=== PATIENT | female | born 1970 | race Caucasian/White ===

== ENCOUNTER → 2016-11-19 | Outpatient (CLI) | payer MEDICARE, MEDICAID ==
--- NOTE | 2016-11-19 10:50 | MM ---
Reason for exam: screening (asymptomatic). Baseline mammogram. History: Taking estrogen for 4 months beginning at age 45. Physical Findings: Nurse did not find any significant physical abnormalities on exam. MG 3D Screening Mammo W/Cad Bilateral CC and MLO view(s) were taken. The breast tissue is heterogeneously dense. This may lower the sensitivity of mammography. Finding: There are typically benign round calcifications in the right breast. There is no discrete abnormality. These results were verbally communicated with the patient and result sheet given to the patient on 11/19/16. ASSESSMENT: Benign, BI-RAD 2 RECOMMENDATION: Routine screening mammogram of both breasts in 1 year.
== END | disposition home or self-care (01) ==
LOC: RADMAMWWP 09:40
PROVIDERS: ATTEND Family Medicine
DX: Z12.31 Encounter for screening mammogram for malignant neoplasm of breast (principal)
CPT/HCPCS: 77063; G0202

== ENCOUNTER 2017-08-09 15:46 | Emergency (ER) | payer MEDICARE, OTHER ==
--- NOTE | 2017-08-09 16:22 | ED ---
General Adult HPI - General Stated complaint: Mental health Time Seen by Provider: 08/09/17 15:47 Source: patient, police, EMS, RN notes reviewed, old records reviewed Mode of arrival: ambulatory Limitations: no limitations - History of Present Illness Initial comments: Chief complaint and history of present illness a 46-year-old female brought in by state police and EMS. Patient is here for psychiatric evaluation. The patient states that several days ago she took 15 Lamictal because she is depressed. Today she called around to several hospitals try to get into the psychiatric program because of depression one of the hospital should she called was [facility] she thinks they called the police to bring her here because she said she was depressed. She told [facility] that she had taken the pills today she told me she took them several days ago. She is told them she took him today in order to get fast results. The patient's medications include Paxil, Risperdal and Lamictal. Her alcohol level today is 0.0 to - Related Data Home Medications Medication Instructions Recorded Confirmed Vitamin B Complex 1 cap PO DAILY 05/09/15 11/27/15 ALPRAZolam [Xanax] 0.25 mg PO TID PRN 06/20/15 11/27/15 HYDROcodone/APAP 10-325MG [[place] 1 tab PO Q6H PRN 10/11/15 11/27/15 10-325] busPIRone HCL 15 mg PO BID 11/27/15 11/27/15 Previous Rx's Medication Instructions Recorded Albuterol Inhaler [Ventolin Hfa 2 puff INHALATION RT-QID PRN #0 12/01/15 Inhaler] puff Cyclobenzaprine [Flexeril] 5 mg PO HS tab 12/01/15 HYDROcodone/APAP 5-325MG [[place] 1 each PO TID PRN #0 tab 12/01/15 5-325] Meloxicam [Mobic] 15 mg PO QAM PRN #0 tab 12/01/15 Nicotine 21Mg/24Hr Patch [Habitrol] 1 patch TRANSDERM DAILY #30 patch 12/01/15 buPROPion SR [Wellbutrin SR] 100 mg PO PC-BID #60 tablet.er 12/01/15 busPIRone HCl [Buspar] 15 mg PO TID #90 tab 12/01/15 fluPHENAZine [Prolixin] 5 mg PO BID #60 tab 12/01/15 lamoTRIgine [LaMICtal] 100 mg PO TID #90 tab 12/01/15 traZODone HCL [Desyrel] 150 mg PO HS #90 tab 12/01/15 Allergies Allergy/AdvReac Type Severity Reaction Status Date / Time codeine Allergy Itching Verified 08/09/17 15:57 Review of Systems ROS Statement: Those systems with pertinent positive or pertinent negative responses have been documented in the HPI. Review of systems; patient complained of being depressed and states she took 13- 15 Lamictal tablets several days ago. Vomited afterwards. She reported to another hospital that she had taken the medications because depression she tried to make them believe she had taken them recently. They apparently then called the police and EMS brought the patient here. Patient states her past history includes bipolar disorder and alcoholism. Patient denying chest pain shortness breath GI/ problems no neuro deficits. Patient reports she has bipolar disorder and she is depressed. Past medical problems bipolar disorder, surgery skin graft over 4. Family history no cancers. Patient has ALLERGIES to codeine. Patient is a smoker strongly encouraged to stop. She's not alcoholic [facility] twice and she is currently going to Alcoholics Anonymous. She did have alcohol recently her breath alcohol is 0.02. ROS Other: All systems not noted in ROS Statement are negative. Past Medical History Past Medical History: Asthma, Osteoarthritis (OA) Additional Past Medical History / Comment(s): Breast cancer History of Any Multi-Drug Resistant Organisms: MRSA Date of last positivie culture/infection: 2008 MDRO Source:: jaw, blood Past Surgical History: Tubal Ligation, Uterine Ablation Past Anesthesia/Blood Transfusion Reactions: No Reported Reaction Past Psychological History: Anxiety, Depression Smoking Status: Current every day smoker Past Alcohol Use History: None Reported Past Drug Use History: None Reported - Past Family History Mother Family Medical History: No Reported History General Exam - General Exam Comments Initial Comments: General: The patient is awake and alert, patient reports she did take 12th 15 Lamictal tablets 2 days ago and then vomited. States she was depressed enough time to do that. Denies taking Tylenol or aspirin other than for headache this morning. These will be checked for toxicity. Patient's breath alcohol is 0.02. Eye: Pupils are equal, round and reactive to light, extra-ocular movements are intact ; there is normal conjunctiva bilaterally. No signs of icterus. Ears, nose, mouth and throat: There are moist mucous membranes and no oral lesions. Neck: The neck is supple, there is no tenderness, no complaint of neck pain or cervical lymphadenopathy. Cardiovascular: There is a regular rate and rhythm. No murmur, rub or gallop is appreciated. Respiratory: Lungs are clear to auscultation, respirations are non-labored, breath sounds are equal. No wheezes, stridor, rales, or rhonchi. Gastrointestinal: No nausea no vomiting no abdominal pain. No change in appetite. No diarrhea. Back: Denies back pain. No rashes. Musculoskeletal: Normal ROM, no tenderness, There is no pedal edema. There is no calf tenderness or swelling. Sensation intact. Neurological: No neuro deficits complained of are noted. No dizziness. Skin: Denies any skin rashes and none noted. Psychiatric: Cooperative, history of bipolar disorder. The patient is tearful, unhappy to be at this hospital. Was trying to get into other psychiatric hospitals. History of bipolar disorder. Admit to taking 12:15 Lamictal tablets 2 days ago but vomiting shortly thereafter. Limitations: no limitations Course Vital Signs 08/09/17 15:48 Temperature 97.9 F Pulse Rate 79 Respiratory 18 Rate Blood Pressure 130/69 O2 Sat by Pulse 99 Oximetry Medical Decision Making - Medical Decision Making Medical decision making; patient's here for bipolar disorder, depression. Her filled out a petition because of mood swings and depression. Urine shows positive opiates, tricyclics and benzodiazepines. Aspirin level 0.7 which is well below toxic and in the therapeutic range she admits taking 4 headache and there earlier today. Negative . Patient be evaluated by psychiatric nurse. Patient was evaluated by the psychiatric nurse. She spoke with the on-call psychiatrist and the plans for the patient be admitted. The patient refuses to be admitted here. Her is filled out a petition concerning her mental illness. I have completed a certificate. Evidence of being made to find the patient a psychiatric bed in another facility. - Lab Data Result diagrams: 08/09/17 16:30 08/09/17 16:30 Lab Results 08/09/17 08/09/17 08/09/17 Range/Units 16:15 16:20 16:20 WBC (3.8-10.6) k/uL RBC (3.80-5.40) m/uL Hgb (11.4-16.0) gm/dL Hct (34.0-46.0) % MCV (80.0-100.0) fL MCH (25.0-35.0) pg MCHC (31.0-37.0) g/dL RDW (11.5-15.5) % Plt Count (150-450) k/uL Neutrophils % % Lymphocytes % % Monocytes % % Eosinophils % % Basophils % % Neutrophils # (1.3-7.7) k/uL Lymphocytes # (1.0-4.8) k/uL Monocytes # (0-1.0) k/uL Eosinophils # (0-0.7) k/uL Basophils # (0-0.2) k/uL Sodium (137-145) mmol/L Potassium (3.5-5.1) mmol/L Chloride (98-107) mmol/L Carbon Dioxide (22-30) mmol/L Anion Gap mmol/L BUN (7-17) mg/dL Creatinine (0.52-1.04) mg/dL Est GFR (CKD-EPI)AfAm (>60 ml/min/1.73 sqM) Est GFR (CKD-EPI)NonAf (>60 ml/min/1.73 sqM) Glucose (74-99) mg/dL Calcium (8.4-10.2) mg/dL Total Bilirubin (0.2-1.3) mg/dL AST (14-36) U/L ALT (9-52) U/L Alkaline Phosphatase (38-126) U/L Total Protein (6.3-8.2) g/dL Albumin (3.5-5.0) g/dL Urine HCG, Qual Not Detected (Not Detectd) Salicylates 7.4 mg/dL Urine Opiates Screen Detected H (NotDetected) Ur Oxycodone Screen Not Detected (NotDetected) Urine Methadone Screen Not Detected (NotDetected) Ur Propoxyphene Screen Not Detected (NotDetected) Acetaminophen 21.0 ug/mL Ur Barbiturates Screen Not Detected (NotDetected) U Tricyclic Antidepress Detected H (NotDetected) Ur Phencyclidine Scrn Not Detected (NotDetected) Ur Amphetamines Screen Not Detected (NotDetected) U Methamphetamines Scrn Not Detected (NotDetected) U Benzodiazepines Scrn Detected H (NotDetected) Urine Cocaine Screen Not Detected (NotDetected) U Marijuana (THC) Screen Not Detected (NotDetected) 08/09/17 08/09/17 Range/Units 16:30 16:30 WBC 10.3 (3.8-10.6) k/uL RBC 4.75 (3.80-5.40) m/uL Hgb 15.4 (11.4-16.0) gm/dL Hct 46.5 H (34.0-46.0) % MCV 97.9 (80.0-100.0) fL MCH 32.4 (25.0-35.0) pg MCHC 33.1 (31.0-37.0) g/dL RDW 15.4 (11.5-15.5) % Plt Count 332 (150-450) k/uL Neutrophils % 53 % Lymphocytes % 34 % Monocytes % 6 % Eosinophils % 4 % Basophils % 1 % Neutrophils # 5.5 (1.3-7.7) k/uL Lymphocytes # 3.5 (1.0-4.8) k/uL Monocytes # 0.6 (0-1.0) k/uL Eosinophils # 0.4 (0-0.7) k/uL Basophils # 0.1 (0-0.2) k/uL Sodium 141 (137-145) mmol/L Potassium 4.2 (3.5-5.1) mmol/L Chloride 110 H (98-107) mmol/L Carbon Dioxide 21 L (22-30) mmol/L Anion Gap 10 mmol/L BUN 9 (7-17) mg/dL Creatinine 0.60 (0.52-1.04) mg/dL Est GFR (CKD-EPI)AfAm >90 (>60 ml/min/1.73 sqM) Est GFR (CKD-EPI)NonAf >90 (>60 ml/min/1.73 sqM) Glucose 81 (74-99) mg/dL Calcium 9.3 (8.4-10.2) mg/dL Total Bilirubin 0.1 L (0.2-1.3) mg/dL AST 29 (14-36) U/L ALT 29 (9-52) U/L Alkaline Phosphatase 82 (38-126) U/L Total Protein 6.1 L (6.3-8.2) g/dL Albumin 3.7 (3.5-5.0) g/dL Urine HCG, Qual (Not Detectd) Salicylates mg/dL Urine Opiates Screen (NotDetected) Ur Oxycodone Screen (NotDetected) Urine Methadone Screen (NotDetected) Ur Propoxyphene Screen (NotDetected) Acetaminophen ug/mL Ur Barbiturates Screen (NotDetected) U Tricyclic Antidepress (NotDetected) Ur Phencyclidine Scrn (NotDetected) Ur Amphetamines Screen (NotDetected) U Methamphetamines Scrn (NotDetected) U Benzodiazepines Scrn (NotDetected) Urine Cocaine Screen (NotDetected) U Marijuana (THC) Screen (NotDetected) Disposition Clinical Impression: Depression, Attempted suicide Disposition: TRANSFER TO PSYCH HOSP/UNIT Condition: Undetermined Is patient prescribed a controlled substance at d/c from ED?: No Referrals: Ihsan Staples MD [Primary Care Provider] - 1-2 days - Out of Hospital Transfer - Req. Specs Out of Hospital Transfer - Requested Specifics: Psychiatric Non-ICU (Transfer to [facility])
[2017-08-09 16:37] LABS: Salicylate 7.4 mg/dL
[2017-08-09 16:38] LABS: Amphetamine Screen,Urine Not Detected (NotDetected); Barbiturate Screen,Urine Not Detected (NotDetected); Benzodiazepines Screen,Urine Detected (NotDetected); Cocaine Screen,Urine Not Detected (NotDetected); Methadone Screen, Urine Not Detected (NotDetected); Opiate Screen,Urine Detected (NotDetected); Oxycodone Screen, Urine Not Detected (NotDetected); Phencyclidine Screen,Urine Not Detected (NotDetected); Tricyclic Antidepressant,Urine Detected (NotDetected); Urn Cannabinoid Scrn Not Detected (NotDetected)
[2017-08-09 18:32] LABS: Basophils # (A) 0.1 k/uL (0-0.2); Basophils % (A) 1 %; Eosinophils # (A) 0.4 k/uL (0-0.7); Eosinophils % (A) 4 %; HCT 46.5 % (34.0-46.0); HGB 15.4 gm/dL (11.4-16.0); Lymphocytes # (A) 3.5 k/uL (1.0-4.8); Lymphocytes % (A) 34 %; MCH 32.4 pg (25.0-35.0); MCHC 33.1 g/dL (31.0-37.0); MCV 97.9 fL (80.0-100.0); Mean Platelet Volume 7.3; Monocytes # (A) 0.6 k/uL (0-1.0); Monocytes % (A) 6 %; Neutrophils # (A) 5.5 k/uL (1.3-7.7); Neutrophils % (A) 53 %; Platelet Count 332 k/uL (150-450); RBC 4.75 m/uL (3.80-5.40); RDW 15.4 % (11.5-15.5); WBC 10.3 k/uL (3.8-10.6)
[2017-08-09 18:37] LABS: ALT 29 U/L (9-52); AST 29 U/L (14-36); Albumin 3.7 g/dL (3.5-5.0); Alkaline Phosphatase 82 U/L (38-126); Anion Gap 10 mmol/L; Blood Urea Nitrogen 9 mg/dL (7-17); Calcium 9.3 mg/dL (8.4-10.2); Carbon Dioxide 21 mmol/L (22-30); Chloride 110 mmol/L (98-107); Glucose 81 mg/dL (74-99); Potassium 4.2 mmol/L (3.5-5.1); Sodium 141 mmol/L (137-145); Total Bilirubin 0.1 mg/dL (0.2-1.3); Total Protein 6.1 g/dL (6.3-8.2)
[2017-08-09 22:28] VITALS: BP 122/70; PULSE 96; RESP 15; TEMP 98.4
== END 2017-08-09 22:28 ==
LOC: EC 15:46
DX: F31.30 Bipolar disorder, current episode depressed, mild or moderate severity, unspecified (principal); T42.6X2A Poisoning by other antiepileptic and sedative-hypnotic drugs, intentional self-harm, initial encounter; R45.83 Excessive crying of child, adolescent or adult; F41.9 Anxiety disorder, unspecified; F17.200 Nicotine dependence, unspecified, uncomplicated; Z79.899 Other long term (current) drug therapy; Z88.5 Allergy status to narcotic agent; Z86.14 Personal history of Methicillin resistant Staphylococcus aureus infection
CPT/HCPCS: 36415; 80053; 80175; 80306; 81025; 82075; 83520; 85025; 99285

== ENCOUNTER 2018-04-01 14:00 | Emergency (ER) | payer MEDICARE ==
[2018-04-01] MEDS ORDERED: IPRATROPIUM-ALBUTEROL 3 ML NEB INHALATION STA (14:26)
[2018-04-01] MEDS ORDERED: SODIUM CHLORIDE 0.9% 1,000 ML IV STA (14:26)
--- NOTE | 2018-04-01 15:07 | ED ---
Chest Pain HPI - General Chief Complaint: Chest Pain Stated Complaint: Painful to breathe Time Seen by Provider: 04/01/18 14:08 Source: patient, RN notes reviewed, old records reviewed Mode of arrival: ambulatory Limitations: no limitations - History of Present Illness Initial Comments: Patient is a 47-year-old female process returns today for chest pain. She complains of shortness of breath with exertion and diaphoresis with exertion. She states it seems to worse with walking short distances the bathroom. She is a she's noticed the symptoms for the past 10 days. Symptoms seem to start after she was getting over the flu. Patient states that she is a smoker. She is no family history of heart disease. No previous history of heart disease. Patient states that she is not on any control. - Related Data Home Medications Medication Instructions Recorded Confirmed HYDROcodone/APAP 10-325MG [[place] 1 tab PO Q6H PRN 10/11/15 04/01/18 10-325] busPIRone HCL 15 mg PO BID 11/27/15 04/01/18 LORazepam [Ativan] 1 mg PO Q8H PRN 04/01/18 04/01/18 PARoxetine [Paxil] 20 mg PO HS 04/01/18 04/01/18 Previous Rx's Medication Instructions Recorded lamoTRIgine [LaMICtal] 100 mg PO TID #90 tab 12/01/15 traZODone HCL [Desyrel] 150 mg PO HS #90 tab 12/01/15 Albuterol Inhaler [Ventolin Hfa 1 - 2 puff INHALATION RT-Q6H PRN 04/01/18 Inhaler] #1 inhaler PARoxetine [Paxil] 20 mg PO DAILY #20 tab 04/01/18 Allergies Allergy/AdvReac Type Severity Reaction Status Date / Time codeine Allergy Itching Verified 04/01/18 14:52 Review of Systems ROS Statement: Those systems with pertinent positive or pertinent negative responses have been documented in the HPI. ROS Other: All systems not noted in ROS Statement are negative. EKG Findings - EKG Comments: EKG Findings:: EKG shows normal sinus rhythm, normal EKG. Ventricular rate of 76 bpm. Was 160 ms. QS duration 92 ms. QT QTc is 396/445 ms. Past Medical History Past Medical History: Asthma, Osteoarthritis (OA) Additional Past Medical History / Comment(s): Breast cancer History of Any Multi-Drug Resistant Organisms: MRSA Date of last positivie culture/infection: 2008 MDRO Source:: jaw, blood Past Surgical History: Tubal Ligation, Uterine Ablation Past Anesthesia/Blood Transfusion Reactions: No Reported Reaction Past Psychological History: Anxiety, Depression Smoking Status: Current every day smoker Past Alcohol Use History: None Reported Past Drug Use History: None Reported - Past Family History Mother Family Medical History: No Reported History General Exam Limitations: no limitations Course Vital Signs 04/01/18 04/01/18 04/01/18 14:02 15:00 15:05 Temperature 97.9 F Pulse Rate 101 H 74 85 Respiratory 18 18 16 Rate Blood Pressure 146/89 124/77 O2 Sat by Pulse 99 96 Oximetry 04/01/18 04/01/18 04/01/18 15:11 15:30 16:00 Temperature Pulse Rate 84 82 82 Respiratory 14 20 18 Rate Blood Pressure 113/81 129/72 O2 Sat by Pulse 98 98 Oximetry Chest Pain MDM - MDM Chest x-ray was negative. Patient is perk negative. EKG is normal. Normal troponin. She does still complain of chest pain and shortness of breath on exertion. I discussed her like to admit the Patient for repeat troponins and cardiac consult. Patient states that she will not stay states she does not have enough money to cover for the insurance. I discussed that with the Patient that I will still refill her albuterol inhaler but she was still satting of sick medical advice for discharge. Patient has been advised to have strict return parameters and all questions were answered. We'll also refill Patient Paxil that she conceded PCP. Disposition Clinical Impression: Chest pain Disposition: Left Against Medical Advice Condition: Stable Instructions (If sedation given, give patient instructions): Chest Pain (ED) Additional Instructions: Follow up with PCP, return to ED if any alarming signs or symptoms occur. Patient should have stress test and echo. Prescriptions: Albuterol Inhaler [Ventolin Hfa Inhaler] 1 - 2 puff INHALATION RT-Q6H PRN #1 inhaler PRN Reason: Shortness Of Breath PARoxetine [Paxil] 20 mg PO DAILY #20 tab Is patient prescribed a controlled substance at d/c from ED?: No Referrals: None,Stated [Primary Care Provider] - 1-2 days Nikia Soriano MD [STAFF PHYSICIAN] - 1-2 days Linh Gore MD [REFERRING] - 1-2 days Time of Disposition: 17:28
[2018-04-01 15:13] LABS: Basophils % (A) 0 %; Eosinophils # (A) 0.4 k/uL (0-0.7); Eosinophils % (A) 3 %; HCT 43.3 % (34.0-46.0); HGB 13.9 gm/dL (11.4-16.0); Lymphocytes # (A) 3.1 k/uL (1.0-4.8); Lymphocytes % (A) 22 %; MCH 30.7 pg (25.0-35.0); MCV 95.8 fL (80.0-100.0); Mean Platelet Volume 6.1; Monocytes # (A) 0.5 k/uL (0-1.0); Monocytes % (A) 4 %; Neutrophils # (A) 9.8 k/uL (1.3-7.7); Neutrophils % (A) 69 %; Platelet Count 447 k/uL (150-450); RBC 4.52 m/uL (3.80-5.40); RDW 13.6 % (11.5-15.5); WBC 14.2 k/uL (3.8-10.6)
[2018-04-01 15:15] LABS: ALT 18 U/L (9-52); AST 23 U/L (14-36); Albumin 4.1 g/dL (3.5-5.0); Alkaline Phosphatase 55 U/L (38-126); Amylase 42 U/L (30-110); Anion Gap 8 mmol/L; Blood Urea Nitrogen 9 mg/dL (7-17); Calcium 9.6 mg/dL (8.4-10.2); Carbon Dioxide 21 mmol/L (22-30); Chloride 110 mmol/L (98-107); Glucose 85 mg/dL (74-99); Lipase 51 U/L (23-300); Magnesium 1.8 mg/dL (1.6-2.3); Potassium 4.3 mmol/L (3.5-5.1); Sodium 139 mmol/L (137-145); Total Bilirubin 0.4 mg/dL (0.2-1.3); Total Protein 6.7 g/dL (6.3-8.2)
[2018-04-01 15:26] LABS: Prothrombin Time 10.4 sec (9.0-12.0)
[2018-04-01 15:29] LABS: Creatine Kinase 87 U/L (30-135)
[2018-04-01 15:38] LABS: Amorphous Sediment,Urine Rare /hpf; Appearance,Urine Cloudy (Clear); Bacteria,Urine Rare /hpf; Bilirubin,Urine Negative (Negative); Blood,Urine Small (Negative); Color,Urine Light Yellow; Glucose,Urine (UA) Negative (Negative); Ketones,Urine Negative (Negative); Leukocyte Esterase,Urine Negative (Negative); Nitrite,Urine Negative (Negative); PH, Urine 5.5 (5.0-8.0); Protein,Urine Negative (Negative); RBC,Urine 2 /hpf (0-5); Specific Gravity,Urine 1.004 (1.001-1.035); Squamous Epithelial Cell,Urine 9 /hpf (0-4); Urobilinogen,Urine <2.0 mg/dL (<2.0); WBC,Urine <1 /hpf (0-5)
[2018-04-01] MEDS ORDERED: PARoxetine 20 MG TAB PO STA (15:39)
[2018-04-01 15:42] LABS: Creatine Kinase MB 0.4 ng/mL (0.0-2.4); Troponin I <0.012 ng/mL (0.000-0.034)
--- NOTE | 2018-04-01 16:03 | XR ---
EXAMINATION TYPE: XR chest 2V DATE OF EXAM: 04/01/2018 COMPARISON: Prior chest x-ray 02/20/2015 HISTORY: Chest pain and shortness of breath TECHNIQUE: Frontal and lateral views of the chest are obtained. FINDINGS: There is no focal air space opacity, pleural effusion, or pneumothorax seen. The cardiac silhouette size is within normal limits. The osseous structures are intact. There are overlying car diac leads. IMPRESSION: No acute cardiopulmonary process.
[2018-04-01 16:12] VITALS: RESP 18
[2018-04-01 17:46] VITALS: BP 127/83; PULSE 80; TEMP 98.6
== END 2018-04-01 17:40 | disposition left against medical advice (07) ==
LOC: EC 14:00
DX: R07.9 Chest pain, unspecified (principal); R06.02 Shortness of breath; R61 Generalized hyperhidrosis; J45.909 Unspecified asthma, uncomplicated; M19.90 Unspecified osteoarthritis, unspecified site; F41.9 Anxiety disorder, unspecified; F32.9 Major depressive disorder, single episode, unspecified; F17.200 Nicotine dependence, unspecified, uncomplicated; Z85.3 Personal history of malignant neoplasm of breast; Z86.14 Personal history of Methicillin resistant Staphylococcus aureus infection; Z98.51 Tubal ligation status; Z98.890 Other specified postprocedural states; Z79.899 Other long term (current) drug therapy; Z88.5 Allergy status to narcotic agent
CPT/HCPCS: 36415; 71046; 80053; 81001; 82150; 82550; 82553; 83690; 83735; 84484; 85025; 85610; 85730; 93005; 94640; 96360; 96361; 99285

== ENCOUNTER 2018-05-15 17:47 | Inpatient (IN) | payer MEDICARE ==
--- NOTE | 2018-05-15 18:16 | ED ---
General Adult HPI - General Chief complaint: Psychiatric Symptoms Stated complaint: Mental Health Time Seen by Provider: 05/15/18 17:50 Source: patient, RN notes reviewed Mode of arrival: ambulatory Limitations: no limitations - History of Present Illness Initial comments: This a 47-year-old female presented emergency department stating she was having suicidal ideations today and took 15 Paxil. Patient states shortly thereafter she vomited all the Paxil up she believes. Patient states that occurred at about 2:00 this afternoon. Patient states over the last few days she's been extremely anxious and getting more and more anxious. Patient states this morning she decided to have a few. Because she thought that might settle her anxiety down. Patient states she drank from 8 to about 2 at which time she decided take Paxil. Patient states she only consumed 4 beers. patient has no physical complaints today. Patient denies headache patient denies any numbness weakness. Patient denies any chest pain difficulty breathing shortness of breath per patient denies any recent fever chills or cough per patient denies abdominal pain patient denies nausea vomiting or diarrhea. - Related Data Home Medications Medication Instructions Recorded Confirmed HYDROcodone/APAP 10-325MG [[place] 1 tab PO Q6H PRN 10/11/15 05/15/18 10-325] busPIRone HCL 15 mg PO BID 11/27/15 05/15/18 LORazepam [Ativan] 1 mg PO Q8H PRN 04/01/18 05/15/18 PARoxetine [Paxil] 20 mg PO HS 04/01/18 05/15/18 Biotin 5 mg PO DAILY 05/15/18 05/15/18 Multivitamins, Thera [Multivitamin 1 tab PO DAILY 05/15/18 05/15/18 (formulary)] Thiamine [Vitamin B-1] 50 mg PO DAILY 05/15/18 05/15/18 lamoTRIgine [LaMICtal] 150 mg PO BID 05/15/18 05/15/18 Previous Rx's Medication Instructions Recorded traZODone HCL [Desyrel] 150 mg PO HS #90 tab 12/01/15 Albuterol Inhaler [Ventolin Hfa 1 - 2 puff INHALATION RT-Q6H PRN 04/01/18 Inhaler] #1 inhaler Allergies Allergy/AdvReac Type Severity Reaction Status Date / Time codeine Allergy Itching Verified 05/15/18 18:32 Review of Systems ROS Statement: Those systems with pertinent positive or pertinent negative responses have been documented in the HPI. ROS Other: All systems not noted in ROS Statement are negative. Past Medical History Past Medical History: Asthma, Osteoarthritis (OA) Additional Past Medical History / Comment(s): Breast cancer History of Any Multi-Drug Resistant Organisms: MRSA Date of last positivie culture/infection: 2008 MDRO Source:: jaw, blood Past Surgical History: Tubal Ligation, Uterine Ablation Past Anesthesia/Blood Transfusion Reactions: No Reported Reaction Past Psychological History: Anxiety, Depression Smoking Status: Current every day smoker Past Alcohol Use History: Occasional Past Drug Use History: None Reported - Past Family History Mother Family Medical History: No Reported History General Exam - General Exam Comments Initial Comments: GENERAL Patient is well-developed and well-nourished. Patient is in mild distress. EYES Patient's pupils are equal and round. Extraocular motion is intact SKIN Unremarkable NEURO The patient is alert and oriented 3 PYSCH States she was having suicidal ideations all day. MUSCULOSKELETAL All 4 times and full range of motion. Limitations: no limitations Course Vital Signs 05/15/18 17:49 Temperature 97.6 F Pulse Rate 90 Respiratory 18 Rate Blood Pressure 111/62 O2 Sat by Pulse 98 Oximetry Medical Decision Making - Medical Decision Making EPS evaluated the patient and determined the patient needed to be brought into the psych department. - Lab Data Result diagrams: 05/15/18 18:35 05/15/18 18:35 Lab Results 05/15/18 05/15/18 05/15/18 Range/Units 18:35 18:35 18:35 WBC 12.9 H (3.8-10.6) k/uL RBC 4.55 (3.80-5.40) m/uL Hgb 14.7 (11.4-16.0) gm/dL Hct 44.7 (34.0-46.0) % MCV 98.1 (80.0-100.0) fL MCH 32.2 (25.0-35.0) pg MCHC 32.8 (31.0-37.0) g/dL RDW 14.2 (11.5-15.5) % Plt Count 350 (150-450) k/uL Neutrophils % 60 % Lymphocytes % 30 % Monocytes % 5 % Eosinophils % 3 % Basophils % 0 % Neutrophils # 7.7 (1.3-7.7) k/uL Lymphocytes # 3.9 (1.0-4.8) k/uL Monocytes # 0.6 (0-1.0) k/uL Eosinophils # 0.4 (0-0.7) k/uL Basophils # 0.0 (0-0.2) k/uL Sodium 136 L (137-145) mmol/L Potassium 4.5 (3.5-5.1) mmol/L Chloride 106 (98-107) mmol/L Carbon Dioxide 21 L (22-30) mmol/L Anion Gap 9 mmol/L BUN 11 (7-17) mg/dL Creatinine 0.61 (0.52-1.04) mg/dL Est GFR (CKD-EPI)AfAm >90 (>60 ml/min/1.73 sqM) Est GFR (CKD-EPI)NonAf >90 (>60 ml/min/1.73 sqM) Glucose 81 (74-99) mg/dL Calcium 9.8 (8.4-10.2) mg/dL Total Bilirubin 0.3 (0.2-1.3) mg/dL AST 21 (14-36) U/L ALT 24 (9-52) U/L Alkaline Phosphatase 65 (38-126) U/L Total Protein 6.6 (6.3-8.2) g/dL Albumin 4.0 (3.5-5.0) g/dL Salicylates 1.1 mg/dL Urine Opiates Screen Detected H (NotDetected) Ur Oxycodone Screen Not Detected (NotDetected) Urine Methadone Screen Not Detected (NotDetected) Ur Propoxyphene Screen Not Detected (NotDetected) Acetaminophen <10.0 ug/mL Ur Barbiturates Screen Not Detected (NotDetected) U Tricyclic Antidepress Detected H (NotDetected) Ur Phencyclidine Scrn Not Detected (NotDetected) Ur Amphetamines Screen Not Detected (NotDetected) U Methamphetamines Scrn Not Detected (NotDetected) U Benzodiazepines Scrn Not Detected (NotDetected) Urine Cocaine Screen Not Detected (NotDetected) U Marijuana (THC) Screen Not Detected (NotDetected) Disposition Clinical Impression: Suicidal ideation, Depression Disposition: ADMITTED IP TO THIS HOSP Referrals: Ihsan Staples MD [Primary Care Provider] - 1-2 days Time of Disposition: 19:59
[2018-05-15 18:45] LABS: Basophils % (A) 0 %; Eosinophils # (A) 0.4 k/uL (0-0.7); Eosinophils % (A) 3 %; HCT 44.7 % (34.0-46.0); HGB 14.7 gm/dL (11.4-16.0); Lymphocytes # (A) 3.9 k/uL (1.0-4.8); Lymphocytes % (A) 30 %; MCH 32.2 pg (25.0-35.0); MCHC 32.8 g/dL (31.0-37.0); MCV 98.1 fL (80.0-100.0); Mean Platelet Volume 6.5; Monocytes # (A) 0.6 k/uL (0-1.0); Monocytes % (A) 5 %; Neutrophils # (A) 7.7 k/uL (1.3-7.7); Neutrophils % (A) 60 %; Platelet Count 350 k/uL (150-450); RBC 4.55 m/uL (3.80-5.40); RDW 14.2 % (11.5-15.5); WBC 12.9 k/uL (3.8-10.6)
[2018-05-15 18:56] LABS: ALT 24 U/L (9-52); AST 21 U/L (14-36); Acetaminophen <10.0 ug/mL; Alkaline Phosphatase 65 U/L (38-126); Anion Gap 9 mmol/L; Blood Urea Nitrogen 11 mg/dL (7-17); Calcium 9.8 mg/dL (8.4-10.2); Carbon Dioxide 21 mmol/L (22-30); Chloride 106 mmol/L (98-107); Glucose 81 mg/dL (74-99); Potassium 4.5 mmol/L (3.5-5.1); Salicylate 1.1 mg/dL; Sodium 136 mmol/L (137-145); Total Bilirubin 0.3 mg/dL (0.2-1.3); Total Protein 6.6 g/dL (6.3-8.2)
[2018-05-15 19:08] LABS: Amphetamine Screen,Urine Not Detected (NotDetected); Barbiturate Screen,Urine Not Detected (NotDetected); Benzodiazepines Screen,Urine Not Detected (NotDetected); Cocaine Screen,Urine Not Detected (NotDetected); Methadone Screen, Urine Not Detected (NotDetected); Opiate Screen,Urine Detected (NotDetected); Oxycodone Screen, Urine Not Detected (NotDetected); Phencyclidine Screen,Urine Not Detected (NotDetected); Tricyclic Antidepressant,Urine Detected (NotDetected); Urn Cannabinoid Scrn Not Detected (NotDetected)
[2018-05-15] MEDS ORDERED: MAG HYDROX/AL HYDROX/SIMETH 30 ML CUP PO PRN (22:11)
[2018-05-15] MEDS ORDERED: MAGNESIUM HYDROXIDE 2,400 MG/10 ML CUP PO PRN (22:11)
[2018-05-16] MEDS ORDERED: ALBUTEROL NEBULIZED 1.25 MG/3 ML INHALATION PRN (01:03)
[2018-05-16 02:30] LABS: Cholesterol 161 mg/dL (<200); HDL Cholesterol 50 mg/dL (40-60); LDL Cholesterol,Calculated 50 mg/dL (0-99); Triglycerides 306 mg/dL (<150)
[2018-05-16] MEDS: NICOTINE 14MG/24HR PATCH TRANSDERM SCH ×2 (11:15→13:17)
[2018-05-16] MEDS: LORazepam 1 MG TAB PO PRN (13:16)
[2018-05-16 14:04] LABS: Hemoglobin A1C 5.8 % (4.0-6.0)
--- NOTE | 2018-05-16 16:39 | P.HP ---
Psychiatric H&P - . H&P Date: 05/16/18 History & Physical: Allergies Allergy/AdvReac Type Severity Reaction Status Date / Time codeine Allergy Itching Verified 05/15/18 18:32 Vital Signs Temp 97.0 F L 05/15/18 22:50 Pulse 92 05/15/18 22:50 Resp 16 05/15/18 22:50 BP 93/68 05/15/18 22:50 Pulse Ox 95 05/15/18 22:50 Intake & Output 05/15/18 05/16/18 05/16/18 18:59 06:59 18:59 Weight 58.967 kg 66 kg Laboratory Last Values WBC 12.9 k/uL (3.8-10.6) H 05/15/18 18:35 RBC 4.55 m/uL (3.80-5.40) 05/15/18 18:35 Hgb 14.7 gm/dL (11.4-16.0) 05/15/18 18:35 Hct 44.7 % (34.0-46.0) 05/15/18 18:35 MCV 98.1 fL (80.0-100.0) 05/15/18 18:35 MCH 32.2 pg (25.0-35.0) 05/15/18 18:35 MCHC 32.8 g/dL (31.0-37.0) 05/15/18 18:35 RDW 14.2 % (11.5-15.5) 05/15/18 18:35 Plt Count 350 k/uL (150-450) 05/15/18 18:35 Neutrophils % 60 % 05/15/18 18:35 Lymphocytes % 30 % 05/15/18 18:35 Monocytes % 5 % 05/15/18 18:35 Eosinophils % 3 % 05/15/18 18:35 Basophils % 0 % 05/15/18 18:35 Neutrophils # 7.7 k/uL (1.3-7.7) 05/15/18 18:35 Lymphocytes # 3.9 k/uL (1.0-4.8) 05/15/18 18:35 Monocytes # 0.6 k/uL (0-1.0) 05/15/18 18:35 Eosinophils # 0.4 k/uL (0-0.7) 05/15/18 18:35 Basophils # 0.0 k/uL (0-0.2) 05/15/18 18:35 Sodium 136 mmol/L (137-145) L 05/15/18 18:35 Potassium 4.5 mmol/L (3.5-5.1) 05/15/18 18:35 Chloride 106 mmol/L (98-107) 05/15/18 18:35 Carbon Dioxide 21 mmol/L (22-30) L 05/15/18 18:35 Anion Gap 9 mmol/L 05/15/18 18:35 BUN 11 mg/dL (7-17) 05/15/18 18:35 Creatinine 0.61 mg/dL (0.52-1.04) 05/15/18 18:35 Est GFR (CKD-EPI)AfAm >90 (>60 ml/min/1.73 sqM) 05/15/18 18:35 Est GFR (CKD-EPI)NonAf >90 (>60 ml/min/1.73 sqM) 05/15/18 18:35 Glucose 81 mg/dL (74-99) 05/15/18 18:[address] Glu mg/dL 120 05/15/18 18:35 Hemoglobin A1c 5.8 % (4.0-6.0) 05/15/18 18:35 Calcium 9.8 mg/dL (8.4-10.2) 05/15/18 18:35 Total Bilirubin 0.3 mg/dL (0.2-1.3) 05/15/18 18:35 AST 21 U/L (14-36) 05/15/18 18:35 ALT 24 U/L (9-52) 05/15/18 18:35 Alkaline Phosphatase 65 U/L (38-126) 05/15/18 18:35 Total Protein 6.6 g/dL (6.3-8.2) 05/15/18 18:35 Albumin 4.0 g/dL (3.5-5.0) 05/15/18 18:35 Triglycerides 306 mg/dL (<150) H 05/15/18 18:35 Cholesterol 161 mg/dL (<200) 05/15/18 18:35 LDL Cholesterol, Calc 50 mg/dL (0-99) 05/15/18 18:35 HDL Cholesterol 50 mg/dL (40-60) 05/15/18 18:35 Salicylates 1.1 mg/dL 05/15/18 18:35 Urine Opiates Screen Detected (NotDetected) H 05/15/18 18:35 Ur Oxycodone Screen Not Detected (NotDetected) 05/15/18 18:35 Urine Methadone Screen Not Detected (NotDetected) 05/15/18 18:35 Ur Propoxyphene Screen Not Detected (NotDetected) 05/15/18 18:35 Acetaminophen <10.0 ug/mL 05/15/18 18:35 Ur Barbiturates Screen Not Detected (NotDetected) 05/15/18 18:35 U Tricyclic Antidepress Detected (NotDetected) H 05/15/18 18:35 Ur Phencyclidine Scrn Not Detected (NotDetected) 05/15/18 18:35 Ur Amphetamines Screen Not Detected (NotDetected) 05/15/18 18:35 U Methamphetamines Scrn Not Detected (NotDetected) 05/15/18 18:35 U Benzodiazepines Scrn Not Detected (NotDetected) 05/15/18 18:35 Urine Cocaine Screen Not Detected (NotDetected) 05/15/18 18:35 U Marijuana (THC) Screen Not Detected (NotDetected) 05/15/18 18:35 05/16/18 16:25 IDENTIFYING DATA: A 47-year-old female patient HPI: Patient admitted to the inpatient psychiatric unit at [facility] on a voluntary basis. Patient states that she has had [id number] anxiety recently for a week or more and thinks that steroid started at. She states that the anxiety continued to persist and she started drinking to handle it. She then developed thoughts of suicide and she took 10-15 Paxil but states that she threw them all up. She says her brought her to the emergency room. She says she had been drinking daily for the last week. She admits to dealing with racing thoughts and sometimes she does worry a lot. PAST PSYCHIATRIC HISTORY: Patient goes to [facility] counseling. She sees a therapist Tisha and is prescribed medications by Roni. She states she was recently been on Paxil 20 more grams daily. Lamictal is a home medication 150 more grams twice a day. She's also been on BuSpar and trazodone. She feels like this medication regimen worked for a while. She has a history of bipolar 2 disorder and anxiety. She says she's been consistent with her medications over the past week. She's been on so many other medications in the past including Abilify which she did okay with but it has to be a low-dose or she develops akathisia. She is not sure if she is ever been on Cymbalta. She has had 5 psychiatric hospitalizations with suicide attempts which were overdoses. PMH: Says she takes painkillers for her jaw and a history of head injury ALLERGIES: Codeine MEDICATIONS: Tylenol when necessary, Maalox when necessary, Ventolin when necessary, Ativan when necessary, milk of magnesia when necessary, Habitrol patch. She was taking the above psychotropic medications as home medications which include Paxil, Lamictal, BuSpar and trazodone. CHEMICAL DEPENDENCY HISTORY: Patient reports having history of addiction to alcohol. She has had a longest sobriety period of 5 years up until about 3 years ago. Her relapses of difficulty been 1 week in duration. She has been to rehab twice and does not currently have a desire to do rehab again at this point in time. She does go to when she is not drinking. She denies any other drug use. FAMILY PSYCHIATRIC HISTORY: Cousin with bipolar disorder. Depression with her mom's dad and that side of the family. She says there is a lot of alcoholism. A lot of anxiety. FAMILY CHEMICAL DEPENDENCY HISTORY: She relays that there is a lot of alcoholism in the family. SOCIAL HISTORY: Per chart history she is . Per chart history she is on SSD. Per chart history some college education. Per chart history has 1 child. MENTAL STATUS EXAM: She is alert and cooperative with the interview. Her speech is fluent, not rapid or pressured. Thought processes are organized. Her mood is described as "subdued and anxious." She denies any active thoughts of suicide. She does state she feels safe here in the hospital. She denies any thoughts of harm to others. No evidence of active psychosis. Cognitively she appears very grossly intact. I do not note any significant disorientation or memory disturbance. Her insight is adequate, judgment shows evidence of recent impairment. STRENGTHS/WEAKNESSES: Strengthssome support; weaknessescoping skills, relapse alcohol use INTELLECTUAL FUNCTIONING: Average IMPRESSIONS: Bipolar disorder, depressed; unspecified anxiety disorder; alcohol use disorder PLAN: Patient will be admitted to inpatient psychiatric unit [facility]. She would placed on SP 15 minute precautions. Medical consultation will be ordered and Baseline laboratory workup will be done the patient we will look into any support systems we will maintain Lamictal for mood stabilization and initiate Cymbalta 30 mg daily for depression and anxiety. Estimated length of stay is 3-5 days prognosis is guarded.
[2018-05-16] MEDS: DULoxetine HCL 30 MG CAPSULE.DR PO SCH (17:32)
[2018-05-16] MEDS: lamoTRIgine 100 MG TAB PO SCH (20:06)
[2018-05-17] MEDS: lamoTRIgine 100 MG TAB PO SCH ×2 (08:35→20:18)
[2018-05-17] MEDS: NICOTINE 14MG/24HR PATCH TRANSDERM SCH (08:35)
[2018-05-17] MEDS: DULoxetine HCL 30 MG CAPSULE.DR PO SCH (08:36)
[2018-05-17] MEDS: ACETAMINOPHEN TAB 325 MG TAB PO PRN (08:38)
[2018-05-17] MEDS ORDERED: LORATADINE 10 MG TAB PO PRN (09:37)
--- NOTE | 2018-05-17 09:53 | P.CONS ---
History of Present Illness - Reason for Consult Consult date: 05/16/18 Medical management of asthma and osteoarthritis - Chief Complaint Suicidal ideation - History of Present Illness 47-year-old female presented emergency department stating she was having suicidal ideations today and took 15 Paxil. Patient states shortly thereafter she vomited all the Paxil up she believes. Patient states that occurred at about 2:00 this afternoon. Patient states over the last few days she's been extremely anxious and getting more and more anxious. Patient states this temin g she decided to have a few. Because she thought that might settle her anxiety down. Patient states she drank from 8 to about 2 at which time she decided take Paxil. Patient states she only consumed 4 beers. patient has no physical complaints today. Patient denies headache patient denies any numbness weakness. Patient denies any chest pain difficulty breathing shortness of breath per patient denies any recent fever chills or cough per patient denies abdominal pain patient denies nausea vomiting or diarrhea. Review of Systems Constitutional: Denies chills, Denies fever Eyes: denies blurred vision Cardiovascular: Denies chest pain, Denies palpitations, Denies shortness of breath Respiratory: Denies cough with sputum Gastrointestinal: Reports abdominal pain, Reports nausea, Reports vomiting Musculoskeletal: Denies frequent falls, Denies gait dysfunction Integumentary: Denies color changes, Denies rash Neurological: Denies ataxia, Denies change in speech, Denies confusion Psychiatric: Reports anxiety, Reports suicidal ideation Endocrine: Denies cold intolerance, Denies heat intolerance Past Medical History Past Medical History: Asthma, Osteoarthritis (OA) Additional Past Medical History / Comment(s): Breast cancer History of Any Multi-Drug Resistant Organisms: MRSA Year Discovered:: 2008 MDRO Source:: jaw, blood Past Surgical History: Tubal Ligation, Uterine Ablation Past Anesthesia/Blood Transfusion Reactions: No Reported Reaction Past Psychological History: Anxiety, Depression Smoking Status: Current every day smoker Past Alcohol Use History: Occasional Past Drug Use History: None Reported - Past Family History Mother Family Medical History: No Reported History Medications and Allergies Home Medications Medication Instructions Recorded Confirmed Type HYDROcodone/APAP 10-325MG [Northway 1 tab PO Q6H PRN 10/11/15 05/15/18 History 10-325] busPIRone HCL 15 mg PO BID 11/27/15 05/15/18 History traZODone HCL [Desyrel] 150 mg PO HS #90 tab 12/01/15 05/15/18 Rx Albuterol Inhaler [Ventolin Hfa 1 - 2 puff INHALATION RT-Q6H PRN 04/01/18 05/15/18 Rx Inhaler] #1 inhaler LORazepam [Ativan] 1 mg PO Q8H PRN 04/01/18 05/15/18 History PARoxetine [Paxil] 20 mg PO HS 04/01/18 05/15/18 History Biotin 5 mg PO DAILY 05/15/18 05/15/18 History Multivitamins, Thera [Multivitamin 1 tab PO DAILY 05/15/18 05/15/18 History (formulary)] Thiamine [Vitamin B-1] 50 mg PO DAILY 05/15/18 05/15/18 History lamoTRIgine [LaMICtal] 150 mg PO BID 05/15/18 05/15/18 History Allergies Allergy/AdvReac Type Severity Reaction Status Date / Time codeine Allergy Itching Verified 05/15/18 18:32 Physical Exam Vitals: Vital Signs Temp Pulse Pulse Resp BP BP Pulse Ox 05/15/18 22:50 97.0 F L 92 16 93/68 95 05/15/18 17:49 97.6 F 90 18 111/62 98 Intake and Output 05/15/18 05/16/18 05/16/18 22:59 06:59 14:59 Other: Weight 58.967 kg 66 kg - Constitutional General appearance: Present: average body habitus, cooperative, no acute distress - EENT Eyes: Present: anicteric sclerae, EOMI, PERRLA, normal appearance ENT: Present: hearing grossly normal, normal oropharynx Ears: bilateral: normal - Neck Neck: Present: normal ROM. Absent: lymphadenopathy, rigidity, thyromegaly Carotids: negative: bruit present Thyroid: bilateral: normal size, negative: enlarged, nodule - Respiratory Respiratory: bilateral: CTA, negative: rales, rhonchi, wheezing - Cardiovascular Rhythm: regular Heart sounds: normal: S1, S2 Abnormal Heart Sounds: Absent: systolic murmur, diastolic murmur - Gastrointestinal General gastrointestinal: Present: normal bowel sounds, soft. Absent: distended, organomegaly, tenderness - Genitourinary Genitourinary Comment(s): deferred - Integumentary Integumentary: Present: normal turgor. Absent: jaundiced, rash, ulcer - Neurologic Neurologic: Present: CNII-XII intact. Absent: focal deficits - Musculoskeletal Musculoskeletal: Present: gait normal, strength equal bilaterally - Psychiatric Psychiatric: Present: A&O x's 3, appropriate affect, intact judgment & insight Results CBC & Chem 7: 05/15/18 18:35 05/15/18 18:35 Labs: Abnormal Lab Results - Last 24 Hours (Table) 05/15/18 05/15/18 05/15/18 Range/Units 18:35 18:35 18:35 WBC 12.9 H (3.8-10.6) k/uL Sodium 136 L (137-145) mmol/L Carbon Dioxide 21 L (22-30) mmol/L Triglycerides (<150) mg/dL Urine Opiates Screen Detected H (NotDetected) U Tricyclic Antidepress Detected H (NotDetected) 05/15/18 Range/Units 18:35 WBC (3.8-10.6) k/uL Sodium (137-145) mmol/L Carbon Dioxide (22-30) mmol/L Triglycerides 306 H (<150) mg/dL Urine Opiates Screen (NotDetected) U Tricyclic Antidepress (NotDetected) Assessment and Plan Assessment: 1. Suicidal ideation; your management 2. Asthma; albuterol inhaler 2 puffs 4 times a day when necessary 3. Osteoarthritis; patient takes Northway at home; we agree with holding off on Northway and using Tylenol every 4 hours when necessary for aches and pains 4. Anxiety/ depression; started on Ativan 1 mg by mouth twice a day when necessary 5. Chronic tobacco use; nicotine patch; counseling done to quit smoking 6. DVT prophylaxis; ambulation CODE STATUS; full code
[2018-05-17 11:36] LABS: Appearance,Urine Cloudy (Clear); Bacteria,Urine Rare /hpf; Bilirubin,Urine Negative (Negative); Blood,Urine Moderate (Negative); Color,Urine Light Yellow; Glucose,Urine (UA) Negative (Negative); Ketones,Urine Trace (Negative); Leukocyte Esterase,Urine Small (Negative); Mucus,Urine Rare /hpf; Nitrite,Urine Negative (Negative); Protein,Urine Negative (Negative); RBC,Urine 3 /hpf (0-5); Specific Gravity,Urine 1.002 (1.001-1.035); Squamous Epithelial Cell,Urine 16 /hpf (0-4); Urobilinogen,Urine <2.0 mg/dL (<2.0); WBC,Urine 5 /hpf (0-5)
--- NOTE | 2018-05-17 16:02 | P.PN ---
Progress Note - Text Progress Note Date: 05/17/18 Interval history: Patient reports she slept about 4 hours last night. She would like to be back on her trazodone. She seems to be tolerating the Cymbalta find she does relate that it may be making her a little bit tired. She does describe overall mood is better today. She makes reference to her coming to visit [facility]. Mental status exam: She is alert and cooperative with the interview. Her speech is fluent, not rapid or pressured. Her mood appears improved today. She denies any thoughts of harm to self or others. No evidence of psychosis or agitation. Plan: Patient will be maintained on Cymbalta and Lamictal as current. We will re-add trazodone 50 motives at bedtime to help with insomnia. Monitor for any medication side effects monitor her ongoing response to treatment.
[2018-05-17] MEDS: traZODone HCL 50 MG TAB PO SCH (20:18)
[2018-05-17] MEDS: ARTIFICIAL TEARS-HYPROMELLOSE DROPS 15 ML BTL BOTH EYES PRN (20:20)
[2018-05-17] MEDS: LORazepam 1 MG TAB PO PRN (21:38)
[2018-05-18] MEDS: DULoxetine HCL 30 MG CAPSULE.DR PO SCH (09:38)
[2018-05-18] MEDS: NICOTINE 14MG/24HR PATCH TRANSDERM SCH (09:38)
[2018-05-18] MEDS: lamoTRIgine 100 MG TAB PO SCH ×2 (09:38→20:45)
[2018-05-18] MEDS: ACETAMINOPHEN TAB 325 MG TAB PO PRN (09:43)
--- NOTE | 2018-05-18 13:57 | P.PN ---
Subjective Progress Note Date: 05/18/18 Principal diagnosis: bipolar-acute psychosis; alcohol Chart reviewed, discussed with nursing staff, discussed in team this morning regarding prognosis and possible disposition. Interviewed the patient in the office and discuss her cycling mood turning in to the use of alcohol to control it and stopping her medications. She appears and agrees that she is anxious depressed appears hypomanic and presentation and constantly moving during the interview. She denies any suicidal ideation today. Objective - Vital Signs Vital signs: Vital Signs Temp 98.3 F 05/18/18 06:57 Pulse 85 05/18/18 06:57 Resp 14 05/18/18 06:57 BP 114/55 05/18/18 06:57 Pulse Ox 95 05/15/18 22:50 Intake & Output 05/17/18 05/18/18 05/18/18 18:59 06:59 18:59 Weight 60.9 kg - Labs CBC & Chem 7: 05/15/18 18:35 05/15/18 18:35 Assessment and Plan (1) Bipolar I disorder, single manic episode, severe, with psychosis Narrative/Plan: IDENTIFYING DATA: A 47-year-old female patient HPI: Patient admitted to the inpatient psychiatric unit at [facility] on a voluntary basis. Patient states that she has had [id number] anxiety recently for a week or more and thinks that steroid started at. She states that the anxiety continued to persist and she started drinking to handle it. She then developed thoughts of suicide and she took 10-15 Paxil but states that she threw them all up. She says her brought her to the emergency room. She says she had been drinking daily for the last week. She admits to dealing with racing thoughts and sometimes she does worry a lot. PAST PSYCHIATRIC HISTORY: Patient goes to [facility] counseling. She sees a therapist Tisha and is prescribed medications by Roni. She states she was recently been on Paxil 20 more grams daily. Lamictal is a home medication 150 more grams twice a day. She's also been on BuSpar and trazodone. She feels like this medication regimen worked for a while. She has a history of bipolar 2 disorder and anxiety. She says she's been consistent with her medications over the past week. She's been on so many other medications in the past including Abilify which she did okay with but it has to be a low-dose or she develops akathisia. She is not sure if she is ever been on Cymbalta. She has had 5 psychiatric hospitalizations with suicide attempts which were overdoses. PMH: Says she takes painkillers for her jaw and a history of head injury Current Visit: Yes Status: Acute Code(s): F30.2 - MANIC EPISODE, SEVERE WITH PSYCHOTIC SYMPTOMS SNOMED Code(s): 08751332 Plan: PLAN: Patient will be admitted to inpatient psychiatric unit [facility]. She would placed on SP 15 minute precautions. Medical consultation will be ordered and Baseline laboratory workup will be done the patient we will look into any support systems we will maintain Lamictal for mood stabilization and initiate Cymbalta 30 mg daily for depression and anxiety. We will increase her Cymbalta to 60 mg a day for depression and anxiety. We'll add Invega 3 mg by mouth daily at bedtime and increase her Lamictal for mood stabilization 200 mg twice a day, with the addition of Cogentin 1 mg twice a day. Anticipated discharge would be 05/20/2018 Time with Patient: Less than 30
[2018-05-18] MEDS: ARTIFICIAL TEARS-HYPROMELLOSE DROPS 15 ML BTL BOTH EYES PRN (17:29)
[2018-05-18] MEDS: traZODone HCL 50 MG TAB PO SCH (20:45)
[2018-05-18] MEDS: BENZTROPINE MESYLATE 1 MG TAB PO SCH (20:45)
[2018-05-18] MEDS: DULoxetine HCL 60 MG CAPSULE.DR PO SCH (20:45)
[2018-05-18] MEDS: LORazepam 1 MG TAB PO PRN (20:45)
[2018-05-18] MEDS ORDERED: PALIPERIDONE 3 MG TAB.ER.24 PO SCH (21:00)
[2018-05-19 06:50] VITALS: RESP 16
[2018-05-19] MEDS: NICOTINE 14MG/24HR PATCH TRANSDERM SCH (08:58)
[2018-05-19] MEDS: BENZTROPINE MESYLATE 1 MG TAB PO SCH ×2 (08:58→20:57)
[2018-05-19] MEDS: lamoTRIgine 100 MG TAB PO SCH ×2 (08:58→20:57)
[2018-05-19] MEDS: ACETAMINOPHEN TAB 325 MG TAB PO PRN (08:59)
--- NOTE | 2018-05-19 11:32 | P.PN ---
Subjective Progress Note Date: 05/19/18 Principal diagnosis: bipolar-acute psychosis; alcohol Chart reviewed, discussed with nursing staff, discussed in team this morning regarding prognosis and possible disposition. Interviewed the patient in the office and discuss her cycling mood turning in to the use of alcohol to control it and stopping her medications. She appears and agrees that she is anxious depressed appears hypomanic and presentation and constantly moving during the interview. She denies any suicidal ideation today. 05/19/2018: Chart reviewed, discussed with nursing staff, discussed with team today with possible discharge on 05/20/2018. She is annoyed by another patient tends to talk too much and gravitates to her because she is a woman. She is developed tolerance and understanding of the fellow patient. She does not have any suicidal or homicidal ideation today but still has some depression and racing thoughts. Objective - Vital Signs Vital signs: Vital Signs Temp 97.7 F 05/19/18 06:49 Pulse 70 05/19/18 06:49 Resp 16 05/19/18 06:49 BP 131/67 05/19/18 06:49 Pulse Ox 95 05/15/18 22:50 - Labs CBC & Chem 7: 05/15/18 18:35 05/15/18 18:35 Assessment and Plan (1) Bipolar I disorder, single manic episode, severe, with psychosis Narrative/Plan: IDENTIFYING DATA: A 47-year-old female patient HPI: Patient admitted to the inpatient psychiatric unit at [facility] on a voluntary basis. Patient states that she has had [id number] anxiety recently for a week or more and thinks that steroid started at. She states that the anxiety continued to persist and she started drinking to handle it. She then developed thoughts of suicide and she took 10-15 Paxil but states that she threw them all up. She says her brought her to the emergency room. She says she had been drinking daily for the last week. She admits to dealing with racing thoughts and sometimes she does worry a lot. PAST PSYCHIATRIC HISTORY: Patient goes to [facility] counseling. She sees a therapist Tisha and is prescribed medications by Roni. She states she was recently been on Paxil 20 more grams daily. Lamictal is a home medication 150 more grams twice a day. She's also been on BuSpar and trazodone. She feels like this medication regimen worked for a while. She has a history of bipolar 2 disorder and anxiety. She says she's been consistent with her medications over the past week. She's been on so many other medications in the past including Abilify which she did okay with but it has to be a low-dose or she develops akathisia. She is not sure if she is ever been on Cymbalta. She has had 5 psychiatric hospitalizations with suicide attempts which were overdoses. PMH: Says she takes painkillers for her jaw and a history of head injury MENTAL STATUS EXAM: She is alert and cooperative with the interview. Her speech is fluent, not rapid or pressured. Thought processes are organized. Her mood is described as "subdued and anxious." She denies any active thoughts of suicide. She does state she feels safe here in the hospital. She denies any thoughts of harm to others. No evidence of active psychosis. Cognitively she appears very grossly intact. I do not note any significant disorientation or memory disturbance. Her insight is adequate, judgment shows evidence of recent impairment. Current Visit: Yes Status: Acute Code(s): F30.2 - MANIC EPISODE, SEVERE WITH PSYCHOTIC SYMPTOMS SNOMED Code(s): 58087709 Plan: PLAN: [facility]. She would placed on SP 15 minute precautions. Medical consultation will be ordered and Baseline laboratory workup will be done the patient we will look into any support systems we will maintain Lamictal for mood stabilization and initiate Cymbalta 30 mg daily for depression and anxiety. We will increase her Cymbalta to 60 mg a day for depression and anxiety. We'll add Invega 3 mg by mouth daily at bedtime and increase her Lamictal for mood stabilization 200 mg twice a day, with the addition of Cogentin 1 mg twice a day. Anticipated discharge would be 05/20/2018 05/19/2018: Patient is discussed in detail with nursing staff, discussed in team today for prognosis and discharge. I will increase her Invega to 6 mg by mouth daily at bedtime and continue Lamictal and Cymbalta. Possible discharge date is 05/20/2018 depending on any side effects and benefits and risks ratio of medicine being in added to her. Time with Patient: Less than 30
[2018-05-19] MEDS: LORazepam 1 MG TAB PO PRN (20:57)
[2018-05-19] MEDS: DULoxetine HCL 60 MG CAPSULE.DR PO SCH (20:57)
[2018-05-19] MEDS: traZODone HCL 50 MG TAB PO SCH (20:58)
[2018-05-19] MEDS ORDERED: PALIPERIDONE 6 MG TAB.ER.24 PO SCH (21:00)
[2018-05-20 07:01] VITALS: BP 109/59; PULSE 87; TEMP 98
[2018-05-20] MEDS: lamoTRIgine 100 MG TAB PO SCH (07:51)
[2018-05-20] MEDS: BENZTROPINE MESYLATE 1 MG TAB PO SCH (07:51)
[2018-05-20] MEDS: NICOTINE 14MG/24HR PATCH TRANSDERM SCH (07:51)
--- NOTE | 2018-05-20 11:08 | P.DS ---
Providers Date of admission: 05/15/18 21:58 Expected date of discharge: 05/20/18 Attending physician: Malcolm Tobar DO Consults: 05/15/18 22:11 Consult Physician Routine Consulting Provider: Tamra Loza Consult Reason/Comments: MEDICAL MANAGEMENT Do you want consulting provider notified?: Yes, Notify in am Primary care physician: Ihsan Soliman Jhoan - Discharge Diagnosis(es) (1) Bipolar I disorder, single manic episode, severe, with psychosis IDENTIFYING DATA: A 47-year-old female patient HPI: Patient admitted to the inpatient psychiatric unit at [facility] on a voluntary basis. Patient states that she has had [id number]-[id number] anxiety recently for a week or more and thinks that steroid started at. She states that the anxiety continued to persist and she started drinking to handle it. She then developed thoughts of suicide and she took 10-15 Paxil but states that she threw them all up. She says her brought her to the emergency room. She says she had been drinking daily for the last week. She admits to dealing with racing thoughts and sometimes she does worry a lot. PAST PSYCHIATRIC HISTORY: Patient goes to [facility] counseling. She sees a therapist Tisha and is prescribed medications by Roni. She states she was recently been on Paxil 20 more grams daily. Lamictal is a home medication 150 more grams twice a day. She's also been on BuSpar and trazodone. She feels like this medication regimen worked for a while. She has a history of bipolar 2 disorder and anxiety. She says she's been consistent with her medications over the past week. She's been on so many other medications in the past including Abilify which she did okay with but it has to be a low-dose or she develops akathisia. She is not sure if she is ever been on Cymbalta. She has had 5 psychiatric hospitalizations with suicide attempts which were overdoses. PMH: Says she takes painkillers for her jaw and a history of head injury ALLERGIES: Codeine MEDICATIONS: Tylenol when necessary, Maalox when necessary, Ventolin when necessary, Ativan when necessary, milk of magnesia when necessary, Habitrol patch. She was taking the above psychotropic medications as home medications which include Paxil, Lamictal, BuSpar and trazodone. CHEMICAL DEPENDENCY HISTORY: Patient reports having history of addiction to alcohol. She has had a longest sobriety period of 5 years up until about 3 years ago. Her relapses of difficulty been 1 week in duration. She has been to rehab twice and does not currently have a desire to do rehab again at this point in time. She does go to when she is not drinking. She denies any other drug use. FAMILY PSYCHIATRIC HISTORY: Cousin with bipolar disorder. Depression with her mom's dad and that side of the family. She says there is a lot of alcoholism. A lot of anxiety. FAMILY CHEMICAL DEPENDENCY HISTORY: She relays that there is a lot of alcoholism in the family. SOCIAL HISTORY: Per chart history she is . Per chart history she is on SSD. Per chart history some college education. Per chart history has 1 child. Current Visit: Yes Status: Acute Priority: Low Hospital Course: PLAN: Patient was admitted to inpatient psychiatric unit [facility]. She was placed on SP 15 minute precautions. Medical consultation will be ordered and Baseline laboratory workup will be done the patient we will look into any support systems we will maintain Lamictal for mood stabilization and initiate Cymbalta 30 mg daily for depression and anxiety. We will increase her Cymbalta to 60 mg a day for depression and anxiety. We'll add Invega 3 mg by mouth daily at bedtime and increase her Lamictal for mood stabilization 200 mg twice a day, with the addition of Cogentin 1 mg twice a day. Anticipated discharge would be 05/20/2018 05/19/2018: Patient is discussed in detail with nursing staff, discussed in team today for prognosis and discharge. I will increase her Invega to 6 mg by mouth daily at bedtime and continue Lamictal and Cymbalta. Possible discharge date is 05/20/2018 depending on any side effects and benefits and risks ratio of medicine being in added to her. Mental status examination time of discharge: The patient presents alert, pleasant, and cooperative. There calmly seated without any agitated behavior. [She] reports that [her] mood is good. Affect is congruent and euthymic. [She] deny having any suicidal or homicidal ideation intent or plan. [She] denies any auditory or visual hallucinations. There is no evidence of any delusional thought content. [Her] thought process is linear and goal-directed. [Her] speech is fluent and nonpressured. [Her] memory and concentration is grossly intact for the purposes of this session. Discharge Medication List Biotin 5 mg PO DAILY 05/15/18 [History] Multivitamins, Thera [Multivitamin (formulary)] 1 tab PO DAILY 05/15/18 [History] Thiamine [Vitamin B-1] 50 mg PO DAILY 05/15/18 [History] Albuterol Inhaler [Ventolin Hfa Inhaler] 1 - 2 puff INHALATION RT-Q6H PRN 30 Days #1 inhaler 05/20/18 [Rx] Artificial Tears-Hypromellose [Artificial Tear Drops] 1 drops BOTH EYES TID PRN bottle 05/20/18 [Rx] Benztropine Mesylate [Cogentin] 1 mg PO BID 30 Days #60 tab 05/20/18 [Rx] DULoxetine HCL [Cymbalta] 60 mg PO 2100 30 Days #60 capsule. 05/20/18 [Rx] Loratadine [Claritin] 10 mg PO DAILY PRN tab 05/20/18 [Rx] Paliperidone [Invega] 6 mg PO 2100 30 Days #30 tab.er.24 05/20/18 [Rx] lamoTRIgine [LaMICtal] 200 mg PO BID 30 Days #120 tab 05/20/18 [Rx] traZODone HCL [Desyrel] 150 mg PO HS #90 tab 05/20/18 [Rx] Patient Condition at Discharge: Stable Plan - Discharge Summary Discharge Rx Participant: Yes New Discharge Prescriptions: New Artificial Tears-Hypromellose [Artificial Tear Drops] 1 drops BOTH EYES TID PRN bottle PRN Reason: Dry Eye(S) Loratadine [Claritin] 10 mg PO DAILY PRN tab PRN Reason: Allergy Symptoms Benztropine Mesylate [Cogentin] 1 mg PO BID 30 Days #60 tab DULoxetine HCL [Cymbalta] 60 mg PO 2100 30 Days #60 capsule. Paliperidone [Invega] 6 mg PO 2100 30 Days #30 tab.er.24 lamoTRIgine [LaMICtal] 200 mg PO BID 30 Days #120 tab Continue Thiamine [Vitamin B-1] 50 mg PO DAILY Multivitamins, Thera [Multivitamin (formulary)] 1 tab PO DAILY Biotin 5 mg PO DAILY traZODone HCL [Desyrel] 150 mg PO HS #90 tab Albuterol Inhaler [Ventolin Hfa Inhaler] 1 - 2 puff INHALATION RT-Q6H PRN 30 Days #1 inhaler PRN Reason: Shortness Of Breath Discontinued HYDROcodone/APAP 10-325MG [Electra 10-325] 1 tab PO Q6H PRN PRN Reason: Pain busPIRone HCL 15 mg PO BID PARoxetine [Paxil] 20 mg PO HS LORazepam [Ativan] 1 mg PO Q8H PRN PRN Reason: Severe Anxiety lamoTRIgine [LaMICtal] 150 mg PO BID Discharge Medication List Biotin 5 mg PO DAILY 05/15/18 [History] Multivitamins, Thera [Multivitamin (formulary)] 1 tab PO DAILY 05/15/18 [History] Thiamine [Vitamin B-1] 50 mg PO DAILY 05/15/18 [History] Albuterol Inhaler [Ventolin Hfa Inhaler] 1 - 2 puff INHALATION RT-Q6H PRN 30 Days #1 inhaler 05/20/18 [Rx] Artificial Tears-Hypromellose [Artificial Tear Drops] 1 drops BOTH EYES TID PRN bottle 05/20/18 [Rx] Benztropine Mesylate [Cogentin] 1 mg PO BID 30 Days #60 tab 05/20/18 [Rx] DULoxetine HCL [Cymbalta] 60 mg PO 2100 30 Days #60 capsule.dr 05/20/18 [Rx] Loratadine [Claritin] 10 mg PO DAILY PRN tab 05/20/18 [Rx] Paliperidone [Invega] 6 mg PO 2100 30 Days #30 tab.er.24 05/20/18 [Rx] lamoTRIgine [LaMICtal] 200 mg PO BID 30 Days #120 tab 05/20/18 [Rx] traZODone HCL [Desyrel] 150 mg PO HS #90 tab 05/20/18 [Rx] Follow up Appointment(s)/Referral(s): [facility] [Outside] - 05/21/18 9:00 am (Fernando Magallon ) Ihsan Staples MD [Primary Care Provider] - 1-2 days Patient Instructions/Handouts: Bipolar Disorder (DC), Depression (DC), Anxiety (GEN), Suicide Prevention (DC) Activity/Diet/Wound Care/Special Instructions: Activity and diet as tolerated. Avoid the use of street drugs and alcohol. Take all medications as prescribed. When you are in need of refills on your medications please contact your medical provider and/or outpatient psychiatrist to have this done. Please go to scheduled outpatient appointment for aftercare treatment. If symptoms return or become worse, call the crisis line at and/or go to the nearest emergency room for evaluation. Discharge Disposition: HOME SELF-CARE
== END 2018-05-20 12:32 | disposition home or self-care (01) | DRG 885 ==
LOC: EC 17:47 → 3MHU 21:58
PROVIDERS: ADMIT Psychiatry & Neurology Psychiatry; ATTEND Psychiatry & Neurology Psychiatry
DX: F31.2 Bipolar disorder, current episode manic severe with psychotic features (principal); R45.851 Suicidal ideations; Z72.89 Other problems related to lifestyle; F17.200 Nicotine dependence, unspecified, uncomplicated; F41.9 Anxiety disorder, unspecified; J45.909 Unspecified asthma, uncomplicated; M19.90 Unspecified osteoarthritis, unspecified site; Z87.828 Personal history of other (healed) physical injury and trauma; Z79.899 Other long term (current) drug therapy; Z85.3 Personal history of malignant neoplasm of breast; Z88.5 Allergy status to narcotic agent; Z86.14 Personal history of Methicillin resistant Staphylococcus aureus infection; Z81.8 Family history of other mental and behavioral disorders
CPT/HCPCS: 36415; 80053; 80061; 80306; 81001; 83036; 83520; 85025; 99285

== ENCOUNTER 2018-12-16 13:30 | Emergency (ER) | payer MEDICARE, OTHER ==
[2018-12-16 13:34] VITALS: RESP 16
--- NOTE | 2018-12-16 13:50 | ED ---
Chest Pain HPI - General Chief Complaint: Arrhythmia/Palpitations Stated Complaint: Palpitations Time Seen by Provider: 12/16/18 13:47 Source: patient Mode of arrival: ambulatory Limitations: no limitations - History of Present Illness Initial Comments: The patient is a 48-year-old female with past medical history of anxiety who presents emergency room with reported 2 weeks of palpitations. She states that she will have occasional episodes for she feels as if her heart was racing. She have associated diaphoresis. States that the symptoms will happen while she is rest. May be secondary to recent medication change. States that she was put on Topamax 6 weeks ago and does believe that this is the culprit. The medication was started by her primary care physician. States she is currently suspended from her psychiatrist's office she did miss an appointment. She denies any chest pain. Reports that when her heart rate goes high that her blood pressure will also go high. Denies a history of high blood pressure. Currently does not take any medications for blood pressure control. Denies any chest pain or shortness of breath. No history of DVT or PE. No ripping or tearing sensation to her back. Denies any calf pain or swelling. Admits taking her medication as directed. Denies any nausea, vomiting, abdominal pain. Denies any changes in her urination or bowel movements. No concern for . There are no other alleviating, precipitating or modifying factors - Related Data Home Medications Medication Instructions Recorded Confirmed Albuterol Inhaler [Ventolin Hfa 2 puff INHALATION RT-Q6H PRN 12/16/18 12/16/18 Inhaler] Budesonide/Formoterol Fumarate 2 puff INHALATION RT-BID 12/16/18 12/16/18 [Symbicort 160-4.5 Mcg Inhaler] Cetirizine HCl 10 mg PO DAILY 12/16/18 12/16/18 Cyclobenzaprine [Flexeril] 10 mg PO TID 12/16/18 12/16/18 Folic Acid 1 mg PO DAILY 12/16/18 12/16/18 L.acidoph,Paracasei, B.lactis 1 cap PO DAILY 12/16/18 12/16/18 [Probiotic] LORazepam [Ativan] 1 mg PO DAILY PRN 12/16/18 12/16/18 Nicotine 21Mg/24Hr Patch [Habitrol] 21 mg TOPICAL DAILY 12/16/18 12/16/18 PARoxetine [Paxil] 20 mg PO DAILY 12/16/18 12/16/18 Topiramate 50 mg PO BID 12/16/18 12/16/18 Umeclidinium Brm/Vilanterol Tr 1 puff INHALATION RT-DAILY 12/16/18 12/16/18 [Anoro Ellipta 62.5-25 Mcg INH] lamoTRIgine [LaMICtal] 150 mg PO HS 12/16/18 12/16/18 traZODone HCL 150 mg PO HS 12/16/18 12/16/18 Allergies Allergy/AdvReac Type Severity Reaction Status Date / Time codeine Allergy Itching Verified 12/16/18 14:16 Review of Systems ROS Statement: Those systems with pertinent positive or pertinent negative responses have been documented in the HPI. ROS Other: All systems not noted in ROS Statement are negative. EKG Findings - EKG Comments: EKG Findings:: EKG demonstrates a normal sinus rhythm with a ventricular rate of 80. MS interval 166. QRS 88. QTC 419. There are no acute ST segment elevations or depressions concerning for ischemic changes. No signs of Ajzax-Lfbejcuuc-Upqjn or Brugada Past Medical History Past Medical History: Asthma, Osteoarthritis (OA) Additional Past Medical History / Comment(s): Breast cancer History of Any Multi-Drug Resistant Organisms: MRSA Date of last positivie culture/infection: 2008 MDRO Source:: jaw, blood Past Surgical History: Tubal Ligation, Uterine Ablation Past Anesthesia/Blood Transfusion Reactions: No Reported Reaction Past Psychological History: Anxiety, Depression Smoking Status: Current every day smoker Past Alcohol Use History: Occasional Past Drug Use History: None Reported - Past Family History Mother Family Medical History: No Reported History General Exam Limitations: no limitations General appearance: alert, in no apparent distress, anxious Head exam: Present: atraumatic, normocephalic, normal inspection Eye exam: Present: normal appearance, PERRL, EOMI. Absent: scleral icterus, conjunctival injection, periorbital swelling ENT exam: Present: normal exam, mucous membranes moist Neck exam: Present: normal inspection. Absent: tenderness, meningismus, lymphadenopathy Respiratory exam: Present: normal lung sounds bilaterally. Absent: respiratory distress, wheezes, rales, rhonchi, stridor Cardiovascular Exam: Present: regular rate, normal rhythm, normal heart sounds. Absent: systolic murmur, diastolic murmur, rubs, gallop, clicks GI/Abdominal exam: Present: soft, normal bowel sounds. Absent: distended, tenderness, guarding, rebound, rigid Extremities exam: Present: normal inspection, full ROM, normal capillary refill. Absent: tenderness, pedal edema, joint swelling, calf tenderness Back exam: Present: normal inspection Neurological exam: Present: alert, oriented X3, CN II-XII intact Psychiatric exam: Present: normal affect, normal mood Skin exam: Present: warm, dry, intact, normal color. 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 There are history of physical exam was performed. A 12-lead EKG was performed which demonstrated normal sinus rhythm. I did recommend laboratory studies. D-dimer is 0.23. troponin is negative. BNP is 48. I did order a Lamictal level and this is pending. The patient is sent for a chest x-ray which demonstrates no acute process. The patient is kept on telemetry monitoring while within the ED. It does not demonstrate any signs of arrhythmias. At this time the patient will be discharged home and is to follow-up with her primary care physician. She requests to come off of Topamax however I state this must be done by the primary care physician and she must be tapered off. I do recommend that the patient follow[facility]up with [facility] for an echo and Holter monitoring. The patient agreed to this. If she has any new or worsening symptoms she should return to emergency room. The patient was discharged home in stable condition Disposition Clinical Impression: Palpitations Disposition: HOME SELF-CARE Condition: Stable Instructions (If sedation given, give patient instructions): Heart Palpitations (ED) Additional Instructions: Please follow-up with her primary care physician regarding her symptoms. He should see a spot facer and have Holter monitoring and echo performed. If you wish to come off of the Topamax, please consult your doctor. Return to the emergency room for any new or worsening symptoms Is patient prescribed a controlled substance at d/c from ED?: No Referrals: [facility] [Provider Group] - 1-2 days Ihsan Staples MD [Primary Care Provider] - 1-2 days Michael Valles MD [STAFF PHYSICIAN] - 1-2 days Time of Disposition: 17:25
[2018-12-16 14:32] LABS: ALT 14 U/L (9-52); AST 18 U/L (14-36); African American GFR (CKD) >90 (>60 ml/min/1.73 sqM); Alkaline Phosphatase 52 U/L (38-126); Anion Gap 7 mmol/L; Blood Urea Nitrogen 10 mg/dL (7-17); Calcium 9.8 mg/dL (8.4-10.2); Carbon Dioxide 23 mmol/L (22-30); Chloride 110 mmol/L (98-107); Glucose 90 mg/dL (74-99); Magnesium 1.7 mg/dL (1.6-2.3); Potassium 3.9 mmol/L (3.5-5.1); Sodium 140 mmol/L (137-145); Total Bilirubin 0.3 mg/dL (0.2-1.3); Total Protein 6.6 g/dL (6.3-8.2)
[2018-12-16 14:41] LABS: Basophils % (A) 0 %; D-Dimer 0.23 mg/L FEU (<0.60); Eosinophils # (A) 0.4 k/uL (0-0.7); Eosinophils % (A) 4 %; HCT 41.7 % (34.0-46.0); HGB 14.1 gm/dL (11.4-16.0); INR 0.9 (<1.2); Lymphocytes # (A) 3.6 k/uL (1.0-4.8); Lymphocytes % (A) 34 %; MCH 32.7 pg (25.0-35.0); MCHC 33.8 g/dL (31.0-37.0); MCV 96.6 fL (80.0-100.0); Mean Platelet Volume 5.5; Monocytes # (A) 0.4 k/uL (0-1.0); Monocytes % (A) 4 %; Neutrophils # (A) 5.8 k/uL (1.3-7.7); Neutrophils % (A) 55 %; Partial Thromboplastin Time 26.4 sec (22.0-30.0); Platelet Count 377 k/uL (150-450); Prothrombin Time 10.2 sec (9.0-12.0); RBC 4.32 m/uL (3.80-5.40); WBC 10.6 k/uL (3.8-10.6)
--- NOTE | 2018-12-16 14:51 | XR ---
EXAMINATION TYPE: XR chest 2V DATE OF EXAM: 12/16/2018 COMPARISON: 04/01/2018 TECHNIQUE: PA and lateral views submitted. HISTORY: Chest pain FINDINGS: The lungs are clear and there is no pneumothorax, pleural effusion, or focal pneumonia. Mild hypert rophic change of the spine. No overt failure. IMPRESSION: 1. No acute process.
[2018-12-16 18:24] VITALS: BP 108/80; PULSE 82; TEMP 98.3
== END 2018-12-16 17:45 | disposition home or self-care (01) ==
LOC: EC 13:30
DX: R00.2 Palpitations (principal); R07.9 Chest pain, unspecified; F41.9 Anxiety disorder, unspecified; F32.9 Major depressive disorder, single episode, unspecified; J45.909 Unspecified asthma, uncomplicated; M19.90 Unspecified osteoarthritis, unspecified site; F17.200 Nicotine dependence, unspecified, uncomplicated; Z79.51 Long term (current) use of inhaled steroids; Z79.899 Other long term (current) drug therapy; Z85.3 Personal history of malignant neoplasm of breast; Z88.5 Allergy status to narcotic agent
CPT/HCPCS: 36415; 71046; 80053; 80175; 83690; 83735; 83880; 84484; 85025; 85379; 85610; 85730; 93005; 99285

== ENCOUNTER 2019-04-16 10:01 | Inpatient (IN) | payer MEDICARE ==
[2019-04-16] MEDS ORDERED: MORPHINE SULFATE 4 MG/ML SYRINGE IVP STA (10:41)
--- NOTE | 2019-04-16 10:46 | ED ---
Abdominal Pain HPI - General Chief Complaint: Abdominal Pain Stated Complaint: abd pain Time Seen by Provider: 04/16/19 10:15 Source: patient Mode of arrival: ambulatory - History of Present Illness Initial Comments: 48yo presenting for abdominal pain and bloating x 3 days. Patient states she noticed bloating 3 days ago and thought she was just constipation, took a suppository and had loose stools on and off for 12 hours. Patient states that she continuous to appears and feel bloated with pain in the epigastric region of the abdomen mostly but is all over. Patient denies diarrhea aside from after the suppository. Patient denies chest pain, SOB, bloody or black tarry stools. Denies vomiting. Denies history of cirrhosis/liver disease. States she has history of alcohol abuse over 1-2 years ago denies current use. Patient denies any other complaints. Upon arrival patient appears well there is no sign - Related Data Home Medications Medication Instructions Recorded Confirmed Albuterol Inhaler [Ventolin Hfa 2 puff INHALATION RT-Q6H PRN 12/16/18 12/16/18 Inhaler] Budesonide/Formoterol Fumarate 2 puff INHALATION RT-BID 12/16/18 12/16/18 [Symbicort 160-4.5 Mcg Inhaler] Cetirizine HCl 10 mg PO DAILY 12/16/18 12/16/18 Cyclobenzaprine [Flexeril] 10 mg PO TID 12/16/18 12/16/18 Folic Acid 1 mg PO DAILY 12/16/18 12/16/18 L.acidoph,Paracasei, B.lactis 1 cap PO DAILY 12/16/18 12/16/18 [Probiotic] LORazepam [Ativan] 1 mg PO DAILY PRN 12/16/18 12/16/18 Nicotine 21Mg/24Hr Patch [Habitrol] 21 mg TOPICAL DAILY 12/16/18 12/16/18 PARoxetine [Paxil] 20 mg PO DAILY 12/16/18 12/16/18 Topiramate 50 mg PO BID 12/16/18 12/16/18 Umeclidinium Brm/Vilanterol Tr 1 puff INHALATION RT-DAILY 12/16/18 12/16/18 [Anoro Ellipta 62.5-25 Mcg INH] lamoTRIgine [LaMICtal] 150 mg PO HS 12/16/18 12/16/18 traZODone HCL 150 mg PO HS 12/16/18 12/16/18 Allergies Allergy/AdvReac Type Severity Reaction Status Date / Time codeine Allergy Itching Verified 04/16/19 10:10 Review of Systems ROS Statement: Those systems with pertinent positive or pertinent negative responses have been documented in the HPI. ROS Other: All systems not noted in ROS Statement are negative. Past Medical History Past Medical History: Asthma Additional Past Medical History / Comment(s): Breast cancer History of Any Multi-Drug Resistant Organisms: MRSA Date of last positivie culture/infection: 2008 MDRO Source:: jaw, blood Past Surgical History: Tubal Ligation, Uterine Ablation Past Anesthesia/Blood Transfusion Reactions: No Reported Reaction Past Psychological History: Anxiety, Bipolar, Depression Smoking Status: Current every day smoker Past Alcohol Use History: Occasional Past Drug Use History: None Reported - Past Family History Mother Family Medical History: No Reported History General Exam - General Exam Comments Initial Comments: General: The patient is awake and alert, in no distress Eye: +3 mm pupils are equal, round and reactive to light, extra-ocular movements are intact. No nystagmus. There is normal conjunctiva bilaterally. No signs of icterus. Ears, nose, mouth and throat: There are moist mucous membranes and no oral lesions. Neck: The neck is supple, there is no tenderness or JVD. Cardiovascular: There is a regular rate and rhythm. No murmur, rub or gallop is appreciated. Respiratory: Lungs are clear to auscultation, respirations are non-labored, breath sounds are equal. No wheezes, stridor, rales, or rhonchi. Gastrointestinal: Distended, diffusely tender abdomen with focus in the upper abdomen/epigastric region, remaining abdomen without masses or organomegaly noted. There is no rebound or guarding present. Bowel sounds are unremarkable. Musculoskeletal: Normal ROM, no tenderness. Strength 5/5. Sensation intact. Radial pulses equal bilaterally 2+. Neurological: A&O x 3. CN II-XII intact grossly, There are no obvious motor or sensory deficits. Coordination appears grossly intact. Speech is normal. Skin: Skin is warm and dry and no rashes or lesions are noted. Psychiatric: Cooperative, appropriate mood & affect, normal judgment. Course Vital Signs 04/16/19 04/16/19 04/16/19 10:06 11:10 12:35 Temperature 98.0 F Pulse Rate 93 89 89 Respiratory 20 20 18 Rate Blood Pressure 119/75 109/64 99/79 O2 Sat by Pulse 98 95 95 Oximetry Medical Decision Making - Medical Decision Making 48-year-old female presenting today for chief complaint of upper abdominal pain, abdominal distention. Few days ago patient had constipation. U suppository had diarrhea. Only small bowel movement since P patient's admits to nausea. No vomiting. CT concerning for high-grade small bowel obstruction NG tube initiated patient given pain medications and IV fluids. Patient will be initiated on zosyn with surgical consultation. Discussed case with Dr. Charles who is agreeable to admission as well as care plan--he spoke with accepting admitting provider Dr. Shrestha who is add any further consultations and provider further management of patient. - Lab Data Result diagrams: 04/16/19 11:00 04/16/19 11:00 Lab Results 04/16/19 04/16/19 04/16/19 Range/Units 11:00 11:00 11:00 WBC 11.0 H (3.8-10.6) k/uL RBC 4.17 (3.80-5.40) m/uL Hgb 13.6 (11.4-16.0) gm/dL Hct 41.2 (34.0-46.0) % MCV 98.9 (80.0-100.0) fL MCH 32.6 (25.0-35.0) pg MCHC 32.9 (31.0-37.0) g/dL RDW 13.1 (11.5-15.5) % Plt Count 241 (150-450) k/uL Neutrophils % 78 % Lymphocytes % 14 % Monocytes % 4 % Eosinophils % 1 % Basophils % 0 % Neutrophils # 8.6 H (1.3-7.7) k/uL Lymphocytes # 1.6 (1.0-4.8) k/uL Monocytes # 0.5 (0-1.0) k/uL Eosinophils # 0.1 (0-0.7) k/uL Basophils # 0.0 (0-0.2) k/uL Sodium 135 L (137-145) mmol/L Potassium 3.7 (3.5-5.1) mmol/L Chloride 102 (98-107) mmol/L Carbon Dioxide 27 (22-30) mmol/L Anion Gap 6 mmol/L BUN 14 (7-17) mg/dL Creatinine 0.62 (0.52-1.04) mg/dL Est GFR (CKD-EPI)AfAm >90 (>60 ml/min/1.73 sqM) Est GFR (CKD-EPI)NonAf >90 (>60 ml/min/1.73 sqM) Glucose 120 H (74-99) mg/dL Calcium 9.3 (8.4-10.2) mg/dL Total Bilirubin 0.4 (0.2-1.3) mg/dL AST 23 (14-36) U/L ALT 13 (4-34) U/L Alkaline Phosphatase 65 (38-126) U/L Total Protein 6.4 (6.3-8.2) g/dL Albumin 3.9 (3.5-5.0) g/dL Amylase 38 (30-110) U/L Lipase 39 (23-300) U/L Urine Color Urine Appearance (Clear) Urine pH (5.0-8.0) Ur Specific [place] (1.001-1.035) Urine Protein (Negative) Urine Glucose (UA) (Negative) Urine Ketones (Negative) Urine Blood (Negative) Urine Nitrite (Negative) Urine Bilirubin (Negative) Urine Urobilinogen (<2.0) mg/dL Ur Leukocyte Esterase (Negative) Urine RBC (0-5) /hpf Urine WBC (0-5) /hpf Ur Squamous Epith Cells (0-4) /hpf Amorphous Sediment (None) /hpf Urine Bacteria (None) /hpf Hyaline Casts (0-2) /lpf Urine Mucus (None) /hpf Urine HCG, Qual Not Detected (Not Detectd) 04/16/19 Range/Units 11:00 WBC (3.8-10.6) k/uL RBC (3.80-5.40) m/uL Hgb (11.4-16.0) gm/dL Hct (34.0-46.0) % MCV (80.0-100.0) fL MCH (25.0-35.0) pg MCHC (31.0-37.0) g/dL RDW (11.5-15.5) % Plt Count (150-450) k/uL Neutrophils % % Lymphocytes % % Monocytes % % Eosinophils % % Basophils % % Neutrophils # (1.3-7.7) k/uL Lymphocytes # (1.0-4.8) k/uL Monocytes # (0-1.0) k/uL Eosinophils # (0-0.7) k/uL Basophils # (0-0.2) k/uL Sodium (137-145) mmol/L Potassium (3.5-5.1) mmol/L Chloride (98-107) mmol/L Carbon Dioxide (22-30) mmol/L Anion Gap mmol/L BUN (7-17) mg/dL Creatinine (0.52-1.04) mg/dL Est GFR (CKD-EPI)AfAm (>60 ml/min/1.73 sqM) Est GFR (CKD-EPI)NonAf (>60 ml/min/1.73 sqM) Glucose (74-99) mg/dL Calcium (8.4-10.2) mg/dL Total Bilirubin (0.2-1.3) mg/dL AST (14-36) U/L ALT (4-34) U/L Alkaline Phosphatase (38-126) U/L Total Protein (6.3-8.2) g/dL Albumin (3.5-5.0) g/dL Amylase (30-110) U/L Lipase (23-300) U/L Urine Color Yellow Urine Appearance Clear (Clear) Urine pH 5.5 (5.0-8.0) Ur Specific [place] 1.015 (1.001-1.035) Urine Protein Negative (Negative) Urine Glucose (UA) Negative (Negative) Urine Ketones Negative (Negative) Urine Blood Small H (Negative) Urine Nitrite Negative (Negative) Urine Bilirubin Negative (Negative) Urine Urobilinogen <2.0 (<2.0) mg/dL Ur Leukocyte Esterase Trace H (Negative) Urine RBC 18 H (0-5) /hpf Urine WBC 1 (0-5) /hpf Ur Squamous Epith Cells <1 (0-4) /hpf Amorphous Sediment Rare H (None) /hpf Urine Bacteria Rare H (None) /hpf Hyaline Casts 7 H (0-2) /lpf Urine Mucus Rare H (None) /hpf Urine HCG, Qual (Not Detectd) Disposition Clinical Impression: Small bowel obstruction, Abdominal pain, Abdominal distention Disposition: ADMITTED IP TO THIS HOSP Condition: Stable Is patient prescribed a controlled substance at d/c from ED?: No Referrals: Ihsan Staples MD [Primary Care Provider] - 1-2 days Time of Disposition: 12:46 Decision to Admit Reason: Admit from EC Decision Date: 04/16/19 Decision Time: 12:46
[2019-04-16 11:15] LABS: Basophils % (A) 0 %; Eosinophils # (A) 0.1 k/uL (0-0.7); Eosinophils % (A) 1 %; HCT 41.2 % (34.0-46.0); HGB 13.6 gm/dL (11.4-16.0); Lymphocytes # (A) 1.6 k/uL (1.0-4.8); Lymphocytes % (A) 14 %; MCH 32.6 pg (25.0-35.0); MCHC 32.9 g/dL (31.0-37.0); MCV 98.9 fL (80.0-100.0); Mean Platelet Volume 7.5; Monocytes # (A) 0.5 k/uL (0-1.0); Monocytes % (A) 4 %; Neutrophils # (A) 8.6 k/uL (1.3-7.7); Neutrophils % (A) 78 %; Platelet Count 241 k/uL (150-450); RBC 4.17 m/uL (3.80-5.40); RDW 13.1 % (11.5-15.5)
[2019-04-16 11:25] LABS: Amorphous Sediment,Urine Rare /hpf; Appearance,Urine Clear (Clear); Bacteria,Urine Rare /hpf; Bilirubin,Urine Negative (Negative); Blood,Urine Small (Negative); Color,Urine Yellow; Glucose,Urine (UA) Negative (Negative); Hyaline Casts,Urine 7 /lpf (0-2); Ketones,Urine Negative (Negative); Leukocyte Esterase,Urine Trace (Negative); Mucus,Urine Rare /hpf; Nitrite,Urine Negative (Negative); PH, Urine 5.5 (5.0-8.0); Protein,Urine Negative (Negative); RBC,Urine 18 /hpf (0-5); Specific Gravity,Urine 1.015 (1.001-1.035); Squamous Epithelial Cell,Urine <1 /hpf (0-4); Urobilinogen,Urine <2.0 mg/dL (<2.0); WBC,Urine 1 /hpf (0-5)
[2019-04-16 11:26] LABS: ALT 13 U/L (4-34); AST 23 U/L (14-36); African American GFR (CKD) >90 (>60 ml/min/1.73 sqM); Albumin 3.9 g/dL (3.5-5.0); Alkaline Phosphatase 65 U/L (38-126); Amylase 38 U/L (30-110); Anion Gap 6 mmol/L; Blood Urea Nitrogen 14 mg/dL (7-17); Calcium 9.3 mg/dL (8.4-10.2); Carbon Dioxide 27 mmol/L (22-30); Chloride 102 mmol/L (98-107); Glucose 120 mg/dL (74-99); Non-African American GFR(CKD) >90 (>60 ml/min/1.73 sqM); Potassium 3.7 mmol/L (3.5-5.1); Sodium 135 mmol/L (137-145); Total Bilirubin 0.4 mg/dL (0.2-1.3); Total Protein 6.4 g/dL (6.3-8.2)
--- NOTE | 2019-04-16 11:59 | CT ---
EXAMINATION TYPE: CT abdomen pelvis w con DATE OF EXAM: 04/16/2019 COMPARISON: 09/27/2015 HISTORY: Pain CT DLP: 706.6 mGycm Automated exposure control for dose reduction was used. CONTRAST: CT scan of the abdomen pelvis is performed , patient injected with 100 mL of Isovue 300. FINDINGS- LUNG BASES-subsegmental basilar changes most likely related to atelectasis.. LIVER/GB-gallbladder is distended correlate for gallbladder hydrops. No definite gallstones.. PANCREAS- No gross abnormality is seen. SPLEEN- No gross abnormality is seen. ADRENALS- No gross abnormality is seen. KIDNEYS/BLADDER- no hydronephrosis nephrolithiasis or renal mass. BOWEL-there are numerous dilated small bowel loops. Free fluid in the pelvis is noted. Diverticulosis of the colon. Appears to be a caliber change of the small bowel the region of the jejunum. Bowel wal l thickening of the small bowel also seen in the upper pelvis centrally extending to the left of midl ine. Within the left upper quadrant along the lateral margin near the splenic flexure or proximal carlo cending: There is mild induration of fat best noted on axial image 26 and coronal image 50 and 51. Mi ld inflammatory process of the large bowel Not excluded. LYMPH NODES- No greater than 1cm abdominal or pelvic lymph nodes areappreciated. OSSEOUS STRUCTURES- No significant abnormality is seen. OTHER- small amount of free fluid. Aorta of normal caliber. Atherosclerotic changes noted. Surgical clips in the pelvis noted. IMPRESSION- 1. Dilated small bowel with suspicion of a transition segment at the level of the distal jejunum or p roximal ileum correlate for small bowel high-grade obstruction. Small amount of free fluid in the pel vis also noted. 2. Gallbladder hydrops 3. There also is a mild induration of the pericolonic fat near the splenic flexure which is nonspecif ic. There is similarly caliber change of the bowel at this level which may be related to incomplete d istention. Mild inflammatory process of the colon not excluded.
[2019-04-16] MEDS ORDERED: PIPERACILLIN-TAZOBACTAM 3.375 GM in SODIUM CHLORIDE 0.9% 100 ML IVPB STA (12:44)
[2019-04-16] MEDS ORDERED: SODIUM CHLORIDE 0.9% 1,000 ML IV ONE (12:45)
[2019-04-16] MEDS: SODIUM CHLORIDE 0.9% 1,000 ML IV SCH (13:18)
[2019-04-16] MEDS ORDERED: LORazepam 2 MG/ML INJ IV STA (13:45)
[2019-04-16] MEDS ORDERED: PREGABALIN 75 MG CAP PO PRN (15:44)
[2019-04-16] MEDS ORDERED: LORazepam 1 MG TAB PO PRN (15:44)
[2019-04-16] MEDS ORDERED: ALBUTEROL NEBULIZED 2.5 MG/3 ML INHALATION PRN (15:46)
[2019-04-16] MEDS: HEPARIN SODIUM,PORCINE 5,000 UNIT/ML 1 ML VIAL SQ SCH (18:08)
[2019-04-16] MEDS ORDERED: lamoTRIgine 25 MG TAB PO SCH (21:00)
[2019-04-16] MEDS ORDERED: traZODone HCL 50 MG TAB PO SCH (21:00)
[2019-04-16] MEDS ORDERED: lamoTRIgine 100 MG TAB PO SCH (21:00)
[2019-04-16] MEDS: NICOTINE 21MG/24HR PATCH TRANSDERM SCH (21:32)
--- NOTE | 2019-04-16 23:23 | P.HPIM ---
History of Present Illness H&P Date: 04/16/19 Chief Complaint: Abdominal pain Patient is a 48-year-old female with a known history of anxiety/bipolar/depression, ongoing nicotine addiction, history of breast cancer came to ER with the complaints of abdominal pain and bloating, distention for the past 3 days. Patient does have history of chronic constipation. Patient took suppository yesterday and since then she has been having loose stools. Denied any nausea or vomiting. Denied any recent antibiotic use. No complaints of chest pain or shortness of breath. No hematemesis or melena. Patient does have a history of alcohol abuse but currently sober for the past 1- 2 years. Patient presented to ER due to abdominal pain and distention. Denied any prior abdominal surgeries except tubal ligation. No history of bowel obstruction in the past. WBC 11.0 CT of the abdomen pelvis showed dilated small bowel suspicious of transitional segment at the level of left distal jejunum or proximal ileum, correlate for sma ll bowel high-grade obstruction. Gallbladder hydrops. Possible inflammatory process in the colon cannot be excluded. Review of Systems Constitutional: Patient denies any fever or chills . No generalized weakness or weight loss. Abdomen: Patient denied nausea vomiting . patient does have abdominal pain, distention and diarrhea. Cardiovascular: Patient denies any chest pain or short of breath no palpitations. Respiratory: patient denied any cough is from production. No shortness of breath Neurologic: Patient denied any numbness or tingling headache. Musculoskeletal: Patient denies any complaints of joint swelling or deformity. Skin: Negative Psychiatric: Negative Endocrine: No heat or cold intolerance. No recent weight gain. Genitourinary: No dysuria or hematuria. All other 14 point ROS negative except the above Past Medical History Past Medical History: Asthma, Cancer Additional Past Medical History / Comment(s): Breast cancer History of Any Multi-Drug Resistant Organisms: MRSA Date of last positivie culture/infection: 2008 MDRO Source:: jaw, blood Past Surgical History: Tubal Ligation, Uterine Ablation Past Anesthesia/Blood Transfusion Reactions: No Reported Reaction Past Psychological History: Anxiety, Bipolar, Depression Smoking Status: Current every day smoker Past Alcohol Use History: Occasional Additional Past Alcohol Use History / Comment(s): SMOKES 1PPD FOR PAST 25 YRS Past Drug Use History: None Reported - Past Family History Mother Family Medical History: No Reported History Medications and Allergies Home Medications Medication Instructions Recorded Confirmed Type Albuterol Inhaler [Ventolin Hfa 2 puff INHALATION RT-Q6H PRN 12/16/18 04/16/19 History Inhaler] Cetirizine HCl 10 mg PO DAILY PRN 12/16/18 04/16/19 History Folic Acid 1 mg PO DAILY 12/16/18 04/16/19 History L.acidoph,Paracasei, B.lactis 1 cap PO DAILY 12/16/18 04/16/19 History [Probiotic] LORazepam [Ativan] 1 mg PO DAILY PRN 12/16/18 04/16/19 History PARoxetine [Paxil] 20 mg PO DAILY 12/16/18 04/16/19 History Umeclidinium Brm/Vilanterol Tr 1 puff INHALATION RT-DAILY 12/16/18 04/16/19 History [Anoro Ellipta 62.5-25 Mcg INH] lamoTRIgine [LaMICtal] 150 mg PO HS 12/16/18 04/16/19 History traZODone HCL 150 mg PO HS 12/16/18 04/16/19 History Hydrocodone/Acetaminophen [[place] 1 tab PO Q4H PRN 04/16/19 04/16/19 History 10-325] Pregabalin [Lyrica] 150 mg PO TID PRN 04/16/19 04/16/19 History Allergies Allergy/AdvReac Type Severity Reaction Status Date / Time codeine Allergy Itching Verified 04/16/19 10:10 Physical Exam Vitals: Vital Signs Temp Pulse Pulse Resp BP BP Pulse Ox 04/16/19 15:23 98.4 F 74 19 119/80 96 04/16/19 13:22 98.2 F 83 18 111/68 96 04/16/19 12:35 89 18 99/79 95 04/16/19 11:10 89 20 109/64 95 04/16/19 10:06 98.0 F 93 20 119/75 98 Intake and Output 04/16/19 04/16/19 04/16/19 06:59 14:59 22:59 Intake Total 100 Balance 100 Intake: Intake, IV Titration 100 Amount Sodium Chloride 0.9% 1, 100 000 ml @ 100 mls/hr IV . Q10H [facility] Rx#:[id number] Other: Voiding Method Toilet Weight 64.319 kg 64.319 kg PHYSICAL EXAMINATION: Patient is lying in the bed comfortably, no acute distress, awake alert and oriented.. HEENT: Normocephalic. Neck is supple. Pupils reactive. Nostrils clear. Oral cavity is moist. Ears reveal no drainage. Neck reveals no JVD, carotid bruits, or thyromegaly. CHEST EXAMINATION: Trachea is central. Symmetrical expansion. Lung echols clear to auscultation and percussion. CARDIAC: Normal S1, S2 with no gallops. No murmurs ABDOMEN: Soft. Mild distention. Bowel sounds sluggish. No organomegaly. No abdominal bruits. Extremities: reveal no edema. No clubbing or cyanosis Neurologically awake, alert, oriented x3 with well-coordinated movements. No focal deficits noted Skin: No rash or skin lesions. Psychiatric: Coperative. Nonsuicidal, anxious. Musculoskeletal: No joint swelling or deformity. Normal range of motion. Results CBC & Chem 7: 04/16/19 11:00 04/16/19 11:00 Labs: Abnormal Lab Results - Last 24 Hours (Table) 04/16/19 04/16/19 04/16/19 Range/Units 11:00 11:00 11:00 WBC 11.0 H (3.8-10.6) k/uL Neutrophils # 8.6 H (1.3-7.7) k/uL Sodium 135 L (137-145) mmol/L Glucose 120 H (74-99) mg/dL Urine Blood Small H (Negative) Ur Leukocyte Esterase Trace H (Negative) Urine RBC 18 H (0-5) /hpf Amorphous Sediment Rare H (None) /hpf Urine Bacteria Rare H (None) /hpf Hyaline Casts 7 H (0-2) /lpf Urine Mucus Rare H (None) /hpf Thrombosis Risk Factor Assmnt - DVT/VTE Prophylaxis DVT/VTE Prophylaxis: Pharmacologic Prophylaxis ordered - Choose All That Apply Any of the Below Risk Factors Present?: Yes Each Factor Represents 1 point: Age 41-60 years Other Risk Factors: No Other congenital or acquired thrombophilia - If yes, enter type in comment: No Thrombosis Risk Factor Assessment Total Risk Factor Score: 1 Thrombosis Risk Factor Assessment Level: Low Risk Assessment and Plan Assessment: Acute High-grade small bowel obstruction History of breast cancer Ongoing nicotine addiction History of asthma stable now History of tubal ligation and uterine ablation Anxiety/depression/bipolar disorder DVT prophylaxis with heparin subcu Plan: Patient will be continued on IV hydration and nothing by mouth. Patient refused to get NG tube. Continue with pain management. Continue with home psychiatric medications and anxiolytics. Gen. surgery was consulted. Further recommendations based on the clinical course. Smoking cessation has been counseled extensively. Time with Patient: Greater than 30
[2019-04-17] MEDS: SODIUM CHLORIDE 0.9% 1,000 ML IV SCH ×2 (00:31→08:04)
[2019-04-17] MEDS: HEPARIN SODIUM,PORCINE 5,000 UNIT/ML 1 ML VIAL SQ SCH ×2 (00:32→08:03)
[2019-04-17 02:46] VITALS: RESP 12
[2019-04-17 07:59] VITALS: BP 127/74; PULSE 90; TEMP 98.1
[2019-04-17] MEDS: NICOTINE 21MG/24HR PATCH TRANSDERM SCH (08:04)
[2019-04-17 08:16] LABS: African American GFR (CKD) >90 (>60 ml/min/1.73 sqM); Anion Gap 5 mmol/L; Blood Urea Nitrogen 9 mg/dL (7-17); Calcium 8.6 mg/dL (8.4-10.2); Carbon Dioxide 22 mmol/L (22-30); Chloride 112 mmol/L (98-107); Glucose 94 mg/dL (74-99); Non-African American GFR(CKD) >90 (>60 ml/min/1.73 sqM); Sodium 139 mmol/L (137-145)
[2019-04-17 08:56] LABS: Basophils % (A) 0 %; Eosinophils # (A) 0.3 k/uL (0-0.7); Eosinophils % (A) 5 %; HCT 38.4 % (34.0-46.0); HGB 12.5 gm/dL (11.4-16.0); Lymphocytes # (A) 1.6 k/uL (1.0-4.8); Lymphocytes % (A) 28 %; MCH 32.3 pg (25.0-35.0); MCHC 32.5 g/dL (31.0-37.0); MCV 99.5 fL (80.0-100.0); Mean Platelet Volume 8.1; Monocytes # (A) 0.3 k/uL (0-1.0); Monocytes % (A) 5 %; Neutrophils # (A) 3.2 k/uL (1.3-7.7); Neutrophils % (A) 58 %; Platelet Count 233 k/uL (150-450); RBC 3.86 m/uL (3.80-5.40); RDW 13.1 % (11.5-15.5); WBC 5.6 k/uL (3.8-10.6)
[2019-04-17] MEDS ORDERED: PARoxetine 20 MG TAB PO SCH (09:00)
[2019-04-17] MEDS ORDERED: FOLIC ACID 1 MG TAB PO SCH (09:00)
[2019-04-17] MEDS ORDERED: NICOTINE 21MG/24HR PATCH TRANSDERM SCH (09:00)
--- NOTE | 2019-04-17 11:28 | P.PN ---
Progress Note - Text Progress Note Date: 04/17/19 The patient discharge her self prior to me seeing her.
== END 2019-04-17 10:20 | disposition left against medical advice (07) | DRG 389 ==
LOC: EC 10:01 → 4SSUR 12:31
PROVIDERS: ADMIT Internal Medicine; ATTEND Internal Medicine
DX: K56.609 Unspecified intestinal obstruction, unspecified as to partial versus complete obstruction (principal); K82.1 Hydrops of gallbladder; Z71.6 Tobacco abuse counseling; F17.210 Nicotine dependence, cigarettes, uncomplicated; F31.9 Bipolar disorder, unspecified; F41.9 Anxiety disorder, unspecified; J45.909 Unspecified asthma, uncomplicated; Z79.51 Long term (current) use of inhaled steroids; Z79.899 Other long term (current) drug therapy; Z85.3 Personal history of malignant neoplasm of breast; Z98.51 Tubal ligation status; F10.11 Alcohol abuse, in remission; Z86.14 Personal history of Methicillin resistant Staphylococcus aureus infection; Z88.5 Allergy status to narcotic agent; K59.09 Other constipation
CPT/HCPCS: 36415; 74177; 80048; 80053; 81001; 81025; 82150; 83605; 83690; 85025; 87040

== ENCOUNTER → 2019-05-05 | Outpatient (CLI) | payer MEDICARE ==
--- NOTE | 2019-05-05 07:32 | US ---
EXAMINATION TYPE: US abdomen complete DATE OF EXAM: 05/05/2019 COMPARISON: CT CLINICAL HISTORY: R10.9 abdominal pain. Pt states generalized ABD pain, abnormal gallbladder on CT EXAM MEASUREMENTS: Liver Length: 14.9 cm Gallbladder Wall: 0.4 cm CBD: 0.4 cm Spleen: 7.8 cm Right Kidney: 9.5 x 4.1 x 4.8 cm Left Kidney: 10.9 x 4.9 x 4.2 cm Pancreas: wnl Liver: wnl Gallbladder: Thickened GB wall Evidence for sonographic Malik's sign: No CBD: wnl Spleen: wnl Right Kidney: wnl Left Kidney: wnl Upper IVC: wnl Abd Aorta: wnl The liver is homogenous. The intrahepatic portion of the IVC and proximal abdominal aorta are within normal limits. There is no evidence of cholelithiasis. Common bile duct is unremarkable. The visu alized portions of the pancreas are homogenous. The spleen is unremarkable. Kidneys are symmetric a nd free of hydronephrosis. No renal lesions are seen. IMPRESSION: Nonspecific gallbladder wall thickening.
== END | disposition home or self-care (01) ==
LOC: RADUSWWP 07:09
PROVIDERS: ATTEND Family Medicine
DX: K82.8 Other specified diseases of gallbladder (principal)
CPT/HCPCS: 76700

== ENCOUNTER 2019-09-18 13:42 | Emergency (ER) | payer MEDICARE, OTHER ==
[2019-09-18 13:49] VITALS: BP 123/79; PULSE 140; RESP 18; TEMP 98.4
--- NOTE | 2019-09-18 14:06 | ED ---
General Adult HPI - General Chief complaint: Psychiatric Symptoms Stated complaint: Mental Health Time Seen by Provider: 09/18/19 13:45 Source: patient, RN notes reviewed, old records reviewed Mode of arrival: ambulatory Limitations: no limitations - History of Present Illness Initial comments: Is a 49-year-old female presents emergency department stating she has a history of bipolar. Patient states she's been very manic lately. Patient states she's also drinking quite a bit of alcohol. Patient states she drinks alcohol is morning as well. Patient states she's also been very suicidal and she has not attempted anything but she is afraid she is going to. Patient denies any physical complaints today. Patient denies headache patient denies numbness weakness. Patient denies chest pain difficult breathing or palpitations. Patient denies abdominal pain. Patient has nausea vomiting diarrhea. - Related Data Home Medications Medication Instructions Recorded Confirmed Albuterol Inhaler (Mhu) [Ventolin 2 puff INHALATION RT-Q6H PRN 12/16/18 04/16/19 Hfa Inhaler (Mhu)] Cetirizine HCl 10 mg PO DAILY PRN 12/16/18 04/16/19 Folic Acid 1 mg PO DAILY 12/16/18 04/16/19 L.acidoph,Paracasei, B.lactis 1 cap PO DAILY 12/16/18 04/16/19 [Probiotic] LORazepam [Ativan] 1 mg PO DAILY PRN 12/16/18 04/16/19 PARoxetine [Paxil] 20 mg PO DAILY 12/16/18 04/16/19 Umeclidinium Brm/Vilanterol Tr 1 puff INHALATION RT-DAILY 12/16/18 04/16/19 [Anoro Ellipta 62.5-25 Mcg INH] lamoTRIgine [LaMICtal] 150 mg PO HS 12/16/18 04/16/19 traZODone HCL 150 mg PO HS 12/16/18 04/16/19 Hydrocodone/Acetaminophen [[place] 1 tab PO Q4H PRN 04/16/19 04/16/19 10-325] Pregabalin [Lyrica] 150 mg PO TID PRN 04/16/19 04/16/19 Allergies Allergy/AdvReac Type Severity Reaction Status Date / Time codeine Allergy Itching Verified 09/18/19 13:49 Review of Systems ROS Statement: Those systems with pertinent positive or pertinent negative responses have been documented in the HPI. ROS Other: All systems not noted in ROS Statement are negative. Past Medical History Past Medical History: Asthma, Cancer Additional Past Medical History / Comment(s): Breast cancer History of Any Multi-Drug Resistant Organisms: MRSA Date of last positivie culture/infection: 2008 MDRO Source:: jaw, blood Past Surgical History: Tubal Ligation, Uterine Ablation Past Anesthesia/Blood Transfusion Reactions: No Reported Reaction Past Psychological History: Anxiety, Bipolar, Depression Smoking Status: Current every day smoker Past Alcohol Use History: Occasional Past Drug Use History: None Reported - Past Family History Mother Family Medical History: No Reported History General Exam - General Exam Comments Initial Comments: GENERAL: Patient is well-developed and well-nourished. Patient is nontoxic and well-hy drated and is in no acute distress. ENT: Neck is soft and supple. No significant lymphadenopathy is noted. Oropharynx is clear. Moist mucous membranes. Neck has full range of motion without elici ting any pain. EYES: The sclera were anicteric and conjunctiva were pink and moist. Extraocular movements were intact and pupils were equal round and reactive to light. Eyelids were unremarkable. PULMONARY: Unlabored respirations. Good breath sounds bilaterally. No audible rales rhonchi or wheezing was noted. CARDIOVASCULAR: There is a regular rate and rhythm without any murmurs gallops or rubs. ABDOMEN: Soft and nontender with normal bowel sounds. SKIN: Skin is clear with no lesions or rashes and otherwise unremarkable. NEUROLOGIC: Patient is alert and oriented x3. Cranial nerves II through XII are grossly intact. Motor and sensory are also intact. Normal speech, volume and content. Symmetrical smile. MUSCULOSKELETAL: Normal extremities with adequate strength and full range of motion. No lower extremity swelling or edema. No calf tenderness. LYMPHATICS: No significant lymphadenopathy is noted PSYCHIATRIC: Patient states she was suicidal. Patient states she feels as though she is in a manic phase currently. Limitations: no limitations Course Vital Signs 09/18/19 13:43 Temperature 98.4 F Pulse Rate 140 H Respiratory 18 Rate Blood Pressure 123/79 O2 Sat by Pulse 96 Oximetry Medical Decision Making - Medical Decision Making Patient sobered up and stated that this time she was not suicidal and that she just wanted some help with her alcoholism. She was given at [employer] and she was given a safety plan - Lab Data Lab Results 09/18/19 Range/Units 14:08 Urine Opiates Screen Detected H (NotDetected) Ur Oxycodone Screen Not Detected (NotDetected) Urine Methadone Screen Not Detected (NotDetected) Ur Propoxyphene Screen Not Detected (NotDetected) Ur Barbiturates Screen Not Detected (NotDetected) U Tricyclic Antidepress Not Detected (NotDetected) Ur Phencyclidine Scrn Not Detected (NotDetected) Ur Amphetamines Screen Not Detected (NotDetected) U Methamphetamines Scrn Not Detected (NotDetected) U Benzodiazepines Scrn Detected H (NotDetected) Urine Cocaine Screen Not Detected (NotDetected) U Marijuana (THC) Screen Not Detected (NotDetected) Disposition Clinical Impression: Alcohol abuse, Situational depression Disposition: HOME SELF-CARE Condition: Good Is patient prescribed a controlled substance at d/c from ED?: No Referrals: Ihsan Staples MD [Primary Care Provider] - 1-2 days Time of Disposition: 16:15
[2019-09-18 14:40] LABS: Amphetamine Screen,Urine Not Detected (NotDetected); Barbiturate Screen,Urine Not Detected (NotDetected); Benzodiazepines Screen,Urine Detected (NotDetected); Cocaine Screen,Urine Not Detected (NotDetected); Methadone Screen, Urine Not Detected (NotDetected); Opiate Screen,Urine Detected (NotDetected); Oxycodone Screen, Urine Not Detected (NotDetected); Phencyclidine Screen,Urine Not Detected (NotDetected); Tricyclic Antidepressant,Urine Not Detected (NotDetected); Urn Cannabinoid Scrn Not Detected (NotDetected)
== END 2019-09-18 16:21 | disposition home or self-care (01) ==
LOC: EC 13:42
DX: F43.21 Adjustment disorder with depressed mood (principal); F10.10 Alcohol abuse, uncomplicated; J45.909 Unspecified asthma, uncomplicated; F41.9 Anxiety disorder, unspecified; Z79.51 Long term (current) use of inhaled steroids; Z79.899 Other long term (current) drug therapy; F17.200 Nicotine dependence, unspecified, uncomplicated; Z88.5 Allergy status to narcotic agent; Z85.3 Personal history of malignant neoplasm of breast; Z86.14 Personal history of Methicillin resistant Staphylococcus aureus infection
CPT/HCPCS: 80306; 82075; 99285

== ENCOUNTER 2020-03-22 16:49 | Emergency (ER) | payer MEDICARE, OTHER ==
[2020-03-22 17:02] VITALS: BP 103/59; PULSE 110; RESP 17; TEMP 98.7
--- NOTE | 2020-03-22 17:26 | ED ---
General Adult HPI - General Source: patient Mode of arrival: ambulatory Limitations: no limitations <Dayton Garibay Zoe - Last Filed: 03/22/20 22:29> <Chano Hurley - Last Filed: 03/23/20 01:14> - General Chief complaint: Psychiatric Symptoms Stated complaint: Shaking/not sleeping/heart racing/manic epi Time Seen by Provider: 03/22/20 17:04 - History of Present Illness Initial comments: Dictation was produced using [employer] dictation software. please excuse any grammatical, word or spelling errors. This patient was cared for during a federal and state declared state of emergency secondary to Covid 19 Chief Complaint: 49 yo F with past medical history of bipolar disease presents with alisha History of Present Illness: Patient is a 49-year-old female she has past medical history of bipolar disease. Patient states she's been manic for several days now. Patient states that when she gets like this she tries to drink to alleviate her symptoms. Patient denies drinking alcohol regularly. Patient states she's been trying wasn't having difficulty staying still. She has not seen a psychiatrist due to the state regulated lockdown's. She feels depressed and does feel suicidal however does not have a specific plan. No homicidal ideation. Denies any visual or auditory hallucinations. The ROS documented in this emergency department record has been reviewed and confirmed by me. Those systems with pertinent positive or negative responses have been documented in the HPI. All other systems are other negative and/or noncontributory. PHYSICAL EXAM: General Impression: Alert and oriented x3, not in acute distress HEENT: Normocephalic atraumatic, extra-ocular movements intact, pupils equal and reactive to light bilaterally, mucous membranes moist. Cardiovascular: Heart regular rate and rhythm Chest: Able to complete full sentences, no retractions, no tachypnea Abdomen: abdomen soft, non-tender, non-distended, no organomegaly Musculoskeletal: Pulses present and equal in all extremities, no peripheral edema Motor: no focal deficits noted Neurological: CN II-XII grossly intact, no focal motor or sensory deficits noted Skin: Intact with no visualized rashes Psych: Tearful ED course: 49-year-old female presents emergency department for chief complaint of alisha. Signs upon arrival shows heart rate of 110, rest of vital signs within acceptable limits. Patient is tearful at bedside. She does not appear acutely psychotic. Breath alcohol test is 140. Patient is pending clinical sobriety for EPS evaluation. Patient care is signed out to oncoming physician at 10:29 PM. (Dayton Garibay) - Related Data Home Medications Medication Instructions Recorded Confirmed LORazepam [Ativan] 1 mg PO DAILY PRN 12/16/18 03/22/20 Umeclidinium Brm/Vilanterol Tr 1 puff INHALATION RT-DAILY 12/16/18 03/22/20 [Anoro Ellipta 62.5-25 Mcg INH] lamoTRIgine [LaMICtal] 150 mg PO HS 12/16/18 03/22/20 traZODone HCL 150 mg PO HS 12/16/18 03/22/20 Hydrocodone/Acetaminophen [[place] 1 tab PO Q4H PRN 04/16/19 03/22/20 10-325] Pregabalin [Lyrica] 150 mg PO Q6H 04/16/19 03/22/20 Albuterol Inhaler [Ventolin Hfa 2 puff INHALATION RT-QID PRN 03/22/20 03/22/20 Inhaler] Cyclobenzaprine [Flexeril] 10 mg PO Q8H PRN 03/22/20 03/22/20 Loratadine 10 mg PO DAILY 03/22/20 03/22/20 PARoxetine HCL [Paxil] 30 mg PO DAILY 03/22/20 03/22/20 risperiDONE 0.5 mg PO DAILY 03/22/20 03/22/20 Allergies Allergy/AdvReac Type Severity Reaction Status Date / Time codeine Allergy Itching Verified 03/22/20 18:08 Review of Systems ROS Other: All systems not noted in ROS Statement are negative. <Dayton Garibay - Last Filed: 03/22/20 22:29> ROS Other: All systems not noted in ROS Statement are negative. <Chano Hurley - Last Filed: 03/23/20 01:14> ROS Statement: Those systems with pertinent positive or pertinent negative responses have been documented in the HPI. Past Medical History Past Medical History: Asthma, Cancer Additional Past Medical History / Comment(s): Breast cancer History of Any Multi-Drug Resistant Organisms: MRSA Date of last positivie culture/infection: 2009 MDRO Source:: jaw, blood Past Surgical History: Tubal Ligation, Uterine Ablation Past Anesthesia/Blood Transfusion Reactions: No Reported Reaction Past Psychological History: Anxiety, Bipolar, Depression Smoking Status: Current every day smoker Past Alcohol Use History: Occasional Past Drug Use History: None Reported - Past Family History Mother Family Medical History: No Reported History <Dayton Garibay - Last Filed: 03/22/20 22:29> General Exam Limitations: no limitations <Dayton Garibay - Last Filed: 03/22/20 22:29> Course Vital Signs 03/22/20 16:56 Temperature 98.7 F Pulse Rate 110 H Respiratory 17 Rate Blood Pressure 103/59 O2 Sat by Pulse 96 Oximetry Disposition <Dayton Garibay - Last Filed: 03/22/20 22:29> Is patient prescribed a controlled substance at d/c from ED?: No <Chano Hurley - Last Filed: 03/23/20 01:14> Clinical Impression: Mood disorder Disposition: HOME SELF-CARE Condition: Good Instructions (If sedation given, give patient instructions): Mood Disorders (ED) Referrals: Ihsan Staples MD [Primary Care Provider] - 1-2 days
== END 2020-03-23 01:35 | disposition home or self-care (01) ==
LOC: EC 16:49
DX: F30.9 Manic episode, unspecified (principal); R00.0 Tachycardia, unspecified; F41.9 Anxiety disorder, unspecified; J45.909 Unspecified asthma, uncomplicated; Z79.51 Long term (current) use of inhaled steroids; Z79.899 Other long term (current) drug therapy; F17.200 Nicotine dependence, unspecified, uncomplicated; Z88.5 Allergy status to narcotic agent; Z85.3 Personal history of malignant neoplasm of breast
CPT/HCPCS: 82075; 99285

== ENCOUNTER 2020-03-24 13:27 | Inpatient (IN) | payer MEDICARE, MEDICAID ==
[2020-03-24] MEDS ORDERED: LORazepam 2 MG/ML INJ IM STA (14:33)
--- NOTE | 2020-03-24 14:33 | ED ---
Psych HPI - General Chief Complaint: Psychiatric Symptoms Stated Complaint: Mental Health Time Seen by Provider: 03/24/20 14:10 Source: patient Mode of arrival: wheelchair - History of Present Illness Initial Comments: Patient is a 49-year-old female with history of bipolar, presenting to the emergency department via EMS with complaints of increased anxiety, racing thoughts. Patient verbalized to EMS that she does have plans of suicide by overdose. Patient denies any homicidal thoughts. She denies any pain today, no chest pain, no shortness of breath or fever or chills. She did take an Ativan at approximate 4 AM this morning which did not help with her symptoms. Patient denies any other drug use, she states she has not drank alcohol in 2 days. She has no further complaints at this time. Upon arrival to the ER, her vital signs are stable. - Related Data Home Medications Medication Instructions Recorded Confirmed LORazepam [Ativan] 1 mg PO DAILY PRN 12/16/18 03/24/20 Umeclidinium Brm/Vilanterol Tr 1 puff INHALATION RT-DAILY 12/16/18 03/24/20 [Anoro Ellipta 62.5-25 Mcg INH] lamoTRIgine [LaMICtal] 150 mg PO HS 12/16/18 03/24/20 traZODone HCL 150 mg PO HS 12/16/18 03/24/20 Hydrocodone/Acetaminophen [[place] 1 tab PO Q4H PRN 04/16/19 03/24/20 10-325] Pregabalin [Lyrica] 150 mg PO Q6H 04/16/19 03/24/20 Albuterol Inhaler [Ventolin Hfa 2 puff INHALATION RT-QID PRN 03/22/20 03/24/20 Inhaler] Cyclobenzaprine [Flexeril] 10 mg PO Q8H PRN 03/22/20 03/24/20 Loratadine 10 mg PO DAILY 03/22/20 03/24/20 PARoxetine HCL [Paxil] 30 mg PO DAILY 03/22/20 03/24/20 risperiDONE 0.5 mg PO DAILY 03/22/20 03/24/20 Biotin 5,000 mcg PO DAILY 03/24/20 03/24/20 Ibuprofen [Motrin Ib] 800 mg PO Q8H PRN 03/24/20 03/24/20 Allergies Allergy/AdvReac Type Severity Reaction Status Date / Time codeine Allergy Itching Verified 03/24/20 14:57 Review of Systems ROS Statement: Those systems with pertinent positive or pertinent negative responses have been documented in the HPI. ROS Other: All systems not noted in ROS Statement are negative. Past Medical History Past Medical History: Asthma, Cancer Additional Past Medical History / Comment(s): Breast cancer History of Any Multi-Drug Resistant Organisms: MRSA Date of last positivie culture/infection: 2008 MDRO Source:: jaw, blood Past Surgical History: Tubal Ligation, Uterine Ablation Past Anesthesia/Blood Transfusion Reactions: No Reported Reaction Past Psychological History: Anxiety, Bipolar, Depression Smoking Status: Current every day smoker Past Alcohol Use History: Occasional Past Drug Use History: None Reported - Past Family History Mother Family Medical History: No Reported History General Exam - General Exam Comments Initial Comments: GENERAL: Patient is well-developed and well-nourished. Patient is nontoxic and in no acute distress, does appear anxious. HEAD: Atraumatic, normocephalic. EYES: Pupils equal round and reactive to light, extraocular movements intact, sclera anicteric, conjunctiva are normal. Eyelids were unremarkable. ENT: TMs normal, nares patent, oropharynx clear without exudates. Moist mucous membranes. NECK: Normal range of motion, supple without lymphadenopathy or JVD. LUNGS: Unlabored respirations. Breath sounds clear to auscultation bilaterally and equal. No wheezes rales or rhonchi. HEART: Regular rate and rhythm without murmurs, rubs or gallops. ABDOMEN: Soft, nontender, normoactive bowel sounds. No guarding, no rebound. No masses appreciated. : Deferred MUSCULOSKELETAL: Normal extremities with adequate strength and normal range of motion, no pitting or edema. No clubbing or cyanosis. NEUROLOGICAL: Patient is alert and oriented x 3. Motor and sensory are also intact. Cranial nerves II through XII grossly intact. Symmetrical smile. Normal speech, normal gait. PSYCH: Patient appears anxious, racing thoughts. SKIN: Warm, Dry, normal turgor, no rashes or lesions noted. Limitations: no limitations Course Vital Signs 03/24/20 13:31 Temperature 98.2 F Pulse Rate 92 Respiratory 20 Rate Blood Pressure 113/62 O2 Sat by Pulse 96 Oximetry Medical Decision Making - Medical Decision Making Patient is a 49-year-old female with history bipolar presenting via EMS with complaints of increasing anxiety and racing thoughts. She did verbalize a plan of suicide by overdose. No homicidal thoughts. Her vital signs are stable. BAT was negative. Patient was evaluated by EPS and will be admitted to the psych unit. - Lab Data Lab Results 03/24/20 03/24/20 Range/Units 14:46 14:46 Urine Opiates Screen Detected H (NotDetected) Ur Oxycodone Screen Not Detected (NotDetected) Urine Methadone Screen Not Detected (NotDetected) Ur Propoxyphene Screen Not Detected (NotDetected) Ur Barbiturates Screen Not Detected (NotDetected) U Tricyclic Antidepress Not Detected (NotDetected) Ur Phencyclidine Scrn Not Detected (NotDetected) Ur Amphetamines Screen Not Detected (NotDetected) U Methamphetamines Scrn Not Detected (NotDetected) U Benzodiazepines Scrn Detected H (NotDetected) Urine Cocaine Screen Not Detected (NotDetected) U Marijuana (THC) Screen Not Detected (NotDetected) Coronavirus (PCR) Not Detected (Not Detectd) Disposition Clinical Impression: Suicidal ideation, Depression Disposition: TRANSFER TO PSYCH HOSP/UNIT Condition: Stable Decision Date: 03/24/20 Decision Time: 16:28
[2020-03-24 15:07] LABS: Amphetamine Screen,Urine Not Detected (NotDetected); Barbiturate Screen,Urine Not Detected (NotDetected); Benzodiazepines Screen,Urine Detected (NotDetected); Cocaine Screen,Urine Not Detected (NotDetected); Methadone Screen, Urine Not Detected (NotDetected); Opiate Screen,Urine Detected (NotDetected); Oxycodone Screen, Urine Not Detected (NotDetected); Phencyclidine Screen,Urine Not Detected (NotDetected); Tricyclic Antidepressant,Urine Not Detected (NotDetected); Urn Cannabinoid Scrn Not Detected (NotDetected)
[2020-03-24] MEDS ORDERED: ACETAMINOPHEN TAB 325 MG TAB PO PRN (16:18)
[2020-03-24] MEDS ORDERED: MAG HYDROX/AL HYDROX/SIMETH 30 ML CUP PO PRN (16:18)
[2020-03-24] MEDS ORDERED: MAGNESIUM HYDROXIDE 2,400 MG/10 ML CUP PO PRN (16:18)
[2020-03-24] MEDS ORDERED: LORazepam 1 MG TAB PO PRN ×2 (16:18→16:23)
[2020-03-24] MEDS ORDERED: ALBUTEROL INHALER 60 PUFF/8 GM INHALER (MHU) INHALATION PRN (16:23)
[2020-03-24] MEDS ORDERED: CYCLOBENZAPRINE 10 MG TAB PO PRN (16:23)
[2020-03-24] MEDS ORDERED: haloperidoL 5 MG TAB PO PRN (16:26)
[2020-03-24] MEDS: PREGABALIN 75 MG CAP PO SCH (19:29)
[2020-03-24] MEDS: traZODone HCL 100 MG TAB PO SCH (20:51)
[2020-03-24] MEDS ORDERED: lamoTRIgine 100 MG TAB PO SCH (21:00)
[2020-03-25] MEDS: PREGABALIN 75 MG CAP PO SCH ×7 (00:46→23:52)
[2020-03-25] MEDS: PARoxetine 10 MG TAB PO SCH (08:03)
[2020-03-25] MEDS: risperiDONE 0.5 MG TAB PO SCH (08:04)
[2020-03-25] MEDS: LORATADINE 10 MG TAB PO SCH (08:04)
[2020-03-25 08:28] LABS: Basophils # (A) 0.1 k/uL (0-0.2); Basophils % (A) 1 %; Eosinophils # (A) 0.8 k/uL (0-0.7); Eosinophils % (A) 6 %; HCT 46.4 % (34.0-46.0); HGB 16.3 gm/dL (11.4-16.0); Lymphocytes # (A) 2.1 k/uL (1.0-4.8); Lymphocytes % (A) 15 %; MCV 94.4 fL (80.0-100.0); Mean Platelet Volume 7.6; Monocytes # (A) 0.4 k/uL (0-1.0); Monocytes % (A) 3 %; Neutrophils # (A) 10.7 k/uL (1.3-7.7); Neutrophils % (A) 75 %; Platelet Count 256 k/uL (150-450); RBC 4.92 m/uL (3.80-5.40); RDW 13.4 % (11.5-15.5); WBC 14.4 k/uL (3.8-10.6)
[2020-03-25 08:32] VITALS: RESP 16
[2020-03-25] MEDS: NICOTINE 21MG/24HR PATCH TRANSDERM SCH (08:49)
[2020-03-25 08:55] LABS: ALT 39 U/L (4-34); AST 59 U/L (14-36); African American GFR (CKD) >90 (>60 ml/min/1.73 sqM); Albumin 3.7 g/dL (3.5-5.0); Alkaline Phosphatase 99 U/L (38-126); Anion Gap 5 mmol/L; Blood Urea Nitrogen 12 mg/dL (7-17); Calcium 9.3 mg/dL (8.4-10.2); Carbon Dioxide 24 mmol/L (22-30); Chloride 111 mmol/L (98-107); Cholesterol 149 mg/dL (<200); Glucose 113 mg/dL (74-99); HDL Cholesterol 46 mg/dL (40-60); LDL Cholesterol,Calculated 56 mg/dL (0-99); Non-African American GFR(CKD) >90 (>60 ml/min/1.73 sqM); Sodium 140 mmol/L (137-145); Total Bilirubin 0.7 mg/dL (0.2-1.3); Total Protein 6.3 g/dL (6.3-8.2); Triglycerides 235 mg/dL (<150)
[2020-03-25] MEDS ORDERED: NICOTINE 14MG/24HR PATCH TRANSDERM SCH (09:00)
[2020-03-25] MEDS ORDERED: NON FORMULARY DRUG (Biotin [Biotin] 5,000 MCG Tab.Rapdis) PO SCH (09:00)
[2020-03-25] MEDS: IPRATROPIUM 0.5 MG/2.5 ML NEBU INHALATION SCH ×4 (09:08→19:07)
[2020-03-25] MEDS: FORMOTEROL FUMARATE 20 MCG/2 ML NEBU INHALATION SCH ×2 (09:08→19:07)
--- NOTE | 2020-03-25 12:22 | P.HP ---
Psychiatric H&P - . H&P Date: 03/25/20 History & Physical: IDENTIFYING DATA: She is a 49-year-old female admitted to the psychiatric unit voluntarily with complaints of restlessness, anxiety and increasing depression. HISTORY OF PRESENT ILLNESS: I reviewed the medical record and interviewed the patient. The information obtained from the patient is only fairly reliable because she was anxious, distressed and had difficulty presenting coherent and detailed history. She complained that over the last "week or so" she is becoming increasingly distressed to the point that her insisted that she go to the hospital. She told the EPS nurse that she is been having "severe panic attacks", ""cannot take it anymore" and that her allegedly told her that she needs to "do something about it before they both kill themselves." She was unable to identify a trigger stress that led to the change in her mental status. She talked about becoming increasingly restless since her girlfriend returned to [place] at the beginning of this month. She had "episodes like t his" when her girlfriend was visiting but her girlfriend was able to "talk me down." At home she was rocking back and forth and shaking because she was so "anxious and distressed." She described difficulty falling asleep. She talked about not wanting to leave the house and feeling increasingly anxious when she leaves the house. She denies that she has ability to enjoy herself. His difficulty concentrating and attending and described recurrent persistent obsessive thoughts. She denied having thoughts of or suicide but talked about fears that if her situation persisted that she could "overdose again". She denied experiencing psychotic symptoms such as hallucinations, confusion or paranoia. She was evasive about her alcohol use. She admitted to a history of alcohol use and alcohol use problems and appears to been struggling with her desire to drink. She denied use of drugs to get high, help her sleep or change her mood. PAST PSYCHIATRIC HISTORY: This is her sixth psychiatric hospitalization at [facility]. Her psychiatric diagnoses include bipolar 2 disorder, obsessive-compulsive disorder, panic disorder and generalized anxiety disorder. Her last admission to this unit was in May 2018 when she presented with complaints of uncontrolled anxiety. She was engaged in mental health services through [facility] counseling until March 2018. She talked about having been discharged from the program for missing appointments. Her primary care provider has been prescribing her psychotropic medications-Paxil 30 mg daily, Risperdal 0.5 mg daily, trazodone 150 mg at bedtime and Lamictal 150 mg at bedtime. PAST MEDICAL HISTORY: According to record, she has history of asthma and osteoarthritis. Past diagnosis of breast cancer, tubal ligation and uterine ablation ALLERGIES: Codeine SUBSTANCE USE HISTORY: She has a history of an alcohol use disorder and alleged she has been abstinent for the last 4 years. She began drinking when she was 14 or 15-year-old years old. She had 2 admissions to [place] [id number] and a long-term residential program in [place]. FAMILY PSYCHIATRIC/SUBSTANCE USE HISTORY: She described family history of mood disorder and substance use problems. LEGAL HISTORY: She denied history of legal problems. SOCIAL HISTORY: She was raised in an intact family. She graduated from high school and obtained an associates degree. She was twice. She has 1 child from her first marriage with whom she has an estranged relationship. She works intermittently for [employer]. She is currently unemployed and receives Social Security disability. She lives with her second . They've been for 20 years. MENTAL STATUS EXAM: She presented as a disheveled-appearing 49-year-old female who is wearing a hospital gown. She has restless and frequently shifted in his seat. She made eye contact and appeared to attend to interview. She had a distressed facial expression. She was alert and oriented to person, place and time. Her speech was spontaneous, soft and difficult to understand. Her affect was dysphoric and unreactive. She expressed feelings of hopelessness and helplessness but denied feeling worthless. She expressed his wishes but denied suicidal ideation. She ruminated about the circumstances that led to this hospitalization. She did not express ideas reference, paranoid ideation or delusions. Thinking was concrete and her associations were disjointed but logical. She denied hallucinations did not appear to be responding to internal stimuli. Global impression of intellect is average. She is aware of her illness and need for treatment. STRENGTHS: Stable housing, stable income, treatment seeking WEAKNESSES: Loss of outpatient mental services IMPRESSION: Is a 49-year-old female presented to the psychiatric unit with complaints of increasing anxiety and depression that is interfering with her relationship with her . She has a history of prior psychiatric hospitalization and a purported diagnoses were bipolar illness. Her primary complaints relate increasing anxiety, restlessness and depression. She is struggling maintaining her abstinence from alcohol. She appreciated an inpatient basis with combination of psychopharmacology and multimodal therapy. PRINCIPLE DIAGNOSIS: Major depressive disorder with anxious distressed, rule out bipolar illness depressed with anxious distress, alcohol use disorder in sustained remission, rule out personality disorder RECOMMENDATION: Admitted to psychiatric unit. Safety precautions. Consult medicine for initial physical exam and medical history. reinforcing iron worker helper completed initial psychosocial assessment coordinate discharge and aftercare. Continue Paxil 30 mg daily, risperidone 5 mg daily and trazodone 150 mg at bedtime. Increase Lamictal to 100 mg twice a day. Continue outpatient medications including Ventolin inhaler, Flexeril, formoterol, Motrin, Claritin, and Lyrica (50 mg by mouth every 6 hours). Habitrol for smoking cessation. Evaluate clinical status response to treatment daily basis. Encourage participation in therapeutic groups and activities. Allergies Allergy/AdvReac Type Severity Reaction Status Date / Time codeine Allergy Itching Verified 03/24/20 14:57 Vital Signs Temp 97.8 F 03/25/20 06:02 Pulse 140 H 03/25/20 08:31 Resp 16 03/25/20 08:31 BP 103/69 03/25/20 08:31 Pulse Ox 96 03/24/20 16:30 Intake & Output 03/24/20 03/25/20 03/25/20 18:59 06:59 18:59 Weight 62.142 kg Laboratory Last Values WBC 14.4 k/uL (3.8-10.6) H 03/25/20 07:53 RBC 4.92 m/uL (3.80-5.40) 03/25/20 07:53 Hgb 16.3 gm/dL (11.4-16.0) H 03/25/20 07:53 Hct 46.4 % (34.0-46.0) H 03/25/20 07:53 MCV 94.4 fL (80.0-100.0) 03/25/20 07:53 MCH 33.0 pg (25.0-35.0) 03/25/20 07:53 MCHC 35.0 g/dL (31.0-37.0) 03/25/20 07:53 RDW 13.4 % (11.5-15.5) 03/25/20 07:53 Plt Count 256 k/uL (150-450) 03/25/20 07:53 MPV 7.6 03/25/20 07:53 Neutrophils % 75 % 03/25/20 07:53 Lymphocytes % 15 % 03/25/20 07:53 Monocytes % 3 % 03/25/20 07:53 Eosinophils % 6 % 03/25/20 07:53 Basophils % 1 % 03/25/20 07:53 Neutrophils # 10.7 k/uL (1.3-7.7) H 03/25/20 07:53 Lymphocytes # 2.1 k/uL (1.0-4.8) 03/25/20 07:53 Monocytes # 0.4 k/uL (0-1.0) 03/25/20 07:53 Eosinophils # 0.8 k/uL (0-0.7) H 03/25/20 07:53 Basophils # 0.1 k/uL (0-0.2) 03/25/20 07:53 Sodium 140 mmol/L (137-145) 03/25/20 07:53 Potassium 4.0 mmol/L (3.5-5.1) 03/25/20 07:53 Chloride 111 mmol/L (98-107) H 03/25/20 07:53 Carbon Dioxide 24 mmol/L (22-30) 03/25/20 07:53 Anion Gap 5 mmol/L 03/25/20 07:53 BUN 12 mg/dL (7-17) 03/25/20 07:53 Creatinine 0.62 mg/dL (0.52-1.04) 03/25/20 07:53 Est GFR (CKD-EPI)AfAm >90 (>60 ml/min/1.73 sqM) 03/25/20 07:53 Est GFR (CKD-EPI)NonAf >90 (>60 ml/min/1.73 sqM) 03/25/20 07:53 Glucose 113 mg/dL (74-99) H 03/25/20 07:53 Calcium 9.3 mg/dL (8.4-10.2) 03/25/20 07:53 Total Bilirubin 0.7 mg/dL (0.2-1.3) 03/25/20 07:53 AST 59 U/L (14-36) H 03/25/20 07:53 ALT 39 U/L (4-34) H 03/25/20 07:53 Alkaline Phosphatase 99 U/L (38-126) 03/25/20 07:53 Total Protein 6.3 g/dL (6.3-8.2) 03/25/20 07:53 Albumin 3.7 g/dL (3.5-5.0) 03/25/20 07:53 Triglycerides 235 mg/dL (<150) H 03/25/20 07:53 Cholesterol 149 mg/dL (<200) 03/25/20 07:53 LDL Cholesterol, Calc 56 mg/dL (0-99) 03/25/20 07:53 HDL Cholesterol 46 mg/dL (40-60) 03/25/20 07:53 TSH 0.538 mIU/L (0.465-4.680) 03/25/20 07:53 Urine Opiates Screen Detected (NotDetected) H 03/24/20 14:46 Ur Oxycodone Screen Not Detected (NotDetected) 03/24/20 14:46 Urine Methadone Screen Not Detected (NotDetected) 03/24/20 14:46 Ur Propoxyphene Screen Not Detected (NotDetected) 03/24/20 14:46 Ur Barbiturates Screen Not Detected (NotDetected) 03/24/20 14:46 U Tricyclic Antidepress Not Detected (NotDetected) 03/24/20 14:46 Ur Phencyclidine Scrn Not Detected (NotDetected) 03/24/20 14:46 Ur Amphetamines Screen Not Detected (NotDetected) 03/24/20 14:46 U Methamphetamines Scrn Not Detected (NotDetected) 03/24/20 14:46 U Benzodiazepines Scrn Detected (NotDetected) H 03/24/20 14:46 Urine Cocaine Screen Not Detected (NotDetected) 03/24/20 14:46 U Marijuana (THC) Screen Not Detected (NotDetected) 03/24/20 14:46 Coronavirus (PCR) Not Detected (Not Detectd) 03/24/20 14:46 03/25/20 11:56
--- NOTE | 2020-03-25 14:16 | P.CONS ---
History of Present Illness - Reason for Consult Leukocytosis - History of Present Illness 49-year-old female came in for anxiety and depression. Patient is required testing [place] and she believes she is going to withdrawals. Patient was complaining and the patient pain in the right jaw area. Patient denied any fever chills patient denied any cough or dysuria no evidence of infection at this time when questioned patient complained she was having diarrhea although her diarrhea was not noted by any of the nursing staff. I requested the patient to collect the stool so that we can get C. diff and also quantify the amount of stool. Patient is anxious but doesn't have any other symptoms of opiate wit hdrawal as she doesn't take note: Regular basis at home. Diarrhea can be a symptom that there is no objective evidence of diarrhea at this time. Patient does have leukocytosis. Review of Systems REVIEW OF SYSTEMS: CONSTITUTIONAL: As mentioned in HPI HEENT: No recent visual problems or hearing problems. Denied any sore throat. CARDIOVASCULAR: No chest pain, orthopnea, PND, no palpitations, no syncope. PULMONARY: No shortness of breath, no cough, no hemoptysis. GASTROINTESTINAL: No diarrhea, no nausea, no vomiting, no abdominal pain. NEUROLOGICAL: No headaches, no weakness, no numbness. HEMATOLOGICAL: Denies any bleeding or petechiae. GENITOURINARY: Denies any burning micturition, frequency, or urgency. MUSCULOSKELETAL/RHEUMATOLOGICAL: Denies any joint pain, swelling, or any muscle pain. ENDOCRINE: Denies any polyuria or polydipsia. The rest of the 14-point review of systems is negative. Past Medical History Past Medical History: Asthma, Cancer Additional Past Medical History / Comment(s): Breast cancer History of Any Multi-Drug Resistant Organisms: MRSA Year Discovered:: 2008 MDRO Source:: jaw, blood Past Surgical History: Tubal Ligation, Uterine Ablation Past Anesthesia/Blood Transfusion Reactions: No Reported Reaction Past Psychological History: Anxiety, Bipolar, Depression Smoking Status: Current every day smoker Past Alcohol Use History: Occasional Past Drug Use History: None Reported - Past Family History Mother Family Medical History: No Reported History Medications and Allergies Home Medications Medication Instructions Recorded Confirmed Type LORazepam [Ativan] 1 mg PO DAILY PRN 12/16/18 03/24/20 History Umeclidinium Brm/Vilanterol Tr 1 puff INHALATION RT-DAILY 12/16/18 03/24/20 History [Anoro Ellipta 62.5-25 Mcg INH] lamoTRIgine [LaMICtal] 150 mg PO HS 12/16/18 03/24/20 History traZODone HCL 150 mg PO HS 12/16/18 03/24/20 History Hydrocodone/Acetaminophen [[place] 1 tab PO Q4H PRN 04/16/19 03/24/20 History 10-325] Pregabalin [Lyrica] 150 mg PO Q6H 04/16/19 03/24/20 History Albuterol Inhaler [Ventolin Hfa 2 puff INHALATION RT-QID PRN 03/22/20 03/24/20 History Inhaler] Cyclobenzaprine [Flexeril] 10 mg PO Q8H PRN 03/22/20 03/24/20 History Loratadine 10 mg PO DAILY 03/22/20 03/24/20 History PARoxetine HCL [Paxil] 30 mg PO DAILY 03/22/20 03/24/20 History risperiDONE 0.5 mg PO DAILY 03/22/20 03/24/20 History Biotin 5,000 mcg PO DAILY 03/24/20 03/24/20 History Ibuprofen [Motrin Ib] 800 mg PO Q8H PRN 03/24/20 03/24/20 History Allergies Allergy/AdvReac Type Severity Reaction Status Date / Time codeine Allergy Itching Verified 03/24/20 14:57 Physical Exam Vitals: Vital Signs Temp Pulse Resp BP Pulse Ox 03/25/20 08:31 140 H 16 103/69 03/25/20 06:02 97.8 F 94 76/45 03/24/20 16:30 98.8 F 88 18 120/77 96 Intake and Output 03/24/20 03/25/20 03/25/20 22:59 06:59 14:59 Other: Weight 62.142 kg PHYSICAL EXAMINATION: GENERAL: The patient is alert and oriented x3, not in any acute distress. Well developed, well nourished. HEENT: Pupils are round and equally reacting to light. EOMI. No scleral icterus. No conjunctival pallor. Normocephalic, atraumatic. No pharyngeal erythema. No thyromegaly. CARDIOVASCULAR: S1 and S2 present. No murmurs, rubs, or gallops. PULMONARY: Chest is clear to auscultation, no wheezing or crackles. ABDOMEN: Soft, nontender, nondistended, normoactive bowel sounds. No palpable organomegaly. MUSCULOSKELETAL: No joint swelling or deformity. EXTREMITIES: No cyanosis, clubbing, or pedal edema. NEUROLOGICAL: Gross neurological examination did not reveal any focal deficits. SKIN: No rashes. Results CBC & Chem 7: 03/25/20 07:53 03/25/20 07:53 Labs: Abnormal Lab Results - Last 24 Hours (Table) 03/24/20 03/25/20 03/25/20 Range/Units 14:46 07:53 07:53 WBC 14.4 H (3.8-10.6) k/uL Hgb 16.3 H (11.4-16.0) gm/dL Hct 46.4 H (34.0-46.0) % Neutrophils # 10.7 H (1.3-7.7) k/uL Eosinophils # 0.8 H (0-0.7) k/uL Chloride 111 H (98-107) mmol/L Glucose 113 H (74-99) mg/dL AST 59 H (14-36) U/L ALT 39 H (4-34) U/L Triglycerides 235 H (<150) mg/dL Urine Opiates Screen Detected H (NotDetected) U Benzodiazepines Scrn Detected H (NotDetected) Assessment and Plan Plan: Leukocytosis: No evidence of infection patient will not require any antibiotics or further testing at this time patient doesn't have any fever - chronic pain and jaw Pain: We will use nonsteroidal anti-inflammatory medic ations patient will be monitored for any opiate withdrawals. We'll monitor for any diarrhea -Chronic back pain with neuropathy for which patient is on lyrica, and Flexeril which can be continued -Nicotine use: Counseling was provided -Depression and anxiety: Management as per primary service patient is on Lamictal for bipolar disorder
[2020-03-25 14:27] LABS: Hemoglobin A1C 5.5 % (4.0-6.0)
[2020-03-25] MEDS: IBUPROFEN 800 MG TAB PO PRN (16:00)
[2020-03-25] MEDS: HYDROcodone/APAP 5-325MG 1 EACH TAB PO PRN (18:08)
[2020-03-25] MEDS: traZODone HCL 100 MG TAB PO SCH (20:31)
[2020-03-25] MEDS: lamoTRIgine 100 MG TAB PO SCH (20:31)
[2020-03-25] MEDS: FAMOTIDINE 20 MG TAB PO SCH (20:31)
[2020-03-26] MEDS: PREGABALIN 75 MG CAP PO SCH ×4 (06:50→23:22)
[2020-03-26] MEDS: NICOTINE 21MG/24HR PATCH TRANSDERM SCH (08:19)
[2020-03-26] MEDS: lamoTRIgine 100 MG TAB PO SCH ×2 (08:20→21:06)
[2020-03-26] MEDS: FAMOTIDINE 20 MG TAB PO SCH ×2 (08:20→21:06)
[2020-03-26] MEDS: LORATADINE 10 MG TAB PO SCH (08:20)
[2020-03-26] MEDS: risperiDONE 0.5 MG TAB PO SCH (08:21)
[2020-03-26] MEDS: PARoxetine 10 MG TAB PO SCH (08:21)
[2020-03-26] MEDS: FORMOTEROL FUMARATE 20 MCG/2 ML NEBU INHALATION SCH ×2 (08:50→19:22)
[2020-03-26] MEDS: IPRATROPIUM 0.5 MG/2.5 ML NEBU INHALATION SCH ×4 (08:51→19:22)
[2020-03-26] MEDS: IBUPROFEN 800 MG TAB PO PRN (11:58)
--- NOTE | 2020-03-26 14:31 | P.PN ---
Progress Note - Text Progress Note Date: 03/26/20 Clinical Problems: Major depressive disorder with anxious distressed, rule out bipolar illness depressed with anxious distress, alcohol use disorder in sustained remission, rule out personality disorder Interim history: I reviewed the medical record and interviewed the patient. She complains of continued feelings of depression and anxiety but overall feels less distressed since admission. She is able to focus and attend to the interview more today than when she first arrived in the interview. She talked about feeling overwhelmed and unsupported by her . Apparently a major trigger to her presenting hospital was her have make critical comments towards her. This is out of character as she usually feels that he has been supportive. We discussed treatment options and she agreed to a trial of Strattera in place of risperidone. We also talked about changing antidepressants since been taking Paxil for "many years". I cautioned on the proper spacing medications due to the risk of withdrawal from Paxil. Medical consult appreciated. 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 Mental status exam: She presented as a carefully groomed 49-year-old female who was pleasant on approach. She was neatly groomed and dressed. She m dequan eye contact and attended to the interview. She had a distressed facial expression. She was not restless or agitated. She gesticulated as she spoke. Her speech was spontaneous with normal rate and rhythm. Her affect was dysphoric but appropriate. She denied current suicidal ideation or wishes. She feels more hopeful than on admission but denied feeling worthless. She is not express ideas reference paranoid ideation or delusional thoughts. Her thinking was abstract and associations were coherent, logical and goal directed. She denies hallucinations did not appear to be responding to internal stimuli. Assessment: She is moderately mentally ill and mentally improve from admission. Plan: Continue inpatient treatment. Safety precautions. Continue Paxil 30 mg daily, trazodone 150 mg at bedtime and Lamictal 100 mg twice a day. Discontinue risperidone and begin to do 20 mg daily and titrated clinical response and tolerance. Social work to assist with referral for outpatient mental health clinic for both individual therapy and psychiatric management. Encourage participation in therapeutic groups and activities. Evaluate clinical status and response to treatment daily basis.
[2020-03-26] MEDS: HYDROcodone/APAP 5-325MG 1 EACH TAB PO PRN (17:05)
[2020-03-26] MEDS: traZODone HCL 100 MG TAB PO SCH (21:06)
[2020-03-27] MEDS: IBUPROFEN 800 MG TAB PO PRN ×2 (01:57→14:59)
[2020-03-27] MEDS: NICOTINE 21MG/24HR PATCH TRANSDERM SCH (04:19)
[2020-03-27 07:01] VITALS: BP 142/75; PULSE 95
[2020-03-27] MEDS: PREGABALIN 75 MG CAP PO SCH ×4 (07:18→23:09)
[2020-03-27] MEDS: FORMOTEROL FUMARATE 20 MCG/2 ML NEBU INHALATION SCH ×2 (09:02→22:10)
[2020-03-27] MEDS: IPRATROPIUM 0.5 MG/2.5 ML NEBU INHALATION SCH ×4 (09:02→22:10)
[2020-03-27] MEDS: PARoxetine 10 MG TAB PO SCH (09:03)
[2020-03-27] MEDS: LURASIDONE 20 MG TAB PO SCH (09:03)
[2020-03-27] MEDS: lamoTRIgine 100 MG TAB PO SCH ×2 (09:03→22:11)
[2020-03-27] MEDS: LORATADINE 10 MG TAB PO SCH (09:03)
[2020-03-27] MEDS: HYDROcodone/APAP 5-325MG 1 EACH TAB PO PRN ×2 (09:04→17:13)
[2020-03-27] MEDS: FAMOTIDINE 20 MG TAB PO SCH ×2 (09:04→22:11)
--- NOTE | 2020-03-27 11:41 | P.PN ---
Progress Note - Text Progress Note Date: 03/27/20 Interval History: Patient was seen lying in her bed this morning and was directable and agreeable to speak with instructional writer in the office. Patient appeared to be fairly cooperative the instructional writer during the conversation. She spoke about feeling overwhelmed and stressed at home and claims that she was "losing control". She states that her were fighting for "over a week" and states that she needed to come to the hospital. She states that she has not been following up with her outpatient psychiatrist at [facility] since the beginning of the pandemic and states that she will not be allowed back there for follow-up. She states that her mood has been gradually improving since being on the unit and taking the medications. She claims that she is agreeable to take the Paxil at nighttime to help her more with sleep and also denied any side effects from the other medications. She claims that she has been going to some groups however states that last night she was only able to sleep approximately "15 minutes" and states that she is pacing the hallways. At this time patient denies any suicidal or homical ideations, intent or plan. Patient denies any auditory, visual hallucinations and denies any paranoia or delusions. Mental Status Exam: General Appearance: [Patient appears to be stated age is alert, directable, and attempts to be cooperative.] Improving hygiene and grooming Behavior: [Patient is calmly seated without any agitated behavior.] Speech: Patient's speech is fluent and nonpressured. Mood/Affect: Mood is improving mildly, affect is congruent and constricted. Suicidality/Homicidality: Patient denies having any suicidal or homicidal ideation intent or plan. Perceptions: Patient denies any visual hallucinations [and denies any auditory hallucinations] Though content/process: [There is no evidence of any delusional thought content and thought process goal-directed.] Focused on her stressors and medications. Memory and concentration: AOX3, grossly intact for the purposes of this session Judgment and insight: Improving mildly Assessment Major depressive disorder with anxious distressed, rule out bipolar disorder, depressed, alcohol use disorder in sustained remission, personality disorder NOS Plan: -Patient continues to meet criteria for inpatient psychiatric admission for symptom stabilization and safety. Patient has signed [adult voluntary form and] medication consent and was placed in patient's chart. -Medications: Changed Paxil to 30 mg daily at bedtime for mood/anxiety/sleep. Continue with Latuda 20mg daily for mood stabiliaztion. Increased Trazodone to 200mg qhs for insomnia/mood. Continue with Lamictal 100mg bid for mood stabilization/depression. -When necessary Ativan and Haldol for agitation/aggression. -NRT - nicotine patch -SW on board for discharge planning. Encouraged the patient to participate in milieu. likely discharge back home in 1-2 days.
[2020-03-27 13:20] VITALS: TEMP 97.7
[2020-03-27 18:21] LABS: Amorphous Sediment,Urine Rare /hpf; Appearance,Urine Clear (Clear); Bacteria,Urine Few /hpf; Bilirubin,Urine Negative (Negative); Blood,Urine Moderate (Negative); Color,Urine Colorless; Glucose,Urine (UA) Negative (Negative); Ketones,Urine 1+ (Negative); Leukocyte Esterase,Urine Moderate (Negative); Nitrite,Urine Negative (Negative); PH, Urine 5.5 (5.0-8.0); Protein,Urine Negative (Negative); RBC,Urine 4 /hpf (0-5); Specific Gravity,Urine 1.003 (1.001-1.035); Squamous Epithelial Cell,Urine 3 /hpf (0-4); Urobilinogen,Urine <2.0 mg/dL (<2.0); WBC,Urine 15 /hpf (0-5)
[2020-03-27] MEDS ORDERED: traZODone HCL 100 MG TAB PO SCH (21:00)
[2020-03-27] MEDS ORDERED: PARoxetine 10 MG TAB PO SCH (21:00)
[2020-03-27 23:20] LABS: Urine Alcohol Negative (Negative); Urine Barbiturate Negative (Negative); Urine Cocaine Negative (Negative); Urine Methadone Negative (Negative); Urine Opiates Negative (Negative); Urine Phencyclidine Negative (Negative)
[2020-03-28] MEDS: NICOTINE 21MG/24HR PATCH TRANSDERM SCH (07:53)
[2020-03-28] MEDS: LORATADINE 10 MG TAB PO SCH (07:54)
[2020-03-28] MEDS: LURASIDONE 20 MG TAB PO SCH (07:54)
[2020-03-28] MEDS: IBUPROFEN 800 MG TAB PO PRN (07:56)
[2020-03-28] MEDS: HYDROcodone/APAP 5-325MG 1 EACH TAB PO PRN (07:56)
[2020-03-28] MEDS: lamoTRIgine 100 MG TAB PO SCH (07:57)
[2020-03-28] MEDS: PREGABALIN 75 MG CAP PO SCH ×2 (07:58→11:22)
--- NOTE | 2020-03-28 09:14 | P.DS ---
Providers Date of admission: 03/24/20 16:12 Expected date of discharge: 03/28/20 Attending physician: Lenard Moya MD Consults: 03/24/20 16:18 Consult Physician Routine Consulting Provider: Tamra Loza Consult Reason/Comments: medical management Do you want consulting provider notified?: Yes Primary care physician: Ihsan Soliman Jhoan - Discharge Diagnosis(es) (1) Bipolar disorder current episode depressed Current Visit: Yes Status: Acute Priority: High (2) Alcohol use disorder, mild, in sustained remission Current Visit: Yes Status: Acute Priority: Medium (3) Personality disorder Current Visit: Yes Status: Acute Priority: Medium (4) Nicotine dependence Current Visit: Yes Status: Acute Priority: Low Hospital Course: Admission HPI: Admission note was completed by Dr. Naranjo "She is a 49-year-old female admitted to the psychiatric unit voluntarily with complaints of restlessness, anxiety and increasing depression. I reviewed the medical record and interviewed the patient. The information obtained from the patient is only fairly reliable because she was anxious, distressed and had difficulty presenting coherent and detailed history. She complained that over the last "week or so" she is becoming increasingly distressed to the point that her insisted that she go to the hospital. She told the EPS nurse that she is been having "severe panic attacks", ""cannot take it anymore" and that her allegedly told her that she needs to "do something about it before they both kill themselves." She was unable to identify a trigger stress that led to the change in her mental status. She talked about becoming increasingly restless since her girlfriend returned to [place] at the beginning of this month. She had "episodes like this" when her girlfriend was visiting but her girlfriend was able to "talk me down." At home she was rocking back and forth and shaking because she was so "anxious and distressed." She described difficulty falling asleep. She talked about not wanting to leave the house and feeling increasingly anxious when she leaves the house. She denies that she has ability to enjoy herself. His difficulty concentrating and attending and described recurrent persistent obsessive thoughts. She denied having thoughts of or suicide but talked about fears that if her situation persisted that she could "overdose again". She denied experiencing psychotic symptoms such as hallucinations, confusion or paranoia. She was evasive about her alcohol use. She admitted to a history of alcohol use and alcohol use problems and appears to been struggling with her desire to drink. She denied use of drugs to get high, help her sleep or change her mood." Hospital course: Upon admission to the unit patient was initially depressed and anxious. Patient was however directable and agreeable to commence treatment and signed adult voluntary form. Patient got along well with other patients on the unit and followed unit protocol. Patient was compliant with the medications and denied any side effects throughout hospital course. Patient was started on her home dose of Paxil however was changed to 30 mg daily at bedtime for mood/anxiety/sleep, Risperdal was discontinued and replaced with Latuda 20 mg daily for mood stabilization/depression and trazodone was increased to 200 mg daily at bedtime for insomnia/mood. Patient was restarted on Lamictal and increase the dose to 100 mg twice a day for mood stabilization/depression. Patient spoke of her stressors and engaged in therapy both group and individual. Patient was also seen by medical team for history and physical exam. Throughout the course of the hospitalization patient gradually improved with regards to mood, anxiety, sleep and became more future oriented with improved insight and judgment. On the day of discharge patient denied any suicidal or homicidal ideations intent or plan denied any auditory or visual hallucinations. Patient endorsed wanting to live for her future and her family. The patient denied any access to guns or weapons. Patient denied any paranoia and did not endorse any delusions. Patient does have a significant history of substance abuse and was counseled on abstaining from all substances including alcohol and marijuana. Patient elected to do outpatient substance use treatment program through outpatient. Patient was also counseled on the medications and need for regular compliance and was encouraged to follow-up with their outpatient appointment for mental health and also for primary care. Prior to discharge a f amily meeting will be arranged by social media strategist to answer any questions and ensure safety upon discharge. Mental status exam: General Appearance: Patient appears to be stated age is alert, directable, and cooperative. Patient is in no acute distress and has improved hygiene and grooming Behavior: Patient is calmly seated without any agitated behavior. Speech: Patient's speech is fluent and nonpressured. Mood/Affect: Patient reports their mood is "good", affect is congruent and euthymic. Suicidality/Homicidality: Patient denies having any suicidal or homicidal ideation intent or plan. Perceptions: Patient denies any auditory or visual hallucinations. Though content/process: There is no evidence of any delusional thought content and thought process is linear and goal-directed. more future oriented Memory and concentration: AOX3, grossly intact for the purposes of this session. Can spell "WORLD" backwards correctly. Judgment and insight: improved with guarded prognosis Impression: Bipolar disorder, currently depressed Alcohol use disorder in sustained remission Personality disorder unspecified Nicotine dependence Plan: -Continue with discharge today as patient has improved and stabilized psychiatrically and is not currently an imminent threat to herself and/or others. -Continue medications: Continue with Paxil 30 mg daily at bedtime for mood/anxiety/sleep, latuda 20 mg daily for mood stabilization, trazodone 200 mg daily at bedtime for insomnia/mood, Lamictal 100 mg twice a day for mood stabilization/depression. Gas Well Pumper spoke with patient about the possibility of a potential rash from the Lamictal and to monitor her skin and seek urgent medical attention if this does occur. -Patient was counseled on the need for medication compliance and appropriate follow-up at mental health and also primary care for medical issues. Patient verbalized understanding and agreed. -Social work to arrange for and conduct family meeting to ensure safety upon discharge and answer any questions/concerns. Social work also to arrange for patients follow up appointments for psychiatric care along with follow up with primary care provider. -Patient counseled on abstaining from recreational drugs and marijuana and alcohol. Was informed/educated on the adverse effects on their physical and mental health. Patient verbally agreed and understood. -Patient was instructed to return to the hospital or seek immediate medical care if their psychiatric or medical symptoms do worsen or reoccur. Allergies Allergy/AdvReac Type Severity Reaction Status Date / Time codeine Allergy Itching Verified 03/24/20 14:57 Laboratory Results WBC 14.4 k/uL (3.8-10.6) H 03/25/20 07:53 RBC 4.92 m/uL (3.80-5.40) 03/25/20 07:53 Hgb 16.3 gm/dL (11.4-16.0) H 03/25/20 07:53 Hct 46.4 % (34.0-46.0) H 03/25/20 07:53 MCV 94.4 fL (80.0-100.0) 03/25/20 07:53 MCH 33.0 pg (25.0-35.0) 03/25/20 07:53 MCHC 35.0 g/dL (31.0-37.0) 03/25/20 07:53 RDW 13.4 % (11.5-15.5) 03/25/20 07:53 Plt Count 256 k/uL (150-450) 03/25/20 07:53 MPV 7.6 03/25/20 07:53 Neutrophils % 75 % 03/25/20 07:53 Lymphocytes % 15 % 03/25/20 07:53 Monocytes % 3 % 03/25/20 07:53 Eosinophils % 6 % 03/25/20 07:53 Basophils % 1 % 03/25/20 07:53 Neutrophils # 10.7 k/uL (1.3-7.7) H 03/25/20 07:53 Lymphocytes # 2.1 k/uL (1.0-4.8) 03/25/20 07:53 Monocytes # 0.4 k/uL (0-1.0) 03/25/20 07:53 Eosinophils # 0.8 k/uL (0-0.7) H 03/25/20 07:53 Basophils # 0.1 k/uL (0-0.2) 03/25/20 07:53 Sodium 140 mmol/L (137-145) 03/25/20 07:53 Potassium 4.0 mmol/L (3.5-5.1) 03/25/20 07:53 Chloride 111 mmol/L (98-107) H 03/25/20 07:53 Carbon Dioxide 24 mmol/L (22-30) 03/25/20 07:53 Anion Gap 5 mmol/L 03/25/20 07:53 BUN 12 mg/dL (7-17) 03/25/20 07:53 Creatinine 0.62 mg/dL (0.52-1.04) 03/25/20 07:53 Est GFR (CKD-EPI)AfAm >90 (>60 ml/min/1.73 sqM) 03/25/20 07:53 Est GFR (CKD-EPI)NonAf >90 (>60 ml/min/1.73 sqM) 03/25/20 07:53 Glucose 113 mg/dL (74-99) H 03/25/20 07:[address] Glu mg/dL 111 03/25/20 07:53 Hemoglobin A1c 5.5 % (4.0-6.0) 03/25/20 07:53 Calcium 9.3 mg/dL (8.4-10.2) 03/25/20 07:53 Total Bilirubin 0.7 mg/dL (0.2-1.3) 03/25/20 07:53 AST 59 U/L (14-36) H 03/25/20 07:53 ALT 39 U/L (4-34) H 03/25/20 07:53 Alkaline Phosphatase 99 U/L (38-126) 03/25/20 07:53 Total Protein 6.3 g/dL (6.3-8.2) 03/25/20 07:53 Albumin 3.7 g/dL (3.5-5.0) 03/25/20 07:53 Triglycerides 235 mg/dL (<150) H 03/25/20 07:53 Cholesterol 149 mg/dL (<200) 03/25/20 07:53 LDL Cholesterol, Calc 56 mg/dL (0-99) 03/25/20 07:53 HDL Cholesterol 46 mg/dL (40-60) 03/25/20 07:53 TSH 0.538 mIU/L (0.465-4.680) 03/25/20 07:53 Urine Color Colorless 03/27/20 18:11 Urine Appearance Clear (Clear) 03/27/20 18:11 Urine pH 5.5 (5.0-8.0) 03/27/20 18:11 Ur Specific [place] 1.003 (1.001-1.035) 03/27/20 18:11 Urine Protein Negative (Negative) 03/27/20 18:11 Urine Glucose (UA) Negative (Negative) 03/27/20 18:11 Urine Ketones 1+ (Negative) H 03/27/20 18:11 Urine Blood Moderate (Negative) H 03/27/20 18:11 Urine Nitrite Negative (Negative) 03/27/20 18:11 Urine Bilirubin Negative (Negative) 03/27/20 18:11 Urine Urobilinogen <2.0 mg/dL (<2.0) 03/27/20 18:11 Ur Leukocyte Esterase Moderate (Negative) H 03/27/20 18:11 Urine RBC 4 /hpf (0-5) 03/27/20 18:11 Urine WBC 15 /hpf (0-5) H 03/27/20 18:11 Ur Squamous Epith Cells 3 /hpf (0-4) 03/27/20 18:11 Amorphous Sediment Rare /hpf (None) H 03/27/20 18:11 Urine Bacteria Few /hpf (None) H 03/27/20 18:11 Urine HCG, Qual Not Detected (Not Detectd) 03/27/20 18:11 Urine Opiates Screen Negative ng/mL (Negative) 03/27/20 18:11 Ur Oxycodone Screen Not Detected (NotDetected) 03/24/20 14:46 Urine Methadone Screen Negative ng/mL (Negative) 03/27/20 18:11 Ur Propoxyphene Screen Negative ng/mL (Negative) 03/27/20 18:11 Ur Barbiturates Screen Not Detected (NotDetected) 03/24/20 14:46 Urine Barbiturates Negative ng/mL (Negative) 03/27/20 18:11 U Tricyclic Antidepress Not Detected (NotDetected) 03/24/20 14:46 Ur Phencyclidine Scrn Negative ng/mL (Negative) 03/27/20 18:11 Ur Amphetamine Screen Negative ng/mL (Negative) 03/27/20 18:11 Ur Amphetamines Screen Not Detected (NotDetected) 03/24/20 14:46 U Methamphetamines Scrn Not Detected (NotDetected) 03/24/20 14:46 U Benzodiazepines Scrn Positive ng/mL (Negative) A 03/27/20 18:11 Urine Cocaine Screen Negative ng/mL (Negative) 03/27/20 18:11 U Cannabinoids Screen Negative ng/mL (Negative) 03/27/20 18:11 U Marijuana (THC) Screen Not Detected (NotDetected) 03/24/20 14:46 Urine Alcohol Negative mg/dL (Negative) 03/27/20 18:11 Coronavirus (PCR) Not Detected (Not Detectd) 03/24/20 14:46 Vital Signs Temp 97.7 F 03/27/20 17:50 Pulse 95 03/27/20 04:18 Resp 16 03/27/20 04:18 BP 142/75 03/27/20 04:18 Pulse Ox 96 03/24/20 16:30 Patient Condition at Discharge: Stable Plan - Discharge Summary New Discharge Prescriptions: New traZODone HCL [Desyrel] 200 mg PO HS 30 Days tab Nicotine 21Mg/24Hr Patch [Habitrol] 1 patch TRANSDERM DAILY 14 Days patch lamoTRIgine [LaMICtal] 100 mg PO BID 30 Days tab Lurasidone [Latuda] 20 mg PO DAILY 30 Days tab PARoxetine [Paxil] 30 mg PO HS 30 Days tab Continue Umeclidinium Brm/Vilanterol Tr [Anoro Ellipta 62.5-25 Mcg INH] 1 puff INHALATION RT-DAILY Hydrocodone/Acetaminophen [[place] 10-325] 1 tab PO Q4H PRN PRN Reason: Pain Pregabalin [Lyrica] 150 mg PO Q6H Loratadine 10 mg PO DAILY Cyclobenzaprine [Flexeril] 10 mg PO Q8H PRN PRN Reason: Muscle Pain Albuterol Inhaler [Ventolin Hfa Inhaler] 2 puff INHALATION RT-QID PRN PRN Reason: Shortness Of Breath Ibuprofen [Motrin Ib] 800 mg PO Q8H PRN PRN Reason: Pain Discontinued lamoTRIgine [LaMICtal] 150 mg PO HS traZODone HCL 150 mg PO HS LORazepam [Ativan] 1 mg PO DAILY PRN PRN Reason: Anxiety PARoxetine HCL [Paxil] 30 mg PO DAILY risperiDONE 0.5 mg PO DAILY Biotin 5,000 mcg PO DAILY Discharge Medication List Umeclidinium Brm/Vilanterol Tr [Anoro Ellipta 62.5-25 Mcg INH] 1 puff INHALATION RT-DAILY 12/16/18 [History] Hydrocodone/Acetaminophen [[place] 10-325] 1 tab PO Q4H PRN 04/16/19 [History] Pregabalin [Lyrica] 150 mg PO Q6H 04/16/19 [History] Albuterol Inhaler [Ventolin Hfa Inhaler] 2 puff INHALATION RT-QID PRN 03/22/20 [History] Cyclobenzaprine [Flexeril] 10 mg PO Q8H PRN 03/22/20 [History] Loratadine 10 mg PO DAILY 03/22/20 [History] Ibuprofen [Motrin Ib] 800 mg PO Q8H PRN 03/24/20 [History] Lurasidone [Latuda] 20 mg PO DAILY 30 Days tab 03/28/20 [Rx] Nicotine 21Mg/24Hr Patch [Habitrol] 1 patch TRANSDERM DAILY 14 Days patch 03/28/20 [Rx] PARoxetine [Paxil] 30 mg PO HS 30 Days tab 03/28/20 [Rx] lamoTRIgine [LaMICtal] 100 mg PO BID 30 Days tab 03/28/20 [Rx] traZODone HCL [Desyrel] 200 mg PO HS 30 Days tab 03/28/20 [Rx] Follow up Appointment(s)/Referral(s): Ihsan Staples MD [Primary Care Provider] - 1-2 days Activity/Diet/Wound Care/Special Instructions: Activity and diet as tolerated. Avoid the use of street drugs and alcohol. Take all medications as prescribed. When you are in need of refills on your medications please contact your medical provider and/or outpatient psychiatrist to have this done. Please go to scheduled outpatient appointment for aftercare treatment. If symptoms return or become worse, call the crisis line at and/or go to the nearest emergency room for evaluation. Discharge Disposition: HOME SELF-CARE
[2020-03-28] MEDS: FAMOTIDINE 20 MG TAB PO SCH (09:22)
[2020-03-28] MEDS: FORMOTEROL FUMARATE 20 MCG/2 ML NEBU INHALATION SCH (09:44)
[2020-03-28] MEDS: IPRATROPIUM 0.5 MG/2.5 ML NEBU INHALATION SCH ×2 (09:45→12:22)
--- NOTE | 2020-03-28 12:28 | P.CON ---
Consult Note - . Consult date: 03/28/20 Assessment/Plan:: 41-year-old female, evaluate this a.m. for medical consult. Patient denies any medical complaints at this time. Review of systems negative. Patient medically stable. Continue psychiatric treatment plan. Bipolar acute on chronic jaw pain Follow-up in office in one to two days after discharge.
== END 2020-03-28 13:55 | disposition home or self-care (01) | DRG 885 ==
LOC: EC 13:27 → 3MHU 16:12
PROVIDERS: ADMIT Psychiatry & Neurology Psychiatry; ATTEND Psychiatry & Neurology Psychiatry
DX: F31.30 Bipolar disorder, current episode depressed, mild or moderate severity, unspecified (principal); F31.81 Bipolar II disorder; D72.829 Elevated white blood cell count, unspecified; F10.11 Alcohol abuse, in remission; F17.200 Nicotine dependence, unspecified, uncomplicated; F41.0 Panic disorder [episodic paroxysmal anxiety]; F41.1 Generalized anxiety disorder; F42.9 Obsessive-compulsive disorder, unspecified; F60.9 Personality disorder, unspecified; G47.00 Insomnia, unspecified; G89.29 Other chronic pain; J45.909 Unspecified asthma, uncomplicated; Z79.899 Other long term (current) drug therapy; Z85.3 Personal history of malignant neoplasm of breast; Z20.822 Contact with and (suspected) exposure to COVID-19
CPT/HCPCS: 80053; 80061; 80306; 81001; 81025; 82075; 83036; 84443; 85025; 87635; 96372; 99285

== ENCOUNTER 2020-10-27 15:17 | Inpatient (IN) | payer MEDICARE, MEDICAID ==
[2020-10-27] MEDS ORDERED: LORazepam 2 MG/ML INJ IV PRN ×3 (15:58)
[2020-10-27] MEDS ORDERED: THIAMINE 100 MG/ML 2 ML VIAL IM STA (15:58)
[2020-10-27] MEDS ORDERED: LORazepam 1 MG TAB PO STA (16:40)
--- NOTE | 2020-10-27 17:21 | ED ---
General Adult HPI - General Chief complaint: Psychiatric Symptoms Stated complaint: Suicidal Time Seen by Provider: 10/27/20 15:33 Source: patient, RN notes reviewed, old records reviewed Mode of arrival: ambulatory Limitations: no limitations - History of Present Illness Initial comments: Patient is a 50-year-old female with past medical history remarkable for prior alcohol use, anxiety, asthma was on Ativan at home presents emergency Department complaining of suicidal ideations. She states she said been having increased anxiety for last 3-4 days with suicidal thoughts and a plan to walk into traffic in front of her house. She states she has been attempting take Ativan for, but has not seen much improvement. She denies any suicidal attempts. Denies any homicidal ideations, Tums complaints. Denies any hallucinations, visual or auditory. Denies any chest pain, shortness of breath, abdominal pain, nausea, vomiting. Denies using any drugs including marijuana, cocaine, tobacco. States she did drink alcohol daily times this week but denies any excessive use. States she cannot recall call the day. She states she feels "jittery" as well as anxious and depressed. She is primary concerned regarding her suicidal ideations. - Related Data Home Medications Medication Instructions Recorded Confirmed Umeclidinium Brm/Vilanterol Tr 1 puff INHALATION RT-DAILY 12/16/18 10/27/20 [Anoro Ellipta 62.5-25 Mcg INH] Hydrocodone/Acetaminophen [[place] 1 tab PO Q4-6H PRN 04/16/19 10/27/20 10-325] Pregabalin [Lyrica] 150 mg PO Q12HR 04/16/19 10/27/20 Loratadine 10 mg PO DAILY PRN 03/22/20 10/27/20 Ibuprofen [Motrin Ib] 600 mg PO Q8H PRN 03/24/20 10/27/20 Gabapentin 600 mg PO Q6H PRN 10/27/20 10/27/20 LORazepam [Ativan] 1 mg PO BID PRN 10/27/20 10/27/20 PARoxetine HCL [Paxil] 30 mg PO DAILY 10/27/20 10/27/20 Valium (Unknown Strength) 1 tab PO ONCE PRN 10/27/20 10/27/20 lamoTRIgine [LaMICtal] 150 mg PO DAILY 10/27/20 10/27/20 rOPINIRole HCL [Requip] 0.5 mg PO HS 10/27/20 10/27/20 traZODone HCL 150 mg PO HS 10/27/20 10/27/20 Allergies Allergy/AdvReac Type Severity Reaction Status Date / Time codeine Allergy Itching Verified 10/27/20 18:49 Review of Systems ROS Statement: Those systems with pertinent positive or pertinent negative responses have been documented in the HPI. Review of Systems: CONST: Denies fever EYES: Denies blurry vision ENT: Denies nasal congestion C/V: Denies Chest pain RESP: Denies shortness of breath GI: Denies abdominal pain : Denies dysuria SKIN: Denies rash. MSK: Denies joint pain. NEURO: Denies headache PSYCH: Denies homicidal ideations/plans/attempts. Denies visual or auditory hallucinations. He endorses suicidal ideations, plans but denies attempts. ROS Other: All systems not noted in ROS Statement are negative. Past Medical History Past Medical History: Asthma, Cancer Additional Past Medical History / Comment(s): Breast cancer History of Any Multi-Drug Resistant Organisms: MRSA Date of last positivie culture/infection: 2008 MDRO Source:: jaw, blood Past Surgical History: Tubal Ligation, Uterine Ablation Past Anesthesia/Blood Transfusion Reactions: No Reported Reaction Past Psychological History: Anxiety, Bipolar, Depression Smoking Status: Current every day smoker Past Alcohol Use History: Occasional Past Drug Use History: None Reported - Past Family History Mother Family Medical History: No Reported History General Exam - General Exam Comments Initial Comments: General: Appears in no acute distress. HEAD: Normal with no signs of head trauma. EYES: PERRLA, EOMI, conjunctiva normal, no discharge. Pupils are 3 mm and equal bilaterally. ENT: Hearing grossly intact, normal oropharynx. RESPIRATORY: Clear breath sounds bilaterally. No wheezes, rales, or rhonchi. C/V: Currently Regular rate and rhythm. There is tachycardic in triage. S1 and S2 auscultated, no edema, peripheral pulses 2+ and intact throughout ABD: Abd is soft, nontender, nondistended EXT: Normal range of motion, no obvious deformity SKIN: No rashes or lesions observed on exposed skin. NEURO: Alert and oriented x 4. Cranial nerves II-XII intact. No focal sensory or strength deficits. Limitations: no limitations Course Vital Signs 10/27/20 15:26 Temperature 98.3 F Pulse Rate 113 H Respiratory 22 Rate Blood Pressure 140/58 O2 Sat by Pulse 96 Oximetry Medical Decision Making - Medical Decision Making Based on the patient's presentation and physical exam, I do believe she requires psychiatric evaluation at this time. She is having active suicidal ideations. EPS will be consult. We will obtain a breathalyzer alcohol level as well as a urine drug screen. Patient will be given 1 mg of by mouth Ativan. EKG will be obtained due to the tachycardia in triage. Sitter will be ordered. Patient was in agreement this plan. Patient's EKG shows normal sinus rhythm with no signs of acute ischemia. Breathalyzer alcohol test is 0. UDS is still pending at this time. Patient is medically cleared for evaluation by EPS. Disposition is pending EPS evaluation. EPS evaluated the patient and determined that she needed psychiatric admission criteria. Patient will be admitted to psychiatry and stable condition. While the patient remained in the emergency department, she was itching her eye and pulled out her contact. She is complaining of severe pain over her left eye. I provided tetracaine drops for analgesia and therefore sustained her left eye. It does appear that she has a corneal abrasion. Her vision is still intact with analgesia. She'll be started on levofloxacin eyedrops for her corneal abrasions, she does have a history of contact lens use. She still stable for admission to the patient psychiatry. Patient was therefore admitted in stable condition. - Lab Data Lab Results 10/27/20 Range/Units 17:42 Urine Opiates Screen Detected H (NotDetected) Ur Oxycodone Screen Not Detected (NotDetected) Urine Methadone Screen Not Detected (NotDetected) Ur Propoxyphene Screen Not Detected (NotDetected) Ur Barbiturates Screen Not Detected (NotDetected) U Tricyclic Antidepress Not Detected (NotDetected) Ur Phencyclidine Scrn Not Detected (NotDetected) Ur Amphetamines Screen Not Detected (NotDetected) U Methamphetamines Scrn Not Detected (NotDetected) U Benzodiazepines Scrn Detected H (NotDetected) Urine Cocaine Screen Not Detected (NotDetected) U Marijuana (THC) Screen Not Detected (NotDetected) - EKG Data -: EKG Interpreted by Me EKG Comments: 12-lead Electrocardiogram Interpretation Note EKG was reviewed and interpreted by myself. 12-lead ECG performed at 1623 is interpreted by me as revealing normal sinus rhythm at a rate of 87 beats per minute. [place] is normal. NV intervals 160 ms, QRS duration is 80 ms, QTc is 445 ms.. There were no ST or T wave abnormalities to suggest myocardial ischemia or injury. R wave progression across the precordium was satisfactory. By my interpretation this EKG is non-diagnostic for acute ischemia. Disposition Clinical Impression: Suicidal ideation, Corneal abrasion, left Narrative: admitted to inpatient psychiatry Disposition: ADMITTED IP TO THIS HOSP Condition: Stable
[2020-10-27] MEDS: THIAMINE 100 MG TAB PO SCH (17:45)
[2020-10-27 18:03] LABS: Cocaine Screen,Urine Not Detected (NotDetected); Phencyclidine Screen,Urine Not Detected (NotDetected); Urn Cannabinoid Scrn Not Detected (NotDetected)
[2020-10-27 18:04] LABS: Amphetamine Screen,Urine Not Detected (NotDetected); Barbiturate Screen,Urine Not Detected (NotDetected); Benzodiazepines Screen,Urine Detected (NotDetected); Methadone Screen, Urine Not Detected (NotDetected); Opiate Screen,Urine Detected (NotDetected); Oxycodone Screen, Urine Not Detected (NotDetected); Tricyclic Antidepressant,Urine Not Detected (NotDetected)
[2020-10-27] MEDS ORDERED: FLUORESCEIN STRIPS 1 MG STRIP BOTH EYES ONE (18:12)
[2020-10-27] MEDS ORDERED: MAGNESIUM HYDROXIDE 2,400 MG/10 ML CUP PO PRN (18:13)
[2020-10-27] MEDS ORDERED: MAG HYDROX/AL HYDROX/SIMETH 30 ML CUP PO PRN (18:13)
[2020-10-27] MEDS ORDERED: ACETAMINOPHEN TAB 325 MG TAB PO PRN (18:13)
[2020-10-27] MEDS ORDERED: PROPARACAINE 0.5% OPHTH DROPS 15 ML BTL ONE (18:16)
[2020-10-27] MEDS ORDERED: LORazepam 2 MG/ML INJ IM PRN (18:17)
[2020-10-27] MEDS ORDERED: CYCLOBENZAPRINE 10 MG TAB PO PRN (18:17)
[2020-10-27] MEDS ORDERED: ALBUTEROL INHALER 60 PUFF/8 GM INHALER (MHU) INHALATION PRN (18:17)
[2020-10-27] MEDS ORDERED: TETRACAINE 0.5% OPHTH (PF) DROPS 4 ML BTL BOTH EYES STA (18:19)
[2020-10-27] MEDS: LEVOFLOXACIN 0.5% OPHTH DROPS 5 ML BTL LEFT EYE SCH ×2 (20:39→22:13)
[2020-10-27] MEDS: PARoxetine 10 MG TAB PO SCH (20:41)
[2020-10-27] MEDS: traZODone HCL 100 MG TAB PO SCH (20:41)
[2020-10-27] MEDS: PREGABALIN 75 MG CAP PO SCH (20:44)
[2020-10-27] MEDS ORDERED: lamoTRIgine 100 MG TAB PO SCH (21:00)
[2020-10-27] MEDS ORDERED: traZODone HCL 100 MG TAB PO SCH (21:00)
[2020-10-28] MEDS: LEVOFLOXACIN 0.5% OPHTH DROPS 5 ML BTL LEFT EYE SCH ×12 (01:20→23:16)
[2020-10-28] MEDS: lamoTRIgine 100 MG TAB PO SCH (08:37)
[2020-10-28] MEDS: PREGABALIN 75 MG CAP PO SCH ×2 (08:38→20:45)
[2020-10-28] MEDS: LORATADINE 10 MG TAB PO SCH (08:38)
[2020-10-28] MEDS: THIAMINE 100 MG TAB PO SCH ×2 (08:38→17:47)
[2020-10-28] MEDS: ANORO ELLIPTA INHALATION SCH (08:39)
[2020-10-28] MEDS: NICOTINE 14MG/24HR PATCH TRANSDERM SCH (08:48)
--- NOTE | 2020-10-28 09:07 | P.HP ---
Psychiatric H&P - . H&P Date: 10/28/20 History & Physical: I reviewed the medical record and attempted to interview the patient. She would not get out of bed for the interview. She complained about her eyes and being "too much pain." According to nursing staff she did not get out of bed for breakfast and refused to get out of bed or her morning medications. She refused to have her blood drawn for laboratory studies. I will try to interview her again later today. Allergies Allergy/AdvReac Type Severity Reaction Status Date / Time codeine Allergy Itching Verified 10/27/20 21:04 Vital Signs Temp 98.4 F 10/28/20 08:36 Pulse 111 H 10/28/20 08:36 Resp 16 10/28/20 08:36 BP 135/87 10/28/20 08:36 Pulse Ox 96 10/27/20 21:01 Intake & Output 10/27/20 10/28/20 10/28/20 18:59 06:59 18:59 Weight 63.503 kg Laboratory Last Values Urine HCG, Qual Not Detected (Not Detectd) 10/27/20 17:42 Urine Opiates Screen Detected (NotDetected) H 10/27/20 17:42 Ur Oxycodone Screen Not Detected (NotDetected) 10/27/20 17:42 Urine Methadone Screen Not Detected (NotDetected) 10/27/20 17:42 Ur Propoxyphene Screen Not Detected (NotDetected) 10/27/20 17:42 Ur Barbiturates Screen Not Detected (NotDetected) 10/27/20 17:42 U Tricyclic Antidepress Not Detected (NotDetected) 10/27/20 17:42 Ur Phencyclidine Scrn Not Detected (NotDetected) 10/27/20 17:42 Ur Amphetamines Screen Not Detected (NotDetected) 10/27/20 17:42 U Methamphetamines Scrn Not Detected (NotDetected) 10/27/20 17:42 U Benzodiazepines Scrn Detected (NotDetected) H 10/27/20 17:42 Urine Cocaine Screen Not Detected (NotDetected) 10/27/20 17:42 U Marijuana (THC) Screen Not Detected (NotDetected) 10/27/20 17:42 10/28/20 09:04
[2020-10-28] MEDS: traZODone HCL 100 MG TAB PO SCH (20:46)
[2020-10-28] MEDS: PARoxetine 10 MG TAB PO SCH (20:46)
[2020-10-28] MEDS: LORazepam 1 MG TAB PO PRN (20:47)
[2020-10-29] MEDS: LEVOFLOXACIN 0.5% OPHTH DROPS 5 ML BTL LEFT EYE SCH ×6 (00:46→10:56)
[2020-10-29] MEDS: NICOTINE 14MG/24HR PATCH TRANSDERM SCH (09:08)
[2020-10-29] MEDS: THIAMINE 100 MG TAB PO SCH ×2 (09:09→18:29)
[2020-10-29] MEDS: lamoTRIgine 100 MG TAB PO SCH (09:09)
[2020-10-29] MEDS: LORATADINE 10 MG TAB PO SCH (09:09)
[2020-10-29] MEDS: ANORO ELLIPTA INHALATION SCH (09:10)
[2020-10-29] MEDS: PREGABALIN 75 MG CAP PO SCH ×2 (09:10→20:08)
--- NOTE | 2020-10-29 10:04 | P.HP ---
Psychiatric H&P - . H&P Date: 10/29/20 History & Physical: IDENTIFYING DATA: She is a 50-year-old female admitted voluntarily to the psychiatric unit with complaints of increasing depression, restlessness and anxiety. HISTORY OF PRESENT ILLNESS: The medical record and interviewed the patient. He refused to get out of bed for much of the day yesterday. However, this morning she was up and dressed. She was pleasant and cooperative and provided a reliable and coherent history. Similar to prior admission in March she complained that over the last will "week or so" prior to admission she has been experiencing increasing anxiety, restlessness and depression. She talked about having become so disabled by the anxiety that she was unable to leave the house and isolates herself from her friends and family. Similar to the prior admission she presented at the behest of her . She did not follow through with the referral to [facility] mental health as recommended when she was last discharged from the unit in March 2020. She did not continue the psychotropic medications as recommended. Specifically she stopped taking the to the because the medication was not covered by her insurance. She was erratic in the dose of Paxil talked about some "sometimes" taking 10 mg at the times may be taking more." She was similarly erratic and compliance with Lamictal or trazodone. She obtained a prescription for risperidone from her nurse practitioner and attributed worsening anxiety to the risperidone. She continued to use alcohol less than a daily basis. On the average she would drink 2-3 days per week. During the drinking daily she would drink beer throughout the day. She denied the use of other alcohol containing beverages including liquors. She had one week in August where she drank daily. This was wearing a friend from [id number] was visiting. During our interview she was clinically preoccupied. She had abraded her eye in the emergency room. She claims she was crying too much that she scratched cornea when she was rubbing her eyes. She also complains of back pain and jaw pain and was seeking to continue high-dose of hydrocodone. She described intermittent thoughts of suicide when she was at home and severely distressed. However during interview she denied thoughts of or suicide. She complains of continued feelings depression and uncontrollable anxiety that were disproportionate to her presentation. She denied experiencing psychotic symptoms such as hallucinations, paranoia or confusion. She denied use of other drugs to get high, help her sleep or change her mood. Her UDS was positive for opiates and benzodiazepines. PAST PSYCHIATRIC HISTORY: This is her fourth admission to our psychiatric unit. She has also had admissions to several other psychiatric facilities in [place] including [facility] and [facility]. She was last discharged in March 2020 with a diagnosis of bipolar disorder depressed, alcohol use disorder, personality disorder and tobacco use. Her discharge medications included trazodone 200 mg at bedtime, Lamictal 100 mg twice a day, but to 20 mg daily and Paxil 30 mg daily. PAST MEDICAL HISTORY: According to record she has history of asthma, breast cancer and is status post uterine ablation. She complains of chronic and face pain for which is prescribed hydrocodone, gabapentin and Lyrica. ALLERGIES: Lodine SUBSTANCE USE HISTORY: She has a history of an alcohol use disorder. She began drinking when she was 14 or 15-year-old years old. She had 2 admissions to [facility] and 1 and a long-term residential program in [place]. FAMILY PSYCHIATRIC/SUBSTANCE USE HISTORY: She is family history of mood disorder and substance use problems LEGAL HISTORY: Denied SOCIAL HISTORY: She was raised in an intact family. She graduated from high school and obtained an associates degree. She was twice. She has 1 child from her first marriage with whom she has an estranged relationship. 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 She is currently unemployed and receives Social Security disability. She lives with her second . They've been for 20 years. MENTAL STATUS EXAM: . She presented as a casually groomed and neatly dressed 50-year-old female who was sitting comfortably in the chair throughout the interview. She was occasionally restless and fidgety. She made eye contact and attended the interview. She had a anxious facial expression. She was alert and oriented to person, place and time. Her speech was spontaneous with normal rate, rhythm and volume. Affect was anxious. She isn't did not express feelings of hopelessness, helplessness or worthlessness. She denied suicidal ideation, intent or plan. She ruminated about her anxiety and pain. She did not express ideas reference, paranoid ideation or delusions. Her thinking was abstract but her associations were coherent, logical and goal directed. She denies hallucinations did not appear to responding to internal stimuli. Global impression of intellect is average. She has limited awareness of her stay illness but is accepting of treatment. STRENGTHS: Stable housing, stable income, treatment seeking WEAKNESSES: Chronic alcohol use, poor compliance with psychotropic medications, poor follow-through with mental health services IMPRESSION: She is a period 50-year-old female in the psychiatric unit voluntarily with complaints of increasing anxiety and depression is causing marked personal distress and social withdrawal. She has a history of multiple psychiatric hospitalizations and a purported diagnosis of bipolar illness. She has long history of alcohol use and alcohol use problems. She is somatically focused on pain and anxiety. She is inpatient basis with, psychopharmacology and multimodal therapy. PRINCIPLE DIAGNOSIS: Unspecified depressive disorder, rule out major depressive disorder with anxious distress, rule out bipolar disorder depressed with anxious distress, unspecified anxiety disorder, rule out generalized anxiety disorder, rule out substance abuse anxiety disorder, alcohol use disorder moderate, rule out alcohol withdrawal, tobacco use RECOMMENDATION: Admitted to the psychiatric unit voluntarily. Sick precautions. Consult medicine for initial physical exam and medical history and opinion about continuing chronic treatment of pain with opiates. transmission worker to complete initial psychosocial history and coordinate discharge and aftercare services. CIWA with Ativan for alcohol withdrawal. Continue Lamictal 150 mg daily and titrated according to clinical response and tolerance. Restart Paxil 20 mg daily, and trazodone 150 mg at bedtime. Continue levofloxacin eye drops to the left eye every 12 hours, Lyrica 100 mg every 12 hours and Claritin 10 mg daily. Habitrol for smoking cessation. Obtain clinical information from family. Encourage participation in therapeutic groups and activities. Evaluate clinical status response to treatment daily basis. 10/29/20 09:43
[2020-10-29] MEDS ORDERED: ARTIFICIAL TEARS-HYPROMELLOSE DROPS 15 ML BTL LEFT EYE PRN (10:15)
--- NOTE | 2020-10-29 12:47 | CONS ---
CONSULTATION DATE OF SERVICE: 10/29/2020. REASON FOR CONSULTATION: Left eye abrasion and pain in the right temporal mandibular joint, requested by psychiatry. HISTORY: In this 50-year-old woman with a past medical history of multiple medical problems including history of asthma, history of breast cancer, history of MRSA, history of jaw pain, being followed by Dr. Ihsan Staples in the outpatient setting, was admitted for psychiatric evaluation. The patient apparently was crying in the ER and was grabbing the ice according to her. The patient apparently injured the left eye with complaints of photophobia, pain, some watering of the eyes. The patient was started on Levaquin and admitted for further evaluation. There is no history of fevers or rigors, no headache, loss of consciousness or seizures. PAST MEDICAL HISTORY: History of asthma, MRSA, right jaw pain. MEDICATIONS: Home medications are trazodone, Lamictal, Valium, Ellipta, Lyrica, Paxil, loratadine, Ativan, Motrin, [place], gabapentin. Doses reviewed. ALLERGIES: CODEINE. FAMILY HISTORY: No history of heart disease or strokes in family. SOCIAL HISTORY: History of smoking. Occasional alcohol. REVIEW OF SYSTEMS: ENT as mentioned earlier. Cardiovascular no angina. Respiratory no cough. GI no nausea. no dysuria. Nervous system no numbness or weakness. Allergy as mentioned earlier. Hematology oncology as mentioned. Endocrine no history of diabetes or hypothyroid. Constitutional as mentioned earlier. Dermatology negative. Musculoskeletal as mentioned earlier. Psychiatry as mentioned. PHYSICAL EXAMINATION: Alert oriented x3. Pulse 82, blood pressure 130/80, respirations 16, temperature 97.2, pulse ox 98 percent on room air. Conjunctiva significant erythema circum corneal on the left eye. Some watering of eyes also present. Eye muscles noted, no nystagmus. Pupils are small. Cardiovascular system as noted. No rhonchi no crackles. Abdomen soft. Nervous system no focal deficits. Jaw movements slightly painful on the right side. LABS: Drug screen is opiates and benzodiazepines positive. ASSESSMENT: 1. Left corneal abrasion, possibly. 2. Depression. 3. Right temporomandibular joint pain, chronic. 4. History of asthma. 5. History of breast cancer. 6. History of MRSA history of tubal ligation. 7. History of anxiety, bipolar depression history of nicotine dependence. 8. FULL CODE. RECOMMENDATIONS AND DISCUSSION: In this 50-year-old woman who presented with multiple complex medical issues, we will monitor the patient closely, continue the current management and treatment. Otherwise resume the [place] which is the patient is taking at home. I would also recommend ophthalmology evaluation for the concerns of symptoms of the left eye. Further recommendations to follow. Otherwise, patient may be asked to follow up with Dr. Ihsan Staples, who is the primary physician. I will be happy to review any abnormal labs. Thank you for letting us participate in the care of this patient. MMODL / IJN: [id number] /
[2020-10-29] MEDS: TOBRAMYCIN 0.3% OPHTH OINT 3.5 GM TUBE LEFT EYE SCH ×2 (17:00→20:07)
[2020-10-29] MEDS ORDERED: HYDROcodone/APAP 10-325MG 1 EACH TAB PO PRN (17:12)
[2020-10-29] MEDS: traZODone HCL 100 MG TAB PO SCH (20:09)
[2020-10-29] MEDS: PARoxetine 10 MG TAB PO SCH (20:09)
[2020-10-29] MEDS: LORazepam 1 MG TAB PO PRN (21:03)
[2020-10-30 06:48] VITALS: RESP 18; TEMP 98
[2020-10-30] MEDS: PREGABALIN 75 MG CAP PO SCH ×2 (07:55→20:59)
[2020-10-30] MEDS: NICOTINE 14MG/24HR PATCH TRANSDERM SCH (07:55)
[2020-10-30] MEDS: THIAMINE 100 MG TAB PO SCH ×2 (07:56→16:41)
[2020-10-30] MEDS: LORATADINE 10 MG TAB PO SCH (07:56)
[2020-10-30] MEDS: lamoTRIgine 100 MG TAB PO SCH (07:56)
[2020-10-30] MEDS: TOBRAMYCIN 0.3% OPHTH OINT 3.5 GM TUBE LEFT EYE SCH ×3 (07:57→21:00)
[2020-10-30] MEDS: ANORO ELLIPTA INHALATION SCH (08:01)
--- NOTE | 2020-10-30 11:59 | P.PN ---
Progress Note - Text Progress Note Date: 10/30/20 Interval History: Patient was seen attending group and was directable and agreeable to speak with script writer in the office. The patient reports that she is feeling slightly better since her admission to this unit. Patient was admitted for depression and suicidal ideation the context of increasing substance use. The patient expresses that isolation due to Covid was causing her anxiety to worsen and that she feels much more comfortable being around other people while on the psychiatric unit. She does express that she continues to experience racing thoughts and elevated anxiety that make it difficult for her to function at home or attending to her ADLs. Despite this, the patient does report that her suicidal ideation is currently not present. She isn't also not reporting any homicidal ideation, intention, and/or plan at this time. She does express that she has "OCD symptoms" in the form of excessive cleanliness and color coordination of her clothes. She denies any intrusive gruesome thoughts and does not endorse any particular ritual or compulsion. She appears to be tolerating her medications well is not endorsing any significant side effects at this time. The patient reports that at home, she is prescribed Latuda to help stabilize her mood labilty. She reports that the medication was too expensive so she stopped taking it. She reports that she was on risperdal in the past and it provided some benefit. Mental Status Exam: General Appearance: Patient appears to be stated age is alert, directable, and cooperative. Fair hygiene and grooming. Behavior: Patient is calmly seated without any agitated behavior. Psychomotor activity slightly elevated. Eye contact is appropriate. Speech: Patient's speech is fluent and nonpressured. Spontaneous, normal rate, tone, and volume. Mood/Affect: Mood is improving mildly, affect is congruent and constricted. Suicidality/Homicidality: Patient denies having any suicidal or homicidal ideation intent or plan. Perceptions: Patient denies any visual hallucinations and denies any auditory hallucinations Though content/process: There is no evidence of any delusional thought content and thought process is linear and goal-directed. Memory and concentration: AOX3, grossly intact for the purposes of this session Judgment and insight: Improving mildly Vital Signs Temp 98.0 F 10/30/20 06:30 Pulse 100 10/30/20 06:30 Resp 18 10/30/20 06:30 BP 104/73 10/30/20 06:30 Pulse Ox 96 10/29/20 06:20 Intake & Output 10/29/20 10/30/20 10/30/20 18:59 06:59 18:59 Weight 63 kg Assessment Bipolar disorder, type II, current episode depressed Anxiety disorder, unspecified Alcohol use disorder Nicotine dependence Plan: -Patient continues to meet criteria for inpatient psychiatric admission for symptom stabilization and safety. Patient has signed adult voluntary form and medication consent and was placed in patient's chart. -Medications: We will increase Paxil to 40 mg by mouth at bedtime for depression/anxiety Continue trazodone 150 mg by mouth at bedtime for insomnia Start Invega 3 mg by mouth at bedtime for mood stabilization Continue Lamictal 150 mg by mouth daily for mood stabilization -When necessary Ativan and Haldol for agitation/aggression. -NRT - nicotine patch -SW on board for discharge planning. Encouraged the patient to participate in milieu.
[2020-10-30] MEDS: traZODone HCL 100 MG TAB PO SCH (20:59)
[2020-10-30] MEDS ORDERED: PARoxetine 20 MG TAB PO SCH (21:00)
[2020-10-30] MEDS ORDERED: PALIPERIDONE 3 MG TAB.ER.24 PO SCH (21:00)
[2020-10-30] MEDS: LORazepam 1 MG TAB PO PRN (21:02)
[2020-10-31 06:33] VITALS: BP 126/72; PULSE 92
[2020-10-31] MEDS: NICOTINE 14MG/24HR PATCH TRANSDERM SCH (07:46)
[2020-10-31] MEDS: lamoTRIgine 100 MG TAB PO SCH (07:46)
[2020-10-31] MEDS: LORATADINE 10 MG TAB PO SCH (07:47)
[2020-10-31] MEDS: THIAMINE 100 MG TAB PO SCH (07:47)
[2020-10-31] MEDS: PREGABALIN 75 MG CAP PO SCH (07:47)
[2020-10-31] MEDS: ANORO ELLIPTA INHALATION SCH (07:47)
[2020-10-31] MEDS: TOBRAMYCIN 0.3% OPHTH OINT 3.5 GM TUBE LEFT EYE SCH (07:48)
--- NOTE | 2020-10-31 13:30 | P.DS ---
Providers Date of admission: 10/27/20 18:11 Expected date of discharge: 10/31/20 Attending physician: Navin Cates MD Consults: 10/27/20 18:13 Consult Physician Routine Consulting Provider: Tamra Loza Consult Reason/Comments: medical management Do you want consulting provider notified?: Yes 10/29/20 11:36 Consult Physician Routine Consulting Provider: Sofya Espinal Consult Reason/Comments: eye injury Do you want consulting provider notified?: Yes Primary care physician: Ihsan Staples - Discharge Diagnosis(es) (1) Bipolar 2 disorder, major depressive episode Current Visit: Yes Status: Acute Priority: High (2) Anxiety disorder, unspecified Current Visit: Yes Status: Chronic Priority: Medium (3) Alcohol use disorder Current Visit: Yes Status: Chronic Priority: Medium (4) Nicotine dependence Current Visit: Yes Status: Chronic Priority: Medium Patient Condition at Discharge: Stable Plan - Discharge Summary Discharge Rx Participant: No New Discharge Prescriptions: New traZODone HCL [Desyrel] 150 mg PO HS 30 Days tab Nicotine 14Mg/24Hr Patch [Habitrol] 1 patch TRANSDERM DAILY 30 Days patch Paliperidone [Invega] 3 mg PO HS 30 Days tablet lamoTRIgine [LaMICtal] 150 mg PO DAILY 30 Days tab Tobramycin 0.3% Ophth Oint [Tobrex 0.3% Ophth Oint] 1 applic LEFT EYE TID 14 Days gm PARoxetine [Paxil] 40 mg PO HS 30 Days tab Thiamine [Vitamin B-1] 100 mg PO BID-W/MEALS 30 Days tab Continue Umeclidinium Brm/Vilanterol Tr [Anoro Ellipta 62.5-25 Mcg INH] 1 puff INHALATION RT-DAILY Hydrocodone/Acetaminophen [[place] 10-325] 1 tab PO Q4-6H PRN PRN Reason: Pain Pregabalin [Lyrica] 150 mg PO Q12HR Loratadine 10 mg PO DAILY PRN PRN Reason: Allergy Symptoms Ibuprofen [Motrin Ib] 600 mg PO Q8H PRN PRN Reason: Pain Discontinued traZODone HCL 150 mg PO HS lamoTRIgine [LaMICtal] 150 mg PO DAILY PARoxetine HCL [Paxil] 30 mg PO DAILY Valium (Unknown Strength) 1 tab PO ONCE PRN PRN Reason: Anxiety rOPINIRole HCL [Requip] 0.5 mg PO HS LORazepam [Ativan] 1 mg PO BID PRN PRN Reason: Anxiety Gabapentin 600 mg PO Q6H PRN PRN Reason: Pain Discharge Medication List Umeclidinium Brm/Vilanterol Tr [Anoro Ellipta 62.5-25 Mcg INH] 1 puff INHALATION RT-DAILY 12/16/18 [History] Hydrocodone/Acetaminophen [[place] 10-325] 1 tab PO Q4-6H PRN 04/16/19 [History] Pregabalin [Lyrica] 150 mg PO Q12HR 04/16/19 [History] Loratadine 10 mg PO DAILY PRN 03/22/20 [History] Ibuprofen [Motrin Ib] 600 mg PO Q8H PRN 03/24/20 [History] Nicotine 14Mg/24Hr Patch [Habitrol] 1 patch TRANSDERM DAILY 30 Days patch 10/31/20 [Rx] PARoxetine [Paxil] 40 mg PO HS 30 Days tab 10/31/20 [Rx] Paliperidone [Invega] 3 mg PO HS 30 Days tablet 10/31/20 [Rx] Thiamine [Vitamin B-1] 100 mg PO BID-W/MEALS 30 Days tab 10/31/20 [Rx] Tobramycin 0.3% Ophth Oint [Tobrex 0.3% Ophth Oint] 1 applic LEFT EYE TID 14 Days gm 10/31/20 [Rx] lamoTRIgine [LaMICtal] 150 mg PO DAILY 30 Days tab 10/31/20 [Rx] traZODone HCL [Desyrel] 150 mg PO HS 30 Days tab 10/31/20 [Rx] Follow up Appointment(s)/Referral(s): [facility] [Outside] - 11/03/20 (11/03/20 at [address] [place]) Ihsan Staples MD [Primary Care Provider] - 1-2 days Patient Instructions/Handouts: How to Stop Smoking (DC), Bipolar Disorder (DC), Depression (DC), Help Prevent Suicide (DC) Activity/Diet/Wound Care/Special Instructions: Activity and diet as tolerated. Avoid the use of street drugs and alcohol. Take all medications as prescribed. When you are in need of refills on your medications please contact your medical provider and/or outpatient psychiatrist to have this done. Please go to scheduled outpatient appointment for aftercare treatment. If symptoms return or become worse, call the crisis line at and/or go to the nearest emergency room for evaluation. Discharge Disposition: HOME SELF-CARE
--- NOTE | 2020-10-31 18:03 | P.CON ---
Consult Note - . Consult date: 10/31/20 Assessment/Plan:: Reason for consultation Left eye abrasion and pain and right temporal mandibular joint requested by psychiatry History 50-year-old female with past medical history of multiple medical problems including history of asthma, history of breast cancer, history of MRSA, history of TMJ. Patient was evaluated by emergency room physician and psychiatry for an acute episode of bipolar. Left eye corneal abrasion is healed no episodes of pain or blurred vision noted. Patient denies fever or chills, shortness of breath, chest pain, palpitations, abdominal pain, nausea, vomiting, or diarrhea at this time. Past medical history History of asthma History of MRSA History of TMJ Bipolar Home medications and ALLERGIES reviewed Physical exam Alert and oriented 3 vital signs stable HEENT: Within normal limits Pulmonary/cardiac: Lung sounds clear anterior and posterior, S1 and S2 without murmurs rubs or clicks or gallops Abdomen: Soft nontender bowel sounds active in all 4 quadrants Psychiatric: Patient denies suicidal or homicidal ideation at this time Recommendations Continue home medications, follow-up ophthalmology outpatient for follow-up of corneal abrasion. From a medical standpoint patient able to be discharged with psychiatry has treatment plan and discharge planning in process. From a medical standpoint signing off at this time.
== END 2020-10-31 14:49 | disposition home or self-care (01) | DRG 885 ==
LOC: EC 15:17 → 3MHU 18:11
PROVIDERS: ADMIT Psychiatry & Neurology Psychiatry; ATTEND Psychiatry & Neurology Psychiatry
PROC: HZ2ZZZZ Detoxification Services for Substance Abuse Treatment (ICD-10-PCS; principal; 2020-10-27)
DX: F31.30 Bipolar disorder, current episode depressed, mild or moderate severity, unspecified (principal); R45.851 Suicidal ideations; F10.10 Alcohol abuse, uncomplicated; F17.210 Nicotine dependence, cigarettes, uncomplicated; F41.9 Anxiety disorder, unspecified; S05.02XA Injury of conjunctiva and corneal abrasion without foreign body, left eye, initial encounter; F42.9 Obsessive-compulsive disorder, unspecified; F60.9 Personality disorder, unspecified; G47.00 Insomnia, unspecified; Z86.14 Personal history of Methicillin resistant Staphylococcus aureus infection; M26.621 Arthralgia of right temporomandibular joint; J45.909 Unspecified asthma, uncomplicated; Z56.0 Unemployment, unspecified; Z79.899 Other long term (current) drug therapy; Z85.3 Personal history of malignant neoplasm of breast; Z98.51 Tubal ligation status; Z88.5 Allergy status to narcotic agent
CPT/HCPCS: 80306; 81025; 82075; 93005; 99285

== ENCOUNTER 2020-11-16 22:02 | Emergency (ER) | payer MEDICARE, OTHER ==
[2020-11-16 22:24] VITALS: BP 97/68; PULSE 88; RESP 16; TEMP 98
[2020-11-17] MEDS ORDERED: PROPARACAINE 0.5% OPHTH DROPS 15 ML BTL RIGHT EYE STA (00:28)
[2020-11-17] MEDS ORDERED: FLUORESCEIN STRIPS 1 MG STRIP RIGHT EYE ONE (00:28)
[2020-11-17] MEDS ORDERED: TOBRAMYCIN 0.3% OPHTH DROPS 5 ML BTL LEFT EYE STA (00:48)
--- NOTE | 2020-11-17 00:51 | ED ---
Eye Problem HPI - General Chief complaint: Eye Problems Stated complaint: l eye pain Time Seen by Provider: 11/17/20 00:28 Source: patient, family, RN notes reviewed Mode of arrival: ambulatory Limitations: no limitations - History of Present Illness Initial comments: This is a 50-year-old female presents emergency Department chief complaint left eye irritation. Patient states she started him discomfort after she took her contact out. She believes she scratched her left eye. No visual disturbance she states it just feels like the foreign body states she had an injury like this a few weeks ago that healed up. Patient or followed up as directed. - Related Data Home Medications Medication Instructions Recorded Confirmed Umeclidinium Brm/Vilanterol Tr 1 puff INHALATION RT-DAILY 12/16/18 10/27/20 [Anoro Ellipta 62.5-25 Mcg INH] Hydrocodone/Acetaminophen [[place] 1 tab PO Q4-6H PRN 04/16/19 10/27/20 10-325] Pregabalin [Lyrica] 150 mg PO Q12HR 04/16/19 10/27/20 Loratadine 10 mg PO DAILY PRN 03/22/20 10/27/20 Ibuprofen [Motrin Ib] 600 mg PO Q8H PRN 03/24/20 10/27/20 Previous Rx's Medication Instructions Recorded Nicotine 14Mg/24Hr Patch [Habitrol] 1 patch TRANSDERM DAILY 30 Days 10/31/20 patch PARoxetine [Paxil] 40 mg PO HS 30 Days tab 10/31/20 Paliperidone [Invega] 3 mg PO HS 30 Days tablet 10/31/20 Thiamine [Vitamin B-1] 100 mg PO BID-W/MEALS 30 Days tab 10/31/20 Tobramycin 0.3% Ophth Oint [Tobrex 1 applic LEFT EYE TID 14 Days gm 10/31/20 0.3% Ophth Oint] lamoTRIgine [LaMICtal] 150 mg PO DAILY 30 Days tab 10/31/20 traZODone HCL [Desyrel] 150 mg PO HS 30 Days tab 10/31/20 Allergies Allergy/AdvReac Type Severity Reaction Status Date / Time codeine Allergy Itching Verified 11/16/20 22:19 Review of Systems ROS Statement: Those systems with pertinent positive or pertinent negative responses have been documented in the HPI. ROS Other: All systems not noted in ROS Statement are negative. Past Medical History Past Medical History: Asthma, Cancer Additional Past Medical History / Comment(s): Breast cancer History of Any Multi-Drug Resistant Organisms: MRSA Date of last positivie culture/infection: 2008 MDRO Source:: jaw, blood Past Surgical History: Tubal Ligation, Uterine Ablation Past Anesthesia/Blood Transfusion Reactions: No Reported Reaction Past Psychological History: Anxiety, Bipolar, Depression Smoking Status: Current every day smoker Past Alcohol Use History: Occasional Past Drug Use History: None Reported - Past Family History Mother Family Medical History: No Reported History General Exam Limitations: no limitations General appearance: alert, in no apparent distress Head exam: Present: atraumatic, normocephalic, normal inspection Eye exam: Present: PERRL, EOMI, conjunctival injection (Left), other (Patient had full relief of symptoms after proparacaine eyedrops the left eye, there is some forcing uptake in the sclera no corneal abrasion noted). Absent: normal appearance, scleral icterus, periorbital swelling ENT exam: Present: normal exam, normal oropharynx, mucous membranes moist Neck exam: Present: normal inspection, full ROM. Absent: tenderness, meningismus, lymphadenopathy Respiratory exam: Present: normal lung sounds bilaterally. Absent: respiratory distress, wheezes, rales, rhonchi, stridor Cardiovascular Exam: Present: regular rate, normal rhythm, normal heart sounds. Absent: systolic murmur, diastolic murmur, rubs, gallop, clicks Course Vital Signs 11/16/20 22:20 Temperature 98.0 F Pulse Rate 88 Respiratory 16 Rate Blood Pressure 97/68 O2 Sat by Pulse 94 L Oximetry Medical Decision Making - Medical Decision Making Patient will provide on-call laser set up operator, patient has a scleral abrasion will be discharged stable condition no visual disturbances. Disposition Clinical Impression: Abrasion of sclera of left eye Disposition: HOME SELF-CARE Condition: Stable Instructions (If sedation given, give patient instructions): Corneal Abrasion (ED) Additional Instructions: Please return to the Emergency Department if symptoms worsen or any other concerns. Is patient prescribed a controlled substance at d/c from ED?: No Referrals: Ihsan Staples MD [Primary Care Provider] - 1-2 days Sofya Espinal MD [STAFF PHYSICIAN] - 1-2 days Time of Disposition: 00:51
== END 2020-11-17 01:08 | disposition home or self-care (01) ==
LOC: EC 22:02
DX: S00.212A Abrasion of left eyelid and periocular area, initial encounter (principal); J45.909 Unspecified asthma, uncomplicated; F31.9 Bipolar disorder, unspecified; F41.9 Anxiety disorder, unspecified; F17.200 Nicotine dependence, unspecified, uncomplicated; Z79.1 Long term (current) use of non-steroidal anti-inflammatories (NSAID); Z79.899 Other long term (current) drug therapy; Z88.5 Allergy status to narcotic agent; X58.XXXA Exposure to other specified factors, initial encounter
CPT/HCPCS: 99283

== ENCOUNTER 2021-04-21 10:28 | Emergency (ER) | payer MEDICARE, OTHER ==
[2021-04-21 10:33] VITALS: RESP 18; TEMP 98
--- NOTE | 2021-04-21 11:13 | ED ---
Psych HPI - General Chief Complaint: Psychiatric Symptoms Stated Complaint: Suicidal Time Seen by Provider: 04/21/21 10:33 Source: patient Mode of arrival: ambulatory - History of Present Illness Initial Comments: This is a 50-year-old female who presents to the emergency department for psychiatric concerns. States that for the last month, she has been increasingly depressed and feels overall useless to her family. She spends most of her time sleeping. She is also struggling to control her anxiety and constantly struggles with racing thoughts. She does not currently express suicidal ideations, but states that earlier today she did have plans to overdose on pills. Her and friend encouraged her to come in for treatment. She recently started Latuda, but states that she has not been able to get it for the last two weeks, and is unsure why. She is also not sure how well it is working since she just started the medication. She does follow with [facility]. Believes that she was hospitalized for depression in this hospital in December. She is very tearful on evaluation and states that she just wants to feel better. She does admit to alcohol use before coming to the emergency department. MD Complaint: suicidal ideation, feels depressed Onset/Timin -: month(s) Associated Psychiatric Symptoms: racing thoughts History of same: Yes Quality: constant Improves With: none Context: recent alcohol abuse Associated Symptoms: denies other symptoms Treatments Prior to Arrival: none If Self Harm: admits thoughts of self harm, has plan - Related Data Home Medications Medication Instructions Recorded Confirmed Hydrocodone/Acetaminophen [[place] 1 tab PO Q4H PRN 04/16/19 04/21/21 10-325] Cyclobenzaprine [Flexeril] 10 mg PO Q8H PRN 04/21/21 04/21/21 Gabapentin 600 mg PO Q6H PRN 04/21/21 04/21/21 LORazepam [Ativan] 1 mg PO BID PRN 04/21/21 04/21/21 PARoxetine HCL [Paxil] 40 mg PO DAILY 04/21/21 04/21/21 Paliperidone [Invega] 6 mg PO DAILY 04/21/21 04/21/21 lamoTRIgine [LaMICtal] 100 mg PO BID 04/21/21 04/21/21 Previous Rx's Medication Instructions Recorded traZODone HCL [Desyrel] 150 mg PO HS 30 Days tab 10/31/20 Allergies Allergy/AdvReac Type Severity Reaction Status Date / Time codeine Allergy Itching Verified 04/21/21 11:57 Review of Systems ROS Statement: Those systems with pertinent positive or pertinent negative responses have been documented in the HPI. ROS Other: All systems not noted in ROS Statement are negative. Past Medical History Past Medical History: Asthma, Cancer Additional Past Medical History / Comment(s): Breast cancer History of Any Multi-Drug Resistant Organisms: MRSA Date of last positivie culture/infection: 2008 MDRO Source:: jaw, blood Past Surgical History: Tubal Ligation, Uterine Ablation Past Anesthesia/Blood Transfusion Reactions: No Reported Reaction Past Psychological History: Anxiety, Bipolar, Depression Smoking Status: Current every day smoker Past Alcohol Use History: Occasional Past Drug Use History: None Reported - Past Family History Mother Family Medical History: No Reported History General Exam Limitations: no limitations General appearance: alert, in distress Head exam: Present: atraumatic, normocephalic, normal inspection Respiratory exam: Present: normal lung sounds bilaterally. Absent: respiratory distress, wheezes, rales, rhonchi, stridor Cardiovascular Exam: Present: regular rate, normal rhythm, normal heart sounds. Absent: systolic murmur, diastolic murmur, rubs, gallop, clicks Neurological exam: Present: alert, oriented X3, CN II-XII intact Psychiatric exam: Present: depressed (tearful during evaluation) Skin exam: Present: warm, dry, intact, normal color. Absent: rash Course Vital Signs 04/21/21 10:28 Temperature 98.0 F Pulse Rate 124 H Respiratory 18 Rate Blood Pressure 128/69 O2 Sat by Pulse 96 Oximetry Medical Decision Making - Medical Decision Making Patient presents to the emergency department with suicidal ideations that she had earlier in the day, with a plan to overdose on medication. EPS evaluated the patient and believes that she is safe to go home. This is also a patient that is well known to the psychiatry department. After evaluating the patient, she has not been found to be immediately suicidal. They believe that she wanted a prescription for medication she is not currently prescribed. She has an appointment with [facility] on Friday next week set up, and they are aware of the current situation. EPS and psychiatry have given permission to discharge the patient, and I agree with this assessment. Patient has a safety plan in place. Disposition Clinical Impression: Bipolar 2 disorder, major depressive episode Disposition: HOME SELF-CARE Condition: Stable Instructions (If sedation given, give patient instructions): Depression (ED) Additional Instructions: Return to the emergency department if experiencing any suicidal or homicidal ideations. Follow up with [facility] on 04/25/2021 as scheduled. Is patient prescribed a controlled substance at d/c from ED?: No Referrals: None,Stated [Primary Care Provider] - 1-2 days
[2021-04-21 14:16] VITALS: BP 124/74; PULSE 92
== END 2021-04-21 14:21 | disposition home or self-care (01) ==
LOC: EC 10:28
DX: F31.81 Bipolar II disorder (principal); J45.909 Unspecified asthma, uncomplicated; F41.9 Anxiety disorder, unspecified; F17.200 Nicotine dependence, unspecified, uncomplicated; Z79.899 Other long term (current) drug therapy
CPT/HCPCS: 82075; 99284

== ENCOUNTER 2021-10-18 10:32 | Inpatient (IN) | payer MEDICARE ==
--- NOTE | 2021-10-18 12:05 | ED ---
General Adult HPI - General Chief complaint: Recheck/Abnormal Lab/Rx Stated complaint: Left hip pain,lesions on kidney,liver,spine per CT Time Seen by Provider: 10/18/21 11:40 Source: patient, family, RN/, RN notes reviewed Mode of arrival: ambulatory Limitations: no limitations - History of Present Illness Initial comments: Patient is a pleasant 51-year-old female presenting to the emergency department with left hip pain. Symptoms have been present for the past one month. No significant increased pain with ambulation. Patient does have pain mostly with certain positions including sitting and lying down at times. Discomfort is becoming somewhat severe. Patient did go to [facility] yesterday and did have computed tomography scan done. Computed tomography scan is concerned with left renal lesion as well as lytic lesion L1 and presumed metastasis to liver and right lower lobe. L1 lesion is left pedicle and transverse process measuring up to 3.9 x 2.3 cm. There appears to be epidural component with impending cord compression difficult to exclude. No history of previous oncological problem. No new incontinence or retention of bowel or bladder. Patient does have some chronic urinary incontinence which is unchanged. No leg weakness or loss of sensation. - Related Data Home Medications Medication Instructions Recorded Confirmed Hydrocodone/Acetaminophen [[place] 1 tab PO Q4H PRN 04/16/19 04/21/21 10-325] Cyclobenzaprine [Flexeril] 10 mg PO Q8H PRN 04/21/21 04/21/21 Gabapentin 600 mg PO Q6H PRN 04/21/21 04/21/21 LORazepam [Ativan] 1 mg PO BID PRN 04/21/21 04/21/21 PARoxetine HCL [Paxil] 40 mg PO DAILY 04/21/21 04/21/21 Paliperidone [Invega] 6 mg PO DAILY 04/21/21 04/21/21 lamoTRIgine [LaMICtal] 100 mg PO BID 04/21/21 04/21/21 Previous Rx's Medication Instructions Recorded traZODone HCL [Desyrel] 150 mg PO HS 30 Days tab 10/31/20 Allergies Allergy/AdvReac Type Severity Reaction Status Date / Time codeine Allergy Itching Verified 10/18/21 10:44 Review of Systems ROS Statement: Those systems with pertinent positive or pertinent negative responses have been documented in the HPI. ROS Other: All systems not noted in ROS Statement are negative. Constitutional: Denies: fever Eyes: Denies: eye pain ENT: Denies: ear pain Respiratory: Denies: cough, dyspnea Cardiovascular: Denies: chest pain Endocrine: Denies: fatigue Gastrointestinal: Denies: abdominal pain Genitourinary: Denies: dysuria Musculoskeletal: Reports: as per HPI Skin: Denies: rash Neurological: Denies: weakness Past Medical History Past Medical History: Asthma, Cancer Additional Past Medical History / Comment(s): Breast cancer History of Any Multi-Drug Resistant Organisms: MRSA Date of last positivie culture/infection: 2008 MDRO Source:: jaw, blood Past Surgical History: Tubal Ligation, Uterine Ablation Past Anesthesia/Blood Transfusion Reactions: No Reported Reaction Past Psychological History: Anxiety, Bipolar, Depression Smoking Status: Current every day smoker Past Alcohol Use History: Occasional Past Drug Use History: None Reported - Past Family History Mother Family Medical History: No Reported History General Exam Limitations: no limitations General appearance: alert, in no apparent distress Head exam: Present: atraumatic, normocephalic Eye exam: Present: normal appearance ENT exam: Present: normal oropharynx Neck exam: Present: normal inspection Respiratory exam: Present: normal lung sounds bilaterally Cardiovascular Exam: Present: regular rate, normal rhythm Expanded Peripheral pulses: 2+: Dorsalis Pedis (L) GI/Abdominal exam: Present: soft. Absent: distended, tenderness Extremities exam: Present: tenderness (Mild tenderness left lateral hip and iliac crest. Distally the extremity is neurovascular intact.) Back exam: Present: normal inspection. Absent: tenderness, CVA tenderness (L), vertebral tenderness Neurological exam: Present: alert. Absent: motor sensory deficit Expanded Neurological exam: Present: protecting the airway Sensory exam: Lower Extremity Light Touch: Normal Motor strength exam: RUE: 5, LUE: 5, RLE: 5, LLE: 5 Psychiatric exam: Present: normal affect, normal mood Skin exam: Present: normal color Course Vital Signs 10/18/21 10:41 Temperature 97.9 F Pulse Rate 104 H Respiratory 22 Rate Blood Pressure 121/75 O2 Sat by Pulse 98 Oximetry Medical Decision Making - Medical Decision Making Case was discussed with Dr. Tang, who will admit for hospital call. Patient and family are made aware of plan. Disposition Clinical Impression: Hip pain, Renal lesion, Lesion of lumbar spine Disposition: ADMITTED IP TO THIS HOSP Condition: Serious Is patient prescribed a controlled substance at d/c from ED?: No Referrals: None,Stated [Primary Care Provider] - 1-2 days Time of Disposition: 12:24
[2021-10-18] MEDS ORDERED: NALOXONE 0.4 MG/ML 1 ML VIAL IV PRN (12:25)
[2021-10-18] MEDS ORDERED: HYDROmorphone 0.5 MG/0.5 ML SYRINGE IVP PRN (12:25)
[2021-10-18] MEDS ORDERED: ACETAMINOPHEN TAB 325 MG TAB PO PRN (12:25)
[2021-10-18] MEDS: HYDROmorphone 1 MG/ML 1 ML SYRINGE IVP PRN ×2 (14:33→18:03)
[2021-10-18 14:51] LABS: Basophils % (A) 0 %; Eosinophils # (A) 0.7 k/uL (0-0.7); Eosinophils % (A) 8 %; HCT 38.7 % (34.0-46.0); HGB 12.4 gm/dL (11.4-16.0); Lymphocytes # (A) 1.9 k/uL (1.0-4.8); Lymphocytes % (A) 22 %; MCHC 32.2 g/dL (31.0-37.0); MCV 96.4 fL (80.0-100.0); Mean Platelet Volume 6.8; Monocytes # (A) 0.5 k/uL (0-1.0); Monocytes % (A) 6 %; Neutrophils # (A) 5.4 k/uL (1.3-7.7); Neutrophils % (A) 61 %; Platelet Count 382 k/uL (150-450); RBC 4.01 m/uL (3.80-5.40); WBC 8.9 k/uL (3.8-10.6)
--- NOTE | 2021-10-18 15:01 | MR ---
EXAMINATION TYPE: MR lumbar spine wo/w con DATE OF EXAM: 10/18/2021 COMPARISON: CT outside 10/17/2021, CT 09/27/2015 09/09/2019 HISTORY: L1 lesion seen on CT abdomen. TECHNIQUE: Multiplanar, multisequence images of the lumbar spine were acquired without and with 6 mL intravenous Gadavist gadolinium contrast. L1-L2: Anterior soft tissue extends through the left neural foramen with moderate to severe neural fo raminal stenosis on the mass described below. L2-L3: Normal disc appearance without desiccation. No herniation, protrusion or disc bulging. No ca nal stenosis is present. Foramina are patent bilaterally. L3-L4: Normal disc appearance without desiccation. No herniation, protrusion or disc bulging. No ca nal stenosis is present. Foramina are patent bilaterally. L4-L5: Normal disc appearance without desiccation. No herniation, protrusion or disc bulging. No ca nal stenosis is present. Foramina are patent bilaterally. L5-S1: Normal disc appearance without desiccation. No herniation, protrusion or disc bulging. No ca nal stenosis is present. Foramina are patent bilaterally. There is a prominently low T1/intermediate T2 signal lesion within the L1 vertebrae which extends fro m the vertebral body into the left pedicle and posterior elements including the left transverse proce ss and left lamina. Soft tissue fills the left neural foramen at this level with destructive changes to the cortex. There is destruction of the vertebrae cortex. There is postcontrast enhancement of thi s lesion which is slightly heterogenous. The remainder of the spine does not demonstrate significant degeneration changes. Known left renal mass is less conspicuous on this exam. Additionally a periaortic lymph node near the level of the left renal sinus is not well visualized due to motion and technique. IMPRESSION: L1 vertebral body enhancing mass with destruction of the vertebrae cortex. Soft tissue fills the left L1-L2 neural foramen with moderate to severe left neural foraminal canal stenosis. This is new from 04/16/2019. Given findings on CT from outside institution 10/17/2021 this is consistent with metastatic disease.
[2021-10-18 15:06] LABS: ALT 8 U/L (4-34); AST 17 U/L (14-36); African American GFR (CKD) >90 (>60 ml/min/1.73 sqM); Albumin 3.6 g/dL (3.5-5.0); Alkaline Phosphatase 78 U/L (38-126); Anion Gap 9 mmol/L; Blood Urea Nitrogen 8 mg/dL (7-17); Calcium 9.7 mg/dL (8.4-10.2); Carbon Dioxide 24 mmol/L (22-30); Chloride 107 mmol/L (98-107); Glucose 86 mg/dL (74-99); Magnesium 1.5 mg/dL (1.6-2.3); Non-African American GFR(CKD) >90 (>60 ml/min/1.73 sqM); Phosphorus 3.6 mg/dL (2.5-4.5); Potassium 4.2 mmol/L (3.5-5.1); Sodium 140 mmol/L (137-145); Total Bilirubin 0.3 mg/dL (0.2-1.3)
[2021-10-18] MEDS ORDERED: LORazepam 1 MG TAB PO PRN (15:09)
[2021-10-18] MEDS ORDERED: ALBUTEROL NEBULIZED 2.5 MG/3 ML INHALATION PRN (15:09)
--- NOTE | 2021-10-18 15:15 | P.HPIM ---
History of Present Illness H&P Date: 10/18/21 Chief Complaint: Left hip pain Patient is a 51-year-old female with a past medical history of anxiety, depression, bipolar who initially presented to [facility] yesterday with left-sided hip pain that has been ongoing for the past month. Patient had a computed tomography scan done at [facility] that showed Left renal lesion as well as lytic lesion L1 and presumed metastasis to liver and right lower lobe. L1 lesion is left pedicle and transverse process measuring up to 3.9 x 2.3 cm. There appears to be epidural component with impending cord compression difficult to exclude. Patient was told to go to [facility]. Patient went to the ER [facility] and was told that there is a 5 hour wait for a bed. So patient then came to our hospital. Patient had an MRI done of her lumbar spine that shows L1 vertebral body enhancing mass. Orthopedic surgery and oncology have been consulted. Patient states that she has chronic urinary incontinence with cough and has not noticed any recent changes. She denies any bowel incontinence. Patient also denies any lower extremity numbness tingling or weakness. Review of Systems 10 ROS reviewed and are negative except as noted in HPI Past Medical History Past Medical History: Asthma, Cancer Additional Past Medical History / Comment(s): Breast cancer History of Any Multi-Drug Resistant Organisms: MRSA Date of last positivie culture/infection: 2008 MDRO Source:: jaw, blood Past Surgical History: Tubal Ligation, Uterine Ablation Past Anesthesia/Blood Transfusion Reactions: No Reported Reaction Past Psychological History: Anxiety, Bipolar, Depression Smoking Status: Current every day smoker Past Alcohol Use History: Occasional Past Drug Use History: None Reported - Past Family History Mother Family Medical History: No Reported History Medications and Allergies Home Medications Medication Instructions Recorded Confirmed Type traZODone HCL [Desyrel] 150 mg PO HS 30 Days tab 10/31/20 10/18/21 Rx Gabapentin 600 mg PO Q6H PRN 04/21/21 10/18/21 History LORazepam [Ativan] 1 mg PO BID PRN 04/21/21 10/18/21 History PARoxetine HCL [Paxil] 60 mg PO DAILY 04/21/21 10/18/21 History Paliperidone [Invega] 6 mg PO DAILY 04/21/21 10/18/21 History lamoTRIgine [LaMICtal] 100 mg PO BID 04/21/21 10/18/21 History Albuterol Nebulized [Ventolin 2.5 mg INHALATION RT-QID PRN 10/18/21 10/18/21 History Nebulized] Albuterol Sulfate [Ventolin HFA] 2 puff INHALATION RT-QID PRN 10/18/21 10/18/21 History Cider Vinegar [Apple Cider Vinegar] 300 mg PO DAILY 10/18/21 10/18/21 History L.acidoph,Paracasei, B.lactis 1 cap PO DAILY 10/18/21 10/18/21 History [Probiotic] Magnesium Oxide [Mag-Ox] 250 mg PO DAILY 10/18/21 10/18/21 History Multivitamins, Thera [Multivitamin 1 tab PO DAILY 10/18/21 10/18/21 History (formulary)] Allergies Allergy/AdvReac Type Severity Reaction Status Date / Time codeine Allergy Itching Verified 10/18/21 13:03 Physical Exam Osteopathic Statement: *. No significant issues noted on an osteopathic structural exam other than those noted in the History and Physical/Consult. Vitals: Vital Signs Temp Pulse Pulse Resp BP BP Pulse Ox 10/18/21 14:37 97.9 F 99 18 114/78 91 L 10/18/21 10:41 97.9 F 104 H 22 121/75 98 Intake and Output 10/18/21 10/18/21 10/18/21 06:59 14:59 22:59 Other: Weight 61.235 kg General: [Alert and oriented, well nourished, no acute distress]. Eye: [PERRL, EOMI, normal conjunctiva]. HENT: [Normocephalic, clear tympanic membranes, normal hearing, moist oral mucosa, no scleral icterus, no sinus tenderness]. Neck: [Supple, non-tender, no carotid bruits, no JVD, no lymphadenopathy]. Lungs: [Clear to auscultation and percussion, non-labored respiration]. Heart: [Normal rate, regular rhythm, no murmur, gallop or edema]. Abdomen: [Soft, non-tender, non-distended, normal bowel sounds, no masses]. Musculoskeletal: [Normal range of motion and strength, no tenderness or swelling]. Skin: [Skin is warm, dry and pink, no rashes or lesions]. Neurologic: [Awake, alert, and oriented X3, CN II-XII intact]. Psychiatric: [Cooperative, appropriate mood and affect, anxious]. Results CBC & Chem 7: 10/18/21 14:41 10/18/21 14:41 Labs: Abnormal Lab Results - Last 24 Hours (Table) 10/18/21 Range/Units 14:41 Magnesium 1.5 L (1.6-2.3) mg/dL Total Protein 6.0 L (6.3-8.2) g/dL Assessment and Plan Assessment: Lumbar spine mass Left renal lesion liver lesion and right lower lobe lesion Concerning for metastatic disease -Oncology and orthopedic surgery consult -IV Dilaudid when necessary for pain Depression/anxiety/bipolar -Resume psych meds CODE STATUS:full code DPOA: DVT prophylaxis: mechanical Discussed with: Patient, ER, rn Anticipated length of stay > than [address]: home A total of 50 minutes was spent on the care of this complex patient more than 50% of the time was spent in counseling and care coordination.
[2021-10-18] MEDS: MAGNESIUM SULFATE-D5W PMX 1 GM in DEXTROSE/WATER 1 100ML.BAG IVPB SCH ×2 (15:38→16:58)
[2021-10-18] MEDS: NICOTINE 21MG/24HR PATCH TRANSDERM SCH (20:20)
[2021-10-18] MEDS: lamoTRIgine 100 MG TAB PO SCH (20:20)
[2021-10-18] MEDS ORDERED: traZODone HCL 100 MG TAB PO SCH (21:00)
[2021-10-19] MEDS: HYDROmorphone 1 MG/ML 1 ML SYRINGE IVP PRN ×4 (02:49→13:03)
--- NOTE | 2021-10-19 08:06 | P.PN ---
Progress Note - Text Progress Note Date: 10/19/21 Images reviewed, Full consult pending. MRI of L spine w//wo shows large lesion in L1 Vb and Left L1 pedicle extending to the TVP on the left and superiorly to the rib head at T12. This includes about 1/4 of the vertebral body. This is expansile and is causing some stenosis at this level on the left hand side at L1. No fracture noted. CT images from [facility] not available, read has been stated to say there is a renal mass/lesions, and so new CTs ordered. pt needs full work up for unknown disease with CT CAP, MRI of the remaining C and T spine at this time and likely brain at some point. She will need a biopsy at least to determine primary vs metestatic disease. If she is having neurological sx and deteriorates we can discuss further surgical intervention, which she is likely to need at some point.
[2021-10-19] MEDS ORDERED: MAGNESIUM OXIDE 400 MG TAB PO SCH (09:00)
[2021-10-19] MEDS ORDERED: PALIPERIDONE 6 MG TAB.ER.24 PO SCH (09:00)
[2021-10-19] MEDS ORDERED: PARoxetine 20 MG TAB PO SCH (09:00)
[2021-10-19] MEDS ORDERED: LACTOBACILLUS ACIDOPH & BULGAR 1 EACH PACKET PO SCH (09:00)
[2021-10-19] MEDS ORDERED: MULTIVITAMINS, THERA 1 EACH TAB PO SCH (09:00)
[2021-10-19] MEDS: NICOTINE 21MG/24HR PATCH TRANSDERM SCH (09:11)
[2021-10-19] MEDS: lamoTRIgine 100 MG TAB PO SCH (09:11)
--- NOTE | 2021-10-19 10:42 | P.CNOR ---
History of Present Illness - [facility] Consult date: 10/19/21 Consult reason: low back pain History of present illness: 51 yo female presented with back pain and left hip pain for about a week now. She went to the chiropractor and this did not help her and so she went to [facility] ED which was too long of a wait so she represented here. She had a CT done at [facility] that showed a mass on her Left kidney and also concern for lytic lesion of L1. She states pain in her back that does not radiate. she c/o pain in her left hip and about her left flank. She denies pain when she ambulates on the hip. She states no bowel or bladder issues. She denies any numbness/tingling in LE or perineal region. She states no weakness at this time. Denies any f/c/sob/cp. Hx of BCA on mothers side only. No other miguel. Review of Systems 14 points review of systems completed and as stated in HPI, all other systems reviewed are negative. Constitutional: Reports as per HPI Past Medical History Past Medical History: Asthma, Cancer Additional Past Medical History / Comment(s): Breast cancer History of Any Multi-Drug Resistant Organisms: MRSA Year Discovered:: 2008 MDRO Source:: jaw, blood Past Surgical History: Tubal Ligation, Uterine Ablation Additional Past Surgical History / Comment(s): Bone marrow aspiration, skin graft at age 17 yrs to forehead Past Anesthesia/Blood Transfusion Reactions: No Reported Reaction Past Psychological History: Anxiety, Bipolar, Depression Smoking Status: Current every day smoker Past Alcohol Use History: Occasional Past Drug Use History: None Reported - Past Family History Mother Family Medical History: No Reported History Father Family Medical History: No Reported History Medications and Allergies Home Medications Medication Instructions Recorded Confirmed Type traZODone HCL [Desyrel] 150 mg PO HS 30 Days tab 10/31/20 10/18/21 Rx Gabapentin 600 mg PO Q6H PRN 04/21/21 10/18/21 History LORazepam [Ativan] 1 mg PO BID PRN 04/21/21 10/18/21 History PARoxetine HCL [Paxil] 60 mg PO DAILY 04/21/21 10/18/21 History Paliperidone [Invega] 6 mg PO DAILY 04/21/21 10/18/21 History lamoTRIgine [LaMICtal] 100 mg PO BID 04/21/21 10/18/21 History Albuterol Nebulized [Ventolin 2.5 mg INHALATION RT-QID PRN 10/18/21 10/18/21 History Nebulized] Albuterol Sulfate [Ventolin HFA] 2 puff INHALATION RT-QID PRN 10/18/21 10/18/21 History Cider Vinegar [Apple Cider Vinegar] 300 mg PO DAILY 10/18/21 10/18/21 History L.acidoph,Paracasei, B.lactis 1 cap PO DAILY 10/18/21 10/18/21 History [Probiotic] Magnesium Oxide [Mag-Ox] 250 mg PO DAILY 10/18/21 10/18/21 History Multivitamins, Thera [Multivitamin 1 tab PO DAILY 10/18/21 10/18/21 History (formulary)] Acetaminophen Tab [Tylenol] 650 mg PO Q6HR PRN tab 10/19/21 Rx HYDROcodone/APAP 5-325MG [[place] 1 tab PO Q4HR PRN 3 Days #18 tab 10/19/21 Rx 5-325] Allergies Allergy/AdvReac Type Severity Reaction Status Date / Time codeine Allergy Itching Verified 10/18/21 13:03 Physical Examination Osteopathic Statement: *. No significant issues noted on an osteopathic structural exam other than those noted in the History and Physical/Consult. PHYSICAL EXAMINATION: Vitals: Stable General: Awake, alert, appropriate for age, in no acute distress. HEENT: No unusual neck masses around region of lateral neck triangle, thyroid, supraclavicular groove. Extremities: Skin warm and dry without no acute lesions, coloration, temperature, skin intact, no tenderness or erythema. Integument: Hairy patches: Absent Dorsal skin dimples: Absent Cafe au lait spots: Absent Surgical incisions: Palpation: Please see Pain drawing on Intake sheet for further detail. (Tenderness = T, Nontender = NT, Swelling = S, Ecchymosis = E) Findings on Midline and paraspinal palpation and percussion: Cervical: NT Thoracic: NT Lumbar: Mild TTP LHS Sacral: NT Special findings: POSTURAL and MUSCULO-SKELETAL EVALUATION: Neck ROM: Unrestricted in six directions Lumbar ROM: Unrestricted in six directions Shoulder ROM: Symmetric in abduction, ER/IR Hip ROM: Symmetric in abduction, adduction, ER/IR Knee ROM: Symmetric and intact in Flexion / extension Hands: Normal appearing structure L and R Feet: Normal appearing structure L and R VASCULAR STATUS : Wrist Pulses: 2/4 bilateral radial and ulnar Pedal Pulses: 2/4 bilateral DP and PT Color: Normal Edema: None NEUROLOGIC EXAMINATION: Mental Status: Awake and alert, fully oriented, with normal attention, concentration and memory, and fluent, appropriate speech. Cranial Nerves: I: Olfactory not tested. II: Visual acuity normal, no visual field deficit noted with confrontation. III,IV: Normal pupillary reflexes & intact extraocular movements without nystagmus. V,: Intact symmetrical facial sensation. VII: Intact symmetrical facial motor movement VIII: Hearing intact. IX,X: Intact gag, swallow, & normal voice. XI: Sternocleidomastoid, trapezius function intact. XII: Tongue midline with normal movements. Special Tests: L'hermitte's Sign: Absent Spurling'Sign: Absent Bilateral Cubital percussion test: Absent Bilateral Citlaly-Tinel sign - Carpal region: Absent Bilateral Straight Leg Raising: Absent Bilateral Motor Exam (0-5/5, N/T) STRENGTH UPPER EXTREMITY Shoulder Abd (Not part of SREE Motor score): RIGHT 5 LEFT 5 Elbow Flexors: RIGHT 5 LEFT 5 Elbow Extensor: RIGHT 5 LEFT 5 Wrrist Dorsiflexors: RIGHT 5 LEFT 5 Finger Abductor: RIGHT 5 LEFT 5 Student Affairs Vice President: RIGHT 5 LEFT 5 LOWER EXTREMITY Hip Flexor (Not part of SREE Motor Score): RIGHT 5 LEFT 5 Knee Flexor: RIGHT 5 LEFT 5 Knee Extensor: RIGHT 5 LEFT 5 Ankle Dorsiflexion: RIGHT 5 LEFT 5 Ankle Plantarflexion: RIGHT 5 LEFT 5 EHL: RIGHT 5 LEFT 5 FHL: RIGHT 5 LEFT 5 SREE Motor Score: RIGHT 50/50 LEFT 50/50 REFLEXES Biecp: RIGHT 2 LEFT 2 Tricep: RIGHT 2 LEFT 2 Brachioradialis: RIGHT 2 LEFT 2 Patellar: RIGHT 2 LEFT 2 Achilles: RIGHT 2 LEFT 2 Pathological Reflexes Zamora's: RIGHT Absent LEFT Absent Babinski: RIGHT Absent LEFT Absent Clonus: RIGHT None LEFT None SENSORY Joint Position: Intact bilaterally Vibration Intact bilaterally Pain and LT sense Intact C5-T1 and L2-S1 Dermatomal deficit None Gait and Functional Evaluation: Ambulatory aids: Independent Romberg's test: Intact bilaterally. Toe walk/ heel walk / heel-toe walk intact while maintaining satisfactory balance. Squatting and straightening out without assistance to a minimum of 60 degrees knee flexion Single leg stance: intact/ Trendelenburg sign negative bilaterally Hand and finger dexterity intact bilaterally. Disdiadochokinesis examination negative bilaterally. Results MRI of L spine shows mass in L1 that is on the left 1/4 of the VB that extends into the left pedicle and cranially to the left rib head and TVP of L1. There is mild stenosis due to the expansile nature of this mass in this area which causes moderate central and foraminal stenosis. No fracture noted. No other le sions noted. Remainder of the L spine is normal VB heights and disc height with only minor spondylotic changes. The mass minimally enhances. It is extradural in nature and mostly encompassed in bone. Radiology report from [facility] shows mass on L kidney CT pending MRI CT spine pending - Labs Labs: Abnormal Lab Results - Last 24 Hours (Table) 10/18/21 Range/Units 14:41 Magnesium 1.5 L (1.6-2.3) mg/dL Total Protein 6.0 L (6.3-8.2) g/dL H & H 10/18/21 Range/Units 14:41 Hgb 12.4 (11.4-16.0) gm/dL Hct 38.7 (34.0-46.0) % Result Diagrams: 10/18/21 14:41 10/18/21 14:41 Assessment and Plan Assessment: 51 yo female with left renal mass, L1 expansile lesion, low back pain and left hip pain. New dx, unknown primary. Possible metestatic renal cell CA Neurologically intact Plan: -Discussed options with pt. She does not want to stay in hospital. Encouraged her to get imaging and work up for this as she needs a CT of her CAP for diagnosis purposes as well as a CT guided BX to establish diagnosis. She understands and her is in the room with her and also understands (he is a pt of mine). She still would like to leave and process this as it is very overwhelming. Since she is neurologically intact and has not had any emergent neurological sx. She is safe to proceed with out pt work up, although not idea. She understands this. She will need MRI w/wo of her Brain, C and T spine as well as CT of her CAP and an IR guided Bx of her kidney lesion to estabilish di loisosis. She understands and is comfortable with this decision and plan.
[2021-10-19 11:39] VITALS: BP 128/84; PULSE 100; RESP 16; TEMP 98.5
--- NOTE | 2021-10-19 12:44 | P.CONS ---
History of Present Illness - Reason for Consult Consult date: 10/19/21 Oncologic Care - Chief Complaint Hip pain - History of Present Illness Patient was last seen by Dr. Ellis back in 2016 when he performed Bone marrow biopsy for persistent cytopenias. She presented initially to [facility] for hip pain, imaginf revealed left renal lesion and a L1 lytic lesion with abnormalities suspicious for metastatic disease to liver and right lower lobe lung. L1 lesion is left pedicle and transverse process measuring up to 3.9 x 2.3 cm, there is concern of impending cord compression. that showed Left renal lesion as well as lytic lesion L1 and presumed metastasis to liver and right lower lobe. . There appears to be epidural component with impending cord compression difficult to exclude. Patient was told to go to [facility]. Patient went to the ER [facility] and was told that there is a 5 hour wait for a bed. So patient then came to our hospital. Patient had an MRI done of her lumbar spine that shows L1 vertebral body enhancing mass. Orthopedic surgery and oncology have been consulted. Patient states that she has chronic urinary incontinence with cough and has not noticed any recent changes. She denies any bowel incontinence. Patient also denies any lower extremity numbness tingling or weakness. Visit Notes: Marlen is refered by Dr Lana Staples for evaluation of Leukocytosis and anemia. The patient stated having anemia intermitently over last few years, but more recently in past 3-4 months. She admitted having severe menorrhagia with prolonged but regular menses. Denied other signs of blood loss. She admitted being placed on oral iron supplement in past with extreme constipation and poor tolerance. Was noted to have progressive Leukocytosis with Ganulocytosis in past 2-3 months. No known family history of Hemic disorders. 02/16/15 : Feels better, tolerated iron infusion well, still having severe menorrhagia. 05/26/15: Feels Ok, was seen by Dr Jaramillo > Endometrial ablation soon. C/O chronic sinus irritation, wants referal to ENT. 07/21/15: Feels Ok, had Endometrial ablation done. Still C/O fatigue. 09/29/15: Not feeling well, C/O fatigue and diffuse body aches. CT Scan of CAP ne gative. 11/09/15: Feels Ok, C/O sore throat. Tolerated Bone marrow well. Review of Systems All systems: negative Constitutional: Reports as per HPI Past Medical History Past Medical History: Asthma, Cancer Additional Past Medical History / Comment(s): Breast cancer History of Any Multi-Drug Resistant Organisms: MRSA Year Discovered:: 2008 MDRO Source:: jaw, blood Past Surgical History: Tubal Ligation, Uterine Ablation Additional Past Surgical History / Comment(s): Bone marrow aspiration, skin graft at age 17 yrs to forehead Past Anesthesia/Blood Transfusion Reactions: No Reported Reaction Past Psychological History: Anxiety, Bipolar, Depression Smoking Status: Current every day smoker Past Alcohol Use History: Occasional Past Drug Use History: None Reported - Past Family History Mother Family Medical History: No Reported History Father Family Medical History: No Reported History Medications and Allergies Home Medications Medication Instructions Recorded Confirmed Type traZODone HCL [Desyrel] 150 mg PO HS 30 Days tab 10/31/20 10/18/21 Rx Gabapentin 600 mg PO Q6H PRN 04/21/21 10/18/21 History LORazepam [Ativan] 1 mg PO BID PRN 04/21/21 10/18/21 History PARoxetine HCL [Paxil] 60 mg PO DAILY 04/21/21 10/18/21 History Paliperidone [Invega] 6 mg PO DAILY 04/21/21 10/18/21 History lamoTRIgine [LaMICtal] 100 mg PO BID 04/21/21 10/18/21 History Albuterol Nebulized [Ventolin 2.5 mg INHALATION RT-QID PRN 10/18/21 10/18/21 History Nebulized] Albuterol Sulfate [Ventolin HFA] 2 puff INHALATION RT-QID PRN 10/18/21 10/18/21 History Cider Vinegar [Apple Cider Vinegar] 300 mg PO DAILY 10/18/21 10/18/21 History L.acidoph,Paracasei, B.lactis 1 cap PO DAILY 10/18/21 10/18/21 History [Probiotic] Magnesium Oxide [Mag-Ox] 250 mg PO DAILY 10/18/21 10/18/21 History Multivitamins, Thera [Multivitamin 1 tab PO DAILY 10/18/21 10/18/21 History (formulary)] Acetaminophen Tab [Tylenol] 650 mg PO Q6HR PRN tab 10/19/21 Rx HYDROcodone/APAP 5-325MG [[place] 1 tab PO Q4HR PRN 3 Days #18 tab 10/19/21 Rx 5-325] Allergies Allergy/AdvReac Type Severity Reaction Status Date / Time codeine Allergy Itching Verified 10/18/21 13:03 Physical Exam Vitals: Vital Signs Temp Pulse Resp BP Pulse Ox 10/19/21 11:38 98.5 F 100 16 128/84 93 L 10/19/21 04:10 98.1 F 95 13 119/73 92 L 10/18/21 20:48 99 19 10/18/21 17:57 98.0 F 99 19 121/75 92 L 10/18/21 14:37 97.9 F 99 18 114/78 91 L Intake and Output 10/18/21 10/19/21 10/19/21 22:59 06:59 14:59 Intake Total 540 Balance 540 Intake: Oral 540 Other: Voiding Method Toilet # Voids 1 Weight 61.235 kg - Respiratory Respiratory: bilateral: diminished Results CBC & Chem 7: 10/18/21 14:41 10/18/21 14:41 Labs: Abnormal Lab Results - Last 24 Hours (Table) 10/18/21 Range/Units 14:41 Magnesium 1.5 L (1.6-2.3) mg/dL Total Protein 6.0 L (6.3-8.2) g/dL Assessment and Plan (1) Hip pain Status: Acute Code(s): M25.559 - PAIN IN UNSPECIFIED HIP SNOMED Code(s): 84341186 (2) Lesion of lumbar spine Status: Acute Code(s): M89.9 - DISORDER OF BONE, UNSPECIFIED SNOMED Code(s): 760053714 (3) Renal lesion Narrative/Plan: - Concerning picture for metastatic Renal Cell Cancer - COncern of impending cord compression - Await MRIS - Need Tissue biopsy, preferably from metastatic site - Dex/PPI - Ortho and radiaiton oncology Status: Acute Code(s): N28.9 - DISORDER OF KIDNEY AND URETER, UNSPECIFIED SNOMED Code(s): 56001675019266 (4) Acute anxiety Status: Acute Code(s): F41.9 - ANXIETY DISORDER, UNSPECIFIED SNOMED Code(s): 49165234 (5) Alcohol use disorder, mild, in sustained remission Status: Acute Priority: Medium Code(s): F10.11 - ALCOHOL ABUSE, IN REMISSION SNOMED Code(s): 89644749 (6) Bipolar 2 disorder, major depressive episode Status: Acute Priority: High Code(s): F31.81 - BIPOLAR II DISORDER SNOMED Code(s): 08769487 Plan: Dr. Gabriel: I have completed the full history and physical and developed the above impression and plan, agree with dictation, dictated as a ascribe.
[2021-10-19] MEDS: DEXAMETHASONE SOD PHOSPHATE 4 MG/ML 1 ML VIAL IVP SCH ×2 (13:02→17:27)
--- NOTE | 2021-10-19 16:26 | CT ---
EXAMINATION TYPE: CT ChestAbdPelvis wo con DATE OF EXAM: 10/19/2021 INDICATION: renal and lumbar metastatic lesions COMPARISON: 04/16/2019 CT DLP: 1389.5 mGycm CONTRAST: Performed without Oral Contrast . No intravenous contrast TECHNIQUE: Axial images at 5 mm thick sections. Reconstructed images in the coronal plane. Delayed images through the kidneys. FINDINGS: CT CHEST: Portion of the thyroid visualized is normal. There is a 0.8 cm nodule along the medial right mid lung. Series 3 image 31. There is a 2.8 x 4.2 cm posterior lateral right mid lung mass adjacent to the pleural margin. Series 3 image 36. There may be some fullness along the posterior right hilar region. Lack of intravenous contrast limit s evaluation for underlying adenopathy or soft tissue. No enlarged mediastinal or hilar adenopathy is evident. There is a 0.9 cm pretracheal lymph node pres ent. The ascending aorta diameter at the level of the main pulmonary artery is 3.2 cm. The main pulmonary artery diameter at the bifurcation is 2.[address] ABDOMEN: Liver: Normal Spleen: Normal Pancreas: Normal Adrenal glands: The adrenal glands are normal. Gallbladder: Normal Kidneys: No masses are evident. No hydronephrosis is present. No cysts are present. No renal stone s are evident. Reported renal metastasis not identified on this exam Aorta: Vascular calcification is within the aorta. Inferior vena cava: Normal. CT PELVIS: Loops of bowel within the abdomen and pelvis are normal. This study is bilateral contrast limitin g bowel evaluation. Appendix: Normal as visualized. No suspicious dilated tubular structure or inflammatory changes are evident. Urinary bladder: Decompressed cannot be well evaluated Genitourinary structures: Uterus and adnexa appear normal. Osseous structures: There is a left pedicle lytic lesion of L1 with destruction of the posterior vert ebral body extension into the left lamina. IMPRESSIONS: 1. Posterior medial right lung nodule with small adjacent daughter nodule. 2. Lytic lesion left L1 pedicle
--- NOTE | 2021-10-19 16:29 | CT ---
EXAMINATION TYPE: CT thor lumbar spine wo con DATE OF EXAM: 10/19/2021 COMPARISON: None HISTORY: renal and lumbar metastatic lesions CT DLP: 1389.5 mGycm Automated exposure control for dose reduction was used. Contrast: None Technique: Axial images 3 mm thick sections. Reconstructed images in the coronal and sagittal plane. FINDINGS: Thoracic spine appears normal. No suspicious lytic or sclerotic lesions. No significant disc herniati on is evident. Note is made of the right posterior medial lung mass with adjacent small nodule. Lumbar spine: There is a large lytic area centered at the left L1 pedicle with destruction of the ped icle. This has extension and destruction of the posterior lateral left L1 vertebral body and the left L1 lamina. IMPRESSION: 1. LEFT L1 PEDICLE LYTIC LESION WITH DESTRUCTION EXTENDING INTO THE POSTERIOR LATERAL LEFT L1 VERTEBR AL BODY AND LEFT LAMINA AT L1.
--- NOTE | 2021-10-19 16:31 | P.CONS ---
History of Present Illness - Reason for Consult Consult date: 10/19/21 left hip pain Requesting physician: Isabella Liu - Chief Complaint severe left hip pain - History of Present Illness The patient is a 51-year-old female with a 35 pack year smoking history. She presents secondary to new onset left hip pain, with recent imaging showing an abnormal destructive lesion involving L1. The patient reports that over the past month she has had progressively worsening pain in the left hip. She states she initially was evaluated by a chiropractor, but this only made her pain worse. She was evaluated 2 days ago at [facility], and was told that CT imaging revealed the abnormal L1 lesion, and that she should seek urgent care for this. She was admitted to the emergency room on October 18 at [facility]. MRI of the lumbar spine performed the same day did reveal an abnormal L1 lesion involving the left pedicle and transverse process with destruction of the L1 to 2 neural foramen. The patient has been evaluated by Dr. Hercules. We are awaiting further imaging including a CT scan of the chest, abdomen and pelvis as well as an MRI of the thoracic spine. At this time, the patient reports that she has continued left-sided hip pain. The pain can be up to 8 out of 10, but does improve with [place]. She denies di fficulty with weakness or numbness/tingling of the lower extremities. She has no changes in her urinary or bowel function (has some chronic urinary incontinence and constipation). She states she is able to ambulate without significant difficulty except for the pain. Review of Systems Constitutional: Denies chills, Denies fever Eyes: denies decreased vision Ears, nose, mouth and throat: Denies headache Cardiovascular: Denies chest pain Respiratory: Denies cough Gastrointestinal: Reports constipation, Denies abdominal pain Genitourinary: Denies dysuria, Denies hematuria Musculoskeletal: Reports as per HPI Integumentary: Denies rash Neurological: Denies aphasia, Denies ataxia, Denies confusion Past Medical History Past Medical History: Asthma, Cancer Additional Past Medical History / Comment(s): Breast cancer History of Any Multi-Drug Resistant Organisms: MRSA Year Discovered:: 2008 MDRO Source:: jaw, blood Past Surgical History: Tubal Ligation, Uterine Ablation Additional Past Surgical History / Comment(s): Bone marrow aspiration, skin graft at age 17 yrs to forehead Past Anesthesia/Blood Transfusion Reactions: No Reported Reaction Past Psychological History: Anxiety, Bipolar, Depression Smoking Status: Current every day smoker Past Alcohol Use History: Occasional Past Drug Use History: None Reported - Past Family History Mother Family Medical History: No Reported History Father Family Medical History: No Reported History Medications and Allergies Home Medications Medication Instructions Recorded Confirmed Type traZODone HCL [Desyrel] 150 mg PO HS 30 Days tab 10/31/20 10/18/21 Rx Gabapentin 600 mg PO Q6H PRN 04/21/21 10/18/21 History LORazepam [Ativan] 1 mg PO BID PRN 04/21/21 10/18/21 History PARoxetine HCL [Paxil] 60 mg PO DAILY 04/21/21 10/18/21 History Paliperidone [Invega] 6 mg PO DAILY 04/21/21 10/18/21 History lamoTRIgine [LaMICtal] 100 mg PO BID 04/21/21 10/18/21 History Albuterol Nebulized [Ventolin 2.5 mg INHALATION RT-QID PRN 10/18/21 10/18/21 History Nebulized] Albuterol Sulfate [Ventolin HFA] 2 puff INHALATION RT-QID PRN 10/18/21 10/18/21 History Cider Vinegar [Apple Cider Vinegar] 300 mg PO DAILY 10/18/21 10/18/21 History L.acidoph,Paracasei, B.lactis 1 cap PO DAILY 10/18/21 10/18/21 History [Probiotic] Magnesium Oxide [Mag-Ox] 250 mg PO DAILY 10/18/21 10/18/21 History Multivitamins, Thera [Multivitamin 1 tab PO DAILY 10/18/21 10/18/21 History (formulary)] Acetaminophen Tab [Tylenol] 650 mg PO Q6HR PRN tab 10/19/21 Rx HYDROcodone/APAP 5-325MG [[place] 1 tab PO Q4HR PRN 3 Days #18 tab 10/19/21 Rx 5-325] Allergies Allergy/AdvReac Type Severity Reaction Status Date / Time codeine Allergy Itching Verified 10/18/21 13:03 Physical Exam Vitals: Vital Signs Temp Pulse Resp BP Pulse Ox 10/19/21 11:38 98.5 F 100 16 128/84 93 L 10/19/21 04:10 98.1 F 95 13 119/73 92 L 10/18/21 20:48 99 19 10/18/21 17:57 98.0 F 99 19 121/75 92 L Intake and Output 10/19/21 10/19/21 10/19/21 06:59 14:59 22:59 Intake Total 540 Balance 540 Intake: Oral 540 - Constitutional General appearance: no acute distress - EENT Eyes: EOMI, PERRLA ENT: hearing grossly normal - Neck Neck: no lymphadenopathy - Respiratory Respiratory: bilateral: CTA - Cardiovascular Rhythm: regular - Gastrointestinal General gastrointestinal: no distended, no tenderness - Integumentary Integumentary: calor, no pale, no rash - Neurologic Neurologic: CNII-XII intact - Musculoskeletal Musculoskeletal: strength equal bilaterally - Psychiatric Psychiatric: A&O x's 3, appropriate affect, intact judgment & insight Results CBC & Chem 7: 10/18/21 14:41 10/18/21 14:41 CT scan - abdomen: image reviewed CT scan - chest: image reviewed CT scan - pelvis: image reviewed Assessment and Plan Assessment: The patient is a 51-year-old female with a 35 pack year smoking history. She presents secondary to new onset left hip pain, with recent imaging showing an abnormal destructive lesion involving L1. Plan: 1. Left hip pain: There is reasonable likelihood this represents referred pain from the patient's destructive lesion involving the L1 vertebral body and L1 to 2 neural foramen. This does appear consistent on imaging with a metastatic deposit, although the patient has no biopsy proven cancer at this time. Medical oncology has started the patient on Decadron, and I discussed with the patient that she would likely be a candidate for palliative radiotherapy to this site. Based on my imaging review, there is no spinal cord compression at this level. 2. Metastatic cancer of unknown primary: Although we are awaiting the final report, I was able to review the patient's CT scan of the chest, abdomen and pelvis. She has a 3 x 4 cm right lower lung lesion along the posterior pleura with ipsilateral hilar adenopathy. Considering her smoking history, she likely has underlying lung cancer primary. This should be amenable to CT-guided biop sy. The patient understands she needs a biopsy, but has requested outpatient workup. 3. Anxiety (bipolar disorder): The patient is highly anxious to be discharged home today. She states that she is less anxious when she is able to stay at home. Although keeping the patient in house would likely speed up the workup for her cancer, it is not unreasonable to have her scheduled for an outpatient biopsy this coming week. I will plan to see the patient this coming week; we will consider palliative radiation to the lumbar spine. Time with Patient: Greater than 30
[2021-10-19] MEDS ORDERED: PANTOPRAZOLE 40 MG TABLET PO SCH (17:30)
--- NOTE | 2021-10-19 22:01 | MR ---
EXAMINATION TYPE: MR cspine/tspine wo/w con DATE OF EXAM: 10/19/2021 COMPARISON: CT chest abdomen pelvis 10/19/2021. HISTORY: Metastatic Lesion TECHNIQUE: Multiplanar, multisequence images of the cervical and thoracic spine is performed without and with IV contrast, utilizing 6ml intravenous Gadavist FINDINGS: Sagittal images of the lumbar spine show vertebral body heights and alignment to appear sat isfactory. The intervertebral discs demonstrate normal heights and hydration. The conus medullaris i s normal in position and signal. The bone marrow signal intensity is within normal limits. FINDINGS: Alignment: The cervical vertebral bodies have preserved heights. Alignment is within normal limits gi elly patient positioning. Lately straightened morphology to the spine. Bones: Bone signal is within normal limits. Multilevel degenerative disc disease is noted and most p ronounced at the C5-C6 vertebral levels. No definitive enhancing masses seen in the cervical spine. Cord: The spinal cord is unremarkable with regards to their signal intensity and morphology. No abnor mal postcontrast enhancement. Discs: Intervertebral disc signal is maintained. C2-C3: No significant disc pathology. The spinal canal is patent. No neural foraminal stenosis. C3-C4: No significant disc pathology. The spinal canal is patent. No neural foraminal stenosis. C4-C5: A disc osteophyte complex is present which minimally narrows the ventral subarachnoid space. No neural foraminal stenosis. C5-C6: A disc osteophyte complex is present with mild spinal canal stenosis. No neural foraminal tiffani nosis. C6-C7: No significant disc pathology. The spinal canal is patent. No neural foraminal stenosis. C7-T1: No significant disc pathology. The spinal canal is patent. No neural foraminal stenosis. The thoracic spine has normal alignment without evidence of significant loss of disc space. There is normal alignment of the thoracic spine.. The T5 vertebrae demonstrates a high T1/high T2 signal nonen hancing probable vertebral body hemangioma. No suspicious postcontrast enhancement identified within the thoracic vertebrae or spinal cord. IMPRESSION: 1. No evidence of metastatic disease within the cervical or thoracic spine. 2. No evidence of significant spinal canal neural foraminal stenosis.
--- NOTE | 2021-10-22 17:11 | P.DS ---
Providers Date of admission: 10/18/21 12:25 Expected date of discharge: 10/19/21 Attending physician: Lissette Akers MD Consults: 10/18/21 12:25 Consult Physician Routine Consulting Provider: Иван Hercules Consult Reason/Comments: Lumbar lesion Do you want consulting provider notified?: Yes Consult Physician Urgent Consulting Provider: Gilberto Coleman Consult Reason/Comments: Oncological evaluation and care Do you want consulting provider notified?: Yes 10/19/21 12:41 Consult Physician Urgent Consulting Provider: Harrison Mary Consult Reason/Comments: impending cord Do you want consulting provider notified?: Yes Primary care physician: Stated None Hospital Course: Lumbar spine mass Left renal lesion liver lesion and right lower lobe lesion Depression/anxiety/bipolar Patient is a 51-year-old female with a past medical history of anxiety, depression, bipolar who initially presented to [facility] yesterday with left-sided hip pain that has been ongoing for the past month. Patient had a computed tomography scan done at [facility] that showed Left renal lesion as well as lytic lesion L1 and presumed metastasis to liver and right lower lobe. L1 lesion is left pedicle and transverse process measuring up to 3.9 x 2.3 cm. There appears to be epidural component with impending cord compression difficult to exclude. Patient was told to go to [facility]. Patient went to the ER [facility] and was told that there is a 5 hour wait for a bed. So patient then came to our hospital. Patient had an MRI done of her lumbar spine that shows L1 vertebral body enhancing mass. Orthopedic surgery and oncology have been consulted. Patient states that she has chronic urinary incontinence with cough and has not noticed any recent changes. She denies any bowel incontinence. Patient also denies any lower extremity numbness tingling or weakness. Upon reevaluation, patient says that her only complaints are hip pain without any concerning symptoms of urinary retention or incontinence, bowel incontinence, saddle anesthesia. She expresses her wish to have the remainder of her workup done on an outpatient basis. Orthopedic surgery, oncology, radiation oncology were consulted for this patient. Their recommendations were appreciated. Patient was counseled that it would be raphael to continue her workup inpatient prior to receiving treatment as an outpatient, however, she declined to do this at this time. Gen: awake, alert HEENT: normocephalic, atraumatic, good hearing acuity, moist mucous membranes Resp: good air exchange, breathing comfortably with no accessory muscle use CVS: good distal perfusion x 4, GI: soft, NTTP, ND : no SPT, no CVAT, de los santos catheter not present MSK: no pitting edema, no clubbing Neuro: non-focal, moving all extremities Psych: cooperative, euthymic mood . Patient Condition at Discharge: Good Plan - Discharge Summary Discharge Rx Participant: No New Discharge Prescriptions: New HYDROcodone/APAP 5-325MG [[place] 5-325] 1 tab PO Q4HR PRN 3 Days #18 tab PRN Reason: Pain Acetaminophen Tab [Tylenol] 650 mg PO Q6HR PRN tab PRN Reason: Mild Pain Or Fever > 100.5 Continue traZODone HCL [Desyrel] 150 mg PO HS 30 Days tab Gabapentin 600 mg PO Q6H PRN PRN Reason: Pain Magnesium Oxide [Mag-Ox] 250 mg PO DAILY Cider Vinegar [Apple Cider Vinegar] 300 mg PO DAILY Albuterol Sulfate [Ventolin HFA] 2 puff INHALATION RT-QID PRN PRN Reason: Shortness Of Breath Albuterol Nebulized [Ventolin Nebulized] 2.5 mg INHALATION RT-QID PRN PRN Reason: Shortness Of Breath lamoTRIgine [LaMICtal] 100 mg PO BID LORazepam [Ativan] 1 mg PO BID PRN PRN Reason: Anxiety Paliperidone [Invega] 6 mg PO DAILY PARoxetine HCL [Paxil] 60 mg PO DAILY Multivitamins, Thera [Multivitamin (formulary)] 1 tab PO DAILY L.acidoph,Paracasei, B.lactis [Probiotic] 1 cap PO DAILY Discharge Medication List traZODone HCL [Desyrel] 150 mg PO HS 30 Days tab 10/31/20 [Rx] Gabapentin 600 mg PO Q6H PRN 04/21/21 [History] LORazepam [Ativan] 1 mg PO BID PRN 04/21/21 [History] PARoxetine HCL [Paxil] 60 mg PO DAILY 04/21/21 [History] Paliperidone [Invega] 6 mg PO DAILY 04/21/21 [History] lamoTRIgine [LaMICtal] 100 mg PO BID 04/21/21 [History] Albuterol Nebulized [Ventolin Nebulized] 2.5 mg INHALATION RT-QID PRN 10/18/21 [History] Albuterol Sulfate [Ventolin HFA] 2 puff INHALATION RT-QID PRN 10/18/21 [History] Cider Vinegar [Apple Cider Vinegar] 300 mg PO DAILY 10/18/21 [History] L.acidoph,Paracasei, B.lactis [Probiotic] 1 cap PO DAILY 10/18/21 [History] Magnesium Oxide [Mag-Ox] 250 mg PO DAILY 10/18/21 [History] Multivitamins, Thera [Multivitamin (formulary)] 1 tab PO DAILY 10/18/21 [History] Acetaminophen Tab [Tylenol] 650 mg PO Q6HR PRN tab 10/19/21 [Rx] HYDROcodone/APAP 5-325MG [[place] 5-325] 1 tab PO Q4HR PRN 3 Days #18 tab 10/19/21 [Rx] Follow up Appointment(s)/Referral(s): Sharad Morales MD [STAFF PHYSICIAN] - 1 Week (office will call and set up appointment and get medical records ) Harrsion Mary MD [STAFF PHYSICIAN] - 10/25/21 12:00 pm (Appt at [facility] 1st Floor Radiation Oncology ) Иван Hercules DO [Doctor of Osteopathic Medicine] - 10/31/21 11:20 am (patient please come at 11:00 am day of appointment to fill out paper work.patient will see jelani mcclelland) Patient Instructions/Handouts: Hydrocodone/Acetaminophen (By mouth) Discharge Disposition: HOME SELF-CARE
== END 2021-10-19 17:35 | disposition home or self-care (01) | DRG 543 ==
LOC: EC 10:32 → 5NMEDONC 12:25
PROVIDERS: ADMIT Family Medicine; ATTEND Family Medicine
DX: C79.51 Secondary malignant neoplasm of bone (principal); C78.01 Secondary malignant neoplasm of right lung; C79.02 Secondary malignant neoplasm of left kidney and renal pelvis; C78.7 Secondary malignant neoplasm of liver and intrahepatic bile duct; F31.81 Bipolar II disorder; C80.1 Malignant (primary) neoplasm, unspecified; D64.9 Anemia, unspecified; F10.11 Alcohol abuse, in remission; G89.3 Neoplasm related pain (acute) (chronic); M48.061 Spinal stenosis, lumbar region without neurogenic claudication; F41.9 Anxiety disorder, unspecified; J45.909 Unspecified asthma, uncomplicated; R32 Unspecified urinary incontinence; K59.00 Constipation, unspecified; N92.0 Excessive and frequent menstruation with regular cycle; F17.200 Nicotine dependence, unspecified, uncomplicated; Z71.6 Tobacco abuse counseling; Z79.899 Other long term (current) drug therapy; Z85.3 Personal history of malignant neoplasm of breast; Z86.14 Personal history of Methicillin resistant Staphylococcus aureus infection; Z88.5 Allergy status to narcotic agent
CPT/HCPCS: 71250; 72128; 72131; 72156; 72157; 72158; 74176; 80053; 83735; 84100; 85025; 99284

== ENCOUNTER 2021-11-26 10:24 | Observation (INO) | payer MEDICARE ==
[2021-11-26] MEDS ORDERED: SODIUM CHLORIDE 0.9% 500 ML 500 ML IV ONE (10:56)
[2021-11-26] MEDS ORDERED: HYDROmorphone 1 MG/ML 1 ML SYRINGE IVP STA ×2 (11:19→13:51)
[2021-11-26 11:39] LABS: Appearance,Urine Clear (Clear); Bacteria,Urine Occasional /hpf; Bilirubin,Urine Negative (Negative); Blood,Urine Moderate (Negative); Color,Urine Yellow; Glucose,Urine (UA) Negative (Negative); Hyaline Casts,Urine 1 /lpf (0-2); Ketones,Urine Negative (Negative); Leukocyte Esterase,Urine Negative (Negative); Mucus,Urine Rare /hpf; Nitrite,Urine Negative (Negative); Protein,Urine Negative (Negative); RBC,Urine 26 /hpf (0-5); Specific Gravity,Urine 1.014 (1.001-1.035); Squamous Epithelial Cell,Urine 3 /hpf (0-4); Urobilinogen,Urine <2.0 mg/dL (<2.0); WBC,Urine 2 /hpf (0-5)
[2021-11-26 11:40] LABS: Basophils % (A) 0 %; Eosinophils # (A) 0.2 k/uL (0-0.7); Eosinophils % (A) 1 %; HCT 41.4 % (34.0-46.0); HGB 13.4 gm/dL (11.4-16.0); Lymphocytes # (A) 0.3 k/uL (1.0-4.8); Lymphocytes % (A) 2 %; MCH 32.1 pg (25.0-35.0); MCHC 32.4 g/dL (31.0-37.0); MCV 98.8 fL (80.0-100.0); Macrocytosis Slight; Mean Platelet Volume 7.4; Monocytes # (A) 0.6 k/uL (0-1.0); Monocytes % (A) 4 %; Neutrophils # (A) 13.7 k/uL (1.3-7.7); Neutrophils % (A) 93 %; Platelet Count 354 k/uL (150-450); RBC 4.19 m/uL (3.80-5.40); RDW 14.9 % (11.5-15.5); WBC 14.8 k/uL (3.8-10.6)
[2021-11-26 11:49] LABS: Amphetamine Screen,Urine Not Detected (NotDetected); Barbiturate Screen,Urine Not Detected (NotDetected); Benzodiazepines Screen,Urine Detected (NotDetected); Cocaine Screen,Urine Not Detected (NotDetected); Methadone Screen, Urine Not Detected (NotDetected); Opiate Screen,Urine Detected (NotDetected); Phencyclidine Screen,Urine Not Detected (NotDetected); Tricyclic Antidepressant,Urine Not Detected (NotDetected); Urn Cannabinoid Scrn Detected (NotDetected)
[2021-11-26 11:50] LABS: Oxycodone Screen, Urine Not Detected (NotDetected)
[2021-11-26 11:55] LABS: Partial Thromboplastin Time 21.5 sec (22.0-30.0); Prothrombin Time 10.5 sec (9.0-12.0)
[2021-11-26 11:58] LABS: ALT 12 U/L (4-34); AST 19 U/L (14-36); Acetaminophen <10.0 ug/mL; African American GFR (CKD) >90 (>60 ml/min/1.73 sqM); Albumin 3.4 g/dL (3.5-5.0); Alcohol <10 mg/dL; Alkaline Phosphatase 95 U/L (38-126); Anion Gap 8 mmol/L; Bilirubin, Delta 0.4 mg/dL (0.0-0.2); Bilirubin,Unconjugated 0.3 mg/dL (0.0-1.1); Blood Urea Nitrogen 15 mg/dL (7-17); Calcium 9.5 mg/dL (8.4-10.2); Carbon Dioxide 27 mmol/L (22-30); Chloride 98 mmol/L (98-107); Glucose 110 mg/dL (74-99); Non-African American GFR(CKD) >90 (>60 ml/min/1.73 sqM); Potassium 3.8 mmol/L (3.5-5.1); Salicylate <1.0 mg/dL; Sodium 133 mmol/L (137-145); Total Bilirubin 0.7 mg/dL (0.2-1.3); Total Protein 5.6 g/dL (6.3-8.2)
--- NOTE | 2021-11-26 12:11 | CT ---
EXAMINATION TYPE: CT brain wo con DATE OF EXAM: 11/26/2021 COMPARISON: 03/19/2013 INDICATION: Altered mental status DLP: 1039.4 mGycm, Automated exposure control for dose reduction was used. CONTRAST: None CT of the brain is performed utilizing 3 mm thick sections through the posterior fossa and 3 mm thick sections through the remaining calvarium. Study is performed within 24 hours of arrival to the hosp [facility]. No abnormal hyperdensity is present to suggest an acute intracranial hemorrhage. No mass lesion is evident. No acute infarcts are evident. Ventricles and sulci are appropriate for the patient age. Paranasal sinuses and mastoid air cells within the [id number] are clear. IMPRESSIONS: 1. No acute intracranial process. Follow-up MRI can be performed as clinically indicated.
--- NOTE | 2021-11-26 12:42 | XR ---
EXAMINATION TYPE: XR chest 2V DATE OF EXAM: 11/26/2021 COMPARISON: Chest x-ray 12/16/2018 HISTORY: Altered mental status TECHNIQUE: Frontal and lateral views of the chest are obtained. FINDINGS: There is no focal air space opacity, pleural effusion, or pneumothorax seen. The cardiac silhouette size is within normal limits. There are overlying leads, artifacts. The osseous structure s are intact. Prominence of the right hilum may be technical. IMPRESSION: Prominence of the hilum may be technical. Consider follow-up to assess for persistent de nsity.
--- NOTE | 2021-11-26 12:50 | XR ---
Lumbar spine HISTORY: Low back pain 3 views of lumbar spine correlated to CT scan dated 10/19/2021 Destructive lesion at L1 is present in the left of midline, the pedicle and transverse process show l ytic appearance. There is a slight spinal curvature. There is underlying degenerative disc change. At herosclerotic calcifications are present in the aortoiliac distribution. IMPRESSION: Metastatic lesion to L1 is not as well seen as on CT
[2021-11-26] MEDS ORDERED: cefTRIAXone IN SWFI 1,000 MG/10 ML SYRINGE IVP STA (13:03)
[2021-11-26] MEDS ORDERED: LORazepam 2 MG/ML INJ IV STA (13:51)
--- NOTE | 2021-11-26 14:02 | ED ---
Altered Mental Status HPI - General Chief Complaint: Altered Mental Status Stated Complaint: Weakness Source: patient Mode of arrival: EMS Limitations: altered mental status - History of Present Illness Initial Comments: 51-year-old female with past medical history of lung cancer with liver, kidney and bone metastases who presents the emergency room with uncontrolled pain. Alesha gordon has an L1 metastatic lesion which has caused her significant pain. She was recently diagnosed with adenocarcinoma after the lesion was biopsied. reports that she was post to have an MRI last Friday however they never received the paperwork and therefore did not know that the patient had the study planned. She does know that she goes for her PET scan tomorrow. She has had morphine at home from Dr. Ellis however states that she has finished the medication. She is supposed to be entering into a pain contract however has had to turn in the paperwork. She did have 10 radiation treatments for which she states significantly helped her pain. states that she has not been eating or drinking. She has had uncontrolled pain that is causing her to have lack of sleep. She denies any chest pain or shortness of breath. No new injuries. No other alleviating, precipitating modifying factors - Related Data Home Medications Medication Instructions Recorded Confirmed LORazepam [Ativan] 1 mg PO BID PRN 04/21/21 11/26/21 PARoxetine HCL [Paxil] 60 mg PO DAILY 04/21/21 11/26/21 Paliperidone [Invega] 6 mg PO DAILY 04/21/21 11/26/21 lamoTRIgine [LaMICtal] 100 mg PO BID 04/21/21 11/26/21 Albuterol Nebulized [Ventolin 2.5 mg INHALATION RT-QID PRN 10/18/21 11/26/21 Nebulized] Albuterol Sulfate [Ventolin HFA] 2 puff INHALATION RT-QID PRN 10/18/21 11/26/21 Cider Vinegar [Apple Cider Vinegar] 300 mg PO DAILY 10/18/21 11/26/21 L.acidoph,Paracasei, B.lactis 1 cap PO DAILY 10/18/21 11/26/21 [Probiotic] Magnesium Oxide [Mag-Ox] 250 mg PO DAILY 10/18/21 11/26/21 Multivitamins, Thera [Multivitamin 1 tab PO DAILY 10/18/21 11/26/21 (formulary)] Acetaminophen Tab [Tylenol] 650 mg PO Q6H PRN 10/22/21 11/26/21 Cyclobenzaprine [Flexeril] 10 mg PO TID PRN 11/26/21 11/26/21 HYDROcodone/APAP 10-325MG [[place] 1 tab PO Q6HR PRN 11/26/21 11/26/21 10-325] Morphine Sulfate [Morphine Sulfate 30 mg PO BID 11/26/21 11/26/21 ER] Varenicline Tartrate 1 mg PO BID 11/26/21 11/26/21 Previous Rx's Medication Instructions Recorded traZODone HCL [Desyrel] 150 mg PO HS 30 Days tab 10/31/20 Allergies Allergy/AdvReac Type Severity Reaction Status Date / Time codeine Allergy Itching Verified 11/26/21 12:55 Review of Systems ROS Statement: Those systems with pertinent positive or pertinent negative responses have been documented in the HPI. ROS Other: All systems not noted in ROS Statement are negative. Past Medical History Past Medical History: Asthma, Cancer Additional Past Medical History / Comment(s): Breast cancer History of Any Multi-Drug Resistant Organisms: MRSA Date of last positivie culture/infection: 2008 MDRO Source:: jaw, blood Past Surgical History: Tubal Ligation, Uterine Ablation Additional Past Surgical History / Comment(s): Bone marrow aspiration, skin gra ft at age 17 yrs to forehead Past Anesthesia/Blood Transfusion Reactions: No Reported Reaction Past Psychological History: Anxiety, Bipolar, Depression Smoking Status: Current every day smoker Past Alcohol Use History: Occasional Past Drug Use History: None Reported - Past Family History Mother Family Medical History: No Reported History Father Family Medical History: No Reported History General Exam Limitations: altered mental status Course Vital Signs 11/26/21 11/26/21 11/26/21 10:32 10:42 13:40 Temperature 98.4 F Pulse Rate 92 92 97 Respiratory 16 16 18 Rate Blood Pressure 127/76 120/70 101/59 O2 Sat by Pulse 97 96 95 Oximetry Medical Decision Making - Medical Decision Making Upon arrival patient was placed in room 11. Thorough history and physical exam is performed. IV access established. Patient was given Dilaudid for pain control. Laboratories is conducted which demonstrates a sodium of 133. White blood cell count of 14.8. CT of the brain is performed as has been is reporting to confusion which demonstrates no acute intracranial process. Chest x-ray demonstrates prominence of the hilum. Spinal x-rays performed which demonstrates metastatic lesion to L1. Patient is reevaluated and continues to have pain. Second dose of pain medications as ordered as well as Ativan for agitation. IV fluids are ordered at 150 mL per hour. Did recommend admission with consultation for heme and radiation oncology. Patient was agreeable to this. Pending a bed on the floor in stable condition - Lab Data Result diagrams: 11/26/21 11:04 11/26/21 11:04 Lab Results 11/26/21 11/26/21 11/26/21 Range/Units 11:04 11:04 11:04 WBC 14.8 H (3.8-10.6) k/uL RBC 4.19 (3.80-5.40) m/uL Hgb 13.4 (11.4-16.0) gm/dL Hct 41.4 (34.0-46.0) % MCV 98.8 (80.0-100.0) fL MCH 32.1 (25.0-35.0) pg MCHC 32.4 (31.0-37.0) g/dL RDW 14.9 (11.5-15.5) % Plt Count 354 (150-450) k/uL MPV 7.4 Neutrophils % 93 % Lymphocytes % 2 % Monocytes % 4 % Eosinophils % 1 % Basophils % 0 % Neutrophils # 13.7 H (1.3-7.7) k/uL Lymphocytes # 0.3 L (1.0-4.8) k/uL Monocytes # 0.6 (0-1.0) k/uL Eosinophils # 0.2 (0-0.7) k/uL Basophils # 0.0 (0-0.2) k/uL Macrocytosis Slight PT 10.5 (9.0-12.0) sec INR 1.0 (<1.2) APTT 21.5 L (22.0-30.0) sec Sodium (137-145) mmol/L Potassium (3.5-5.1) mmol/L Chloride (98-107) mmol/L Carbon Dioxide (22-30) mmol/L Anion Gap mmol/L BUN (7-17) mg/dL Creatinine (0.52-1.04) mg/dL Est GFR (CKD-EPI)AfAm (>60 ml/min/1.73 sqM) Est GFR (CKD-EPI)NonAf (>60 ml/min/1.73 sqM) Glucose (74-99) mg/dL Calcium (8.4-10.2) mg/dL Total Bilirubin (0.2-1.3) mg/dL Conjugated Bilirubin (0.0-0.3) mg/dL Unconjugated Bilirubin (0.0-1.1) mg/dL Delta Bilirubin (0.0-0.2) mg/dL AST (14-36) U/L ALT (4-34) U/L Alkaline Phosphatase (38-126) U/L Ammonia (<30) umol/L Troponin I (0.000-0.034) ng/mL Total Protein (6.3-8.2) g/dL Albumin (3.5-5.0) g/dL Urine Color Urine Appearance (Clear) Urine pH (5.0-8.0) Ur Specific [place] (1.001-1.035) Urine Protein (Negative) Urine Glucose (UA) (Negative) Urine Ketones (Negative) Urine Blood (Negative) Urine Nitrite (Negative) Urine Bilirubin (Negative) Urine Urobilinogen (<2.0) mg/dL Ur Leukocyte Esterase (Negative) Urine RBC (0-5) /hpf Urine WBC (0-5) /hpf Ur Squamous Epith Cells (0-4) /hpf Urine Bacteria (None) /hpf Hyaline Casts (0-2) /lpf Urine Mucus (None) /hpf Salicylates mg/dL Urine Opiates Screen Detected H (NotDetected) Ur Oxycodone Screen Not Detected (NotDetected) Urine Methadone Screen Not Detected (NotDetected) Ur Propoxyphene Screen Not Detected (NotDetected) Acetaminophen ug/mL Ur Barbiturates Screen Not Detected (NotDetected) U Tricyclic Antidepress Not Detected (NotDetected) Ur Phencyclidine Scrn Not Detected (NotDetected) Ur Amphetamines Screen Not Detected (NotDetected) U Methamphetamines Scrn Not Detected (NotDetected) U Benzodiazepines Scrn Detected H (NotDetected) Urine Cocaine Screen Not Detected (NotDetected) U Marijuana (THC) Screen Detected H (NotDetected) Serum Alcohol mg/dL 11/26/21 11/26/21 11/26/21 Range/Units 11:04 11:04 11:04 WBC (3.8-10.6) k/uL RBC (3.80-5.40) m/uL Hgb (11.4-16.0) gm/dL Hct (34.0-46.0) % MCV (80.0-100.0) fL MCH (25.0-35.0) pg MCHC (31.0-37.0) g/dL RDW (11.5-15.5) % Plt Count (150-450) k/uL MPV Neutrophils % % Lymphocytes % % Monocytes % % Eosinophils % % Basophils % % Neutrophils # (1.3-7.7) k/uL Lymphocytes # (1.0-4.8) k/uL Monocytes # (0-1.0) k/uL Eosinophils # (0-0.7) k/uL Basophils # (0-0.2) k/uL Macrocytosis PT (9.0-12.0) sec INR (<1.2) APTT (22.0-30.0) sec Sodium 133 L (137-145) mmol/L Potassium 3.8 (3.5-5.1) mmol/L Chloride 98 (98-107) mmol/L Carbon Dioxide 27 (22-30) mmol/L Anion Gap 8 mmol/L BUN 15 (7-17) mg/dL Creatinine 0.49 L (0.52-1.04) mg/dL Est GFR (CKD-EPI)AfAm >90 (>60 ml/min/1.73 sqM) Est GFR (CKD-EPI)NonAf >90 (>60 ml/min/1.73 sqM) Glucose 110 H (74-99) mg/dL Calcium 9.5 (8.4-10.2) mg/dL Total Bilirubin 0.7 (0.2-1.3) mg/dL Conjugated Bilirubin 0.0 (0.0-0.3) mg/dL Unconjugated Bilirubin 0.3 (0.0-1.1) mg/dL Delta Bilirubin 0.4 H (0.0-0.2) mg/dL AST 19 (14-36) U/L ALT 12 (4-34) U/L Alkaline Phosphatase 95 (38-126) U/L Ammonia (<30) umol/L Troponin I <0.012 (0.000-0.034) ng/mL Total Protein 5.6 L (6.3-8.2) g/dL Albumin 3.4 L (3.5-5.0) g/dL Urine Color Yellow Urine Appearance Clear (Clear) Urine pH 6.0 (5.0-8.0) Ur Specific [place] 1.014 (1.001-1.035) Urine Protein Negative (Negative) Urine Glucose (UA) Negative (Negative) Urine Ketones Negative (Negative) Urine Blood Moderate H (Negative) Urine Nitrite Negative (Negative) Urine Bilirubin Negative (Negative) Urine Urobilinogen <2.0 (<2.0) mg/dL Ur Leukocyte Esterase Negative (Negative) Urine RBC 26 H (0-5) /hpf Urine WBC 2 (0-5) /hpf Ur Squamous Epith Cells 3 (0-4) /hpf Urine Bacteria Occasional H (None) /hpf Hyaline Casts 1 (0-2) /lpf Urine Mucus Rare H (None) /hpf Salicylates <1.0 mg/dL Urine Opiates Screen (NotDetected) Ur Oxycodone Screen (NotDetected) Urine Methadone Screen (NotDetected) Ur Propoxyphene Screen (NotDetected) Acetaminophen <10.0 ug/mL Ur Barbiturates Screen (NotDetected) U Tricyclic Antidepress (NotDetected) Ur Phencyclidine Scrn (NotDetected) Ur Amphetamines Screen (NotDetected) U Methamphetamines Scrn (NotDetected) U Benzodiazepines Scrn (NotDetected) Urine Cocaine Screen (NotDetected) U Marijuana (THC) Screen (NotDetected) Serum Alcohol <10 mg/dL 11/26/21 Range/Units 11:04 WBC (3.8-10.6) k/uL RBC (3.80-5.40) m/uL Hgb (11.4-16.0) gm/dL Hct (34.0-46.0) % MCV (80.0-100.0) fL MCH (25.0-35.0) pg MCHC (31.0-37.0) g/dL RDW (11.5-15.5) % Plt Count (150-450) k/uL MPV Neutrophils % % Lymphocytes % % Monocytes % % Eosinophils % % Basophils % % Neutrophils # (1.3-7.7) k/uL Lymphocytes # (1.0-4.8) k/uL Monocytes # (0-1.0) k/uL Eosinophils # (0-0.7) k/uL Basophils # (0-0.2) k/uL Macrocytosis PT (9.0-12.0) sec INR (<1.2) APTT (22.0-30.0) sec Sodium (137-145) mmol/L Potassium (3.5-5.1) mmol/L Chloride (98-107) mmol/L Carbon Dioxide (22-30) mmol/L Anion Gap mmol/L BUN (7-17) mg/dL Creatinine (0.52-1.04) mg/dL Est GFR (CKD-EPI)AfAm (>60 ml/min/1.73 sqM) Est GFR (CKD-EPI)NonAf (>60 ml/min/1.73 sqM) Glucose (74-99) mg/dL Calcium (8.4-10.2) mg/dL Total Bilirubin (0.2-1.3) mg/dL Conjugated Bilirubin (0.0-0.3) mg/dL Unconjugated Bilirubin (0.0-1.1) mg/dL Delta Bilirubin (0.0-0.2) mg/dL AST (14-36) U/L ALT (4-34) U/L Alkaline Phosphatase (38-126) U/L Ammonia 12 (<30) umol/L Troponin I (0.000-0.034) ng/mL Total Protein (6.3-8.2) g/dL Albumin (3.5-5.0) g/dL Urine Color Urine Appearance (Clear) Urine pH (5.0-8.0) Ur Specific [place] (1.001-1.035) Urine Protein (Negative) Urine Glucose (UA) (Negative) Urine Ketones (Negative) Urine Blood (Negative) Urine Nitrite (Negative) Urine Bilirubin (Negative) Urine Urobilinogen (<2.0) mg/dL Ur Leukocyte Esterase (Negative) Urine RBC (0-5) /hpf Urine WBC (0-5) /hpf Ur Squamous Epith Cells (0-4) /hpf Urine Bacteria (None) /hpf Hyaline Casts (0-2) /lpf Urine Mucus (None) /hpf Salicylates mg/dL Urine Opiates Screen (NotDetected) Ur Oxycodone Screen (NotDetected) Urine Methadone Screen (NotDetected) Ur Propoxyphene Screen (NotDetected) Acetaminophen ug/mL Ur Barbiturates Screen (NotDetected) U Tricyclic Antidepress (NotDetected) Ur Phencyclidine Scrn (NotDetected) Ur Amphetamines Screen (NotDetected) U Methamphetamines Scrn (NotDetected) U Benzodiazepines Scrn (NotDetected) Urine Cocaine Screen (NotDetected) U Marijuana (THC) Screen (NotDetected) Serum Alcohol mg/dL - EKG Data EKG Comments: pattern drafter sinus rhythm with a rate of 72. KS interval 153. QRS 89. QTC of 371. No acute ST segment elevations or depressions Disposition Clinical Impression: Intractable pain, Lesion of lumbar spine, Hip pain, Lung cancer metastatic to bone, Acute encephalopathy, Dehydration Disposition: ADMITTED IP TO THIS [facility] Condition: Stable Is patient prescribed a controlled substance at d/c from ED?: No Time of Disposition: 14:06 Decision to Admit Reason: Admit from EC Decision Date: 11/26/21 Decision Time: 14:06
[2021-11-26] MEDS ORDERED: NALOXONE 0.4 MG/ML 1 ML VIAL IV PRN (14:09)
[2021-11-26] MEDS: SODIUM CHLORIDE 0.9% 1,000 ML IV SCH ×2 (14:32→22:00)
[2021-11-26] MEDS ORDERED: ALBUTEROL NEBULIZED 2.5 MG/3 ML INHALATION PRN (16:46)
--- NOTE | 2021-11-26 18:24 | P.HPIM ---
History of Present Illness This is a pleasant 51 years old female was recently discharged from the hospital for lung mass with metastatic lesion to the lumbar spine and kidney biopsy, she was recently diagnosed with metastatic adenocarcinoma of the left lung based on Fine-needle aspirate and biopsy from the lumbar spine [10/24] showing metastatic pulmonary adenocarcinoma, and other test. She was supposed to follow-up with Dr. Ellis tomorrow before management and initiation of therapy. Patient is awake and alert but go back to sleep easily. She can't tell me she is in the hospital at medical facility but she is confused regarding the date and person, she couldn't recognize her at bedside who provided information for history, patient Edith was complaining of from worsening low back pain which became more severe as of yesterday, it goes to both hip and right groin area and sometimes she was down the right leg. Patient does not seem to be complaining of from weakness in her legs. As per patient was progressively getting more confused since last weekend about 7-8 days ago. Today she is more sleepy. She has conference sometimes makes phlegm but no chest pain. She's been complaining of from constipation she had good appetite until yesterday. Denies dysuria or any other complaints for urinary tract. She is heavy smoker she is used to smoke about 2 packs per day and now cutting down to 1 pack per day No alcohol or illicit drugs but sometimes uses brownies to help her with pain. She's also has history of bipolar disorder but she denies any current signs symptoms of depression or suicidal ideation. No hallucination. Vitals are stable and patient is afebrile. Also she has evidence of leukocytosis 14.8 K, rest of the CBC, INR and BMP is unremarkable. Creatinine 0.4. Glucose 110. Liver enzymes not elevated. Urinalysis showing 26 RBCs. No evidence of infection. Urine drug screen is positive for opiates, benzodiazepines and marijuana. CT of the brain: No acute intracranial process. Follow-up MRI can be performed Chest x-ray showed prominence of the right halium Lumbar x-ray showing metastatic lesion to L1, is not as well seen on was on CTA. Review of Systems Review of systems -CONSTITUTIONAL: No fever, , rest as above HEENT: No recent visual problems or hearing problems. Denied any sore throat. CARDIOVASCULAR: No orthopnea, PND, no palpitations, no syncope. PULMONARY: No shortness of breath, no hemoptysis. GASTROINTESTINAL: No diarrhea, no nausea, no vomiting, no abdominal pain. Normoactive bowel sounds. NEUROLOGICAL: No headaches, no weakness, no numbness. HEMATOLOGICAL: Denies any bleeding or petechiae. GENITOURINARY: Denies any burning micturition, frequency, or urgency. -MUSCULOSKELETAL/RHEUMATOLOGICAL: Denies any joint pain, swelling, or any muscle pain. Except for back pain as above radiating ENDOCRINE: Denies any polyuria or polydipsia. Past Medical History Past Medical History: Asthma, Cancer Additional Past Medical History / Comment(s): Breast cancer History of Any Multi-Drug Resistant Organisms: MRSA Date of last positivie culture/infection: 2008 MDRO Source:: jaw, blood Past Surgical History: Tubal Ligation, Uterine Ablation Additional Past Surgical History / Comment(s): Bone marrow aspiration, skin graft at age 17 yrs to forehead Past Anesthesia/Blood Transfusion Reactions: No Reported Reaction Past Psychological History: Anxiety, Bipolar, Depression Smoking Status: Current every day smoker Past Alcohol Use History: Occasional Past Drug Use History: None Reported - Past Family History Mother Family Medical History: No Reported History Father Family Medical History: No Reported History Medications and Allergies Home Medications Medication Instructions Recorded Confirmed Type traZODone HCL [Desyrel] 150 mg PO HS 30 Days tab 10/31/20 11/26/21 Rx LORazepam [Ativan] 1 mg PO BID PRN 04/21/21 11/26/21 History PARoxetine HCL [Paxil] 60 mg PO DAILY 04/21/21 11/26/21 History Paliperidone [Invega] 6 mg PO DAILY 04/21/21 11/26/21 History lamoTRIgine [LaMICtal] 100 mg PO BID 04/21/21 11/26/21 History Albuterol Nebulized [Ventolin 2.5 mg INHALATION RT-QID PRN 10/18/21 11/26/21 History Nebulized] Albuterol Sulfate [Ventolin HFA] 2 puff INHALATION RT-QID PRN 10/18/21 11/26/21 History Cider Vinegar [Apple Cider Vinegar] 300 mg PO DAILY 10/18/21 11/26/21 History L.acidoph,Paracasei, B.lactis 1 cap PO DAILY 10/18/21 11/26/21 History [Probiotic] Magnesium Oxide [Mag-Ox] 250 mg PO DAILY 10/18/21 11/26/21 History Multivitamins, Thera [Multivitamin 1 tab PO DAILY 10/18/21 11/26/21 History (formulary)] Acetaminophen Tab [Tylenol] 650 mg PO Q6H PRN 10/22/21 11/26/21 History Cyclobenzaprine [Flexeril] 10 mg PO TID PRN 11/26/21 11/26/21 History HYDROcodone/APAP 10-325MG [[place] 1 tab PO Q6HR PRN 11/26/21 11/26/21 History 10-325] Morphine Sulfate [Morphine Sulfate 30 mg PO BID 11/26/21 11/26/21 History ER] Varenicline Tartrate 1 mg PO BID 11/26/21 11/26/21 History Allergies Allergy/AdvReac Type Severity Reaction Status Date / Time codeine Allergy Itching Verified 11/26/21 12:55 Physical Exam Vitals: Vital Signs Temp Pulse Resp BP Pulse Ox 11/26/21 13:40 97 18 101/59 95 11/26/21 10:42 92 16 120/70 96 11/26/21 10:32 98.4 F 92 16 127/76 97 Intake and Output 11/25/21 11/26/21 11/26/21 22:59 06:59 14:59 Other: Weight 58.967 kg -GENERAL: The patient is alert and oriented x1 to place, not in any acute distress. Well developed, well nourished. HEENT: Pupils are round and equally reacting to light. EOMI. No scleral icterus. No conjunctival pallor. Normocephalic, atraumatic. No pharyngeal erythema. No thyromegaly. CARDIOVASCULAR: S1 and S2 present. No murmurs, rubs, or gallops. PULMONARY: Chest is clear to auscultation, no wheezing or crackles. ABDOMEN: Soft, nontender, nondistended, normoactive bowel sounds. No palpable organomegaly. -MUSCULOSKELETAL: No joint swelling or deformity. Mild lower back tenderness EXTREMITIES: No cyanosis, clubbing, or pedal edema. NEUROLOGICAL: Gross neurological examination did not reveal any focal deficits. Cranial nerves nerves are grossly intact. Strength 5/5 in all extremities. Sensation intact. Meningeal signs are absent SKIN: No rashes. no petechiae. Results CBC & Chem 7: 11/26/21 11:04 11/26/21 11:04 Labs: Abnormal Lab Results - Last 24 Hours (Table) 11/26/21 11/26/21 11/26/21 Range/Units 11:04 11:04 11:04 WBC 14.8 H (3.8-10.6) k/uL Neutrophils # 13.7 H (1.3-7.7) k/uL Lymphocytes # 0.3 L (1.0-4.8) k/uL APTT 21.5 L (22.0-30.0) sec Sodium (137-145) mmol/L Creatinine (0.52-1.04) mg/dL Glucose (74-99) mg/dL Delta Bilirubin (0.0-0.2) mg/dL Total Protein (6.3-8.2) g/dL Albumin (3.5-5.0) g/dL Urine Blood (Negative) Urine RBC (0-5) /hpf Urine Bacteria (None) /hpf Urine Mucus (None) /hpf Urine Opiates Screen Detected H (NotDetected) U Benzodiazepines Scrn Detected H (NotDetected) U Marijuana (THC) Screen Detected H (NotDetected) 11/26/21 11/26/21 Range/Units 11:04 11:04 WBC (3.8-10.6) k/uL Neutrophils # (1.3-7.7) k/uL Lymphocytes # (1.0-4.8) k/uL APTT (22.0-30.0) sec Sodium 133 L (137-145) mmol/L Creatinine 0.49 L (0.52-1.04) mg/dL Glucose 110 H (74-99) mg/dL Delta Bilirubin 0.4 H (0.0-0.2) mg/dL Total Protein 5.6 L (6.3-8.2) g/dL Albumin 3.4 L (3.5-5.0) g/dL Urine Blood Moderate H (Negative) Urine RBC 26 H (0-5) /hpf Urine Bacteria Occasional H (None) /hpf Urine Mucus Rare H (None) /hpf Urine Opiates Screen (NotDetected) U Benzodiazepines Scrn (NotDetected) U Marijuana (THC) Screen (NotDetected) Assessment and Plan Assessment: Altered Mental status, most likely metabolic/toxic encephalopathy. Left lung adenocarcinoma with metastatic lesion to the lumbar spine of the left kidney Uncontrolled pain secondary to above Intractable back pain with metastatic lesions to the lumbar spine Right middle lobe lung lesion and left kidney lesion status post biopsy. History of breast cancer Asthma Anxiety/depression and bipolar disease Currently everyday smoker Previous history of alcohol abuse Plan: This is a pleasant 51 years old female who presents with AMS, metastatic lung cancer. Oncology team consult Continue with IV hydration Continue with pain management Continue with antibiotic Neuro check Oncology and radiation oncology team consult Treatment goals looks more palliative than therapeutic Labs and medication were reviewed.. Continue same treatment. Continue with symptomatic treatment. Resume home medication. Monitor lytes and vitals. DVT and GI prophylaxis. Further recommendations as per clinical course of the patient DVT prophylaxis: Subcutaneous heparin GI Prophylaxis: Pepcid PT/OT: Pending Prognosis is guarded
[2021-11-26] MEDS: lamoTRIgine 100 MG TAB PO SCH (20:51)
[2021-11-26] MEDS: traZODone HCL 50 MG TAB PO SCH (20:51)
[2021-11-26] MEDS: HYDROmorphone 1 MG/ML 1 ML SYRINGE IVP PRN (21:02)
[2021-11-27] MEDS: HYDROmorphone 1 MG/ML 1 ML SYRINGE IVP PRN ×5 (00:17→20:42)
[2021-11-27] MEDS: LORazepam 1 MG TAB PO PRN ×3 (00:23→20:42)
[2021-11-27] MEDS: CYCLOBENZAPRINE 10 MG TAB PO PRN ×2 (04:08→15:07)
[2021-11-27] MEDS: SODIUM CHLORIDE 0.9% 1,000 ML IV SCH ×3 (05:21→20:25)
[2021-11-27] MEDS: PARoxetine 20 MG TAB PO SCH (09:00)
[2021-11-27] MEDS: lamoTRIgine 100 MG TAB PO SCH ×2 (09:00→20:25)
[2021-11-27] MEDS ORDERED: HYDROmorphone 1 MG/ML 1 ML SYRINGE IM STA (09:34)
[2021-11-27] MEDS ORDERED: SENNOSIDES 8.6 MG TAB PO PRN (09:36)
[2021-11-27 10:18] LABS: Basophils # (A) 0.03 X 10*3/uL (0.00-0.10); Basophils % (A) 0.2 %; Eosinophils # (A) 0.14 X 10*3/uL (0.04-0.35); Eosinophils % (A) 0.8 %; HCT 38.8 % (37.2-46.3); Immature Grans, Automated 0.7 %; Lymphocytes # (A) 1.31 X 10*3/uL (0.90-5.00); Lymphocytes % (A) 7.7 %; MCHC 33.5 g/dL (32.0-37.0); MCV 95.6 fL (80.0-97.0); Mean Platelet Volume 9.7 fL (9.5-12.2); Monocytes % (A) 8.2 %; NRBC Per 100 WBC 0 /100 WBCS (0.0-0.0); Neutrophils # (A) 13.98 X 10*3/uL (1.80-7.70); Neutrophils % (A) 82.4 %; Platelet Count 308 X 10*3/uL (140-440); RBC 4.06 X 10*6/uL (4.10-5.20); RDW 15.4 % (11.5-14.5); WBC 16.98 X 10*3/uL (4.50-10.00)
[2021-11-27] MEDS: PALIPERIDONE 6 MG TAB.ER.24 PO SCH (10:29)
[2021-11-27] MEDS: DOCUSATE 100 MG CAP PO SCH ×3 (10:30→21:50)
[2021-11-27 12:19] LABS: ALT 9 U/L (8-44); AST 16 U/L (13-35); African American GFR (CKD) 123.2 (60.0-200.0); Albumin 3.6 g/dL (3.8-4.9); Albumin/Globulin Ratio 1.71 (1.60-3.17); Alkaline Phosphatase 93 U/L (41-126); Bilirubin, Conjugated <0.20 mg/dL (0.20-0.40); Blood Urea Nitrogen 12.9 mg/dL (9.0-27.0); Calcium 9.8 mg/dL (8.7-10.3); Chloride 102 mmol/L (96-109); Globulin 2.1 g/dL (1.6-3.3); Glucose 87 mg/dL (70-110); Magnesium 1.5 mg/dL (1.5-2.4); Non-African American GFR(CKD) 106.3 (60.0-200.0); Potassium 3.9 mmol/L (3.5-5.5); Sodium 138 mmol/L (135-145); Total Protein 5.7 g/dL (6.2-8.2)
[2021-11-27] MEDS: HYDROmorphone 2 MG TAB PO PRN (16:34)
--- NOTE | 2021-11-27 16:37 | P.CONS ---
History of Present Illness - Reason for Consult Consult date: 11/27/21 low back pain, altered mental status Requesting physician: Adam E Sheet - Chief Complaint low back pain, AMS - History of Present Illness The patient is a 51-year-old female with a history of a recently diagnosed adenocarcinoma of the right lower lung, stage IVB (cT2a, cN0, M1c) with metastatic disease involving the liver and L1. She initially presented with low back pain, and underwent palliative radiotherapy to this lesion finishing 30 Gy in 10 fractions on November 16, 2021. The patient did undergo an GS testing under the care of Dr. Ralph Ellis; she is strongly PDL1+ and planning immunotherapy in the near future. The patient presented to the ER secondary to increased confusion and somnolence over the past week. The patient reports that she has been unable to sleep secondary to increasing lower back pain. She states initially that the pain was improving following radiation, but states that she had a fall at home and believes that this trauma resulted in more pain. She underwent a CT scan of the brain without contrast which was unremarkable. An x-ray of the lumbar spine was also largely unremarkable. The patient reports she has had some intermittent headaches, but these are not a daily occurrence. She has had some mild nausea without vomiting and feels overall depressed appetite. Review of Systems Constitutional: Denies chills, Denies fever Eyes: denies blurred vision Ears, nose, mouth and throat: Reports headache Cardiovascular: Denies chest pain Respiratory: Denies congestion, Denies cough Gastrointestinal: Denies abdominal pain Musculoskeletal: Reports as per HPI Integumentary: Denies rash Neurological: Reports headaches, Denies aphasia, Denies confusion Psychiatric: Reports anxiety, Reports change in sleep habits Past Medical History Past Medical History: Asthma, Cancer Additional Past Medical History / Comment(s): Breast cancer History of Any Multi-Drug Resistant Organisms: MRSA Year Discovered:: 2008 MDRO Source:: jaw, blood Past Surgical History: Tubal Ligation, Uterine Ablation Additional Past Surgical History / Comment(s): Bone marrow aspiration, skin graft at age 17 yrs to forehead Past Anesthesia/Blood Transfusion Reactions: No Reported Reaction Past Psychological History: Anxiety, Bipolar, Depression Smoking Status: Current every day smoker Past Alcohol Use History: Occasional Past Drug Use History: None Reported - Past Family History Mother Family Medical History: No Reported History Father Family Medical History: No Reported History Medications and Allergies Home Medications Medication Instructions Recorded Confirmed Type traZODone HCL [Desyrel] 150 mg PO HS 30 Days tab 10/31/20 11/26/21 Rx LORazepam [Ativan] 1 mg PO BID PRN 04/21/21 11/26/21 History PARoxetine HCL [Paxil] 60 mg PO DAILY 04/21/21 11/26/21 History Paliperidone [Invega] 6 mg PO DAILY 04/21/21 11/26/21 History lamoTRIgine [LaMICtal] 100 mg PO BID 04/21/21 11/26/21 History Albuterol Nebulized [Ventolin 2.5 mg INHALATION RT-QID PRN 10/18/21 11/26/21 History Nebulized] Albuterol Sulfate [Ventolin HFA] 2 puff INHALATION RT-QID PRN 10/18/21 11/26/21 History Cider Vinegar [Apple Cider Vinegar] 300 mg PO DAILY 10/18/21 11/26/21 History L.acidoph,Paracasei, B.lactis 1 cap PO DAILY 10/18/21 11/26/21 History [Probiotic] Magnesium Oxide [Mag-Ox] 250 mg PO DAILY 10/18/21 11/26/21 History Multivitamins, Thera [Multivitamin 1 tab PO DAILY 10/18/21 11/26/21 History (formulary)] Acetaminophen Tab [Tylenol] 650 mg PO Q6H PRN 10/22/21 11/26/21 History Cyclobenzaprine [Flexeril] 10 mg PO TID PRN 11/26/21 11/26/21 History HYDROcodone/APAP 10-325MG [[place] 1 tab PO Q6HR PRN 11/26/21 11/26/21 History 10-325] Morphine Sulfate [Morphine Sulfate 30 mg PO BID 11/26/21 11/26/21 History ER] Varenicline Tartrate 1 mg PO BID 11/26/21 11/26/21 History Allergies Allergy/AdvReac Type Severity Reaction Status Date / Time codeine Allergy Itching Verified 11/26/21 12:55 Physical Exam Vitals: Vital Signs Temp Pulse Resp BP Pulse Ox 11/27/21 09:07 99.4 F 112 H 20 125/80 97 11/27/21 06:32 80 09/20/22 06:30 101 H 11/27/21 06:25 130 H 11/27/21 05:55 98.5 F 96 18 130/84 11/27/21 04:42 98.5 F 11/27/21 00:58 86 11/27/21 00:17 130 H 20 135/75 11/27/21 00:06 79 117/71 11/26/21 21:32 79 11/26/21 21:03 97.9 F 86 18 149/112 11/26/21 18:47 110 H 18 141/67 95 11/26/21 17:22 69 18 141/67 95 - Constitutional General appearance: no acute distress - EENT Eyes: EOMI, PERRLA ENT: hearing grossly normal - Neck Neck: no lymphadenopathy - Respiratory Respiratory: bilateral: CTA - Cardiovascular Rhythm: regular (Rapid rate*) - Gastrointestinal General gastrointestinal: no distended, no tenderness - Integumentary Integumentary: no cellulitis, no rash - Neurologic Neurologic: CNII-XII intact - Musculoskeletal Musculoskeletal: strength equal bilaterally - Psychiatric Psychiatric: A&O x's 3, appropriate affect, intact judgment & insight Results CBC & Chem 7: 11/27/21 06:15 11/27/21 06:15 Labs: Abnormal Lab Results - Last 24 Hours (Table) 11/27/21 11/27/21 11/27/21 Range/Units 06:15 06:15 06:15 WBC 16.98 H (4.50-10.00) X 10*3/uL RBC 4.06 L (4.10-5.20) X 10*6/uL RDW 15.4 H (11.5-14.5) % Immature Gran # 0.12 H (0.00-0.04) X 10*3/uL Neutrophils # 13.98 H (1.80-7.70) X 10*3/uL Monocytes # 1.40 H (0.20-1.00) X 10*3/uL BUN/Creatinine Ratio 21.50 H (12.00-20.00) Ratio Conjugated Bilirubin <0.20 L (0.20-0.40) mg/dL Total Protein 5.7 L (6.2-8.2) g/dL Albumin 3.6 L (3.8-4.9) g/dL Procalcitonin 0.13 H (0.02-0.09) ng/mL Chest x-ray: report reviewed, image reviewed CT Scan - head: report reviewed, image reviewed Assessment and Plan Assessment: The patient is a 51-year-old female with a history of a recently diagnosed dequan nocarcinoma of the right lower lung, stage IVB (cT2a, cN0, M1c) with metastatic disease involving the liver and L1. She initially presented with low back pain, and underwent palliative radiotherapy to this lesion finishing 30 Gy in 10 fractions on November 16, 2021. The patient did undergo an GS testing under the care of Dr. Ralph Ellis; she is strongly PDL1+ and planning immunotherapy in the near future. Plan: 1. Confusion: The patient does not seem confused at the time of my consultation. As noted above, she feels that she has been confused secondary to lack of sleep and poorly controlled pain. The patient still will need an MRI of the brain with contrast. She has not gotten this done secondary to recent hospitalizations. I would recommend this be done during her current hospital stay. 2. Lower back pain: The patient recently completed a course of palliative radiotherapy to the lumbar spine. The patient clinically seem to have improvement in her pain following the radiation, but she now states this is again worsening. Recommend an MRI of the lumbar spine to ensure there has not been interval development of compression fracture. The patient does not have any signs of spinal canal compromise. Unfortunately, the patient's treatment is likely complicated by an opiate use disorder. She has been under chronic pain treatment for many years and has high tolerance to therapy. She states that she has recently signed a pain contract with Dr. Ralph Ellis. 3. Metastatic Adenocarcinoma of the lung: As noted above, the patient is a go od candidate for immunotherapy as monotherapy for her treatment. She is scheduled to start this in the near future with Dr. Ellis. Also, the patient should undergo a PET/CT as well as an outpatient complete her staging workup. Unfortunately, she has been hospitalized and missed a PET scan which was scheduled for earlier today. Time with Patient: Greater than 30
[2021-11-27] MEDS ORDERED: MAGNESIUM HYDROXIDE 2,400 MG/10 ML CUP PO PRN (19:13)
[2021-11-27] MEDS ORDERED: MAGNESIUM HYDROXIDE 2,400 MG/10 ML CUP PO STA (19:13)
--- NOTE | 2021-11-27 19:24 | P.CONS ---
History of Present Illness - Reason for Consult Consult date: 11/27/21 metastatic lung cancer Requesting physician: Evelyn Pisano - Chief Complaint intractable back pain, confusion - History of Present Illness Mrs. Ayala is a pleasant 51-year-old female with a recent diagnosis of metastatic lung adenocarcinoma, diagnosis from a bone biopsy, she has had palliative radiation to the L1 lytic lesion. There are liver lesions and a left renal le alma. He is never had an MRI of the head. 2 PET scans and had to be canceled because of patient being inpatient. Patient is again in the emergency department with complaints of intractable back pain. Pain is low in the back, on the tops of the hips, right greater than left, constant, this is the same pain she was experiencing previously, pain medications that she has available to her at home are not helping, she states that "Dilaudin" is working very well. She states no bowel movement for 10 days. Denies fevers, nausea, vomiting, hemoptysis, chest pain, dysuria, hematuria. She is positive for congestion, mostly nonproductive cough. Review of Systems 10 point review of systems is as stated in HPI. Of note, patient made some strange statements when we're leaving the room-she was going to recheck her rate the room when we left, she was also talking about [place] colors. Past Medical History Past Medical History: Asthma, Cancer Additional Past Medical History / Comment(s): Breast cancer History of Any Multi-Drug Resistant Organisms: MRSA Year Discovered:: 2008 MDRO Source:: jaw, blood Past Surgical History: Tubal Ligation, Uterine Ablation Additional Past Surgical History / Comment(s): Bone marrow aspiration, skin graft at age 17 yrs to forehead Past Anesthesia/Blood Transfusion Reactions: No Reported Reaction Past Psychological History: Anxiety, Bipolar, Depression Smoking Status: Current every day smoker Past Alcohol Use History: Occasional Past Drug Use History: None Reported - Past Family History Mother Family Medical History: No Reported History Father Family Medical History: No Reported History Medications and Allergies Home Medications Medication Instructions Recorded Confirmed Type traZODone HCL [Desyrel] 150 mg PO HS 30 Days tab 10/31/20 11/26/21 Rx LORazepam [Ativan] 1 mg PO BID PRN 04/21/21 11/26/21 History PARoxetine HCL [Paxil] 60 mg PO DAILY 04/21/21 11/26/21 History Paliperidone [Invega] 6 mg PO DAILY 04/21/21 11/26/21 History lamoTRIgine [LaMICtal] 100 mg PO BID 04/21/21 11/26/21 History Albuterol Nebulized [Ventolin 2.5 mg INHALATION RT-QID PRN 10/18/21 11/26/21 History Nebulized] Albuterol Sulfate [Ventolin HFA] 2 puff INHALATION RT-QID PRN 10/18/21 11/26/21 History Cider Vinegar [Apple Cider Vinegar] 300 mg PO DAILY 10/18/21 11/26/21 History L.acidoph,Paracasei, B.lactis 1 cap PO DAILY 10/18/21 11/26/21 History [Probiotic] Magnesium Oxide [Mag-Ox] 250 mg PO DAILY 10/18/21 11/26/21 History Multivitamins, Thera [Multivitamin 1 tab PO DAILY 10/18/21 11/26/21 History (formulary)] Acetaminophen Tab [Tylenol] 650 mg PO Q6H PRN 10/22/21 11/26/21 History Cyclobenzaprine [Flexeril] 10 mg PO TID PRN 11/26/21 11/26/21 History HYDROcodone/APAP 10-325MG [[place] 1 tab PO Q6HR PRN 11/26/21 11/26/21 History 10-325] Morphine Sulfate [Morphine Sulfate 30 mg PO BID 11/26/21 11/26/21 History ER] Varenicline Tartrate 1 mg PO BID 11/26/21 11/26/21 History Allergies Allergy/AdvReac Type Severity Reaction Status Date / Time codeine Allergy Itching Verified 11/26/21 12:55 Physical Exam Vitals: Vital Signs Temp Pulse Resp BP Pulse Ox 11/27/21 09:07 99.4 F 112 H 20 125/80 97 11/27/21 06:32 80 11/27/21 06:30 101 H 11/27/21 06:25 130 H 11/27/21 05:55 98.5 F 96 18 130/84 11/27/21 04:42 98.5 F 11/27/21 00:58 86 11/27/21 00:17 130 H 20 135/75 11/27/21 00:06 79 117/71 11/26/21 21:32 79 11/26/21 21:03 97.9 F 86 18 149/112 11/26/21 18:47 110 H 18 141/67 95 11/26/21 17:22 69 18 141/67 95 - Constitutional General appearance: average body habitus, cooperative, no acute distress - EENT Eyes: anicteric sclerae, EOMI ENT: hearing grossly normal, normal oropharynx - Neck Neck: no lymphadenopathy - Respiratory Respiratory: bilateral: diminished - Cardiovascular Rhythm: regular Heart sounds: normal: S1, S2 Abnormal Heart Sounds: no systolic murmur, no diastolic murmur, no rub, no S3 Gallop, no S4 Gallop, no click, no other leg Peripheral Edema: bilateral: None - Gastrointestinal General gastrointestinal: no absent bowel sounds, no decreased bowel sounds, no distended, no hepatomegaly, no hyperactive bowel sounds, normal bowel sounds, no organomegaly, no rigid, no scaphoid, soft, no splenomegaly, no tenderness, no umbilical hernia, no ventral hernia - Neurologic Neurologic: CNII-XII intact (grossly) - Musculoskeletal straight leg raises illicit no back pain from the patient, patient is able to flex at the hip without back pain, strength of the lower extremities is equal bilaterally Musculoskeletal: strength equal bilaterally - Psychiatric patient is alert and oriented to self and place and time, she had some confusing statements his relieving the room about she was going to redecorating only left, [place] colors being present. Results CBC & Chem 7: 11/27/21 06:15 11/27/21 06:15 Labs: Abnormal Lab Results - Last 24 Hours (Table) 11/27/21 11/27/21 11/27/21 Range/Units 06:15 06:15 06:15 WBC 16.98 H (4.50-10.00) X 10*3/uL RBC 4.06 L (4.10-5.20) X 10*6/uL RDW 15.4 H (11.5-14.5) % Immature Gran # 0.12 H (0.00-0.04) X 10*3/uL Neutrophils # 13.98 H (1.80-7.70) X 10*3/uL Monocytes # 1.40 H (0.20-1.00) X 10*3/uL BUN/Creatinine Ratio 21.50 H (12.00-20.00) Ratio Conjugated Bilirubin <0.20 L (0.20-0.40) mg/dL Total Protein 5.7 L (6.2-8.2) g/dL Albumin 3.6 L (3.8-4.9) g/dL Procalcitonin 0.13 H (0.02-0.09) ng/mL Chest x-ray: report reviewed CT Scan - head: report reviewed (without contrast) Assessment and Plan (1) Acute encephalopathy Current Visit: Yes Status: Acute Code(s): G93.40 - ENCEPHALOPATHY, UNSPECIFIED SNOMED Code(s): 17365187 (2) Intractable pain Current Visit: Yes Status: Acute Priority: High Code(s): R52 - PAIN, UNSPECIFIED SNOMED Code(s): 51159244 (3) Lung cancer metastatic to bone Current Visit: Yes Status: Acute Code(s): C34.90 - MALIGNANT NEOPLASM OF UNSP PART OF UNSP BRONCHUS OR LUNG; C79.51 - SECONDARY MALIGNANT NEOPLASM OF BONE SNOMED Code(s): 97786009 (4) Constipation Current Visit: Yes Status: Acute Priority: High Code(s): K59.00 - CONSTIPATION, UNSPECIFIED SNOMED Code(s): 27011382 Plan: We will get pain managed. Steroids initiated to assist with pain control. MAPS is requested. We will see how we are able to help the patient once we have some more information. Patient reports no BM 10 days. Constipated-likely due to narcotics. Medications have been ordered to treat. Case was discussed with Radiation Oncologist. MRI of the head ordered for confusing statements the patient made at the end of our conversation. MRI of the L-spine ordered because of recurrence of pain. She is scheduled for a [facility] in 2 days. Plan is to start on Libtayo (cemiplimab) as she had 80% PD-L1 positivity. We will keep that appointment for now. Hopefully we can get patient pain managed quickly and adequately so she can be discharged soon. attests: I have seen and examined patient, performed history and physical exam, developed impression and plan of care. Discussed with dictator. Agree with documentation, dictated as a scribe.
--- NOTE | 2021-11-27 19:42 | P.PN ---
Subjective This is a pleasant 51 years old female was recently discharged from the hospital for lung mass with metastatic lesion to the lumbar spine and kidney biopsy, she was recently diagnosed with metastatic adenocarcinoma of the left lung based on Fine-needle aspirate and biopsy from the lumbar spine [10/24] showing metastatic pulmonary adenocarcinoma, and other test. She was supposed to follow-up with Dr. Ellis tomorrow before management and initiation of therapy. Patient is awake and alert but go back to sleep easily. She can't tell me she is in the hospital at medical facility but she is confused regarding the date and person, she couldn't recognize her at bedside who provided information for history, patient Edith was complaining of from worsening low back pain which became more severe as of yesterday, it goes to both hip and r ight groin area and sometimes she was down the right leg. Patient does not seem to be complaining of from weakness in her legs. As per patient was progressively getting more confused since last weekend about 7-8 days ago. Today she is more sleepy. She has conference sometimes makes phlegm but no chest pain. She's been complaining of from constipation she had good appetite until yesterday. Denies dysuria or any other complaints for urinary tract. She is heavy smoker she is used to smoke about 2 packs per day and now cutting down to 1 pack per day No alcohol or illicit drugs but sometimes uses brownies to help her with pain. She's also has history of bipolar disorder but she denies any current signs symptoms of depression or suicidal ideation. No hallucination. Vitals are stable and patient is afebrile. Also she has evidence of leukocytosis 14.8 K, rest of the CBC, INR and BMP is unremarkable. Creatinine 0.4. Glucose 110. Liver enzymes not elevated. Urinalysis showing 26 RBCs. No evidence of infection. Urine drug screen is positive for opiates, benzodiazepines and marijuana. CT of the brain: No acute intracranial process. Follow-up MRI can be performed Chest x-ray showed prominence of the right halium Lumbar x-ray showing metastatic lesion to L1, is not as well seen on was on CTA. 11/27/2021 Patient today mentation is back to normal. She still complaining of from back pain, is still increased pain medication causing the patient may leave AMA, however we will place patient on Dilaudid 1 mg and 2 mg per pain scale. Also we will await the results of the MRI of the brain of the lumbar scan, therefore we can downgraded her pain management. Currently on ceftriaxone, normal saline with 30 mL per hour and dexamethasone. procalcitonin 0.13. Objective - Vital Signs Vital signs: Vital Signs Temp 99.4 F 11/27/21 09:07 Pulse 112 H 11/27/21 09:07 Resp 20 11/27/21 09:07 BP 125/80 11/27/21 09:07 Pulse Ox 97 11/27/21 09:07 FiO2 Intake & Output 11/26/21 11/27/21 11/27/21 18:59 06:59 18:59 Weight 58.967 kg - Exam GENERAL: The patient is alert and oriented x3, not in any acute distress. Well developed, well nourished. HEENT: Pupils are round and equally reacting to light. EOMI. No scleral icterus. No conjunctival pallor. Normocephalic, atraumatic. No pharyngeal erythema. No thyromegaly. CARDIOVASCULAR: S1 and S2 present. No murmurs, rubs, or gallops. PULMONARY: Chest is clear to auscultation, no wheezing or crackles. ABDOMEN: Soft, nontender, nondistended, normoactive bowel sounds. No palpable organomegaly. MUSCULOSKELETAL: No joint swelling or deformity. EXTREMITIES: No cyanosis, clubbing, or pedal edema. NEUROLOGICAL: Gross neurological examination did not reveal any focal deficits. SKIN: No rashes. no petechiae. - Labs CBC & Chem 7: 11/27/21 06:15 11/27/21 06:15 Labs: Abnormal Lab Results - Last 24 Hours (Table) 11/26/21 11/26/21 11/26/21 Range/Units 11:04 11:04 11:04 WBC 14.8 H (3.8-10.6) k/uL RBC (4.10-5.20) X 10*6/uL RDW (11.5-14.5) % Immature Gran # (0.00-0.04) X 10*3/uL Neutrophils # 13.7 H (1.3-7.7) k/uL Lymphocytes # 0.3 L (1.0-4.8) k/uL Monocytes # (0.20-1.00) X 10*3/uL APTT 21.5 L (22.0-30.0) sec Sodium (137-145) mmol/L Creatinine (0.52-1.04) mg/dL Glucose (74-99) mg/dL Delta Bilirubin (0.0-0.2) mg/dL Total Protein (6.3-8.2) g/dL Albumin (3.5-5.0) g/dL Urine Blood (Negative) Urine RBC (0-5) /hpf Urine Bacteria (None) /hpf Urine Mucus (None) /hpf Urine Opiates Screen Detected H (NotDetected) U Benzodiazepines Scrn Detected H (NotDetected) U Marijuana (THC) Screen Detected H (NotDetected) 11/26/21 11/26/21 11/27/21 Range/Units 11:04 11:04 06:15 WBC 16.98 H (3.8-10.6) k/uL RBC 4.06 L (4.10-5.20) X 10*6/uL RDW 15.4 H (11.5-14.5) % Immature Gran # 0.12 H (0.00-0.04) X 10*3/uL Neutrophils # 13.98 H (1.3-7.7) k/uL Lymphocytes # (1.0-4.8) k/uL Monocytes # 1.40 H (0.20-1.00) X 10*3/uL APTT (22.0-30.0) sec Sodium 133 L (137-145) mmol/L Creatinine 0.49 L (0.52-1.04) mg/dL Glucose 110 H (74-99) mg/dL Delta Bilirubin 0.4 H (0.0-0.2) mg/dL Total Protein 5.6 L (6.3-8.2) g/dL Albumin 3.4 L (3.5-5.0) g/dL Urine Blood Moderate H (Negative) Urine RBC 26 H (0-5) /hpf Urine Bacteria Occasional H (None) /hpf Urine Mucus Rare H (None) /hpf Urine Opiates Screen (NotDetected) U Benzodiazepines Scrn (NotDetected) U Marijuana (THC) Screen (NotDetected) Assessment and Plan Assessment: Altered Mental status, most likely metabolic/toxic encephalopathy. Left lung adenocarcinoma with metastatic lesion to the lumbar spine of the left kidney Uncontrolled pain secondary to above Intractable back pain with metastatic lesions to the lumbar spine Right middle lobe lung lesion and left kidney lesion status post biopsy. History of breast cancer Asthma Anxiety/depression and bipolar disease Currently everyday smoker Previous history of alcohol abuse Plan: This is a pleasant 51 years old female who presents with AMS, metastatic lung cancer. Oncology team consult Continue with IV hydration Continue with pain management Continue with antibiotic radiation oncology team consult Treatment goals looks more palliative than therapeutic Labs and medication were reviewed.. Continue same treatment. Continue with symptomatic treatment. Resume home medication. Monitor lytes and vitals. DVT and GI prophylaxis. Further recommendations as per clinical course of the patient DVT prophylaxis: Subcutaneous heparin GI Prophylaxis: Pepcid PT/OT: Pending Prognosis is guarded
[2021-11-27] MEDS: dexAMETHasone 4 MG TAB PO SCH (20:25)
[2021-11-27] MEDS: traZODone HCL 50 MG TAB PO SCH (20:25)
[2021-11-28] MEDS: CYCLOBENZAPRINE 10 MG TAB PO PRN ×2 (01:23→12:18)
[2021-11-28] MEDS: HYDROmorphone 1 MG/ML 1 ML SYRINGE IVP PRN ×2 (01:23→12:20)
[2021-11-28] MEDS: SODIUM CHLORIDE 0.9% 1,000 ML IV SCH (04:42)
[2021-11-28] MEDS: PARoxetine 20 MG TAB PO SCH (08:49)
[2021-11-28] MEDS: lamoTRIgine 100 MG TAB PO SCH (08:49)
[2021-11-28] MEDS: DOCUSATE 100 MG CAP PO SCH (08:49)
[2021-11-28] MEDS: PALIPERIDONE 6 MG TAB.ER.24 PO SCH (08:49)
[2021-11-28] MEDS: dexAMETHasone 4 MG TAB PO SCH (08:49)
[2021-11-28] MEDS: HYDROmorphone 2 MG TAB PO PRN (09:03)
[2021-11-28] MEDS: LORazepam 1 MG TAB PO PRN (11:46)
[2021-11-28] MEDS ORDERED: HYDROcodone/APAP 10-325MG 1 EACH TAB PO ONE (12:14)
[2021-11-28 12:35] VITALS: BP 120/80; PULSE 69; RESP 16; TEMP 97.9
--- NOTE | 2021-11-28 15:14 | MR ---
MR brain and lumbar spine with and without contrast HISTORY: Metastatic lung carcinoma Multiplanar multisequence and postcontrast images obtained through the brain and lumbar spine, patien t received 6 cc Gadavist IV Correlation to CT brain 11/26/2021 and plain film 11/26/2021 lumbar spine, CT scan 10/19/2021, lumbar MR I 10/18/2021 Brain MRI: There is no restricted diffusion. There is motion on the exam. No significant white matter signal abnormality evident, there is no hemorrhage or hydrocephalus. No abnormal enhancement followi ng contrast administration. The corpus callosum, pituitary, cervical medullary junction, cerebellopon yue angles are normal. There are normal expected vascular flow voids. The orbits show symmetric appe arance. Paranasal sinuses are well aerated. Mild prominence of the spinal fluid over the anterior con vexities is stable. IMPRESSION: No evident metastatic disease to the brain. Lumbar spine MRI: The abnormal signal involving the L1 vertebral body correlates with a destructive l esion seen on plain film and CT, similar to prior MRI. Soft tissue component causes some mass effect on the left lateral aspect of the thecal sac, there is abnormal enhancing soft tissue corresponding t o the lytic focus.. There is some mild circumferential abnormal soft tissue that enhances, posterior aspect of the L1 vertebral body extends posteriorly, there is some contribution to some mild spinal s tenosis. Lumbar vertebral bodies show stable height and alignment. There is some abnormal signal invo lving the posterior aspect of the T11 vertebral body not seen on prior exam. Heterogeneous signal is present bilaterally within the kidneys. IMPRESSION: Correlate to exclude pyelonephritis. Metastatic disease to the lumbar spine is again note d, difficult to exclude progression with involvement of the lower thoracic spine
[2021-11-28 16:07] LABS: Appearance,Urine Clear (Clear); Bilirubin,Urine Negative (Negative); Blood,Urine Moderate (Negative); Color,Urine Light Yellow; Glucose,Urine (UA) Negative (Negative); Ketones,Urine Negative (Negative); Leukocyte Esterase,Urine Negative (Negative); Mucus,Urine Rare /hpf; Nitrite,Urine Negative (Negative); Protein,Urine Negative (Negative); RBC,Urine 8 /hpf (0-5); Specific Gravity,Urine 1.008 (1.001-1.035); Squamous Epithelial Cell,Urine <1 /hpf (0-4); Urobilinogen,Urine <2.0 mg/dL (<2.0); WBC,Urine 1 /hpf (0-5)
--- NOTE | 2021-11-28 16:20 | P.PN ---
Subjective Progress Note Date: 11/28/21 Principal diagnosis: intractable pain, new diagnosis of metastatic lung adenocarcinoma In follow-up today patient continues to have complaints of back pain, radiating across the tops of both hips and anteriorly into the groin areas. She gets brief relief with Dilaudid. Further evaluation and discussion regarding pain, pain mgmt ect patient does states that she gets relief, most of the time, with her Beach. She states that she was taking the long-acting pain medication. She was not taking all of her supportive meds with any consistency-neuropathic medications, muscle spasm medication, antidepressants, antianxiety med. Patient had a very small bowel movement the other day, nothing since. Objective - Vital Signs Vital signs: Vital Signs Temp 97.9 F 11/28/21 12:35 Pulse 69 11/28/21 12:35 Resp 16 11/28/21 12:35 BP 120/80 11/28/21 12:35 Pulse Ox 96 11/28/21 12:35 FiO2 Intake & Output 11/27/21 11/28/21 11/28/21 18:59 06:59 18:59 Intake Total 2079 Balance 2079 Intake: Intake, IV Titration 1300 Amount Sodium Chloride 0.9% 1, 1300 000 ml @ 130 mls/hr IV . Q7H42M [facility] Rx#:[id number] Oral 780 Other: # Voids 2 1 - Constitutional General appearance: Present: average body habitus, cooperative, no acute distress - EENT Eyes: Present: anicteric sclerae, EOMI ENT: Present: hearing grossly normal - Respiratory Details: respirations even and unlabored - Cardiovascular Details: radial pulses 2+ - Gastrointestinal General gastrointestinal: Present: normal bowel sounds, soft - Neurologic Neurologic: Present: CNII-XII intact (grossly) - Musculoskeletal Musculoskeletal Comment(s): patient is sitting cross legged on the bed, she is able to cross and uncrossed her legs without any difficulty, she is able to move her own body weight independently Musculoskeletal: Present: strength equal bilaterally - Psychiatric Psychiatric: Present: A&O x's 3, appropriate affect, intact judgment & insight - Labs CBC & Chem 7: 11/27/21 06:15 11/27/21 06:15 Assessment and Plan (1) Acute encephalopathy Current Visit: Yes Status: Acute Code(s): G93.40 - ENCEPHALOPATHY, UNSPECIFIED SNOMED Code(s): 54445214 (2) Intractable pain Current Visit: Yes Status: Acute Priority: High Code(s): R52 - PAIN, UNSPECIFIED SNOMED Code(s): 09362574 (3) Lung cancer metastatic to bone Current Visit: Yes Status: Acute Code(s): C34.90 - MALIGNANT NEOPLASM OF UNSP PART OF UNSP BRONCHUS OR LUNG; C79.51 - SECONDARY MALIGNANT NEOPLASM OF BONE SNOMED Code(s): 99475935 (4) Constipation Current Visit: Yes Status: Acute Priority: High Code(s): K59.00 - CONSTIPATION, UNSPECIFIED SNOMED Code(s): 46100185 Plan: Patient's mental status is much improved today. Pending MRI of the brain. This was needed for staging as well. Pain management thoroughly reviewed, greater than 30 minutes spent. Patient is going to take scheduled extended release morphine-this was prescribed previously, she has medication at home, no Rx needed. She is going to utilize Beach- she has available at home-she wasgiven instructions to take 1 to 2 tabl ets-based on her intensity of pain-every 4 hours if needed, no more than 8 tablets in 24 hours. Patient was encouraged to utilize all her meds-lamictal, paxil, flexeril, ativan-as prescribed and maybe ATC right now. Steroids ordered as well. Maps was reviewed. Patient is being seen in the office tomorrow. We will complete additional paperwork, assess pain control, assess medications available and plan for taking. Patient agreed with the plan of care. Encouraged her to get really aggressive with managing constipation, could be contributing to her back pain. Recommended another dose of milk of magnesia. Encouraged her to take milk of magnesia twice a day until she has a bowel movement. Again, she is in the office tomorrow she will be reassessed. Plan is to start on Libtayo (cemiplimab) as she had 80% PD-L1 positivity. She has an appointment for tomorrow. That appointment was changed to 1 PM. If patient is feeling well enough after her MRI is done she wants to go home. That is up to the Attending another [employer]ing [employer]icians. From a Hematology/Oncology standpoint she can be discharged. Time with Patient: Greater than 30
--- NOTE | 2021-11-28 22:20 | P.DS ---
Providers Date of admission: 11/26/21 14:09 Attending physician: Adam Jaquez MD Consults: 11/26/21 14:09 Consult Physician Urgent Consulting Provider: Ralph Ellis Consult Reason/Comments: lung cancer with mets Do you want consulting provider notified?: Yes Consult Physician Urgent Consulting Provider: Harrison Mary Consult Reason/Comments: intracble back pain, metastatic lung cancer to spine Do you want consulting provider notified?: Yes Primary care physician: Stated None Hospital Course: Diagnoses: Altered Mental status, most likely metabolic/toxic encephalopathy. Completely resolved since yesterday, today she is alert awake oriented 3 and back to baseline Left lung adenocarcinoma with metastatic lesion to the lumbar spine of the left kidney Uncontrolled pain secondary to above. Pain was significantly controlled upon discharge Intractable back pain with metastatic lesions to the lumbar spine History of breast cancer Asthma Anxiety/depression and bipolar disease Currently everyday smoker Previous history of alcohol abuse Hospital course This is a pleasant 51 years old female was recently discharged from the hospital for lung mass with metastatic lesion to the lumbar spine and kidney biopsy, she was recently diagnosed with metastatic adenocarcinoma of the left lung based on Fine-needle aspirate and biopsy from the lumbar spine [10/24] showing metastatic pulmonary adenocarcinoma, and other test. She was supposed to follow-up with Dr. Ellis before management and initiation of therapy. Patient presented because of altered mental status and severe back pain, patient evaluated by radiation oncologist and oncology team ordered an MRI of the brain on the lumbar spine which essentially did not show metastatic disease or severe spinal stenosis or similar complaint explained patient presentation, besides the patient mentation is back to normal, back pain was significantly improved and controlled, patient was seen moving freely in and out of bed with no diff iculty which could not be the case if she would have severe pain. No weakness or numbness. Patient was cleared for discharge by oncology service today. Today patient was so he got to be discharged home, she stated and was about to leave AMA if she was not going to be discharged. However the result of the MRI and repeat urinalysis is back and patient was able to be discharged home today, also she wanted to follow up with oncology office and [employer] Sia tomorrow from Dr. Coleman/Dr. Ellis office. Patient already has appointment tomorrow. Patient says she does not need any more pain medication upon discharge. Patient received also antibiotic ceftriaxone for possible mild postobstructive pneumonia. She has mild leukocytosis but also she is on dexamethasone recommended by oncology team for her back pain. Patient responded to treatment and improved with ceftriaxone and she can't control radiotherapy with Ceftin 7 days for discharge. Also patient with no fever. Patient states that she has dexamethasone at home and she declined prescription stated that she will take her on pills at home. Based upon my evaluation patient has capacity to make medical decisions for herself Problems and management plan were discussed with the patient and he verbalized understanding and acceptance Patient was found stable and can be discharged home however he needs follow-up as an outpatient. Patient was instructed to follow up with PCP within one week and patient agrees Patient aware with her appointment with Dalia tomorrow from oncology team. At 1 PM and she states she will follow up Patient was going to leave AMA if she was not going to be discharged. Patient was discharged for better compliance of medication and therapy and she has close follow-up appointment tomorrow however her prognosis remains guarded Physical exam Gen: patient is a AAOx3, no distress CVS: S1-S2, RRR, no murmur Lungs: B/L CTA, no wheezing Abdomen: soft, no distention, no tenderness, positive bowel sounds Extremity: no leg edema or induration Neuro: The patient is back to normal. Cranial nerves are grossly intact. Strength 5/5. Sensation intact. Gait normal. Time spent more than 35 minutes Patient Condition at Discharge: Stable Plan - Discharge Summary New Discharge Prescriptions: New dexAMETHasone ORAL [Hexadrol] 4 mg PO BID #0 tab cefUROXime axetiL [Ceftin] 500 mg PO BID 7 Days #14 tab Continue traZODone HCL [Desyrel] 150 mg PO HS 30 Days tab Magnesium Oxide [Mag-Ox] 250 mg PO DAILY Cider Vinegar [Apple Cider Vinegar] 300 mg PO DAILY Albuterol Sulfate [Ventolin HFA] 2 puff INHALATION RT-QID PRN PRN Reason: Shortness Of Breath Albuterol Nebulized [Ventolin Nebulized] 2.5 mg INHALATION RT-QID PRN PRN Reason: Shortness Of Breath Acetaminophen Tab [Tylenol] 650 mg PO Q6H PRN PRN Reason: Mild Pain Or Fever > 100.5 HYDROcodone/APAP 10-325MG [[place] 10-325] 1 tab PO Q6HR PRN PRN Reason: Pain lamoTRIgine [LaMICtal] 100 mg PO BID LORazepam [Ativan] 1 mg PO BID PRN PRN Reason: Anxiety Paliperidone [Invega] 6 mg PO DAILY PARoxetine HCL [Paxil] 60 mg PO DAILY Multivitamins, Thera [Multivitamin (formulary)] 1 tab PO DAILY L.acidoph,Paracasei, B.lactis [Probiotic] 1 cap PO DAILY Cyclobenzaprine [Flexeril] 10 mg PO TID PRN PRN Reason: Muscle Spasm Varenicline Tartrate 1 mg PO BID Morphine Sulfate [Morphine Sulfate ER] 30 mg PO BID Discharge Medication List traZODone HCL [Desyrel] 150 mg PO HS 30 Days tab 10/31/20 [Rx] LORazepam [Ativan] 1 mg PO BID PRN 04/21/21 [History] PARoxetine HCL [Paxil] 60 mg PO DAILY 04/21/21 [History] Paliperidone [Invega] 6 mg PO DAILY 04/21/21 [History] lamoTRIgine [LaMICtal] 100 mg PO BID 04/21/21 [History] Albuterol Nebulized [Ventolin Nebulized] 2.5 mg INHALATION RT-QID PRN 10/18/21 [History] Albuterol Sulfate [Ventolin HFA] 2 puff INHALATION RT-QID PRN 10/18/21 [History] Cider Vinegar [Apple Cider Vinegar] 300 mg PO DAILY 10/18/21 [History] L.acidoph,Paracasei, B.lactis [Probiotic] 1 cap PO DAILY 10/18/21 [History] Magnesium Oxide [Mag-Ox] 250 mg PO DAILY 10/18/21 [History] Multivitamins, Thera [Multivitamin (formulary)] 1 tab PO DAILY 10/18/21 [History] Acetaminophen Tab [Tylenol] 650 mg PO Q6H PRN 10/22/21 [History] Cyclobenzaprine [Flexeril] 10 mg PO TID PRN 11/26/21 [History] HYDROcodone/APAP 10-325MG [[place] 10-325] 1 tab PO Q6HR PRN 11/26/21 [History] Morphine Sulfate [Morphine Sulfate ER] 30 mg PO BID 11/26/21 [History] Varenicline Tartrate 1 mg PO BID 11/26/21 [History] cefUROXime axetiL [Ceftin] 500 mg PO BID 7 Days #14 tab 11/28/21 [Rx] dexAMETHasone ORAL [Hexadrol] 4 mg PO BID #0 tab 11/28/21 [Rx] Follow up Appointment(s)/Referral(s): Marcela Moser, TAWNYA [Nurse Practitioner] - 11/29/21 1:00 pm None,Stated [Primary Care Provider] - 1-2 days Activity/Diet/Wound Care/Special Instructions: heart healthy diet activity is restricted till you see your doctor Discharge Disposition: HOME SELF-CARE
== END 2021-11-28 16:40 | disposition home or self-care (01) ==
LOC: EC 10:24 → 5NMEDONC 14:09
PROVIDERS: ADMIT Internal Medicine; ATTEND Internal Medicine
DX: G93.40 Encephalopathy, unspecified (principal); C34.92 Malignant neoplasm of unspecified part of left bronchus or lung; C79.51 Secondary malignant neoplasm of bone; D72.829 Elevated white blood cell count, unspecified; K59.00 Constipation, unspecified; I70.0 Atherosclerosis of aorta; J45.909 Unspecified asthma, uncomplicated; F31.9 Bipolar disorder, unspecified; C78.7 Secondary malignant neoplasm of liver and intrahepatic bile duct; C34.31 Malignant neoplasm of lower lobe, right bronchus or lung; M48.061 Spinal stenosis, lumbar region without neurogenic claudication; N28.89 Other specified disorders of kidney and ureter; F41.9 Anxiety disorder, unspecified; F17.200 Nicotine dependence, unspecified, uncomplicated; F32.A Depression, unspecified; Z92.3 Personal history of irradiation; Z79.899 Other long term (current) drug therapy; Z88.5 Allergy status to narcotic agent; Z85.3 Personal history of malignant neoplasm of breast
CPT/HCPCS: 96376 ×4; 96361 ×4; 96366; 96360 ×2; 96365; 96375; 99285; 36415; 93005; 80053; 80048; 80076; 82140; 82248; 83735; 84484; 85025 ×2; 85610; 85730; 81001 ×2; 80306; 80143; 84145; 80179; 72100; 71046; 70450; 70553; 72158; G0378 ×3; G0480; J8540 ×2; J2060; J0696 ×3; J1170 ×3; A9585; 80320

== ENCOUNTER 2021-12-03 10:25 | Inpatient (IN) | payer MEDICARE ==
--- NOTE | 2021-12-03 10:40 | ED ---
General Adult HPI - General Chief complaint: Back Pain/Injury Stated complaint: Back Pain Time Seen by Provider: 12/03/21 10:27 Source: patient, EMS, RN notes reviewed, old records reviewed Mode of arrival: EMS Limitations: no limitations - History of Present Illness Initial comments: Patient is a pleasant 51-year-old female presenting to the emergency department with concerns for back discomfort. Patient lives by EMS. Patient is a very poor historian and offers very little history. Patient is restless. Patient reportedly was recently in the hospital with similar problem. Patient does have history of adenocarcinoma with metastasis to kidney and lumbar spine. - Related Data Home Medications Medication Instructions Recorded Confirmed PARoxetine HCL [Paxil] 60 mg PO DAILY 04/21/21 12/03/21 Paliperidone [Invega] 6 mg PO DAILY 04/21/21 12/03/21 lamoTRIgine [LaMICtal] 100 mg PO BID 04/21/21 12/03/21 Albuterol Nebulized [Ventolin 2.5 mg INHALATION RT-QID PRN 10/18/21 12/03/21 Nebulized] Albuterol Sulfate [Ventolin HFA] 2 puff INHALATION RT-QID PRN 10/18/21 12/03/21 Cider Vinegar [Apple Cider Vinegar] 300 mg PO DAILY 10/18/21 12/03/21 L.acidoph,Paracasei, B.lactis 1 cap PO DAILY 10/18/21 12/03/21 [Probiotic] Magnesium Oxide [Mag-Ox] 250 mg PO DAILY 10/18/21 12/03/21 Multivitamins, Thera [Multivitamin 1 tab PO DAILY 10/18/21 12/03/21 (formulary)] Acetaminophen Tab [Tylenol] 650 mg PO Q6H PRN 10/22/21 12/03/21 Cyclobenzaprine [Flexeril] 10 mg PO TID PRN 11/26/21 12/03/21 HYDROcodone/APAP 10-325MG [[place] 1 tab PO Q4H PRN 11/26/21 12/03/21 10-325] Morphine Sulfate [Morphine Sulfate 30 mg PO BID PRN 11/26/21 12/03/21 ER] Varenicline Tartrate 1 mg PO BID 11/26/21 12/03/21 LORazepam [Ativan] 0.5 mg PO TID PRN 12/03/21 12/03/21 cefUROXime axetiL [Ceftin] 500 mg PO DIRECTED 12/03/21 12/03/21 Previous Rx's Medication Instructions Recorded traZODone HCL [Desyrel] 150 mg PO HS 30 Days tab 10/31/20 dexAMETHasone ORAL [Hexadrol] 4 mg PO BID #0 tab 11/28/21 Allergies Allergy/AdvReac Type Severity Reaction Status Date / Time codeine Allergy Itching Verified 12/03/21 11:51 Review of Systems ROS Statement: Those systems with pertinent positive or pertinent negative responses have been documented in the HPI. ROS Other: All systems not noted in ROS Statement are negative. Limitations: ROS unobtainable due to patients medical condition Past Medical History Past Medical History: Asthma, Cancer Additional Past Medical History / Comment(s): Breast cancer, spinal cancer History of Any Multi-Drug Resistant Organisms: MRSA Date of last positivie culture/infection: 2008 MDRO Source:: jaw, blood Past Surgical History: Tubal Ligation, Uterine Ablation Additional Past Surgical History / Comment(s): Bone marrow aspiration, skin graft at age 17 yrs to forehead Past Anesthesia/Blood Transfusion Reactions: No Reported Reaction Past Psychological History: Anxiety, Bipolar, Depression Smoking Status: Current every day smoker Past Alcohol Use History: Occasional Past Drug Use History: None Reported - Past Family History Mother Family Medical History: Cancer Additional Family Medical History / Comment(s): Breast cancer Father Family Medical History: No Reported History General Exam Limitations: no limitations General appearance: alert, other (Restless. Difficult to understand speech.) Head exam: Present: atraumatic Eye exam: Present: normal appearance, PERRL, EOMI ENT exam: Present: mucous membranes dry Neck exam: Present: normal inspection Respiratory exam: Present: normal lung sounds bilaterally Cardiovascular Exam: Present: normal rhythm, tachycardia GI/Abdominal exam: Present: soft. Absent: tenderness Extremities exam: Present: normal inspection Back exam: Present: tenderness (Lower lumbar) Neurological exam: Present: alert, normal gait. Absent: motor sensory deficit Psychiatric exam: Present: other (Restless) Course Vital Signs 12/03/21 10:31 Temperature 98.1 F Pulse Rate 119 H Respiratory 24 Rate Blood Pressure 149/81 O2 Sat by Pulse 95 Oximetry Medical Decision Making - Medical Decision Making Case discussed with practitioner Dalia galeas who did come evaluate patient and would like medical admission and she will consult along with consult with back doctor, Dr. Benitez 7. - Lab Data Result diagrams: 12/03/21 10:41 12/03/21 10:41 Lab Results 12/03/21 12/03/21 12/03/21 Range/Units 10:41 10:41 10:41 WBC 18.7 H (3.8-10.6) k/uL RBC 4.00 (3.80-5.40) m/uL Hgb 12.6 (11.4-16.0) gm/dL Hct 39.4 (34.0-46.0) % MCV 98.6 (80.0-100.0) fL MCH 31.4 (25.0-35.0) pg MCHC 31.9 (31.0-37.0) g/dL RDW 14.6 (11.5-15.5) % Plt Count 367 (150-450) k/uL MPV 7.3 Neutrophils % 86 % Lymphocytes % 7 % Monocytes % 4 % Eosinophils % 2 % Basophils % 0 % Neutrophils # 16.0 H (1.3-7.7) k/uL Lymphocytes # 1.4 (1.0-4.8) k/uL Monocytes # 0.7 (0-1.0) k/uL Eosinophils # 0.4 (0-0.7) k/uL Basophils # 0.0 (0-0.2) k/uL PT 10.0 (9.0-12.0) sec INR 0.9 (<1.2) APTT 21.7 L (22.0-30.0) sec Sodium (137-145) mmol/L Potassium (3.5-5.1) mmol/L Chloride (98-107) mmol/L Carbon Dioxide (22-30) mmol/L Anion Gap mmol/L BUN (7-17) mg/dL Creatinine (0.52-1.04) mg/dL Est GFR (CKD-EPI)AfAm (>60 ml/min/1.73 sqM) Est GFR (CKD-EPI)NonAf (>60 ml/min/1.73 sqM) Glucose (74-99) mg/dL Calcium (8.4-10.2) mg/dL Total Bilirubin (0.2-1.3) mg/dL AST (14-36) U/L ALT (4-34) U/L Alkaline Phosphatase (38-126) U/L Total Protein (6.3-8.2) g/dL Albumin (3.5-5.0) g/dL Urine Color Yellow Urine Appearance Clear (Clear) Urine pH 7.5 (5.0-8.0) Ur Specific [place] 1.012 (1.001-1.035) Urine Protein Negative (Negative) Urine Glucose (UA) Negative (Negative) Urine Ketones Negative (Negative) Urine Blood Negative (Negative) Urine Nitrite Negative (Negative) Urine Bilirubin Negative (Negative) Urine Urobilinogen <2.0 (<2.0) mg/dL Ur Leukocyte Esterase Negative (Negative) Urine Opiates Screen Detected H (NotDetected) Ur Oxycodone Screen Not Detected (NotDetected) Urine Methadone Screen Not Detected (NotDetected) Ur Propoxyphene Screen Not Detected (NotDetected) Ur Barbiturates Screen Not Detected (NotDetected) U Tricyclic Antidepress Not Detected (NotDetected) Ur Phencyclidine Scrn Not Detected (NotDetected) Ur Amphetamines Screen Not Detected (NotDetected) U Methamphetamines Scrn Not Detected (NotDetected) U Benzodiazepines Scrn Detected H (NotDetected) Urine Cocaine Screen Not Detected (NotDetected) U Marijuana (THC) Screen Detected H (NotDetected) Serum Alcohol mg/dL 12/03/21 Range/Units 10:41 WBC (3.8-10.6) k/uL RBC (3.80-5.40) m/uL Hgb (11.4-16.0) gm/dL Hct (34.0-46.0) % MCV (80.0-100.0) fL MCH (25.0-35.0) pg MCHC (31.0-37.0) g/dL RDW (11.5-15.5) % Plt Count (150-450) k/uL MPV Neutrophils % % Lymphocytes % % Monocytes % % Eosinophils % % Basophils % % Neutrophils # (1.3-7.7) k/uL Lymphocytes # (1.0-4.8) k/uL Monocytes # (0-1.0) k/uL Eosinophils # (0-0.7) k/uL Basophils # (0-0.2) k/uL PT (9.0-12.0) sec INR (<1.2) APTT (22.0-30.0) sec Sodium 135 L (137-145) mmol/L Potassium 4.7 (3.5-5.1) mmol/L Chloride 100 (98-107) mmol/L Carbon Dioxide 27 (22-30) mmol/L Anion Gap 8 mmol/L BUN 17 (7-17) mg/dL Creatinine 0.47 L (0.52-1.04) mg/dL Est GFR (CKD-EPI)AfAm >90 (>60 ml/min/1.73 sqM) Est GFR (CKD-EPI)NonAf >90 (>60 ml/min/1.73 sqM) Glucose 82 (74-99) mg/dL Calcium 9.7 (8.4-10.2) mg/dL Total Bilirubin 0.5 (0.2-1.3) mg/dL AST 24 (14-36) U/L ALT 17 (4-34) U/L Alkaline Phosphatase 111 (38-126) U/L Total Protein 5.7 L (6.3-8.2) g/dL Albumin 3.6 (3.5-5.0) g/dL Urine Color Urine Appearance (Clear) Urine pH (5.0-8.0) Ur Specific [place] (1.001-1.035) Urine Protein (Negative) Urine Glucose (UA) (Negative) Urine Ketones (Negative) Urine Blood (Negative) Urine Nitrite (Negative) Urine Bilirubin (Negative) Urine Urobilinogen (<2.0) mg/dL Ur Leukocyte Esterase (Negative) Urine Opiates Screen (NotDetected) Ur Oxycodone Screen (NotDetected) Urine Methadone Screen (NotDetected) Ur Propoxyphene Screen (NotDetected) Ur Barbiturates Screen (NotDetected) U Tricyclic Antidepress (NotDetected) Ur Phencyclidine Scrn (NotDetected) Ur Amphetamines Screen (NotDetected) U Methamphetamines Scrn (NotDetected) U Benzodiazepines Scrn (NotDetected) Urine Cocaine Screen (NotDetected) U Marijuana (THC) Screen (NotDetected) Serum Alcohol <10 mg/dL - Radiology Data Radiology results: report reviewed (CT brain without acute abnormality), image reviewed (Chest x-ray shows right hilar mass. Left lower possible consolidation) Disposition Clinical Impression: Altered mental status, Intractable back pain, Lung mass Disposition: ADMITTED IP TO THIS HOSP Is patient prescribed a controlled substance at d/c from ED?: No Referrals: None,Stated [Primary Care Provider] - 1-2 days Time of Disposition: 12:28
[2021-12-03] MEDS ORDERED: HYDROmorphone 1 MG/ML 1 ML SYRINGE IVP STA (10:57)
[2021-12-03 11:04] LABS: Basophils % (A) 0 %; Eosinophils # (A) 0.4 k/uL (0-0.7); Eosinophils % (A) 2 %; HCT 39.4 % (34.0-46.0); HGB 12.6 gm/dL (11.4-16.0); Lymphocytes # (A) 1.4 k/uL (1.0-4.8); Lymphocytes % (A) 7 %; MCH 31.4 pg (25.0-35.0); MCHC 31.9 g/dL (31.0-37.0); MCV 98.6 fL (80.0-100.0); Mean Platelet Volume 7.3; Monocytes # (A) 0.7 k/uL (0-1.0); Monocytes % (A) 4 %; Neutrophils % (A) 86 %; Platelet Count 367 k/uL (150-450); RDW 14.6 % (11.5-15.5); WBC 18.7 k/uL (3.8-10.6)
[2021-12-03] MEDS ORDERED: LORazepam 1 MG TAB PO STA ×2 (11:11→11:14)
[2021-12-03] MEDS ORDERED: HYDROcodone/APAP 10-325MG 1 EACH TAB PO ONE (11:15)
[2021-12-03 11:22] LABS: ALT 17 U/L (4-34); African American GFR (CKD) >90 (>60 ml/min/1.73 sqM); Albumin 3.6 g/dL (3.5-5.0); Alcohol <10 mg/dL; Anion Gap 8 mmol/L; Blood Urea Nitrogen 17 mg/dL (7-17); Calcium 9.7 mg/dL (8.4-10.2); Carbon Dioxide 27 mmol/L (22-30); Chloride 100 mmol/L (98-107); Glucose 82 mg/dL (74-99); Non-African American GFR(CKD) >90 (>60 ml/min/1.73 sqM); Sodium 135 mmol/L (137-145); Total Bilirubin 0.5 mg/dL (0.2-1.3); Total Protein 5.7 g/dL (6.3-8.2)
[2021-12-03 11:25] LABS: Potassium 4.7 mmol/L (3.5-5.1)
[2021-12-03 11:26] LABS: AST 24 U/L (14-36); Alkaline Phosphatase 111 U/L (38-126)
[2021-12-03 11:33] LABS: Appearance,Urine Clear (Clear); Bilirubin,Urine Negative (Negative); Blood,Urine Negative (Negative); Color,Urine Yellow; Glucose,Urine (UA) Negative (Negative); Ketones,Urine Negative (Negative); Leukocyte Esterase,Urine Negative (Negative); Nitrite,Urine Negative (Negative); PH, Urine 7.5 (5.0-8.0); Protein,Urine Negative (Negative); Specific Gravity,Urine 1.012 (1.001-1.035); Urobilinogen,Urine <2.0 mg/dL (<2.0)
[2021-12-03 11:46] LABS: INR 0.9 (<1.2); Partial Thromboplastin Time 21.7 sec (22.0-30.0); Urn Cannabinoid Scrn Detected (NotDetected)
[2021-12-03 11:47] LABS: Amphetamine Screen,Urine Not Detected (NotDetected); Barbiturate Screen,Urine Not Detected (NotDetected); Benzodiazepines Screen,Urine Detected (NotDetected); Cocaine Screen,Urine Not Detected (NotDetected); Methadone Screen, Urine Not Detected (NotDetected); Opiate Screen,Urine Detected (NotDetected); Oxycodone Screen, Urine Not Detected (NotDetected); Phencyclidine Screen,Urine Not Detected (NotDetected); Tricyclic Antidepressant,Urine Not Detected (NotDetected)
--- NOTE | 2021-12-03 11:56 | XR ---
EXAMINATION TYPE: XR chest 2V DATE OF EXAM: 12/03/2021 COMPARISON: 11/26/2021 TECHNIQUE: PA and lateral views submitted. HISTORY: Altered mental status FINDINGS: Prominent right hilum. Left lower lobe consolidation with small effusion. No overt failure or pneumot horax. Arthropathy of the shoulders and degenerative change of the spine. IMPRESSION: 1. Suspect right hilar mass may be posterior on the lateral view. Findings been previously reported b y CT scan 10/19/2021. 2. There is a new left lower lobe area of infiltrate and small effusion correlate for pneumonia.
--- NOTE | 2021-12-03 12:04 | CT ---
EXAMINATION TYPE: CT brain wo con DATE OF EXAM: 12/03/2021 COMPARISON: 11/26/2021 HISTORY: Altered mental status CT DLP: 1099.4 mGycm Automated exposure control for dose reduction was used. FINDINGS: The ventricles and basal cisterns are consistent with mild degenerative change in the frontal lobes. There is no midline shift or mass effect. Calvarium intact. Orbits are symmetric. Sinuses are clear. IMPRESSION: NO EVIDENCE OF ACUTE HEMORRHAGE OR MASS EFFECT. FOLLOW-UP MRI COULD BE OBTAINED CLINICALLY WARRANT ED.
[2021-12-03] MEDS ORDERED: NALOXONE 0.4 MG/ML 1 ML VIAL IV PRN (12:28)
[2021-12-03] MEDS ORDERED: MAGNESIUM HYDROXIDE 2,400 MG/10 ML CUP PO PRN (13:17)
[2021-12-03] MEDS ORDERED: MAGNESIUM HYDROXIDE 2,400 MG/10 ML CUP PO STA (13:17)
[2021-12-03] MEDS: SENNOSIDES 8.6 MG TAB PO SCH ×2 (13:53→20:47)
[2021-12-03] MEDS: dexAMETHasone 4 MG TAB PO SCH ×2 (13:53→20:47)
[2021-12-03] MEDS: SODIUM CHLORIDE 0.9% 1,000 ML IV SCH (14:24)
[2021-12-03] MEDS ORDERED: ALBUTEROL NEBULIZED 2.5 MG/3 ML INHALATION PRN (15:10)
[2021-12-03] MEDS: MORPHINE SULFATE ER 30 MG TABLET PO SCH (15:36)
[2021-12-03] MEDS: LORazepam 0.5 MG TAB PO SCH ×2 (15:36→20:46)
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
--- NOTE | 2021-12-03 16:45 | P.PN ---
Subjective Progress Note Date: 12/03/21 Principal diagnosis: AMS, back pain The patient is a 51-year-old female with a history of a recently diagnosed stage IV adenocarcinoma of the right lung with metastases involving liver and bone. She underwent a palliative course of radiotherapy finishing on November 16, 2021 to the lumbar spine. After initially having improvement in her pain, the patient has now presented to the hospital multiple times with worsening complaints. The patient was seen approximately 1 week ago in the hospital. She was complaining of pain at that time, however her reports she has been much worse over the past 2 days. The patient is very agitated at the time of my exam. She continues to stand up and walk around, and her reports she is unable to sit or lie down for any prolonged time. He states she has not been sleeping. He reports that she is still complaining of low back pain, that radiates to the left hip. She is currently on Decadron. She was recently given morphine and Ativan, but has still not relaxed. A CT scan of the head was unremarkable. Objective - Vital Signs Vital signs: Vital Signs Temp 97 F L 12/03/21 14:00 Pulse 110 H 12/03/21 14:38 Resp 17 12/03/21 14:38 BP 130/98 12/03/21 14:38 Pulse Ox 94 L 12/03/21 14:38 FiO2 Intake & Output 12/02/21 12/03/21 12/03/21 18:59 06:59 18:59 Weight 76.657 kg - Constitutional General appearance: Present: disheveled, mild distress - EENT Eyes: Present: EOMI - Neck Neck: Absent: lymphadenopathy - Respiratory Respiratory: bilateral: CTA - Cardiovascular Rhythm: regular (tachy - rapid) - Integumentary Integumentary: Present: pale - Neurologic Neurologic: Present: CNII-XII intact - Musculoskeletal Musculoskeletal: Present: gait normal - Psychiatric Psychiatric: Absent: A&O x's 3, appropriate affect - Labs CBC & Chem 7: 12/03/21 10:41 12/03/21 10:41 Labs: Abnormal Lab Results - Last 24 Hours (Table) 12/03/21 12/03/21 12/03/21 Range/Units 10:41 10:41 10:41 WBC 18.7 H (3.8-10.6) k/uL Neutrophils # 16.0 H (1.3-7.7) k/uL APTT 21.7 L (22.0-30.0) sec Sodium (137-145) mmol/L Creatinine (0.52-1.04) mg/dL Total Protein (6.3-8.2) g/dL Urine Opiates Screen Detected H (NotDetected) U Benzodiazepines Scrn Detected H (NotDetected) U Marijuana (THC) Screen Detected H (NotDetected) 12/03/21 Range/Units 10:41 WBC (3.8-10.6) k/uL Neutrophils # (1.3-7.7) k/uL APTT (22.0-30.0) sec Sodium 135 L (137-145) mmol/L Creatinine 0.47 L (0.52-1.04) mg/dL Total Protein 5.7 L (6.3-8.2) g/dL Urine Opiates Screen (NotDetected) U Benzodiazepines Scrn (NotDetected) U Marijuana (THC) Screen (NotDetected) - Imaging and Cardiology CT Scan - head: report reviewed Assessment and Plan Assessment: The patient is a 51-year-old female with a history of a recently diagnosed stage IV adenocarcinoma of the right lung with metastases involving liver and bone. She underwent a palliative course of radiotherapy finishing on November 16, 2021 to the lumbar spine. After initially having improvement in her pain, the patient has now presented to the hospital multiple times with worsening complaints. Plan: 1. Altered mental status: Unclear etiology. MRI of the brain from this past week reveals no metastatic disease. Concern for polypharmacy as well as the patient's underlying mental health issues. We'll discuss with medical oncology medication changes. Will continue to follow the patient. 2. Back pain: The patient did have an MRI of the lumbar spine this past week. The lesion treated in the spine did not appear markedly different. However, agree with having orthopedic evaluation. MRI of the thoracic spine is been ordered, but unless the patient is much more stable she will unlikely tolerate that study. 3. Metastatic lung cancer: We are hoping to initiate the patient on immunotherapy, but her recent hospitalizations have delayed this. Time with Patient: Less than 30
[2021-12-03] MEDS: HYDROcodone/APAP 10-325MG 1 EACH TAB PO PRN (16:55)
[2021-12-03] MEDS: CYCLOBENZAPRINE 10 MG TAB PO SCH (20:46)
[2021-12-03] MEDS: traZODone HCL 50 MG TAB PO SCH (20:46)
[2021-12-03] MEDS: lamoTRIgine 100 MG TAB PO SCH (20:47)
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
[2021-12-04] MEDS ORDERED: AZITHROMYCIN 500 MG in SODIUM CHLORIDE 0.9% 250 ML IVPB ONE (01:00)
[2021-12-04] MEDS: SODIUM CHLORIDE 0.9% 1,000 ML IV SCH ×2 (04:29→15:55)
[2021-12-04] MEDS: HYDROcodone/APAP 10-325MG 1 EACH TAB PO PRN ×5 (04:31→20:48)
--- NOTE | 2021-12-04 07:11 | P.CNOR ---
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 She has a hx of L1 lesion and has been treated with palliative radiation last on Nov 16, 2021. She had done well from this initially but states over the past few weeks has deteriorated. She recently fell from her truck and landed on her back and buttock region, increasing her pain. She c/o pain in her low back and buttock region and it seems to radiate around her sides. She denies any bowel or bladder issues and states no weakness or paresthesias in her legs at this time. She denies any radiating pain down her legs. She states no fevers or chills lately but a lot of pain. Upon presentation she had some mental status changes but these seem to have resolved based on talking with her today. She denies any other sx at this time. Review of Systems 16 pt ROS completed and as stated in HPI. All other systems reviewed neg. Constitutional: Reports as per HPI Past Medical History Past Medical History: Asthma, Cancer Additional Past Medical History / Comment(s): Breast cancer, spinal cancer History of Any Multi-Drug Resistant Organisms: MRSA Year Discovered:: 2008 MDRO Source:: jaw, blood Past Surgical History: Tubal Ligation, Uterine Ablation Additional Past Surgical History / Comment(s): Bone marrow aspiration, skin graft at age 17 yrs to forehead Past Anesthesia/Blood Transfusion Reactions: No Reported Reaction Past Psychological History: Anxiety, Bipolar, Depression Smoking Status: Current every day smoker Past Alcohol Use History: Occasional Past Drug Use History: None Reported - Past Family History Mother Family Medical History: Cancer Additional Family Medical History / Comment(s): Breast cancer Father Family Medical History: No Reported History Medications and Allergies Home Medications Medication Instructions Recorded Confirmed Type traZODone HCL [Desyrel] 150 mg PO HS 30 Days tab 10/31/20 12/03/21 Rx PARoxetine HCL [Paxil] 60 mg PO DAILY 04/21/21 12/03/21 History Paliperidone [Invega] 6 mg PO DAILY 04/21/21 12/03/21 History lamoTRIgine [LaMICtal] 100 mg PO BID 04/21/21 12/03/21 History Albuterol Nebulized [Ventolin 2.5 mg INHALATION RT-QID PRN 10/18/21 12/03/21 History Nebulized] Albuterol Sulfate [Ventolin HFA] 2 puff INHALATION RT-QID PRN 10/18/21 12/03/21 History Cider Vinegar [Apple Cider Vinegar] 300 mg PO DAILY 10/18/21 12/03/21 History L.acidoph,Paracasei, B.lactis 1 cap PO DAILY 10/18/21 12/03/21 History [Probiotic] Magnesium Oxide [Mag-Ox] 250 mg PO DAILY 10/18/21 12/03/21 History Multivitamins, Thera [Multivitamin 1 tab PO DAILY 10/18/21 12/03/21 History (formulary)] Acetaminophen Tab [Tylenol] 650 mg PO Q6H PRN 10/22/21 12/03/21 History Cyclobenzaprine [Flexeril] 10 mg PO TID PRN 11/26/21 12/03/21 History HYDROcodone/APAP 10-325MG [[place] 1 tab PO Q4H PRN 11/26/21 12/03/21 History 10-325] Morphine Sulfate [Morphine Sulfate 30 mg PO BID PRN 11/26/21 12/03/21 History ER] Varenicline Tartrate 1 mg PO BID 11/26/21 12/03/21 History dexAMETHasone ORAL [Hexadrol] 4 mg PO BID #0 tab 11/28/21 12/03/21 Rx LORazepam [Ativan] 0.5 mg PO TID PRN 12/03/21 12/03/21 History cefUROXime axetiL [Ceftin] 500 mg PO DIRECTED 12/03/21 12/03/21 History Allergies Allergy/AdvReac Type Severity Reaction Status Date / Time codeine Allergy Itching Verified 12/03/21 11:51 Physical Examination Osteopathic Statement: *. No significant issues noted on an osteopathic structural exam other than those noted in the History and Physical/Consult. Physical Exam: -Patient is alert and oriented 3 appears well-nourished well-hydrated is in no acute distress. They do not appear septic. -There is TTP About the lumbar spine paraspinal and some midline which is less profound. There is no ballotment. -Upper extremities show [5] out of 5 strength in all major muscle groups. No focal deficits -Lower extremities with [5] out of 5 strength in all major muscle groups No focal deficits, she sat up in bed under he own power, walked around the room and has been using the bathroom under he own power. -There is FROM that is painless of the b/l UE and LE in all major joints. Neg SLR -They are intact to light touch sensation in C5 to T1 and L2 to S1 nerve distribution. -DTR 2/4 all upper and lower extremities -Patient has palpable distal pulses all 4 ext -Compartments are soft and compressible. -Patient shows a negative Isaac's -Neg Hoffmans b/l -Neg Clonus b/l -Neg babinski b/l -Cranial nerves II through XII are grossly intact. -Neg Lehermette's -No skin breakdown, no incisions -Normal RR, non labored Results Previous images reviewed again. These show a L1 lesion that is somewhat expansile causing moderate central and left foraminal stenosis due to the location within the left L1 pedicle and TVP. There are no new acute fractures noted in the L spine at this time. Overall alignment is maintained. CT of the T and L spine pending MRI w/wo of the T spine pending - Labs Labs: Abnormal Lab Results - Last 24 Hours (Table) 12/03/21 12/03/21 12/03/21 Range/Units 10:41 10:41 10:41 WBC 18.7 H (3.8-10.6) k/uL Neutrophils # 16.0 H (1.3-7.7) k/uL APTT 21.7 L (22.0-30.0) sec Sodium (137-145) mmol/L Creatinine (0.52-1.04) mg/dL Total Protein (6.3-8.2) g/dL Urine Opiates Screen Detected H (NotDetected) U Benzodiazepines Scrn Detected H (NotDetected) U Marijuana (THC) Screen Detected H (NotDetected) 12/03/21 Range/Units 10:41 WBC (3.8-10.6) k/uL Neutrophils # (1.3-7.7) k/uL APTT (22.0-30.0) sec Sodium 135 L (137-145) mmol/L Creatinine 0.47 L (0.52-1.04) mg/dL Total Protein 5.7 L (6.3-8.2) g/dL Urine Opiates Screen (NotDetected) U Benzodiazepines Scrn (NotDetected) U Marijuana (THC) Screen (NotDetected) H & H 12/03/21 Range/Units 10:41 Hgb 12.6 (11.4-16.0) gm/dL Hct 39.4 (34.0-46.0) % Coagulation 12/03/21 Range/Units 10:41 INR 0.9 (<1.2) Result Diagrams: 12/03/21 10:41 12/03/21 10:41 Assessment and Plan Assessment: 51 yo female with metestatic Stage IV adeno of the lung s/p fall from truck L1 lytic lesion within pedicle and TVP New onset of low back and mid back pain since fall Mental status changes, resolving Plan: -Agree with imaging will await results -Recommend trial TLSO brace, discussed with pt she would like to try this as well for pain control and stability. She is very much against surgery at this time. -Recommend continued pain control, Steroids OK, Gabapentin or Lyrica also may be helpful -Cont PT/OT, no BLT >10lbs, ambulate daily and often. -Ice to back if helpful -Recommend Lido patches to mid and low back for help with pain control -GI/DVT ppx -Will follow and make further recs once imaging completed. No emergent surgical intervention at this time. Pt is very against surgery but I did discuss with her if she continues to have pain or there are new fractures that stabilization may give her the best chance to be with less pain. She understood and would like to try brace first.
[2021-12-04] MEDS: dexAMETHasone 4 MG TAB PO SCH ×2 (07:49→20:40)
[2021-12-04] MEDS: lamoTRIgine 100 MG TAB PO SCH ×2 (07:49→20:41)
[2021-12-04] MEDS: CYCLOBENZAPRINE 10 MG TAB PO SCH ×2 (07:49→19:50)
[2021-12-04] MEDS: SENNOSIDES 8.6 MG TAB PO SCH ×2 (07:49→20:40)
[2021-12-04] MEDS: MORPHINE SULFATE ER 30 MG TABLET PO SCH ×3 (07:50→15:58)
[2021-12-04] MEDS: MULTIVITAMINS, THERA 1 EACH TAB PO SCH (07:50)
[2021-12-04] MEDS: ENOXAPARIN 40 MG/0.4 ML SYRINGE SQ SCH (07:52)
[2021-12-04] MEDS: MAGNESIUM OXIDE 400 MG TAB PO SCH (07:52)
[2021-12-04] MEDS: LORazepam 0.5 MG TAB PO SCH ×3 (07:53→21:52)
[2021-12-04] MEDS: PARoxetine 20 MG TAB PO SCH (07:53)
[2021-12-04] MEDS: VARENICLINE 1 MG TAB PO SCH ×2 (08:38)
--- NOTE | 2021-12-04 09:33 | CDI ---
Documentation Clarification Form Date: 12/04/2021 09:21:33 AM From: Swetha Stevens CCS, CCDS Admit Date: 12/03/2021 12:41:00 PM Patient Name: Lara Ayala Visit Number: [id number] Discharge Date: ATTENTION: The Clinical Documentation Specialists (CDI) and [facility] Coding Staff appreciate your assistance in clarifying documentation. Please respond to the clarification below the line at the bottom and electronically sign. The CDI & [facility] Coding staff will review the response and follow-up if needed. Please note: Queries are made part of the Legal Health Record. If you have any questions, please contact the author of this message via ITS. Dr. Gayle Shrestha: Confusion/Altered mental status possible metabolic "conservative" is documented in the 12/03 History & Physical. Additional clarification regarding the above statement and patient's documented confusion is requested. History/Risk Factors per the 12/03 H/P: Metastatic adenocarcinoma of the lung with mets to the bone, History of Breast Cancer, MRSA jaw & blood 2009, Severe anxiety, depression & bipolar disorder, Asthma, Current every day smoker, Marijuana use. Clinical Indicators: Presented to the ED on 12/03 with Back pain and injury via EMS from home. 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 Admit with Altered mental status, Intractable Back pain and Lung Mass. 12/03 VS: T 98.1, 97; P 119, 110; R 24, 17; BP 149/81, 130/98; PO 95 RA, 93 RA; BMI: 31.9 12/03 LAB: WBC 18.7, Neutrophils 16.0; APTT 21.7; Na 135, Creatinine 0.47, Total Protein 5.7 12/03 UA: clear, negative. 12/03 Toxicology: Opiates, Benzodiazepines, Marijuana 12/03 COVID negative. Treatment 12/03: Blood glucose monitoring, O2 2Lnc, po Ativan 1 mg x1, po [place] 10 x1, IV Na Chl 1,000 mls @ 75 mls/hr q13H, po Hexadrol 4 mg BID, INH Ventolin QID, po Ativan 0.5 mg TID Please clarify the etiology of the patient's confusion and altered mental status if known: [ x ] Metabolic Encephalopathy [ x ] Toxic Encephalopathy [ ] Other, please specify [ ] Unable to determine, please specify: (Template Last Revised: May 2020) MTDD
[2021-12-04 09:36] LABS: Basophils # (A) 0.03 X 10*3/uL (0.00-0.10); Basophils % (A) 0.2 %; Eosinophils # (A) 0 X 10*3/uL (0.04-0.35); Eosinophils % (A) 0 %; HCT 38.1 % (37.2-46.3); HGB 12.4 g/dL (12.0-15.0); Immature Grans, Automated 1.2 %; Lymphocytes # (A) 0.84 X 10*3/uL (0.90-5.00); Lymphocytes % (A) 5.6 %; MCH 31.6 pg (27.0-32.0); MCHC 32.5 g/dL (32.0-37.0); MCV 96.9 fL (80.0-97.0); Mean Platelet Volume 10.4 fL (9.5-12.2); Monocytes # (A) 0.79 X 10*3/uL (0.20-1.00); Monocytes % (A) 5.2 %; NRBC Per 100 WBC 0 /100 WBCS (0.0-0.0); Neutrophils # (A) 13.22 X 10*3/uL (1.80-7.70); Neutrophils % (A) 87.8 %; Platelet Count 389 X 10*3/uL (140-440); RBC 3.93 X 10*6/uL (4.10-5.20); WBC 15.06 X 10*3/uL (4.50-10.00)
[2021-12-04 10:09] LABS: ALT 17 U/L (8-44); AST 11 U/L (13-35); African American GFR (CKD) 130.8 (60.0-200.0); Albumin 3.6 g/dL (3.8-4.9); Albumin/Globulin Ratio 1.89 (1.60-3.17); Alkaline Phosphatase 96 U/L (41-126); Blood Urea Nitrogen 12.7 mg/dL (9.0-27.0); Calcium 9.8 mg/dL (8.7-10.3); Carbon Dioxide 28.1 mmol/L (20.0-27.5); Chloride 98 mmol/L (96-109); Globulin 1.9 g/dL (1.6-3.3); Glucose 110 mg/dL (70-110); Non-African American GFR(CKD) 112.9 (60.0-200.0); Potassium 4.4 mmol/L (3.5-5.5); Sodium 139 mmol/L (135-145); Total Bilirubin <0.15 mg/dL (0.30-1.20); Total Protein 5.5 g/dL (6.2-8.2)
[2021-12-04] MEDS ORDERED: LORazepam 1 MG TAB PO ONE (12:00)
--- NOTE | 2021-12-04 16:07 | CT ---
EXAMINATION TYPE: CT thor lumbar spine wo con DATE OF EXAM: 12/04/2021 COMPARISON: 10/19/2021 HISTORY: 51-year-old female fall possible fracture, metastatic disease TECHNIQUE: Contiguous axial scanning of the thoracic and lumbar spine without IV contrast. Coronal an d sagittal reconstructions performed. CT DLP: 1673 mGycm Automated exposure control for dose reduction was used. FINDINGS: Posterior right mid lung mass measures 4.4 cm wide by 4.2 cm craniocaudal. This is in comparison to 4 .0 x 3.7 cm, previously. Adjacent satellite nodule measures 1.4 cm versus 9 mm, previously. Adjacent right infrahilar lymphade nopathy suggested, axial image 62. Redemonstrated destruction of the left posterior and lateral aspect of the L1 vertebral body with carlo truction extending through the left pedicle and left posterior elements. This likely contributes to s ignificant left L1-L2 neuroforaminal stenosis. Neoplastic soft tissue likely involves the ventral and left lateral aspect of the spinal canal possibly contributing to a moderate spinal canal stenosis. O verall degree of destruction may be slightly increased. There is now mild height loss along the left lateral aspect of the vertebral body. There is subtle new loss of posterior vertebral body margins of T9, T10, and T11 suspicious for addit ional disease involvement. Refer to sagittal image 33. There may be uniform mild spinal canal narrowi ng along these 3 levels. Suspect motion artifact resulting in a step-off of the midsternal body rather than fracture. IMPRESSION: 1. ENLARGING POSTERIOR RIGHT MIDLUNG MASS AT 4.4 CM VERSUS 4.0 CM, PREVIOUSLY. THE ADJACENT SATELLITE NODULE HAS ALSO INCREASED AT 1.4 CM VERSUS 9 MM, PREVIOUSLY. SUSPECT UNDERLYING RIGHT INFRAHILAR MET ASTATIC LYMPHADENOPATHY. 2. REDEMONSTRATED DESTRUCTIVE OSSEOUS METASTASIS INVOLVING THE LEFT LATERAL AND POSTERIOR ASPECT OF T HE L1 VERTEBRAL BODY EXTENDING INTO THE LEFT PEDICLE AND LEFT POSTERIOR ELEMENTS. THERE MAY BE A MODE RATE FOCAL SPINAL CANAL STENOSIS AT THIS LEVEL SECONDARY TO EXTRAOSSEOUS SOFT TISSUE. 3. NEW LOSS OF THE POSTERIOR VERTEBRAL BODY MARGINS OF T9, T10, T11 SUSPICIOUS FOR ADDITIONAL NEW OSS EOUS INVOLVEMENT. THERE MAY BE UNIFORM MILD SPINAL CANAL NARROWING ALONG THESE 3 LEVELS.
--- NOTE | 2021-12-04 17:18 | P.PN ---
Subjective Progress Note Date: 12/04/21 Principal diagnosis: altered mental status Today in follow-up patient was very tearful, she is anticipating pain/immobility during MRI of the spine and CT of the spine. She does have some difficulty laying for a long time. She is reporting fair pain management. She is looking forward to having a back brace. Objective - Vital Signs Vital signs: Vital Signs Temp 98.1 F 12/04/21 11:35 Pulse 72 12/04/21 11:35 Resp 16 12/04/21 11:35 BP 122/69 12/04/21 11:35 Pulse Ox 97 12/04/21 11:35 FiO2 Intake & Output 12/03/21 12/04/21 12/04/21 18:59 06:59 18:59 Output Total 4 Balance -4 Weight 76.657 kg Output: Urine 4 Other: Voiding Method Toilet # Voids 1 1 - Constitutional General appearance: Present: average body habitus, cooperative, severe distress - EENT Eyes: Present: anicteric sclerae, EOMI, poor dentition ENT: Present: hearing grossly normal - Respiratory Respiratory: bilateral: CTA - Cardiovascular Rhythm: regular Heart sounds: normal: S1, S2 Abnormal Heart Sounds: Absent: systolic murmur, diastolic murmur, rub, S3 Gallop, S4 Gallop, click, other - Peripheral edema leg Peripheral Edema: bilateral: None - Gastrointestinal General gastrointestinal: Present: normal bowel sounds, soft - Musculoskeletal Musculoskeletal: Present: strength equal bilaterally - Psychiatric Psychiatric: Present: A&O x's 3 - Labs CBC & Chem 7: 12/04/21 06:12 12/04/21 06:12 Labs: Abnormal Lab Results - Last 24 Hours (Table) 12/04/21 12/04/21 Range/Units 06:12 06:12 WBC 15.06 H (4.50-10.00) X 10*3/uL RBC 3.93 L (4.10-5.20) X 10*6/uL RDW 16.0 H (11.5-14.5) % Immature Gran # 0.18 H (0.00-0.04) X 10*3/uL Neutrophils # 13.22 H (1.80-7.70) X 10*3/uL Lymphocytes # 0.84 L (0.90-5.00) X 10*3/uL Eosinophils # 0 L (0.04-0.35) X 10*3/uL Carbon Dioxide 28.1 H (20.0-27.5) mmol/L Creatinine 0.5 L (0.6-1.5) mg/dL BUN/Creatinine Ratio 25.40 H (12.00-20.00) Ratio Total Bilirubin <0.15 L (0.30-1.20) mg/dL AST 11 L (13-35) U/L Total Protein 5.5 L (6.2-8.2) g/dL Albumin 3.6 L (3.8-4.9) g/dL Assessment and Plan (1) Altered mental status Current Visit: Yes Status: Acute Priority: High Code(s): R41.82 - ALTERED MENTAL STATUS, UNSPECIFIED SNOMED Code(s): 172074183 (2) Intractable back pain Current Visit: Yes Status: Acute Priority: High Code(s): M54.9 - DORSALGIA, UNSPECIFIED SNOMED Code(s): 628955719 (3) Acute anxiety Current Visit: Yes Status: Acute Priority: High Code(s): F41.9 - ANXIETY DISORDER, UNSPECIFIED SNOMED Code(s): 27410341 (4) Lung cancer metastatic to bone Current Visit: Yes Status: Acute Priority: High Code(s): C34.90 - MALIGNANT NEOPLASM OF UNSP PART OF UNSP BRONCHUS OR LUNG; C79.51 - SECONDARY MALIGNANT NEOPLASM OF BONE SNOMED Code(s): 80731861 Plan: Altered mental status has improved. Not sure if it was medications, lack of medications, lack of sleep. She is doing very well on medication regimen cu rrently. She is even tolerating back pain. Patient has been seen by Radiation Oncology and Orthopedic Spine Surgeon. Pending images/review of images for opinion/recommendations for treatment option s. Patient has not started treatment for cancer, she was supposed to yesterday. Would really like to get her to treatment this week. Did see the CT report and there is increase in the size of tumor already. This report was seen AFTER the patient was seen. Will discuss with her when family is present! Will check with [facility] if appt for Fri can be changed since she has been seen in-want to do chemo in ofc Friday at 1130, takes about 2 hours. MRI of the brain done 11/28 was negative for metastasis. MRI L spine was done at that time as well so, those results are in the system for review. attests: I have seen and examined patient, performed H&P, developed impression and plan of care. Discussed with dictator. Agree with documentation, dictated as a scribe Time with Patient: Greater than 30
[2021-12-04] MEDS: traZODone HCL 50 MG TAB PO SCH (20:41)
[2021-12-05] MEDS: MORPHINE SULFATE ER 30 MG TABLET PO SCH ×4 (00:57→23:23)
[2021-12-05] MEDS: VARENICLINE 1 MG TAB PO SCH ×3 (00:59→21:27)
[2021-12-05] MEDS: HYDROcodone/APAP 10-325MG 1 EACH TAB PO PRN ×6 (03:27→22:47)
[2021-12-05] MEDS: LORazepam 0.5 MG TAB PO SCH ×4 (06:21→21:27)
--- NOTE | 2021-12-05 07:36 | P.PN ---
Progress Note - Text Progress Note Date: 12/05/21 CT and MRI reviewed. L1 destructive lesion still present no large changes continued pedicle and TVP destruction as well as some posterior body on the left side. Body height remains with some focal mild central stenosis related. New metestatic foci noted posterior bodies of T9-11. No stenosis related. At this time the patient has not wished for surgery. Would trial a brace for pain control if this is not adequate pt will need surgical stabilization for pain control. This would come in the form of a minimally invasive placement of rods and screws from likely T11-T3 for stabilization of the L1 which is progressing and may progress to being unstable. We will see how the patient do es with brace. If not better will discuss with pt surgical intervention again.
[2021-12-05] MEDS: MULTIVITAMINS, THERA 1 EACH TAB PO SCH (08:28)
[2021-12-05] MEDS: lamoTRIgine 100 MG TAB PO SCH ×2 (08:28→21:26)
[2021-12-05] MEDS: MAGNESIUM OXIDE 400 MG TAB PO SCH (08:28)
[2021-12-05] MEDS: CYCLOBENZAPRINE 10 MG TAB PO SCH ×2 (08:28→21:26)
[2021-12-05] MEDS: PARoxetine 20 MG TAB PO SCH (08:29)
[2021-12-05] MEDS: SENNOSIDES 8.6 MG TAB PO SCH ×2 (08:38→21:27)
[2021-12-05] MEDS: ENOXAPARIN 40 MG/0.4 ML SYRINGE SQ SCH (08:39)
[2021-12-05] MEDS: dexAMETHasone 4 MG TAB PO SCH ×2 (08:41→21:26)
[2021-12-05 08:58] LABS: Basophils # (A) 0.03 X 10*3/uL (0.00-0.10); Basophils % (A) 0.2 %; Eosinophils # (A) 0.08 X 10*3/uL (0.04-0.35); Eosinophils % (A) 0.5 %; HCT 40.3 % (37.2-46.3); HGB 12.8 g/dL (12.0-15.0); Immature Grans, Automated 1.6 %; Lymphocytes # (A) 0.82 X 10*3/uL (0.90-5.00); Lymphocytes % (A) 5.5 %; MCH 31.2 pg (27.0-32.0); MCHC 31.8 g/dL (32.0-37.0); MCV 98.3 fL (80.0-97.0); Mean Platelet Volume 10.1 fL (9.5-12.2); Monocytes # (A) 1.01 X 10*3/uL (0.20-1.00); Monocytes % (A) 6.8 %; NRBC Per 100 WBC 0 /100 WBCS (0.0-0.0); Neutrophils # (A) 12.63 X 10*3/uL (1.80-7.70); Neutrophils % (A) 85.4 %; Platelet Count 386 X 10*3/uL (140-440); RDW 15.9 % (11.5-14.5)
--- NOTE | 2021-12-05 09:00 | MR ---
MR thoracic spine with and without contrast HISTORY: Pain Multiplanar multisequence and postcontrast images obtained through the thoracic spine following 7.5 c c Gadavist IV Correlation to CT scan dated 12/04/2021, lumbar MRI 11/28/2021 There is a soft tissue mass in the posterior right lung. Abnormal signal is present within the full time ior vertebral bodies T9-T11, abnormal signal again noted within the L1 vertebral body as described on prior lumbar MRI. There is abnormal soft tissue present in the lower lumbar spine along the epidural location causing s ome transverse diameter narrowing of the thecal sac greatest at T9-10. Some extension along the nerve roots is present. The abnormal enhancement, soft tissue extends from T9 through T11 on the right is somewhat less extensive on the left along epidural aspect of the spinal canal. Remaining levels show no significant spinal stenosis or foraminal encroachment, no significant disc h erniation. Some facet arthropathy changes are present especially in the lower thoracic spine. Abnormality at L1 noted incidentally. The abnormal enhancement of the kidneys is no longer seen. IMPRESSION: Metastatic disease
[2021-12-05 09:22] LABS: African American GFR (CKD) 114.7 (60.0-200.0); Anion Gap 11.4 mmol/L (10.00-18.00); BUN/Creat Ratio 20.37 Ratio (12.00-20.00); Blood Urea Nitrogen 14.5 mg/dL (9.0-27.0); Carbon Dioxide 26.5 mmol/L (20.0-27.5); Potassium 4.6 mmol/L (3.5-5.5)
--- NOTE | 2021-12-05 09:38 | P.PN ---
Subjective Progress Note Date: 12/05/21 Principal diagnosis: Low back pain Patient was seen at bedside this morning resting comfortably lying semirecumbent position. Patient says she did get up yesterday and walk around the room. Patient says when she changes positions such as from sitting to standing the pain does increase. Patient feels that the brace does help somewhat with stability. Patient says she would like to go home at this time. Patient is more open to potential orthopedic surgical intervention in the future for stabilization of her spine. Patient denies any new changes. Patient says she still has low back and mid back pain at this time. Patient denies fever, nausea, vomiting, change in vision, loss of bowel/bladder control. Objective - Vital Signs Vital signs: Vital Signs Temp 98.2 F 12/05/21 04:29 Pulse 94 12/05/21 04:29 Resp 15 12/05/21 04:29 BP 112/66 12/05/21 04:29 Pulse Ox 94 L 12/05/21 04:29 FiO2 Intake & Output 12/04/21 12/05/21 12/05/21 18:59 06:59 18:59 Output Total 4 Balance -4 Output: Urine 4 Other: Voiding Method Toilet # Voids 1 - Exam Negative for any open fractures, significant ecchymosis/erythema/ulcers. Sensation is equal, symmetric, bilaterally intact throughout the upper and lower extremities. There is tenderness to palpation along the lower thoracic and upper lumbar spine midline and in the paravertebral region. Nontender to palpation throughout rest of exam. Patient does have full range of motion bilateral upper and lower extremities on exam. 5/5 motor exam in bilateral upp er and lower extremities. Neurovascular status is intact bilaterally. Radial pulses intact, 2+ bilaterally. Carefully refill under 3 seconds in digits of her extremities. Negative Homans bilaterally. Negative Eleni's bilaterally. Negative clonus bilaterally. - Labs CBC & Chem 7: 12/05/21 05:01 12/05/21 05:01 Labs: Abnormal Lab Results - Last 24 Hours (Table) 12/04/21 12/04/21 12/05/21 Range/Units 06:12 06:12 05:01 WBC 15.06 H 14.80 H (4.50-10.00) X 10*3/uL RBC 3.93 L (4.10-5.20) X 10*6/uL MCV 98.3 H (80.0-97.0) fL MCHC 31.8 L (32.0-37.0) g/dL RDW 16.0 H 15.9 H (11.5-14.5) % Immature Gran # 0.18 H 0.23 H (0.00-0.04) X 10*3/uL Neutrophils # 13.22 H 12.63 H (1.80-7.70) X 10*3/uL Lymphocytes # 0.84 L 0.82 L (0.90-5.00) X 10*3/uL Monocytes # 1.01 H (0.20-1.00) X 10*3/uL Eosinophils # 0 L (0.04-0.35) X 10*3/uL Carbon Dioxide 28.1 H (20.0-27.5) mmol/L Creatinine 0.5 L (0.6-1.5) mg/dL BUN/Creatinine Ratio 25.40 H (12.00-20.00) Ratio Total Bilirubin <0.15 L (0.30-1.20) mg/dL AST 11 L (13-35) U/L Total Protein 5.5 L (6.2-8.2) g/dL Albumin 3.6 L (3.8-4.9) g/dL Assessment and Plan Assessment: 1. L1 lytic lesion within pedicle and TVP; low back pain; mid back pain 2. Stage IV metastatic adenocarcinoma of the lung Plan: 1. L1 lytic lesion within pedicle and TVP; low back pain; mid back pain - CT and MRI performed yesterday have reviewed. After discussing with my attending, Dr. Hercules, there are some changes in the new imaging, but no significant changes. Lesion is present within the L1 vertebral body and within the pedicle and transverse process on the left side and extension posteriorly into the L1 vertebral body. I discussed findings with the patient this morning bedside. Patient is more open to potential orthopedic surgical intervention in the future for stabilization of L1. Patient would still like to trial TLSO brace for the time being and would like to follow up in office. We will continue to follow/be available during inpatient stay in hospital. 2. Stage IV metastatic adenocarcinoma of the lung - oncology and medicine following 3. Appreciate medical management 4. Pain management - Adel; Flexeril; morphine 5. DVT prophylaxis - Lovenox 6. GI prophylaxis - senna; Mag-Ox 7. PT/OT - weightbearing as tolerated with walker and TLSO brace while up in about 8. Appreciate consult Time with Patient: Less than 30
--- NOTE | 2021-12-05 15:50 | P.PN ---
Subjective Progress Note Date: 12/05/21 Principal diagnosis: bone metastases, altered mental status Patient seems to be doing much better today. She reports 7/10 pain in the low back, but is resting comfortably. She reports there has been significant improvement. Her MRI of the T-spine from 12/04/21 did show new metastatic disease involving T9-11, which is an interval finding compared to her MRI from 10/19/21. She did meet with Dr. Hercules and is using a back-brace for ambulation. Objective - Vital Signs Vital signs: Vital Signs Temp 97.3 F L 12/05/21 11:04 Pulse 104 H 12/05/21 11:04 Resp 14 12/05/21 11:04 BP 117/80 12/05/21 11:04 Pulse Ox 96 12/05/21 11:04 FiO2 Intake & Output 12/04/21 12/05/21 12/05/21 18:59 06:59 18:59 Output Total 4 Balance -4 Output: Urine 4 Other: Voiding Method Toilet Toilet # Voids 1 - Constitutional General appearance: Present: no acute distress - EENT Eyes: Present: EOMI, PERRLA ENT: Present: hearing grossly normal - Neck Neck: Absent: lymphadenopathy - Respiratory Respiratory: bilateral: CTA - Cardiovascular Rhythm: regular - Gastrointestinal General gastrointestinal: Absent: distended, tenderness - Integumentary Integumentary: Absent: pale - Neurologic Neurologic: Present: CNII-XII intact - Musculoskeletal Musculoskeletal: Present: strength equal bilaterally - Psychiatric Psychiatric: Present: A&O x's 3, appropriate affect - Labs CBC & Chem 7: 12/05/21 05:01 12/05/21 05:01 Labs: Abnormal Lab Results - Last 24 Hours (Table) 12/05/21 12/05/21 Range/Units 05:01 05:01 WBC 14.80 H (4.50-10.00) X 10*3/uL MCV 98.3 H (80.0-97.0) fL MCHC 31.8 L (32.0-37.0) g/dL RDW 15.9 H (11.5-14.5) % Immature Gran # 0.23 H (0.00-0.04) X 10*3/uL Neutrophils # 12.63 H (1.80-7.70) X 10*3/uL Lymphocytes # 0.82 L (0.90-5.00) X 10*3/uL Monocytes # 1.01 H (0.20-1.00) X 10*3/uL BUN/Creatinine Ratio 20.37 H (12.00-20.00) Ratio Glucose 142 H (70-110) mg/dL Assessment and Plan Assessment: The patient is a 51-year-old female with a history of metastatic adenocarcinoma the lung. She has disease involving the bone and liver. She was recently treated with palliative radiotherapy to the lumbar spine. She was admitted again secondary to worsening back pain and altered mental status. 1. Low back pain: Based on her MRI from yesterday, the patient has had interval progression of disease with new lesions involving T9 through T11. The previously treated lumbar spine lesion is largely stable. The patient is not having any surgical therapy at this time, but will be using a back brace. I recommended the patient undergo a similar palliative course of radiotherapy to the lower thoracic spine. There does appear to be some spinal canal invasion without cord compression. The patient's pain is reasonably controlled at this time, and she wishes to go home. We will schedule the patient for outpatient follow-up with simulation. Time with Patient: Less than 30
[2021-12-05] MEDS ORDERED: LORazepam 0.5 MG TAB PO PRN (16:48)
[2021-12-05 17:50] VITALS: RESP 16
[2021-12-05] MEDS: traZODone HCL 50 MG TAB PO SCH (21:33)
[2021-12-06] MEDS: HYDROcodone/APAP 10-325MG 1 EACH TAB PO PRN ×3 (02:25→12:02)
[2021-12-06 05:00] VITALS: TEMP 98.7
[2021-12-06] MEDS: MORPHINE SULFATE ER 30 MG TABLET PO SCH (07:28)
[2021-12-06] MEDS: MULTIVITAMINS, THERA 1 EACH TAB PO SCH (08:15)
[2021-12-06] MEDS: ENOXAPARIN 40 MG/0.4 ML SYRINGE SQ SCH (08:15)
[2021-12-06] MEDS: SENNOSIDES 8.6 MG TAB PO SCH (08:15)
[2021-12-06] MEDS: VARENICLINE 1 MG TAB PO SCH (08:16)
[2021-12-06] MEDS: lamoTRIgine 100 MG TAB PO SCH (08:16)
[2021-12-06] MEDS: PARoxetine 20 MG TAB PO SCH (08:16)
[2021-12-06] MEDS: dexAMETHasone 4 MG TAB PO SCH (08:16)
[2021-12-06] MEDS: LORazepam 0.5 MG TAB PO SCH (08:16)
[2021-12-06] MEDS: CYCLOBENZAPRINE 10 MG TAB PO SCH (08:16)
[2021-12-06 08:59] LABS: Basophils # (A) 0.03 X 10*3/uL (0.00-0.10); Basophils % (A) 0.2 %; HCT 39.2 % (37.2-46.3); HGB 12.8 g/dL (12.0-15.0); Immature Grans, Automated 1.7 %; MCH 31.5 pg (27.0-32.0); MCHC 32.7 g/dL (32.0-37.0); MCV 96.6 fL (80.0-97.0); Monocytes # (A) 1.22 X 10*3/uL (0.20-1.00); Monocytes % (A) 8.1 %; NRBC Per 100 WBC 0 /100 WBCS (0.0-0.0); Neutrophils # (A) 12.67 X 10*3/uL (1.80-7.70); Platelet Count 374 X 10*3/uL (140-440); RBC 4.06 X 10*6/uL (4.10-5.20); RDW 15.6 % (11.5-14.5); WBC 15.07 X 10*3/uL (4.50-10.00)
[2021-12-06 09:10] LABS: African American GFR (CKD) 118.1 (60.0-200.0); Anion Gap 11.5 mmol/L (10.00-18.00); BUN/Creat Ratio 25.37 Ratio (12.00-20.00); Blood Urea Nitrogen 17.3 mg/dL (9.0-27.0); Carbon Dioxide 25.4 mmol/L (20.0-27.5); Non-African American GFR(CKD) 101.9 (60.0-200.0); Potassium 4.4 mmol/L (3.5-5.5)
--- NOTE | 2021-12-06 10:19 | P.PN ---
Subjective Progress Note Date: 12/05/21 Principal diagnosis: altered mental status Today in follow-up patient was more relaxed, she has TSLO brace and reports it does help with pain and stability. She is reporting fair pain management, she did get some sleep. No fever, nausea. Objective - Vital Signs Vital signs: Vital Signs Temp 97.3 F L 12/05/21 11:04 Pulse 104 H 12/05/21 11:04 Resp 14 12/05/21 11:04 BP 117/80 12/05/21 11:04 Pulse Ox 96 12/05/21 11:04 FiO2 Intake & Output 12/04/21 12/05/21 12/05/21 18:59 06:59 18:59 Output Total 4 Balance -4 Output: Urine 4 Other: Voiding Method Toilet Toilet # Voids 1 - Constitutional General appearance: Present: average body habitus, cooperative, no acute distress - EENT Eyes: Present: anicteric sclerae, EOMI ENT: Present: hearing grossly normal - Respiratory Respiratory: bilateral: CTA - Cardiovascular Rhythm: regular Heart sounds: normal: S1, S2 Abnormal Heart Sounds: Absent: systolic murmur, diastolic murmur, rub, S3 Gallop, S4 Gallop, click, other - Peripheral edema leg Peripheral Edema: bilateral: None - Integumentary Integumentary: Present: normal - Neurologic Neurologic Comment(s): grossly intact, no suspicions for spinal deficits Neurologic: Present: CNII-XII intact - Musculoskeletal Musculoskeletal: Present: strength equal bilaterally - Psychiatric Psychiatric: Present: A&O x's 3, appropriate affect, intact judgment & insight - Labs CBC & Chem 7: 12/06/21 05:52 12/06/21 05:52 Labs: Abnormal Lab Results - Last 24 Hours (Table) 12/05/21 12/05/21 Range/Units 05:01 05:01 WBC 14.80 H (4.50-10.00) X 10*3/uL MCV 98.3 H (80.0-97.0) fL MCHC 31.8 L (32.0-37.0) g/dL RDW 15.9 H (11.5-14.5) % Immature Gran # 0.23 H (0.00-0.04) X 10*3/uL Neutrophils # 12.63 H (1.80-7.70) X 10*3/uL Lymphocytes # 0.82 L (0.90-5.00) X 10*3/uL Monocytes # 1.01 H (0.20-1.00) X 10*3/uL BUN/Creatinine Ratio 20.37 H (12.00-20.00) Ratio Glucose 142 H (70-110) mg/dL - Imaging and Cardiology MRI and CT T/L spine-reports reviewed Assessment and Plan (1) Altered mental status Current Visit: Yes Status: Acute Priority: High Code(s): R41.82 - ALTERED MENTAL STATUS, UNSPECIFIED SNOMED Code(s): 573432922 (2) Intractable back pain Current Visit: Yes Status: Acute Priority: High Code(s): M54.9 - DORSALGIA, UNSPECIFIED SNOMED Code(s): 131441846 (3) Acute anxiety Current Visit: Yes Status: Acute Priority: High Code(s): F41.9 - ANXIETY DISORDER, UNSPECIFIED SNOMED Code(s): 06695521 (4) Lung cancer metastatic to bone Current Visit: Yes Status: Acute Priority: High Code(s): C34.90 - MALIGNANT NEOPLASM OF UNSP PART OF UNSP BRONCHUS OR LUNG; C79.51 - SECONDARY MALIGNANT NEOPLASM OF BONE SNOMED Code(s): 28390915 Plan: Altered mental status has improved. Doing very well on medication regimen currently. Patient has been seen by Radiation Oncology and Orthopedic Spine Surgeon. Has brace and plan is for simulation and radiation. Patient has not started treatment for cancer, she was supposed to yesterday. Would really like to get her to treatment this week. Did see the CT report and there is increase in the size of tumor already. She was told that cancer is growing, needing to treat. Case was discussed with Rad Onc and Med Onc. Ok for concurrent treatment. Appt for IO tomorrow at 1130. MRI of the brain done 11/28 was negative for metastasis.
[2021-12-06 11:32] VITALS: BP 126/84; PULSE 78
--- NOTE | 2021-12-06 11:59 | P.PN ---
Progress Note - Text Progress Note Date: 12/06/21 1. L1 lytic lesion within pedicle and TVP; low back pain; mid back pain 2. Stage IV metastatic adenocarcinoma of the lung Plan: 1. L1 lytic lesion within pedicle and TVP; low back pain; mid back pain - CT and MRI performed have been reviewed After discussing with my attending, Dr. Hercules, there are some changes in the new imaging, but no significant changes. Lesion is present within the L1 vertebral body and within the pedicle and transverse process on the left side and extension posteriorly into the L1 vertebral body. I discussed findings with the patient. Patient wants to try conservative measures at this time. We do recommend patient to follow-up with Dr. Hercules in office. Patient is stable from an orthopedic standpoint for discharge home. We do recommend patient to utilize TLSO brace while up and about. Orthopedics is signing off at this time. Please do not hesitate to contact us for any further questions. 2. Stage IV metastatic adenocarcinoma of the lung - oncology and medicine following 3. Appreciate medical management 4. Pain management - [place]; Flexeril; morphine 5. DVT prophylaxis - Lovenox 6. GI prophylaxis - senna; Mag-Ox 7. PT/OT - weightbearing as tolerated with walker and TLSO brace while up in about 8. Appreciate consult
[2021-12-06] MEDS ORDERED: HYDROmorphone 0.5 MG/0.5 ML SYRINGE IVP STA (12:41)
[2021-12-06] MEDS ORDERED: HYDROcodone/APAP 10-325MG 1 EACH TAB PO ONE (12:43)
--- NOTE | 2021-12-06 14:38 | P.PN ---
Subjective Progress Note Date: 12/06/21 Principal diagnosis: altered mental status Today in follow-up patient was sitting with legs crossed in bed, she has no acute c/o, back pain is persistent, never really changes despite meds, brace makes her feel more stable but, she does not have it on. Objective - Vital Signs Vital signs: Vital Signs Temp 98.7 F 12/06/21 04:57 Pulse 103 H 12/06/21 04:57 Resp 16 12/05/21 17:30 BP 126/85 12/06/21 04:57 Pulse Ox 90 L 12/06/21 04:57 FiO2 Intake & Output 12/05/21 12/06/21 12/06/21 18:59 06:59 18:59 Intake Total 1250 1200 Balance 1250 1200 Intake: Intake, IV Titration 50 Amount cefTRIAXone 1 gm In 50 Sodium Chloride 0.9% 50 ml @ 100 mls/hr IVPB Q24H DONNA Rx#:[id number] Oral 1200 1200 Other: Voiding Method Toilet Toilet # Voids 2 2 - Constitutional General appearance: Present: average body habitus, cooperative, no acute distress - EENT Eyes: Present: anicteric sclerae, EOMI ENT: Present: hearing grossly normal - Respiratory Details: resp even and unlabored at rest - Peripheral edema leg Peripheral Edema: bilateral: None - Musculoskeletal Musculoskeletal: Present: generalized weakness, strength equal bilaterally - Psychiatric Psychiatric: Present: A&O x's 3 - Labs CBC & Chem 7: 12/06/21 05:52 12/06/21 05:52 Labs: Abnormal Lab Results - Last 24 Hours (Table) 12/06/21 12/06/21 Range/Units 05:52 05:52 WBC 15.07 H (4.50-10.00) X 10*3/uL RBC 4.06 L (4.10-5.20) X 10*6/uL RDW 15.6 H (11.5-14.5) % Immature Gran # 0.25 H (0.00-0.04) X 10*3/uL Neutrophils # 12.67 H (1.80-7.70) X 10*3/uL Lymphocytes # 0.60 L (0.90-5.00) X 10*3/uL Monocytes # 1.22 H (0.20-1.00) X 10*3/uL BUN/Creatinine Ratio 25.37 H (12.00-20.00) Ratio Glucose 115 H (70-110) mg/dL Assessment and Plan (1) Altered mental status Current Visit: Yes Status: Acute Priority: High Code(s): R41.82 - ALTERED MENTAL STATUS, UNSPECIFIED SNOMED Code(s): 207716229 (2) Intractable back pain Current Visit: Yes Status: Acute Priority: High Code(s): M54.9 - DORSALGIA, UNSPECIFIED SNOMED Code(s): 508942916 (3) Acute anxiety Current Visit: Yes Status: Acute Priority: High Code(s): F41.9 - ANXIETY DISORDER, UNSPECIFIED SNOMED Code(s): 72557787 (4) Lung cancer metastatic to bone Current Visit: Yes Status: Acute Priority: High Code(s): C34.90 - MALIGNANT NEOPLASM OF UNSP PART OF UNSP BRONCHUS OR LUNG; C79.51 - SECONDARY MALIGNANT NEOPLASM OF BONE SNOMED Code(s): 14926960 Plan: Altered mental status has improved. Doing very well on medication regimen currently. Patient has been seen by Radiation Oncology and Orthopedic Spine Surgeon. Has brace and plan is for simulation today and radiation to start. Patient HAS NOT started treatment for cancer, she was supposed to earlier this week, actually supposed to start almost a month ago. Would really like to get her to treatment this week as cancer is the cause of much of her pain. Did see the CT report and there is increase in the size of tumor in just a few weeks, the T spine changes are new in just a few weeks too. Case was discussed with Rad Onc and Med Onc. Ok for concurrent treatment. Appt for IO tomorrow at 1130. MRI of the brain done 11/28 was negative for metastasis. After seeing pt this AM-with stable pain c/o-I was called back to the room by Nursing as pt stated that pt pain is out of control and he is not taking her home like that. When I entered the room pt was sitting with legs crossed on the bed, looked sad but no facial expression or vocalizations that pain was out of control. Confirmed that pt consistently rates her pain as [id number] she receives dilaudid or norco-never been below a 5. I clarified that pain she is having currently is from malignancy. Pt has brace for the back, she is being simulated today for radiation. She is due to start IO therapy tomorrow. Treatment has been delayed about 4-5 weeks because of repeat hospitalizations for pain and for AMS. MRI/CT spine incidentally picked up on the lung tumor and it reports increase in size. About 5 weeks ago there was no tumor on the thoracic spine and now there is. Pt best hope at pain control is to treatment started to shrink tumors. All meds are available at home. 1 time norco before XRT and 1 time 0.5 dilaudid after simulation/XRT. Discussed with Nursing who will assess pt and see if she is ready for DC. Oncology Nurses will be informed of the case and will be able to make pain med adjustments in the office tomorrow. Pt and seem to understand how serious her condition, and the limited effect of pain meds. Pt also admits that he is overwhelmed with her care as well as his own poor health. There is home care ordered for pt. Told him to have them assess for any and all services they may qualify for. >30min attests: I have seen and examined patient, performed H&P, developed impression and plan of care. Discussed with dictator. Agree with doc umleticia, dictated as a scribe Time with Patient: Greater than 30
== END 2021-12-06 16:20 | disposition home health service (06) | DRG 947 ==
LOC: EC 10:25 → 5NMEDONC 12:41
PROVIDERS: ADMIT Internal Medicine; ATTEND Internal Medicine
DX: G89.3 Neoplasm related pain (acute) (chronic) (principal); G92.8 Other toxic encephalopathy; C79.00 Secondary malignant neoplasm of unspecified kidney and renal pelvis; C79.51 Secondary malignant neoplasm of bone; C34.90 Malignant neoplasm of unspecified part of unspecified bronchus or lung; M54.50 Low back pain, unspecified; Z20.822 Contact with and (suspected) exposure to COVID-19; M54.6 Pain in thoracic spine; J45.909 Unspecified asthma, uncomplicated; R00.0 Tachycardia, unspecified; R91.8 Other nonspecific abnormal finding of lung field; R45.1 Restlessness and agitation; F31.9 Bipolar disorder, unspecified; F41.9 Anxiety disorder, unspecified; F17.210 Nicotine dependence, cigarettes, uncomplicated; Z88.5 Allergy status to narcotic agent; Z79.899 Other long term (current) drug therapy; Z85.3 Personal history of malignant neoplasm of breast; Z86.14 Personal history of Methicillin resistant Staphylococcus aureus infection; Z80.3 Family history of malignant neoplasm of breast; Z85.118 Personal history of other malignant neoplasm of bronchus and lung; Z91.81 History of falling; Z98.51 Tubal ligation status
CPT/HCPCS: 36415; 70450; 71046; 72128; 72131; 72157; 77290; 80048; 80053; 80306; 80320; 81003; 85025; 85610; 85730; 87635; 93005; 99285

== ENCOUNTER 2021-12-08 09:30 | Inpatient (IN) | payer MEDICARE ==
--- NOTE | 2021-12-08 09:57 | ED ---
General Adult HPI - General Chief complaint: Back Pain/Injury Stated complaint: lower back pain Time Seen by Provider: 12/08/21 09:37 Source: patient, EMS, RN notes reviewed, old records reviewed Mode of arrival: EMS Limitations: altered mental status - History of Present Illness Initial comments: 51-year-old female presenting for evaluation of increased pain, bilateral lower extremity weakness. Patient has metastatic cancer with known spinal column lesion. She states she had a fall yesterday due to weakness. Today she reports that the weakness in her legs is increased. She has an indwelling [place] catheter. She is currently undergoing treatment but is able to state exactly where she stands with her current treatment. She is somewhat altered and poor historian. - Related Data Home Medications Medication Instructions Recorded Confirmed PARoxetine HCL [Paxil] 60 mg PO DAILY 04/21/21 12/03/21 Paliperidone [Invega] 6 mg PO DAILY 04/21/21 12/03/21 lamoTRIgine [LaMICtal] 100 mg PO BID 04/21/21 12/03/21 Albuterol Nebulized [Ventolin 2.5 mg INHALATION RT-QID PRN 10/18/21 12/03/21 Nebulized] Albuterol Sulfate [Ventolin HFA] 2 puff INHALATION RT-QID PRN 10/18/21 12/03/21 Cider Vinegar [Apple Cider Vinegar] 300 mg PO DAILY 10/18/21 12/03/21 L.acidoph,Paracasei, B.lactis 1 cap PO DAILY 10/18/21 12/03/21 [Probiotic] Magnesium Oxide [Mag-Ox] 250 mg PO DAILY 10/18/21 12/03/21 Multivitamins, Thera [Multivitamin 1 tab PO DAILY 10/18/21 12/03/21 (formulary)] Acetaminophen Tab [Tylenol] 650 mg PO Q6H PRN 10/22/21 12/03/21 Cyclobenzaprine [Flexeril] 10 mg PO TID PRN 11/26/21 12/03/21 HYDROcodone/APAP 10-325MG [[place] 1 tab PO Q4H PRN 11/26/21 12/03/21 10-325] Varenicline Tartrate 1 mg PO BID 11/26/21 12/03/21 LORazepam [Ativan] 0.5 mg PO TID PRN 12/03/21 12/03/21 cefUROXime axetiL [Ceftin] 500 mg PO DIRECTED 12/03/21 12/03/21 Previous Rx's Medication Instructions Recorded traZODone HCL [Desyrel] 150 mg PO HS 30 Days tab 10/31/20 dexAMETHasone ORAL [Hexadrol] 4 mg PO BID #0 tab 11/28/21 Morphine Sulfate [Morphine Sulfate 30 mg PO BID #0 12/06/21 ER] Allergies Allergy/AdvReac Type Severity Reaction Status Date / Time codeine Allergy Itching Verified 12/08/21 09:40 Review of Systems ROS Statement: Those systems with pertinent positive or pertinent negative responses have been documented in the HPI. ROS Other: All systems not noted in ROS Statement are negative. Past Medical History Past Medical History: Asthma, Cancer, COPD Additional Past Medical History / Comment(s): Breast cancer, spinal cancer History of Any Multi-Drug Resistant Organisms: MRSA Date of last positivie culture/infection: 2008 MDRO Source:: jaw, blood Past Surgical History: Tubal Ligation, Uterine Ablation Additional Past Surgical History / Comment(s): Bone marrow aspiration, skin graft at age 17 yrs to forehead Past Anesthesia/Blood Transfusion Reactions: No Reported Reaction Past Psychological History: Anxiety, Bipolar, Depression Smoking Status: Current every day smoker Past Alcohol Use History: Occasional Past Drug Use History: None Reported - Past Family History Mother Family Medical History: Cancer Additional Family Medical History / Comment(s): Breast cancer Father Family Medical History: No Reported History General Exam Limitations: no limitations General appearance: lethargic, in distress Head exam: Present: atraumatic, normocephalic Eye exam: Present: normal appearance, PERRL ENT exam: Present: mucous membranes dry Neck exam: Present: normal inspection Respiratory exam: Present: rhonchi. Absent: respiratory distress Cardiovascular Exam: Present: normal rhythm, tachycardia GI/Abdominal exam: Present: distended, tenderness (Mild generalized tenderness) Extremities exam: Absent: pedal edema, joint swelling Back exam: Present: tenderness Neurological exam: Present: alert. Absent: oriented X3 (Slow to respond) Skin exam: Present: warm Course Vital Signs 12/08/21 12/08/21 09:31 11:46 Temperature 98.1 F Pulse Rate 104 H 106 H Respiratory 18 18 Rate Blood Pressure 130/85 116/70 O2 Sat by Pulse 91 L 97 Oximetry EKG Findings - EKG Comments: EKG Findings:: EKG: Sinus tachycardia rate of 149, WA interval 140, QRS duration 90, QTC 44, possible underlying atrial flutter with 2-1 AV conduction, no ST segment elevation. Medical Decision Making - Medical Decision Making 51-year-old female with increased back pain and lower extremity weakness. Patient is very weak on exam she does have some sensation in the lower extremities. She received immunotherapy yesterday with oncology. She was recently discharged from the hospital. She had a fall I did repeat x-rays of the lumbar thoracic spine after this fall. There is no acute osseous abno rmality noted on x-ray. I discussed case with Remigio bowen covering for Dr. Hercules. And the admitting physician Dr. Shrestha. Patient's prognosis is quite guarded. Given IV fluids, IV pain medication, IV steroids in the emergency department. - Lab Data Result diagrams: 12/08/21 10:05 12/08/21 10:05 Lab Results 12/08/21 12/08/21 12/08/21 Range/Units 10:05 10:05 10:05 WBC 16.6 H (3.8-10.6) k/uL RBC 4.29 (3.80-5.40) m/uL Hgb 13.1 (11.4-16.0) gm/dL Hct 41.9 (34.0-46.0) % MCV 97.7 (80.0-100.0) fL MCH 30.5 (25.0-35.0) pg MCHC 31.2 (31.0-37.0) g/dL RDW 14.5 (11.5-15.5) % Plt Count 367 (150-450) k/uL MPV 7.8 Neutrophils % 89 % Lymphocytes % 5 % Monocytes % 4 % Eosinophils % 2 % Basophils % 0 % Neutrophils # 14.8 H (1.3-7.7) k/uL Lymphocytes # 0.8 L (1.0-4.8) k/uL Monocytes # 0.6 (0-1.0) k/uL Eosinophils # 0.3 (0-0.7) k/uL Basophils # 0.0 (0-0.2) k/uL Sodium 136 L (137-145) mmol/L Potassium 3.8 (3.5-5.1) mmol/L Chloride 99 (98-107) mmol/L Carbon Dioxide 32 H (22-30) mmol/L Anion Gap 5 mmol/L BUN 23 H (7-17) mg/dL Creatinine 0.62 (0.52-1.04) mg/dL Est GFR (CKD-EPI)AfAm >90 (>60 ml/min/1.73 sqM) Est GFR (CKD-EPI)NonAf >90 (>60 ml/min/1.73 sqM) Glucose 106 H (74-99) mg/dL Plasma Lactic Acid Johnson 1.6 (0.7-2.0) mmol/L Calcium 9.3 (8.4-10.2) mg/dL Magnesium 2.3 (1.6-2.3) mg/dL Total Bilirubin 0.5 (0.2-1.3) mg/dL AST 25 (14-36) U/L ALT 16 (4-34) U/L Alkaline Phosphatase 115 (38-126) U/L Total Protein 5.8 L (6.3-8.2) g/dL Albumin 3.5 (3.5-5.0) g/dL Disposition Clinical Impression: Lung cancer metastatic to bone, Intractable back pain, Dehydration Disposition: ADMITTED IP TO THIS [facility] Condition: Serious Is patient prescribed a controlled substance at d/c from ED?: No Time of Disposition: 11:54
[2021-12-08] MEDS ORDERED: SODIUM CHLORIDE 0.9% 1,000 ML IV ONE (10:09)
[2021-12-08] MEDS ORDERED: DEXAMETHASONE SOD PHOSPHATE 10 MG/ML 1 ML VIAL IV STA (10:10)
[2021-12-08 10:27] LABS: ALT 16 U/L (4-34); AST 25 U/L (14-36); African American GFR (CKD) >90 (>60 ml/min/1.73 sqM); Albumin 3.5 g/dL (3.5-5.0); Alkaline Phosphatase 115 U/L (38-126); Anion Gap 5 mmol/L; Basophils % (A) 0 %; Blood Urea Nitrogen 23 mg/dL (7-17); Calcium 9.3 mg/dL (8.4-10.2); Carbon Dioxide 32 mmol/L (22-30); Chloride 99 mmol/L (98-107); Eosinophils # (A) 0.3 k/uL (0-0.7); Eosinophils % (A) 2 %; Glucose 106 mg/dL (74-99); HCT 41.9 % (34.0-46.0); HGB 13.1 gm/dL (11.4-16.0); Lymphocytes # (A) 0.8 k/uL (1.0-4.8); Lymphocytes % (A) 5 %; MCH 30.5 pg (25.0-35.0); MCHC 31.2 g/dL (31.0-37.0); MCV 97.7 fL (80.0-100.0); Magnesium 2.3 mg/dL (1.6-2.3); Mean Platelet Volume 7.8; Monocytes # (A) 0.6 k/uL (0-1.0); Monocytes % (A) 4 %; Neutrophils # (A) 14.8 k/uL (1.3-7.7); Neutrophils % (A) 89 %; Non-African American GFR(CKD) >90 (>60 ml/min/1.73 sqM); Platelet Count 367 k/uL (150-450); Potassium 3.8 mmol/L (3.5-5.1); RBC 4.29 m/uL (3.80-5.40); RDW 14.5 % (11.5-15.5); Sodium 136 mmol/L (137-145); Total Bilirubin 0.5 mg/dL (0.2-1.3); Total Protein 5.8 g/dL (6.3-8.2); WBC 16.6 k/uL (3.8-10.6)
[2021-12-08] MEDS ORDERED: HYDROmorphone 1 MG/ML 1 ML SYRINGE IVP STA (11:07)
[2021-12-08] MEDS ORDERED: NALOXONE 0.4 MG/ML 1 ML VIAL IV PRN (11:11)
[2021-12-08] MEDS ORDERED: ACETAMINOPHEN TAB 325 MG TAB PO PRN ×2 (11:11→16:27)
--- NOTE | 2021-12-08 11:42 | XR ---
EXAMINATION TYPE: XR lumbosacral spine DATE OF EXAM: 12/08/2021 10:51 AM INDICATION: Patient age:Female; 51 years old; Reason for study: fall; COMPARISON: 11/26/2021 TECHNIQUE: Frontal, lateral and coned in L5-S1 lateral views of the spine. FINDINGS: No evidence of any acute osseous pathology. No evidence of loss of vertebral body height i s seen. There is normal alignment of the lumbar vertebral bodies. No evidence of any acute osseous pa thology. Mild scattered disc space narrowing. Multilevel marginal osteophyte formation throughout the visualized spine. There is facet joint arthropathy throughout the spine. Known L1 metastatic lesion is less well appreciated. IMPRESSION: 1. No acute fracture. 2. Mild multilevel disc degeneration. 3. L1 vertebral body metastatic lesion not as well appreciated.
[2021-12-08] MEDS: SODIUM CHLORIDE 0.9% 1,000 ML IV SCH (11:43)
--- NOTE | 2021-12-08 11:44 | XR ---
EXAMINATION TYPE: XR chest 2V DATE OF EXAM: 12/08/2021 10:51 AM COMPARISON: Chest radiographs from TECHNIQUE: XR chest 2V .Frontal and lateral views of the chest CLINICAL INDICATION:Female, 51 years old with history of pain; FINDINGS: Lungs/Pleura: Low lung volumes are present with hazy opacities most pronounced in the right lower yassine g. There is no evidence of pleural effusion, focal consolidation, or pneumothorax. Pulmonary vascularity: Unremarkable. Heart/mediastinum: Cardiomediastinal silhouette is unremarkable. Musculoskeletal: No acute osseous pathology. IMPRESSION: Right lower lobe hazy opacities likely representing atelectasis.. Attention on follow-up imaging as c linically warranted.
--- NOTE | 2021-12-08 11:47 | XR ---
EXAMINATION TYPE: XR thoracic spine 2V DATE OF EXAM: 12/08/2021 10:51 AM INDICATION: Patient age:Female; 51 years old; Reason for study: fall; COMPARISON: Thoracolumbar spine and 12/04/2021. TECHNIQUE: 2 views of the thoracic spine in Frontal and lateral projections. FINDINGS: No evidence of acute fracture. There is no evidence of disk space narrowing or loss of vertebral bod y height. There is normal alignment of the thoracic vertebral bodies. Mild multilevel disc degenerati on changes are seen throughout the spine. Metastatic lesion to L1 also appreciated. IMPRESSION: 1. No acute osseous pathology. 2. Mild multilevel disc degeneration changes. 3. Known metastatic disease not well appreciated.
[2021-12-08] MEDS: LIDOCAINE 5% PATCH TOPICAL SCH (15:07)
[2021-12-08] MEDS: HYDROmorphone 1 MG/ML 1 ML SYRINGE IVP PRN (15:08)
[2021-12-08] MEDS ORDERED: CYCLOBENZAPRINE 5 MG TAB PO PRN (16:27)
[2021-12-08] MEDS ORDERED: HYDROcodone/APAP 10-325MG 1 EACH TAB PO PRN (16:27)
[2021-12-08] MEDS ORDERED: ALBUTEROL HFA INHALER INHALATION PRN (16:27)
[2021-12-08] MEDS: DEXAMETHASONE SOD PHOSPHATE 4 MG/ML 1 ML VIAL IVP SCH (17:52)
[2021-12-08] MEDS ORDERED: dexAMETHasone 4 MG TAB PO SCH (21:00)
[2021-12-08] MEDS: MORPHINE SULFATE ER 30 MG TABLET PO SCH (21:02)
[2021-12-08] MEDS: lamoTRIgine 100 MG TAB PO SCH (21:03)
[2021-12-08] MEDS: VARENICLINE 1 MG TAB PO SCH (21:03)
[2021-12-08] MEDS: traZODone HCL 100 MG TAB PO SCH (21:07)
--- NOTE | 2021-12-08 23:32 | CT ---
EXAMINATION TYPE: CT thor lumbar spine wo con DATE OF EXAM: 12/08/2021 COMPARISON: 12/04/2021 HISTORY: maame leg weakness. hx of metastatic ca. CT DLP: 946.90 mGycm Automated exposure control for dose reduction was used. Images obtained from the level of T1-S1 vertebra with no contrast. There is destruction of the posterior aspect of the L1 vertebral body. This extends into the left-kirstin ed pedicle and facets. No compression fractures seen of the thoracic spine. There is 10% compression of the posterior aspect of L1 vertebral body. The sacrum is intact. There is right paraspinal mass in the superior segment right lower lobe measuring 4 cm. There is some soft tissue encroachment on the spinal canal at the level of the metastatic lesion at L1. Detail limited by lack of contrast. There is right-sided hydronephrosis and hydroureter. Urinary bladder is dilated. There is mild left-s ided hydronephrosis. No calculus seen. IMPRESSION: Large destructive lesion in the L1 vertebral body extending into the pedicles and facet joints and la chidi related to metastatic disease. No change compared to recent exam. Right lower lobe mass consiste nt with tumor. Involvement of the spinal canal not well evaluated. MR scan would be helpful for furth er evaluation if clinically indicated. Bilateral hydronephrosis and hydroureter likely related to bladder outlet obstruction. Dilated urinar y bladder. Bladder extends up to the L4 level.
[2021-12-09] MEDS: DEXAMETHASONE SOD PHOSPHATE 4 MG/ML 1 ML VIAL IVP SCH ×2 (00:19→05:30)
[2021-12-09] MEDS: SODIUM CHLORIDE 0.9% 1,000 ML IV SCH ×3 (00:20→23:40)
--- NOTE | 2021-12-09 00:36 | P.HPIM ---
History of Present Illness H&P Date: 12/08/21 Chief Complaint: Bilateral leg weakness Patient is a 51-year-old female with a known history of metastatic lung cancer with mets to spine, asthma/COPD and current everyday smoker, anxiety/depression bipolar disorder and other medical problems presents to ER with complaints of bilateral lower extremity weakness. Patient states that she woke up in the morning and unable to move her legs. Patient also complaining of numbness. No bladder or bowel incontinence. No saddle anesthesia. Patient is having indwelling [place] catheter. Patient was recently admitted to the hospital due to severe back pain due to metastatic lesions. Patient had MRI of the lumbar and thoracic spine was done recently. Radiation oncology has seen the patient and is scheduled for radiation on Friday morning. Patient had simulation done while in the hospital. X-ray of the lumbar spine showed no acute fracture. Multilevel disc disc degeneration. L1 vertebral body metastatic lesion not well appreciated. EKG showed sinus tachycardia Laboratory data showed WBC 16.6 hemoglobin 13.1 and platelets 7.8 Sodium 136 potassium 3.8 chloride 99 bicarb is 32 BUN 23 and creatinine 0.62 Review of Systems Constitutional: Patient denies any fever or chills . no Generalized weakness. Abdomen: Patient denied any nausea or vomiting or abd. pain Cardiovascular: Patient denies any chest pain or short of breath no palpitations. Respiratory: patient denied any cough . no sputum production. No shortness of breath Neurologic: Patient denied headache. Musculoskeletal: Patient denies any complaints of joint swelling or deformity. Patient does carey Ve bilateral hand numbness and numbness. Skin: Negative Psychiatric: Negative Endocrine: No heat or cold intolerance. No recent weight gain. Genitourinary: No dysuria or hematuria. All other 14 point ROS negative except the above Past Medical History Past Medical History: Asthma, Cancer, COPD Additional Past Medical History / Comment(s): Breast cancer, spinal cancer History of Any Multi-Drug Resistant Organisms: MRSA Date of last positivie culture/infection: 2008 MDRO Source:: jaw, blood Past Surgical History: Tubal Ligation, Uterine Ablation Additional Past Surgical History / Comment(s): Bone marrow aspiration, skin graft at age 17 yrs to forehead Past Anesthesia/Blood Transfusion Reactions: No Reported Reaction Past Psychological History: Anxiety, Bipolar, Depression Additional Psychological History / Comment(s): Pt resides with her spouse. She is independent. Smoking Status: Current every day smoker Past Alcohol Use History: Occasional Additional Past Alcohol Use History / Comment(s): Pt started smoking in 1987 and is a 2 ppd smoker. 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 She has now been sober again for a year. Past Drug Use History: None Reported Additional Drug Use History / Comment(s): . - Past Family History Mother Family Medical History: Cancer Additional Family Medical History / Comment(s): Breast cancer Father Family Medical History: No Reported History Medications and Allergies Home Medications Medication Instructions Recorded Confirmed Type traZODone HCL [Desyrel] 150 mg PO HS 30 Days tab 10/31/20 12/08/21 Rx PARoxetine HCL [Paxil] 60 mg PO DAILY 04/21/21 12/08/21 History Paliperidone [Invega] 6 mg PO DAILY 04/21/21 12/08/21 History lamoTRIgine [LaMICtal] 100 mg PO BID 04/21/21 12/08/21 History Albuterol Nebulized [Ventolin 2.5 mg INHALATION RT-QID PRN 10/18/21 12/08/21 History Nebulized] Albuterol Sulfate [Ventolin HFA] 2 puff INHALATION RT-QID PRN 10/18/21 12/08/21 History Cider Vinegar [Apple Cider Vinegar] 300 mg PO DAILY 10/18/21 12/08/21 History L.acidoph,Paracasei, B.lactis 1 cap PO DAILY 10/18/21 12/08/21 History [Probiotic] Magnesium Oxide [Mag-Ox] 250 mg PO DAILY 10/18/21 12/08/21 History Multivitamins, Thera [Multivitamin 1 tab PO DAILY 10/18/21 12/08/21 History (formulary)] Acetaminophen Tab [Tylenol] 650 mg PO Q6H PRN 10/22/21 12/08/21 History HYDROcodone/APAP 10-325MG [[place] 1 tab PO Q4H PRN 11/26/21 12/08/21 History 10-325] Varenicline Tartrate 1 mg PO BID 11/26/21 12/08/21 History dexAMETHasone ORAL [Hexadrol] 4 mg PO BID #0 tab 11/28/21 12/08/21 Rx LORazepam [Ativan] 0.5 mg PO TID PRN 12/03/21 12/08/21 History cefUROXime axetiL [Ceftin] 500 mg PO DIRECTED 12/03/21 12/08/21 History Cyclobenzaprine HCl 7.5 mg PO BID PRN 12/08/21 12/08/21 History Morphine Sulfate [Morphine Sulfate 30 mg PO TID 12/08/21 12/08/21 History ER] Allergies Allergy/AdvReac Type Severity Reaction Status Date / Time codeine Allergy Itching Verified 12/10/21 16:19 Physical Exam Vitals: Vital Signs Temp Pulse Pulse Resp BP BP Pulse Ox 12/08/21 19:21 97.4 F L 84 14 120/75 96 12/08/21 17:21 97.8 F 80 16 120/73 94 L 12/08/21 16:31 97.8 F 78 18 131/82 93 L 12/08/21 11:46 106 H 18 116/70 97 12/08/21 09:31 98.1 F 104 H 18 130/85 91 L Intake and Output 12/08/21 12/08/21 12/08/21 06:59 14:59 22:59 Intake Total 75 Balance 75 Intake: Intake, IV Titration 75 Amount Sodium Chloride 0.9% 1, 75 000 ml @ 75 mls/hr IV . [id number] [facility] Rx#:[id number] Other: Voiding Method External Catheter Weight 54.431 kg PHYSICAL EXAMINATION: Patient is lying in the bed comfortably, no acute distress, awake alert and oriented.. Anxious. HEENT: Normocephalic. Neck is supple. Pupils reactive. Nostrils clear. Oral cavity is moist. Neck reveals no JVD, carotid bruits, or thyromegaly. CHEST EXAMINATION: Trachea is central. Symmetrical expansion. Lung echols clear to auscultation and percussion. CARDIAC: Normal S1, S2 with no gallops. No murmurs ABDOMEN: Soft. Bowel sounds present. Nontender. No organomegaly. No abdominal bruits. Extremities: reveal no edema. No clubbing or cyanosis Neurologically awake, alert, oriented x3. Patient does have bilateral lower extremity numbness and weakness. Skin: No rash or skin lesions. Psychiatric: Coperative. Nonsuicidal, Musculoskeletal: No joint swelling or deformity. Bilateral lower extremity weakness Results CBC & Chem 7: 12/15/21 07:46 12/15/21 07:46 Labs: Abnormal Lab Results - Last 24 Hours (Table) 12/08/21 12/08/21 Range/Units 10:05 10:05 WBC 16.6 H (3.8-10.6) k/uL Neutrophils # 14.8 H (1.3-7.7) k/uL Lymphocytes # 0.8 L (1.0-4.8) k/uL Sodium 136 L (137-145) mmol/L Carbon Dioxide 32 H (22-30) mmol/L BUN 23 H (7-17) mg/dL Glucose 106 H (74-99) mg/dL Total Protein 5.8 L (6.3-8.2) g/dL Thrombosis Risk Factor Assmnt - DVT/VTE Prophylaxis DVT/VTE Prophylaxis: Pharmacologic Prophylaxis ordered - Choose All That Apply Any of the Below Risk Factors Present?: Yes Each Factor Represents 1 point: Age 41-60 years Thrombosis Risk Factor Assessment Total Risk Factor Score: 1 Thrombosis Risk Factor Assessment Level: Low Risk Assessment and Plan Assessment: Bilateral lower extremity weakness likely due to metastatic L1 lesion. Rule out cord compression. Severe back pain secondary to metastatic lesions Metastatic adenocarcinoma of the lung with mets to bone. Severe anxiety and depression bipolar disorder History of asthma Currently everyday smoker Marijuana use DVT prophylaxis with Lovenox subcu Plan: Patient will be continued on pain management urology. Continue with long-acting morphine and gentle IV hydration. Patient was given a dose of dexamethasone 10 mg IV x1 and continue with 4 mg every [address] of the lumbar spine and thoracic spine will be ordered and probably surgery was consulted. Continue pain management. Follow-up closely. Discussed with patient and her at bedside in detail. Time with Patient: Greater than 30
[2021-12-09] MEDS: ENOXAPARIN 40 MG/0.4 ML SYRINGE SQ SCH (08:22)
[2021-12-09] MEDS: LACTOBACILLUS ACIDOPH & BULGAR 1 EACH PACKET PO SCH (08:22)
[2021-12-09] MEDS: lamoTRIgine 100 MG TAB PO SCH ×2 (08:22→20:18)
[2021-12-09] MEDS: MAGNESIUM OXIDE 400 MG TAB PO SCH (08:22)
[2021-12-09] MEDS: MULTIVITAMINS, THERA 1 EACH TAB PO SCH (08:26)
[2021-12-09] MEDS: PALIPERIDONE 6 MG TAB.ER.24 PO SCH (08:37)
[2021-12-09] MEDS: PARoxetine 20 MG TAB PO SCH (08:37)
[2021-12-09] MEDS ORDERED: NON FORMULARY DRUG (Cider Vinegar [Apple Cider Vinegar] 300 MG Tablet) PO SCH (09:00)
[2021-12-09 11:08] LABS: Basophils # (A) 0.04 X 10*3/uL (0.00-0.10); Basophils % (A) 0.2 %; Eosinophils # (A) 0 X 10*3/uL (0.04-0.35); Eosinophils % (A) 0 %; HCT 36.9 % (37.2-46.3); HGB 11.8 g/dL (12.0-15.0); Immature Grans, Automated 0.8 %; Lymphocytes # (A) 0.43 X 10*3/uL (0.90-5.00); Lymphocytes % (A) 2.6 %; MCH 31.2 pg (27.0-32.0); MCV 97.6 fL (80.0-97.0); Mean Platelet Volume 9.8 fL (9.5-12.2); Monocytes # (A) 0.78 X 10*3/uL (0.20-1.00); Monocytes % (A) 4.7 %; NRBC Per 100 WBC 0 /100 WBCS (0.0-0.0); Neutrophils # (A) 15.36 X 10*3/uL (1.80-7.70); Neutrophils % (A) 91.7 %; Platelet Count 326 X 10*3/uL (140-440); RBC 3.78 X 10*6/uL (4.10-5.20); RDW 16.2 % (11.5-14.5); WBC 16.75 X 10*3/uL (4.50-10.00)
--- NOTE | 2021-12-09 11:12 | P.CNOR ---
History of Present Illness - HPI Consult date: 12/09/21 Consult reason: low back pain History of present illness: 51 yo female with hx of metestatic lung CA with known lesions in T9-11 and L1 who was just DC from hospital sustained another fall from standing and is having increasing back and leg pain as well as LE weakness and likely some UR. She essentially presented T11 para now and cannot move her LE at all. She states she had a fall, took a nap and then when she woke up couldnt move her legs and so she came to ED. New CT scans ordered. MRI is from 12/04/21 of T spine which shows lesions in L1 and T9-11 which are compressive in the thoracic spine and mildly compressive in the lumbar spine. She had been ambulating however w/o issues on her previous DC and had not wanted surgical intervention when it was discussed with her at the time. She states she has no feeling in her LE. Sates numbness up to just below her belly button now and states she has not had a BM in 8 days. She is still urinating, but states it does not seem to be as controlled. Denies any f/c/so/cp at this time. She is very anxious on exam and in the room as we discussed her current situation. She is more ammendable to surgical intervention now, and we discussed how I cannot guarantee any improvements but that the only chance she would have for this is to decompress the nerves. She would like to talk with her who is in the room with her now and is very understanding. Review of Systems 16 pt ROS completed and as stated in HPI. All other systems reviewed negative. Constitutional: Reports as per HPI Past Medical History Past Medical History: Asthma, Cancer, COPD Additional Past Medical History / Comment(s): Breast cancer, spinal cancer History of Any Multi-Drug Resistant Organisms: MRSA Year Discovered:: 2008 MDRO Source:: jaw, blood Past Surgical History: Tubal Ligation, Uterine Ablation Additional Past Surgical History / Comment(s): Bone marrow aspiration, skin graft at age 17 yrs to forehead Past Anesthesia/Blood Transfusion Reactions: No Reported Reaction Past Psychological History: Anxiety, Bipolar, Depression Additional Psychological History / Comment(s): Pt resides with her spouse. She is independent. Smoking Status: Current every day smoker Past Alcohol Use History: Occasional Additional Past Alcohol Use History / Comment(s): Pt started smoking in 1987 and is a 2 ppd smoker. 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 She has now been sober again for a year. Past Drug Use History: None Reported Additional Drug Use History / Comment(s): . - Past Family History Mother Family Medical History: Cancer Additional Family Medical History / Comment(s): Breast cancer Father Family Medical History: No Reported History Medications and Allergies Home Medications Medication Instructions Recorded Confirmed Type traZODone HCL [Desyrel] 150 mg PO HS 30 Days tab 10/31/20 12/08/21 Rx PARoxetine HCL [Paxil] 60 mg PO DAILY 04/21/21 12/08/21 History Paliperidone [Invega] 6 mg PO DAILY 04/21/21 12/08/21 History lamoTRIgine [LaMICtal] 100 mg PO BID 04/21/21 12/08/21 History Albuterol Nebulized [Ventolin 2.5 mg INHALATION RT-QID PRN 10/18/21 12/08/21 History Nebulized] Albuterol Sulfate [Ventolin HFA] 2 puff INHALATION RT-QID PRN 10/18/21 12/08/21 History Cider Vinegar [Apple Cider Vinegar] 300 mg PO DAILY 10/18/21 12/08/21 History L.acidoph,Paracasei, B.lactis 1 cap PO DAILY 10/18/21 12/08/21 History [Probiotic] Magnesium Oxide [Mag-Ox] 250 mg PO DAILY 10/18/21 12/08/21 History Multivitamins, Thera [Multivitamin 1 tab PO DAILY 10/18/21 12/08/21 History (formulary)] Acetaminophen Tab [Tylenol] 650 mg PO Q6H PRN 10/22/21 12/08/21 History HYDROcodone/APAP 10-325MG [[place] 1 tab PO Q4H PRN 11/26/21 12/08/21 History 10-325] Varenicline Tartrate 1 mg PO BID 11/26/21 12/08/21 History dexAMETHasone ORAL [Hexadrol] 4 mg PO BID #0 tab 11/28/21 12/08/21 Rx LORazepam [Ativan] 0.5 mg PO TID PRN 12/03/21 12/08/21 History cefUROXime axetiL [Ceftin] 500 mg PO DIRECTED 12/03/21 12/08/21 History Cyclobenzaprine HCl 7.5 mg PO BID PRN 12/08/21 12/08/21 History Morphine Sulfate [Morphine Sulfate 30 mg PO TID 12/08/21 12/08/21 History ER] Allergies Allergy/AdvReac Type Severity Reaction Status Date / Time codeine Allergy Itching Verified 12/08/21 13:41 Physical Examination Osteopathic Statement: *. No significant issues noted on an osteopathic structural exam other than those noted in the History and Physical/Consult. PHYSICAL EXAMINATION: Vitals: Stable at this time General: Awake, alert, appropriate for age, in no acute distress. HEENT: No unusual neck masses around region of lateral neck triangle, thyroid, supraclavicular groove. Extremities: Skin warm and dry without no acute lesions, coloration, temperature, skin intact, no tenderness or erythema. Integument: No skin breaks Palpation: TTP about the lumbar midline and paraspinal around the T11-L3 region. VASCULAR STATUS : Wrist Pulses: [2/4 bilateral radial and ulnar] Pedal Pulses: [2/4 bilateral DP and PT] Color: [Normal] Edema: [None] NEUROLOGIC EXAMINATION: Mental Status: Awake and alert, fully oriented, with normal attention, concentration and memory, and fluent, appropriate speech. Cranial Nerves: I: Olfactory not tested. II: Visual acuity normal, no visual field deficit noted with confrontation. III,IV: Normal pupillary reflexes & intact extraocular movements without nystagmus. V,: Intact symmetrical facial sensation. VII: Intact symmetrical facial motor movement VIII: Hearing intact. IX,X: Intact gag, swallow, & normal voice. XI: Sternocleidomastoid, trapezius function intact. XII: Tongue midline with normal movements. Special Tests: L'hermitte's Sign: Absent Spurling'Sign: Absent Bilateral Cubital percussion test: Absent Bilateral Citlaly-Tinel sign - Carpal region: Absent Bilateral Straight Leg Raising: Absent Bilateral Motor Exam (0-5/5, N/T) STRENGTH UPPER EXTREMITY [5]/5 in all major muscle groups of the UE b/l LOWER EXTREMITY 1-2/5 in all major muscle groups of the LE b/l. She essentially has fasciculation now only and no other movement REFLEXES Upper Extremity: RIGHT [2]/4 LEFT [2]/4 Lower Extremity: RIGHT [2]/4 LEFT [2]/4 Pathological Reflexes Zamora's: RIGHT [Absent] LEFT [Absent] Babinski: RIGHT [Absent] LEFT [Absent] Clonus: RIGHT [None] LEFT [None] SENSORY Pain and LT sense Intact C5-T1 Dermatomal deficit: She is presenting as a T10-11 sensory paraplegic Gait and Functional Evaluation: Ambulatory aids: Previously, Cane/walker at home when needed otherwise independent. Now she cannot walk. Results CT is reviewed. Continued visualization of the L1 destructive lesion on the LHS of L1. There is possibly more disturbance in this area with slight increase in the depression of the posterior body of L1 on the left. No definite new fractures in the remainder of the scan. No instability noted. Pt continues to be painful and now has LE weakness. MRI of T and L spine from 12/04/21 reveals previously mentioned L1 lesion with de struction of the LSH pedicle, TVP and posterior body with moderate stenosis. No definite fracture in this area but there is some pending instability. MRI of the T spine shows lesions posterior body of T9-11 with some posterior based stenosis related to ligamentous hypertrophy as well as mass effect of lesions. The lesions are difficult to determine if they are intra or extra dural as there is artifact around this area. There is rapid progression from 10/19/21 MRI which essentially shows no lesions at these levels with no compression and now there are lesions at T9-11 with the stenotic features. No other fractures noted at this time. - Labs Labs: Abnormal Lab Results - Last 24 Hours (Table) 12/08/21 12/08/21 Range/Units 10:05 10:05 WBC 16.6 H (3.8-10.6) k/uL Neutrophils # 14.8 H (1.3-7.7) k/uL Lymphocytes # 0.8 L (1.0-4.8) k/uL Sodium 136 L (137-145) mmol/L Carbon Dioxide 32 H (22-30) mmol/L BUN 23 H (7-17) mg/dL Glucose 106 H (74-99) mg/dL Total Protein 5.8 L (6.3-8.2) g/dL H & H 12/08/21 Range/Units 10:05 Hgb 13.1 (11.4-16.0) gm/dL Hct 41.9 (34.0-46.0) % Result Diagrams: 12/08/21 10:05 12/08/21 10:05 Assessment and Plan Assessment: 51 yo F with known stage IV metestatic lung CA to Spine and multiple systems. T9-11 metestatic lesions with stenosis L1 destructive metestatic lesion New Paraplegia T10-11 sensory level Complex medical patient. Multiple medical commodities. Plan: -Cont Decadron, will add a high bolus dose as it is protective of 50 mg -Recommend surgery in the form of decompression and stabilization T9-L1 decompression and T11-L3 stabilization for L1 destructive lesion. Spoke to the patient at length again about surgical vs non surgical intervention. At this point we have tried non surgical as she wished and she has declined neurologically. In order to protect and prevent any further deterioration I would recommend a decompression and stabilization. This does not guarantee that her legs get better but it is the only potential for her to get any function back, whatever that may be. She understands as does her in the room with her. She is willing to proceed with this surgery now. She did eat today but we will do surgery tomorrow. She understands the high risks at this point in her disease process to her as well as the potential of no improvement in neurological status and she is willing to assume these risks and all the risks of surgery. -Will consult Dr. Mendoza, Neuro, for further input -Appreciate Onc, rad onc and medicine input. -Pt needs to be on aggressive bowel regimen with at least 3 mobilizing agents. She needs to have a de los santos placed. She needs to be turned q2h. She needs to have PT daily for mobilization of her lE. She needs to be in Tran boots and S CDs.
[2021-12-09 11:41] LABS: African American GFR (CKD) 126.5 (60.0-200.0); Anion Gap 11.8 mmol/L (10.00-18.00); BUN/Creat Ratio 32.55 Ratio (12.00-20.00); Calcium 8.7 mg/dL (8.7-10.3); Carbon Dioxide 24.7 mmol/L (20.0-27.5); Non-African American GFR(CKD) 109.2 (60.0-200.0); Potassium 4.4 mmol/L (3.5-5.5)
[2021-12-09] MEDS ORDERED: DEXAMETHASONE SOD PHOSPHATE 10 MG/ML 1 ML VIAL IVP SCH (12:00)
[2021-12-09] MEDS: LIDOCAINE 5% PATCH TOPICAL SCH (12:06)
[2021-12-09] MEDS: MORPHINE SULFATE ER 30 MG TABLET PO SCH ×3 (12:07→23:35)
[2021-12-09] MEDS: VARENICLINE 1 MG TAB PO SCH ×2 (12:07→23:35)
[2021-12-09] MEDS ORDERED: WATER IVPB ONE ×2 (12:15)
[2021-12-09] MEDS ORDERED: DEXAMETHASONE SOD PHOS IVPB ONE ×2 (12:15)
[2021-12-09] MEDS ORDERED: DEXTROSE 5% IVPB ONE ×2 (12:15)
[2021-12-09] MEDS: SENNOSIDES 8.6 MG TAB PO SCH (12:33)
[2021-12-09] MEDS: LORazepam 0.5 MG TAB PO PRN ×2 (13:57→22:28)
[2021-12-09] MEDS: MAGNESIUM HYDROXIDE 2,400 MG/10 ML CUP PO PRN (13:57)
[2021-12-09] MEDS: DOCUSATE 100 MG CAP PO SCH (20:18)
[2021-12-09] MEDS: DEXAMETHASONE SOD PHOSPHATE 10 MG/ML 1 ML VIAL IVP SCH ×2 (20:19→23:39)
--- NOTE | 2021-12-09 22:04 | P.CONS ---
History of Present Illness - Reason for Consult Consult date: 12/09/21 - History of Present Illness The pt is a 51-year-old WF, with a complicated past medical, especially oncologic history. Her oncology and recent medical history is as follows: Recent diagnosis of metastatic lung adenocarcinoma, diagnosis from a bone biopsy. She has had palliative radiation to the L1 lytic lesion. There are liver lesions and a left renal lesion. Never had PET due to repeat hospital admissions, did get MRI of the head with contrast 11/28, no brain metastases seen. the patient was recently admitted to the ER on 12/03/21. This time reported that the family wanted her brought in because of confusion. Patient has a remote history of a frontal head trauma. When seen, the patient is very anxious, pacing, not able to produce a straight thought, she pulled out her IV, she is very fixated on getting gloves on her hands. he did report that she was having difficulty breathing, she was provided with oxygen. When her significant other showed up he reports that she has not slept for about 3 days and when this happens, this is how she behaves. the patient has constant complaints of pain, which has been quite difficult to manage. The patient is on quite a large dose of psychiatric medications through [facility]. 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 Her low back pain was doing really well after radiation, the patient fell out of a truck and that's when this other back pain started, leading to the admission on 11/2621 The patient was evaluated as comprehensively during her recent admission, with MRI of the thoracic and lumbar spine again showing the known lesion at L1, as well as new disease involving the lower lumbar spine. As the patient was started on steroids, seen by radiation oncology and started on radiation. The patient was also seen by orthopedic spine surgery who strongly recommended that the patient have surgical stabilization especially at L1. The patient however refused surgery. During a recent admission, she had no neurologic deficit. Her ambulation was somewhat limited because of the back pain, but otherwise there was no deficit in the power of her lower extremities. the patient's pain was ultimately able to be controlled, and she was discharged on 12/07/21. She came back to the hospital, as she states that she woke up with no sensation or strength in her lower extremities. He states that she has not had a bowel movement for about 2-3 days. He does have chronic constipation. She states that she still has bowel and bladder sensation. Patient was therefore admitted for further management Review of Systems Constitutional: Reports chronic pain, Reports fatigue, Reports weakness Eyes: denies blurred vision, denies pain Ears: deny: decreased hearing, ear discharge, earache, tinnitus Ears, nose, mouth and throat: Denies headache, Denies sore throat Cardiovascular: Reports decreased exercise tolerance Respiratory: Denies cough Gastrointestinal: Reports constipation Genitourinary: Denies dysuria, Denies hematuria Musculoskeletal: Reports as per HPI, Reports low back pain, Reports muscle weakness Integumentary: Denies pruritus, Denies rash Neurological: Reports motor disturbance, Reports numbness, Reports paralysis, Reports weakness Psychiatric: Reports anxiety, Reports sadness/tearfulness, Reports sleep disturbances Endocrine: Reports fatigue Hematologic/Lymphatic: Reports as per HPI Past Medical History Past Medical History: Asthma, Cancer, COPD Additional Past Medical History / Comment(s): Breast cancer, spinal cancer History of Any Multi-Drug Resistant Organisms: MRSA Year Discovered:: 2008 MDRO Source:: jaw, blood Past Surgical History: Tubal Ligation, Uterine Ablation Additional Past Surgical History / Comment(s): Bone marrow aspiration, skin graft at age 17 yrs to forehead Past Anesthesia/Blood Transfusion Reactions: No Reported Reaction Past Psychological History: Anxiety, Bipolar, Depression Additional Psychological History / Comment(s): Pt resides with her spouse. She is independent. Smoking Status: Current every day smoker Past Alcohol Use History: Occasional Additional Past Alcohol Use History / Comment(s): Pt started smoking in 1987 and is a 2 ppd smoker. 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 She has now been sober again for a year. Past Drug Use History: None Reported Additional Drug Use History / Comment(s): . - Past Family History Mother Family Medical History: Cancer Additional Family Medical History / Comment(s): Breast cancer Father Family Medical History: No Reported History Medications and Allergies Home Medications Medication Instructions Recorded Confirmed Type traZODone HCL [Desyrel] 150 mg PO HS 30 Days tab 10/31/20 12/08/21 Rx PARoxetine HCL [Paxil] 60 mg PO DAILY 04/21/21 12/08/21 History Paliperidone [Invega] 6 mg PO DAILY 04/21/21 12/08/21 History lamoTRIgine [LaMICtal] 100 mg PO BID 04/21/21 12/08/21 History Albuterol Nebulized [Ventolin 2.5 mg INHALATION RT-QID PRN 10/18/21 12/08/21 History Nebulized] Albuterol Sulfate [Ventolin HFA] 2 puff INHALATION RT-QID PRN 10/18/21 12/08/21 History Cider Vinegar [Apple Cider Vinegar] 300 mg PO DAILY 10/18/21 12/08/21 History L.acidoph,Paracasei, B.lactis 1 cap PO DAILY 10/18/21 12/08/21 History [Probiotic] Magnesium Oxide [Mag-Ox] 250 mg PO DAILY 10/18/21 12/08/21 History Multivitamins, Thera [Multivitamin 1 tab PO DAILY 10/18/21 12/08/21 History (formulary)] Acetaminophen Tab [Tylenol] 650 mg PO Q6H PRN 10/22/21 12/08/21 History HYDROcodone/APAP 10-325MG [[place] 1 tab PO Q4H PRN 11/26/21 12/08/21 History 10-325] Varenicline Tartrate 1 mg PO BID 11/26/21 12/08/21 History dexAMETHasone ORAL [Hexadrol] 4 mg PO BID #0 tab 11/28/21 12/08/21 Rx LORazepam [Ativan] 0.5 mg PO TID PRN 12/03/21 12/08/21 History cefUROXime axetiL [Ceftin] 500 mg PO DIRECTED 12/03/21 12/08/21 History Cyclobenzaprine HCl 7.5 mg PO BID PRN 12/08/21 12/08/21 History Morphine Sulfate [Morphine Sulfate 30 mg PO TID 12/08/21 12/08/21 History ER] Allergies Allergy/AdvReac Type Severity Reaction Status Date / Time codeine Allergy Itching Verified 12/08/21 13:41 Physical Exam Vitals: Vital Signs Temp Pulse Resp BP Pulse Ox FiO2 12/09/21 20:56 97.6 F 72 16 116/62 96 12/09/21 19:39 92 L 12/09/21 11:50 97.9 F 83 17 116/62 94 L 12/09/21 03:46 97.8 F 91 14 134/83 92 L Intake and Output 12/09/21 12/09/21 12/09/21 06:59 14:59 22:59 Intake Total 950 Output Total 200 1100 1300 Balance -200 -1100 -350 Intake: Intake, IV Titration 950 Amount Dexamethasone Sod Phos ( 50 Mdv) 50 mg In Dextrose 5% in Water 50 ml @ 100 mls /hr IVPB ONCE ONE Rx#: [id number] Sodium Chloride 0.9% 1, 900 000 ml @ 75 mls/hr IV . [id number] [facility] Rx#:[id number] Output: Urine 200 1100 1300 Uretheral ([place]) 1100 1300 Other: Voiding Method External Catheter - Constitutional General appearance: no acute distress - EENT Eyes: EOMI, PERRLA ENT: hearing grossly normal, normal oropharynx - Neck Neck: no lymphadenopathy Thyroid: bilateral: normal size - Respiratory Respiratory: bilateral: CTA - Cardiovascular Rhythm: regular Heart sounds: normal: S1, S2 - Gastrointestinal General gastrointestinal: normal bowel sounds, soft - Integumentary Integumentary: normal - Neurologic Neurologic: CNII-XII intact, focal deficits (changes in both lower extremities currently appears to be essentially 0. No sensation in both lower extremities or in the saddle area.) - Musculoskeletal bilateral lower extremity loss of strength - Psychiatric Psychiatric: A&O x's 3, appropriate affect Results CBC & Chem 7: 12/09/21 06:49 12/09/21 06:49 Labs: Abnormal Lab Results - Last 24 Hours (Table) 12/09/21 12/09/21 12/09/21 Range/Units 06:49 06:49 06:49 WBC 16.75 H (4.50-10.00) X 10*3/uL RBC 3.78 L (4.10-5.20) X 10*6/uL Hgb 11.8 L (12.0-15.0) g/dL Hct 36.9 L (37.2-46.3) % MCV 97.6 H (80.0-97.0) fL RDW 16.2 H (11.5-14.5) % Immature Gran # 0.14 H (0.00-0.04) X 10*3/uL Neutrophils # 15.36 H (1.80-7.70) X 10*3/uL Lymphocytes # 0.43 L (0.90-5.00) X 10*3/uL Eosinophils # 0 L (0.04-0.35) X 10*3/uL BUN/Creatinine Ratio 32.55 H (12.00-20.00) Ratio Glucose 122 H (70-110) mg/dL Procalcitonin 0.19 H (0.02-0.09) ng/mL Comments: thoracic and lumbar spine x-rays, and thoracic/lumbar spine CT scan reports reviewed Chest x-ray: report reviewed Assessment and Plan (1) Spinal cord compression Narrative/Plan: the patient is presenting with new, acute onset of lower extremity loss of power and sensation. Physical exam findings as described above. - During her recent admission, the patient was found to have progressive metastatic disease in the lower thoracic spine he started radiation for the same. She had previously received radiation to the L1 lesion. Based on the MRI evaluation, orthopedic spine surgery or strongly recommended surgical stabilization during her recent admission. However the patient refused the same. As noted above, urine her exam, she had some limitations in lower extremity mobility because of pain, but did not have any loss of power or sensation at rest. - Her presentation is quite consistent with cord compression. She she still reports at least partially intact bowel and bladder sensation. -Patient has been started on IV steroids. Dose will be increased to 6 mg every 6 hours. Orthopedic spine surgery is on consult. He is a surgical stabilization is planned. - Radiation oncology will also be consulted Current Visit: Yes Status: Acute Code(s): G95.20 - UNSPECIFIED CORD COMPRESSION SNOMED Code(s): 55118262 (2) Intractable back pain Narrative/Plan: the patient's pain is a combination of neoplasm related pain, as well as from DVT. As noted, she was being treated with a pain specialist even prior to her cancer diagnosis. Pain management has been very challenging, with added complications due to her anxiety and bipolar disorder. At the time of her recent discharge, the pain was controlled. Continue current regimen. Current Visit: Yes Status: Acute Priority: High Code(s): M54.9 - DORSALGIA, UNSPECIFIED SNOMED Code(s): 567918270 (3) Lung cancer metastatic to bone Narrative/Plan: systemic treatment will have to be held, till the patient has her surgery and has adequate recovery postoperative Current Visit: Yes Status: Acute Priority: High Code(s): C34.90 - MALIGNANT NEOPLASM OF UNSP PART OF UNSP BRONCHUS OR LUNG; C79.51 - SECONDARY MALIGNANT NEOPLASM OF BONE SNOMED Code(s): 695932842
[2021-12-09] MEDS: traZODone HCL 100 MG TAB PO SCH (22:26)
[2021-12-10] MEDS: HYDROmorphone 0.5 MG/0.5 ML SYRINGE IVP PRN (04:06)
[2021-12-10] MEDS: DEXAMETHASONE SOD PHOSPHATE 10 MG/ML 1 ML VIAL IVP SCH ×5 (04:06→23:24)
--- NOTE | 2021-12-10 07:49 | P.PN ---
Progress Note - Text Progress Note Date: 12/10/21 Spine Surgery Clinical and Risk Review Lara Ayala is a 51 yo female presenting for evaluation of new onset LE weakness, inability to ambulate constipation, urinary retention, lower extremity numbness. It was my pleasure to have seen and examined Lara Ayala. In our visit today we have had a chance to go over subjective complaints, physical examination findings and treatments including the natural course history without intervention and various interventional options. The patients imaging demonstrates metastatic disease of the lower thoracic and lumbar spine with T9 through T11 vertebral body lesions as well as epidural lesions which have progressed. There is an L1 lytic lesion with left radicular and transverse process destruction extending into the left L4 vertebral body with moderate stenosis. On physical exam, Lara Ayala demonstrates new onset lower extremity weakness 2/5 with lower extremity numbness and tingling and essentially at T 11 sensory level. I have explained to the patient that as their condition progresses it will cause further neurological deficits and eventual paralysis. Based on the patients imaging, physical exam, and the rapid progression and disabling nature of their symptoms, at this time I recommend surgery in the form or a: T9 through L1 decompression with stabilization T11 to L3. I discussed the risk and benefits of this procedure at length with Lara Ayala. The patient and her agreed to considered pursuing the procedure abovementioned. Prior to surgery, she should follow up with her PCP (Cardio, ID, IM etc) for clearance. Questions were invited and answered, and the patient wishes to proceed as outlined below. Currently, I am recommendin. T9 through L1 decompression with stabilization T11 to L3 2. Follow up with PCP for surgical clearance 3. Review of surgical risks and benefits as well as an educational packet on the proposed surgical procedure. Risks: All surgical procedures come with inherent risks, including those related to positioning, anesthesia, intraoperative findings, and postoperative complications. It is important to understand that surgery does not come with any guarantee of a successful outcome as complications and adverse events are always possible. The patient was given a handout in office today discussing the surgical procedure and risks associated with the intervention, both of which were discussed with the patient. These risks include but are not limited to the following: * Experiencing same, different or even worse symptoms in back, neck, arms, or legs compared to before surgery. * Requiring further surgery or other forms of treatment presently or at some time in the future at same or other levels of the intended spine surgery. * On an extreme but fortunately relatively rare basis severe complication such as blindness, stroke, heart attack, temporary and/or permanent nerve injury, paralysis, coma, or may occur, sometimes without known explanation. * Surgical complications may include but are not limited to risk of infection, fluid accumulation in the surgical dissection site, including a seroma or hematoma, that requires additional surgery, wound drainage, bleeding, new numbness or weakness, vision changes/loss, spinal fluid leakage, non-healing and/or infected incision, headaches, difficulty or inability to swallow, hoarseness, hemopneumothorax, pneumothorax, impotence, retrograde ejaculation, vaginal dryness; injury to nerves, spinal cord, blood vessels, lymphatics or other vital organs (i.e., bowel injury, injury to the great vessels); heterotopic bone formation; complications related to the hardware such as screws, rods, cages including misplaced hardware, device failure, instrumentation at the wrong spine level, hardware fracture/breakage, or hardware loosening; vertebral failure of the spinal column above or below the newly placed hardware; retained surgical instrumentations or devices and the need for further surgery. * Medical risks of the planned spine surgery include but are not limited to generalized Infections to the whole body or local areas outside of the surgical site (sepsis), heart attack, bleeding, anaphylaxis, meningitis, seizure, epilepsy, hearing loss, burn beckett, laceration of the head or other areas of the body, bruising, hypersensitivity of the skin, bladder over distension; allergic reaction; shoulder injury related to positioning; fat, blood and air clots to other areas of the body like heart, lungs, brain; failure of internal organs such as lungs, kidneys, liver and excessive bleeding. If blood transfusions are necessary, note that transfusions may cause intolerance reactions such as anaphylaxis or other complex reactions. * Despite best efforts, the results of spine surgery might not heal in terms of bone, soft tissues such as skin, fascia, ligaments, and joints. Additionally, in order to achieve best possible results, spine surgery may be carried out beyond the initially planned levels and involve decompression, fusion including insertion of hardware at levels other than the original intended area of surgical interest change some portions of the procedure in order to ensure the best possible outcomes. * With spine surgery and spinal fusion, there are different off label uses of instrumentation (devices, implants and hardware) as well as biological substances (bone morphogenic proteins, demineralized bone matrix) as well as using extra bone from allograft sources (i.e. cadaver bone) or autograft (iliac crest bone, ribs, or the spine itself). The patient has been given information about these practices and their inherent risks and benefits. The patient has had a chance to review all the listed information, has been given print outs detailing this information, and has had all his/her questions answered to their satisfaction. It was my pleasure to have seen and examined Lara Ayala. In our visit today we have had a chance to go over my understanding of our patient's current condition, the natural course history without intervention and various interventional options. Questions were invited and answered, and the patient wishes to proceed as outlined above. I have seen and examined the patient for 25 minutes and we have spent more than 50% of the time in repeat and detailed counseling about the patient's condition, its natural course history with out and as much as can be predicted with surgery and re-review of various surgical treatment options. In conclusion, Lara Ayala and her requested we proceed with the above suggested surgery and are willing to accept risks and limitations of the suggested surgery as nature of the disease process and our best attempts at treatment for the condition. Thank you again for allowing us to be part of your patient's care. Please don't hesitate to contact me if you have any further questions. Signed and authenticated by: Иван Mcmanus [facility] [address] [place] [address]
[2021-12-10] MEDS: LACTOBACILLUS ACIDOPH & BULGAR 1 EACH PACKET PO SCH (08:55)
[2021-12-10] MEDS: ENOXAPARIN 40 MG/0.4 ML SYRINGE SQ SCH (08:55)
[2021-12-10] MEDS: LIDOCAINE 5% PATCH TOPICAL SCH (08:57)
[2021-12-10] MEDS: SENNOSIDES 8.6 MG TAB PO SCH (08:58)
[2021-12-10] MEDS: lamoTRIgine 100 MG TAB PO SCH ×2 (08:58→23:27)
[2021-12-10] MEDS: DOCUSATE 100 MG CAP PO SCH ×2 (08:58→23:27)
[2021-12-10] MEDS: MULTIVITAMINS, THERA 1 EACH TAB PO SCH (08:58)
[2021-12-10] MEDS: MAGNESIUM OXIDE 400 MG TAB PO SCH (08:58)
[2021-12-10] MEDS: PARoxetine 20 MG TAB PO SCH (08:59)
[2021-12-10] MEDS: PALIPERIDONE 6 MG TAB.ER.24 PO SCH (08:59)
[2021-12-10] MEDS: VARENICLINE 1 MG TAB PO SCH ×2 (08:59→23:29)
[2021-12-10] MEDS: MORPHINE SULFATE ER 30 MG TABLET PO SCH ×3 (09:37→23:27)
--- NOTE | 2021-12-10 10:40 | P.PN ---
Subjective Progress Note Date: 12/09/21 Patient is a 51-year-old female with a known history of metastatic lung cancer with mets to spine, asthma/COPD and current everyday smoker, anxiety/depression bipolar disorder and other medical problems presents to ER with complaints of bilateral lower extremity weakness. Patient states that she woke up in the morning and unable to move her legs. Patient also complaining of numbness. No bladder or bowel incontinence. No saddle anesthesia. Patient is having indwelling Kearns catheter. Patient was recently admitted to the hospital due to severe back pain due to metastatic lesions. Patient had MRI of the lumbar and thoracic spine was done recently. Radiation oncology has seen the patient and is scheduled for radiation on Friday morning. Patient had simulation done while in the hospital. X-ray of the lumbar spine showed no acute fracture. Multilevel disc disc degeneration. L1 vertebral body metastatic lesion not well appreciated. EKG showed sinus tachycardia Laboratory data showed WBC 16.6 hemoglobin 13.1 and platelets 7.8 Sodium 136 potassium 3.8 chloride 99 bicarb is 32 BUN 23 and creatinine 0.62 12/09/2021 Patient is still complaining of back pain and numbness and weakness in bilateral lower extremities. Afebrile. No complaints of chest pain or worsening shortness of breath. Patient is very anxious. No nausea vomiting or abdominal pain or diarrhea. Patient was seen by orthopedic surgery and is planning for [address] of the thoracic and lumbar spine showed large destructive lesion in the L1 vertebral body extending into the pedicles and face and joints and lamina r elated to metastatic disease. No change compared to recent exam. Bilateral hydronephrosis and demanding. Likely related to bladder obstruction. Dilated urinary bladder. Bladder extended up to L4 level. Kearns catheter will be inserted. Laboratory data showed WBC 16.7 hemoglobin 9.8 and platelets 326 Sodium 139 potassium 4.4 III bicarb is 24.7 BUN 18 and creatinine 0.6 and blood sugar 122. Current medications reviewed. Objective - Vital Signs Vital signs: Vital Signs Temp 97.6 F 12/09/21 20:56 Pulse 72 12/09/21 20:56 Resp 16 12/09/21 20:56 BP 116/62 12/09/21 20:56 Pulse Ox 96 12/09/21 20:56 FiO2 21 12/09/21 19:39 Intake & Output 12/09/21 12/09/21 12/10/21 06:59 18:59 06:59 Intake Total 950 Output Total 200 2400 Balance -200 -1450 Intake: Intake, IV Titration 950 Amount Dexamethasone Sod Phos ( 50 Mdv) 50 mg In Dextrose 5% in Water 50 ml @ 100 mls /hr IVPB ONCE ONE Rx#: [id number] Sodium Chloride 0.9% 1, 900 000 ml @ 75 mls/hr IV . [id number] [facility] Rx#:[id number] Output: Urine 200 2400 Uretheral ([place]) 2400 Other: Voiding Method External Catheter External Catheter - Exam PHYSICAL EXAMINATION: Patient is lying in the bed comfortably, no acute distress, awake alert and oriented but very anxious... HEENT: Normocephalic. Neck is supple. Pupils reactive. Nostrils clear. Oral cavity is moist. Neck reveals no JVD, carotid bruits, or thyromegaly. CHEST EXAMINATION: Trachea is central. Symmetrical expansion. Bibasilar diminis hed sounds. No wheezing. Coarse breath sounds.. CARDIAC: Normal S1, S2 with no gallops. No murmurs ABDOMEN: Soft. Lower abdominal tenderness. Bowel sounds normal. No organomegaly. No abdominal bruits. Extremities: reveal no edema. No clubbing or cyanosis Neurologically awake, alert, oriented x3 . Patient does have bilateral lower extremity weakness and decreased sensation. Skin: No rash or skin lesions. Psychiatric: Coperative. Nonsuicidal, the anxious. Musculoskeletal: No joint swelling or deformity.. - Labs CBC & Chem 7: 12/09/21 06:49 12/09/21 06:49 Labs: Abnormal Lab Results - Last 24 Hours (Table) 12/09/21 12/09/21 12/09/21 Range/Units 06:49 06:49 06:49 WBC 16.75 H (4.50-10.00) X 10*3/uL RBC 3.78 L (4.10-5.20) X 10*6/uL Hgb 11.8 L (12.0-15.0) g/dL Hct 36.9 L (37.2-46.3) % MCV 97.6 H (80.0-97.0) fL RDW 16.2 H (11.5-14.5) % Immature Gran # 0.14 H (0.00-0.04) X 10*3/uL Neutrophils # 15.36 H (1.80-7.70) X 10*3/uL Lymphocytes # 0.43 L (0.90-5.00) X 10*3/uL Eosinophils # 0 L (0.04-0.35) X 10*3/uL BUN/Creatinine Ratio 32.55 H (12.00-20.00) Ratio Glucose 122 H (70-110) mg/dL Procalcitonin 0.19 H (0.02-0.09) ng/mL Assessment and Plan Assessment: Bilateral lower extremity weakness likely due to metastatic L1 lesion. Rule out cord compression. Severe back pain secondary to metastatic lesions Hydronephrosis with bladder outlet obstruction. Status post Kearns catheter placement. 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 Severe anxiety and depression bipolar disorder History of asthma Currently everyday smoker Marijuana use DVT prophylaxis with Lovenox subcu Plan: Patient will be continued on pain management. Kearns catheter placement. Continue with long-acting morphine and gentle IV hydration. Patient was given a dose of dexamethasone 10 mg IV x1 and continue with 4 mg every [address] of the lumbar spine and thoracic spine was done showed large L1 metastatic lesion. Orthopedic surgery is planning for OR tomorrow. . Continue pain management. Follow-up closely. Discussed with patient and her at bedside in detail. Time with Patient: Greater than 30
[2021-12-10] MEDS: SODIUM CHLORIDE 0.9% 1,000 ML IV SCH (12:23)
--- NOTE | 2021-12-10 14:54 | P.PN ---
Subjective Progress Note Date: 12/10/21 The patient reports no improvement subjectively in her lower extremity weakness and loss of sensation. She states that she does not have bladder or bowel sensation. She had a Kearns catheter placed due to inability to urinate Objective - Vital Signs Vital signs: Vital Signs Temp 98.2 F 12/10/21 11:34 Pulse 60 12/10/21 11:34 Resp 18 12/10/21 11:34 BP 146/77 12/10/21 11:34 Pulse Ox 94 L 12/10/21 11:34 FiO2 21 12/09/21 19:39 Intake & Output 12/09/21 12/10/21 12/10/21 18:59 06:59 18:59 Intake Total 950 1260 Output Total 2400 1425 Balance -1450 -165 Intake: Intake, IV Titration 950 900 Amount Dexamethasone Sod Phos ( 50 Mdv) 50 mg In Dextrose 5% in Water 50 ml @ 100 mls /hr IVPB ONCE ONE Rx#: [id number] Sodium Chloride 0.9% 1, 900 900 000 ml @ 75 mls/hr IV . [id number] COUNTS INCLUDE 234 BEDS AT THE [facility] Rx#:[id number] Oral 360 Output: Urine 2400 1425 Uretheral (Kearns) 2400 Other: Voiding Method External Catheter Indwelling Catheter - Constitutional General appearance: Present: no acute distress - EENT Eyes: Present: EOMI ENT: Present: hearing grossly normal, normal oropharynx - Respiratory Respiratory: bilateral: CTA - Cardiovascular Rhythm: regular Heart sounds: normal: S1, S2 - Gastrointestinal General gastrointestinal: Present: normal bowel sounds, soft - Integumentary Integumentary: Present: normal - Neurologic Neurologic: Present: CNII-XII intact, focal deficits (Persistent essentially complete loss of strength of both lower extremities, as well as loss of sens ation extending into the saddle region) - Musculoskeletal Musculoskeletal: Present: generalized weakness - Psychiatric Psychiatric: Present: A&O x's 3, appropriate affect - Labs CBC & Chem 7: 12/09/21 06:49 12/09/21 06:49 Assessment and Plan (1) Spinal cord compression Narrative/Plan: Pt is on high-dose IV steroids, but there is no improvement in her lower extremity symptoms subjectively, on examination. She also reports progressive loss of bowel and bladder sensation. - Patient has been seen by orthopedic spine surgery, and surgery recommended. She is willing for the same. - Await surgical intervention - Continue IV steroids Current Visit: Yes Status: Acute Code(s): G95.20 - UNSPECIFIED CORD COMPRESSION SNOMED Code(s): 46356093 (2) Intractable back pain Narrative/Plan: Pain is controlled On her current regimen Current Visit: Yes Status: Acute Priority: High Code(s): M54.9 - DORSALGIA, UNSPECIFIED SNOMED Code(s): 928098246 (3) Lung cancer metastatic to bone Current Visit: Yes Status: Acute Priority: High Code(s): C34.90 - MALIGNANT NEOPLASM OF UNSP PART OF UNSP BRONCHUS OR LUNG; C79.51 - SECONDARY MALIGNANT NEOPLASM OF BONE SNOMED Code(s): 428256750
[2021-12-10] MEDS ORDERED: SODIUM CHLORIDE 0.9% 1,000 ML IV ONE ×2 (16:11→22:50)
[2021-12-10] MEDS ORDERED: ONDANSETRON 4 MG/2 ML VIAL IVP ONE ×2 (16:29→22:52)
[2021-12-10] MEDS ORDERED: SODIUM CHLORIDE IVPB ONE (16:46)
[2021-12-10] MEDS ORDERED: [UNRECOGNIZED DRUG - OTHER] IVPB ONE (16:46)
[2021-12-10] MEDS ORDERED: TRANEXAMIC ACID IVPB ONE (16:46)
[2021-12-10] MEDS ORDERED: TRANEXAMIC ACID IN NACL,ISO-OS 1,000 MG in SALINE 1 100ML.BAG IVPB ONE ×3 (16:49→16:50)
[2021-12-10] MEDS ORDERED: PROPOFOL 10 MG/ML 20 ML VIAL IV ONE (16:53)
[2021-12-10] MEDS ORDERED: SUCCINYLCHOLINE CHLORIDE 200 MG/10 ML VIAL IV ONE (16:53)
[2021-12-10] MEDS ORDERED: KETAMINE 10 MG/ML 20 ML VIAL ONE (16:53)
[2021-12-10] MEDS ORDERED: ROCURONIUM 10 MG/ML (5 ML VIAL) IV ONE (16:53)
[2021-12-10] MEDS ORDERED: TRANEXAMIC ACID IN NACL,ISO-OS 1,000 MG/100 ML BAG ONE (16:53)
[2021-12-10] MEDS ORDERED: fentaNYL (PF) 50 MCG/ML 2 ML AMP ONE (16:53)
[2021-12-10] MEDS ORDERED: PHENYLEPHRINE-0.9% NACL SYG 1,000 MCG/10 ML SYRINGE ONE (16:53)
[2021-12-10] MEDS ORDERED: LIDOCAINE 2% INJ 20 MG/ML (2 ML VIAL) ONE (16:53)
[2021-12-10] MEDS ORDERED: ceFAZolin 1,000 MG VIAL ONE (16:53)
[2021-12-10] MEDS ORDERED: MIDAZOLAM 2 MG/2 ML VIAL ONE (16:53)
[2021-12-10] MEDS ORDERED: BUPIVACAINE (PF) 0.25% 30 ML VIAL SQ ONE (18:07)
[2021-12-10] MEDS ORDERED: LACTATED RINGERS 1,000 ML IV ONE ×3 (18:11→21:48)
[2021-12-10] MEDS ORDERED: THROMBIN (BOVINE) 5,000 UNIT VIAL TOPICAL ONE ×2 (18:14)
[2021-12-10] MEDS ORDERED: GELATIN SPONGE,ABSORB (SMALL) 1 EACH SPONGE TOPICAL ONE ×3 (18:14)
[2021-12-10] MEDS ORDERED: HYDROcodone/APAP 5-325MG 1 EACH TAB PO PRN (21:51)
[2021-12-10] MEDS ORDERED: SENNOSIDES-DOCUSATE SODIUM 1 EACH TAB PO PRN (21:51)
[2021-12-10] MEDS ORDERED: HYDROmorphone 0.5 MG/0.5 ML SYRINGE IVP ONE ×3 (22:13→22:48)
[2021-12-10] MEDS: traZODone HCL 100 MG TAB PO SCH (23:27)
[2021-12-11] MEDS: HYDROmorphone 1 MG/ML 1 ML SYRINGE IVP PRN ×4 (00:09→14:25)
[2021-12-11] MEDS: DEXAMETHASONE SOD PHOSPHATE 10 MG/ML 1 ML VIAL IVP SCH ×6 (00:53→21:13)
[2021-12-11] MEDS: SODIUM CHLORIDE 0.9% 1,000 ML IV SCH ×2 (06:17→21:33)
[2021-12-11] MEDS: HYDROmorphone 0.5 MG/0.5 ML SYRINGE IVP PRN ×2 (06:34→22:20)
--- NOTE | 2021-12-11 08:17 | FL ---
EXAMINATION TYPE: FL guidance operating room, XR thoracic spine 2V DATE OF EXAM: 12/10/2021 CLINICAL HISTORY: History of metastatic cancer with back pain, destructive lesion at L1 level TECHNIQUE: Fluoroscopy. Intraoperative 2 views thoracic spine. COMPARISON: CT thoracolumbar spine 2 days earlier.. FINDINGS: Fluoroscopic guidance was provided during T11-L3 decompression and stabilization procedure performed by Dr. Shrestha. A total of 53 seconds of fluoroscopic time was utilized during the procedu re and 8 spot images was acquired. Intraoperative images obtained show posterior interpedicular rods and screws from T9, T11, and T12 le carmelina superiorly through the L2 and L3 levels inferiorly. Further evaluation slightly suboptimal due to underpenetration of paper images saved to PACS. IMPRESSION: As Above.
[2021-12-11] MEDS: ENOXAPARIN 40 MG/0.4 ML SYRINGE SQ SCH (08:18)
[2021-12-11] MEDS: SENNOSIDES 8.6 MG TAB PO SCH (08:18)
[2021-12-11] MEDS: MULTIVITAMINS, THERA 1 EACH TAB PO SCH (08:18)
[2021-12-11] MEDS: LACTOBACILLUS ACIDOPH & BULGAR 1 EACH PACKET PO SCH (08:18)
[2021-12-11] MEDS: MAGNESIUM OXIDE 400 MG TAB PO SCH (08:18)
[2021-12-11] MEDS: lamoTRIgine 100 MG TAB PO SCH ×2 (08:18→21:12)
[2021-12-11] MEDS: DOCUSATE 100 MG CAP PO SCH ×2 (08:18→21:12)
[2021-12-11] MEDS: VARENICLINE 1 MG TAB PO SCH ×2 (08:19→20:50)
[2021-12-11] MEDS: PARoxetine 20 MG TAB PO SCH (08:19)
[2021-12-11] MEDS: PALIPERIDONE 6 MG TAB.ER.24 PO SCH (08:19)
[2021-12-11] MEDS: LIDOCAINE 5% PATCH TOPICAL SCH (08:52)
--- NOTE | 2021-12-11 08:58 | P.PN ---
Subjective Progress Note Date: 12/11/21 Principal diagnosis: Low back pain T9 through T11 vertebral body lesions L1 Lytic lesion Patient seen and examined at bedside. Patient is sitting up in bed drinking coffee. Patient reports pain is managed at this time, expresses pain with movement. Encouraged patient to utilize oral pain medication as well as IV. Patient remains with sensation to the T11 level, just below the umbilicus. Patient is unable to contract muscles in the buttock or bilateral lower extremities. Patient is very tearful during assessment. Prafo boots are present to BLE. Surgical dressing is CDI, hemovac present to the right of the incision intact and compressed. De Los Santos catheter remains patent. Instructed patient to utilize incentive spirometer. Patient denies fever/chills, shortness of breath, or chest pain. Objective - Vital Signs Vital signs: Vital Signs Temp 97.6 F 12/11/21 08:00 Pulse 109 H 12/11/21 08:00 Resp 18 12/11/21 08:00 BP 102/65 12/11/21 08:00 Pulse Ox 92 L 12/11/21 08:00 FiO2 21 12/09/21 19:39 Intake & Output 12/10/21 12/11/21 12/11/21 18:59 06:59 18:59 Intake Total 2049 520 20 Output Total 2450 80 Balance 2049 -192960 Intake: IV 2049 520 20 Invasive Line 2 10 10 Invasive Line 3 10 10 Output: Drainage 100 80 Lower 100 80 Urine 2000 Estimated Blood Loss 350 Other: Voiding Method Indwelling Catheter - Exam Physical Examination General: The patient is awake and alert, in no acute distress Skin: Skin is warm and dry with no obvious rashes or lesions. Hairy patches absent, no dorsal skin dimples, no cafe au lait spots. Surgical incision to thoracic and lumbar region, Hemovac to the right of the incision intact and patent. Eye: Pupils are equal, round and reactive to light, extra-ocular movements are intact; there is normal conjunctiva bilaterally. Neck: The neck is supple, there is no tenderness and ROM intact. Cardiovascular: There is a regular rate and rhythm. No murmur, rub or gallop is appreciated. Respiratory: Lungs are clear to auscultation, respirations are non-labored, breath sounds are equal. Gastrointestinal: Soft, non-distended, non-tender abdomen . Back: There is tenderness to palpation in the paralumbar, parathoracic region. There is no obvious deformity . Musculoskeletal: ROM limited secondary to pain and stiffness from surgical procedure. Shoulder abduction 5/5, elbow flexors 5/5, wrist dorsiflexors 5/5. finger abductor 5/5, supervisor packing 5/5, hip flexor 0/5, knee flexor 0/5, ankle dorsiflexor 0/5, ankle plantarflexion 0/5 and extensor hallucis 0/5. Neurological: CN 2-12 intact. Patient is having light touch sensation to the level of T11,the umbilicus. She is unable to feel her buttock or bilateral lower extremities, unable to contract muscles. Movement and coordination equal and intact in upper extremities. Reflexes 2/4 in bilateral upper extremities. Negative Hoffmans, babinski, and clonus signs. Psychiatric: Cooperative, appropriate mood & affect, normal judgment. - Labs CBC & Chem 7: 12/09/21 06:49 12/09/21 06:49 Assessment and Plan Assessment: s/p Post-Op day 1 T9 through L1 decompression with stabilization T11 to L3 T9-T11 vertebral body lesions L1 Lytic lesion New onset BLE weakness Inability to ambulate Constipation Urinary retention Lower extremity numbness Plan: Plan: -Appreciate finance consultant and team management. -Activity: Ambulate QID, OOB all meals, up and about, limit lifting bending twisting to less than 5 lbs. Use madan lift when necessary. -Daily PT/OT, increase ambulation strength and balance. -Brace when up and about, not needed in bed or chair -Maintain PRAFO boots -Pain control: Adequate at this time -Meds: reviewed -GI ppx: senna, Miralax -Maintain de los santos catheter -DVT PPX: OK to restart Heparin tonight -Hygiene: Maintain dressing clean and dry. Meticulous cleaning after BMs away from the incision site -Drains: Maintain for now. -Encourage IS 10x/hr -Dispo: Anticipate discharge home with homecare vs [facility] *I reviewed and discussed this case with my attending Dr. Hercules, whom has reviewed this chart and films and is in agreement with assessment and plan of care as outlined above. I have personally seen and examined the patient, performed the documentation and the assessment and plan as written. Number of minutes spent on the visit: 20m.
--- NOTE | 2021-12-11 10:32 | CT ---
EXAMINATION TYPE: CT thor lumbar spine wo con CT DLP: 1814.6 mGycm, Automated exposure control for dose reduction was used. DATE OF EXAM: 12/11/2021 10:22 AM COMPARISON: CT thoracal lumbar spine 12/08/2021. CLINICAL INDICATION:Female, 51 years old with history of s/p T9-L3 decompression fusion; PHH, S/P T0- L3 Decompression Fusion TECHNIQUE: Axial images of the thoracic and lumbar spine were obtained without contrast. Coronal and sagittal reformats were performed. FINDINGS: Interval T9-L3 decompression fusion changes with bilateral pedicular screws and rods. Hard choi appears intact with appropriate alignment. The bilateral particular screws of the T11-T12 verteb ral bodies project just past the anterior endplates. The hardware increased streak artifact limiting evaluation. No significant central canal stenosis with the limitations. Interval vertebral augmentati on changes involving the L1 vertebral body related to known destructive lesion. The destructive lesio n extends into the left posterior elements. There is some soft tissue encroachment at the spinal jania l at the level of the metastatic lesion however evaluation is limited due to lack of IV contrast. The re is associated paraspinal soft tissue gas related to recent surgery. Drainage catheter is identifie d in the apical bed terminating at L2. Trace fluid in the surgical bed. Redemonstration of right lower lobe mass abutting the pleura measuring up to 4.7 cm with right hilar adenopathy. Associated trace right pleural effusion. Additional medial right lower lobe 1.4 cm pulmon tran nodule and bilateral upper lobe peripheral smaller pulmonary nodules identified. Centrilobular em physematous changes identified. Resolution of bilateral hydronephrosis and hydroureter. IMPRESSION: 1. Interval T9-L3 decompression fusion changes with vertebral augmentation of known destructive lesi on L1 vertebral body standing to the posterior elements. No definitive organized fluid collection. In volvement of the spinal canal is poorly evaluated due to streak artifact and lack of IV contrast. 2. Redemonstration of right middle lower lobe mass with additional scattered pulmonary nodules and r ight hilar adenopathy consistent with known malignancy. 3. COPD changes. 4. Resolution of bilateral hydroureteronephrosis.
[2021-12-11] MEDS: MORPHINE SULFATE ER 30 MG TABLET PO SCH ×3 (10:42→20:50)
[2021-12-11] MEDS: HYDROcodone/APAP 10-325MG 1 EACH TAB PO SCH ×4 (10:51→21:12)
[2021-12-11] MEDS: polyethylene glycoL 3350 17 GM POWD.PACK PO SCH (10:51)
[2021-12-11] MEDS: ALBUTEROL NEBULIZED 2.5 MG/3 ML INHALATION PRN (11:15)
--- NOTE | 2021-12-11 12:10 | P.OP ---
Date of Procedure: 12/10/21 Preoperative Diagnosis: 1. 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 L1 lytic destructive lesion with stenosis and impending instability 3. T9-11 stenosis due to tumor mass 4. new onset paraplegia with T11 sensory level and LE paralysis 5. s/p Multiple fall from standing 6. Complex medical patient Postoperative Diagnosis: 1. 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 L1 lytic destructive lesion with stenosis and impending instability 3. T9-11 stenosis due to tumor mass 4. new onset paraplegia with T11 sensory level and LE paralysis 5. s/p Multiple fall from standing 6. Complex medical patient Procedure(s) Performed: Posterior midline 1. Laminectomy for biopsy/excision of intraspinal neoplasm; extradural thoracic T9, T10, T11 (45916) 2. Laminectomy for biopsy/excision of intraspinal neoplasm; extradural Lumbar L1 (86159) 3. Partial corpectomy L1 for resection and decompression of tumor material with biopsy and cement augmentation (25726, 46695) 3. Bilateral laminectomy with partial medial facetectomy and foraminotomy T9-L1 (44359, [id number]) 4. Transpedicular approach with decompression of spinal cord, cauda equina and nerve roots L1-2 (45856) 5. Segmental instrumentation T9-L3 for stabilization and fusion (09083) 6. Posteriolateral fusion T9-L3 (69013, 23263, [id number]) 8. Use of [employer] Solution 3D navigation for screw and hardware placement as well as tumor resection (86134) 7. Use of intraoperative neuromonitoring Implants: -T[employer] [place] scew and angela system -Allograft -MagnatOs -Cement Anesthesia: GETA Surgeon: Иван Hercules Business Continuity Specialist #1: Remigio Grover (Was present and assisted in all aspects of the case from positioning to exposure to hardware to decompression, closure and dressing. ) Estimated Blood Loss (ml): 350 IV fluids (ml): 1,200 Urine output (ml): 250 Pathology: other (T9-11 tumor mass, L1 tumor and biopsy, L1 epidural mass) Indications for Procedure: Lara Ayala is a 51 yo female presenting for evaluation of new onset LE weakness, inability to ambulate constipation, urinary retention, lower extremity numbness. It was my pleasure to have seen and examined Lara Ayala. In our visit today we have had a chance to go over subjective complaints, physical examination findings and treatments including the natural course history without intervention and various interventional options. The patients imaging demonstrates metastatic disease of the lower thoracic and lumbar spine with T9 through T11 vertebral body lesions as well as epidural lesions which have progressed. There is an L1 lytic lesion with left radicular and transverse process destruction extending into the left L4 vertebral body with moderate stenosis. On physical exam, Lara Ayala demonstrates new onset lower extremity weakness 2/5 with lower extremity numbness and tingling and essentially at T 11 sensory level. I have explained to the patient that as their condition progresses it will cause further neurological deficits and eventual paralysis. Based on the patients imaging, physical exam, and the rapid progression and disabling nature of their symptoms, at this time I recommend surgery in the form or a: T9 through L1 decompression with stabilization T11 to L3. I discussed the risk and benefits of this procedure at length with Lara Ayala. The patient and her agreed to considered pursuing the procedure abovementioned. Prior to surgery, she should follow up with her PCP (Cardio, ID, IM etc) for clearance. Questions were invited and answered, and the patient wishes to proceed as outlined below. Currently, I am recommendin. T9 through L1 decompression with stabilization T9 to L3 2. Follow up with PCP for surgical clearance 3. Review of surgical risks and benefits as well as an educational packet on the proposed surgical procedure. Description of Procedure: The patient was seen and examined in the preoperative area. All preoperative protocols were followed. Informed consent was obtained risks and benefits of the procedure were discussed at length. Risks including bleeding infection damage to the surrounding tissue and risk of reoperation were discussed with the patient. Risk of anesthesia up to and including was a discussed with the patient. These are outlined in the risk review. They were willing to accept these risks and all of the risks of surgery. The patient was given a weight-bas ed dose of antibiotics in the form of 2 g Ancef redosed every 4 hours. The patient was seen and evaluated by the anesthesia team who deemed them fit for surgery. The site was marked, the patient was willing to proceed with the procedure. The patient was transferred to the operative suite by the Department of anesthesia. They were then drifted off to sleep by the department anesthesia and GETA was performed. The patient tolerated this well. Kearns catheter was placed by nursing staff, atraumatically. Once confirmation of lines and ventilation the patient was transferred to a prone Devante table very carefully. All bony prominences including wrists, elbows, axilla, chest, hips, and thighs, and feet were padded very well. Special attention was paid to the genitalia and these were padded accordingly. SCDs were placed on bilateral lower extremities and were connected. Arms were well padded and placed on arm boards up and out in the 90/90 position. Once in position, again we confirmed good ventilation capabilities and that lines were running appropriately. The patient's thoracolumbar spine was then exposed. 1010s were placed outlining the incision site. Standard alcohol was used to clean the incision site and allowed to dry. C-arm was used to biomark the patient and confirm level for incision which was marked with a skin marker. Operative briefing was performed with all teams and everyone in agreement to proceed. The patient was then prepped and draped in a normal sterile fashion. Timeout was then performed and all parties were in agreement with the procedure to be performed. Midline skin incision was made over the previously bow marked area and dissection taken down to the level of the fascia which was identified in the thoracic or lumbar region. Midline fasciotomy was made and subperiosteal dissection was taken down over the lamina of T8 through L3. Lateral fluoroscopic image with Pelican 4 placed at L1-L2 confirmed levels for operation. We then exposed transverse processes from T9 through L3 these were then decorticated. Once exposure was completed the wound was irrigated and spinous processes clamp was placed on L3 4 [employer] 3-D navigation. Once it was secured a 3-D intraoperative computed tomography scan was registered and confirmed to be accurate once confirmed to be accurate bilateral screws were placed from L3 and L2 using a high-speed bur that was navigated followed by an awl tap that was navigated followed by a screwdriver which was navigated. The screws were measured and in between each step a ball probe was placed to confirm within the 4 kilpatrick of the pedicle. We skipped L1 as it was the tumorous level and destroyed on the left-hand side we then placed screws into T12 and T11 bilaterally using the same technique. Once screws were placed they were tested and all screws were stable and tested above 20 mA. AP image confirmed screws to be in good position. We then proceeded with decompression bilateral laminectomy partial medial facetectomy and foraminotomy was performed from T9 through T12 using high-speed bur as well as rongeuring Kerrison rongeur. Tumor mass was resected from T9 through T11 posteriorly in the posterior lateral recesses. She is done using pituitary Pelican 4 dissection off of the dura as well as Kerrison rongeurs. This tumor was removed and sent for pathology. We continue with her decompression down the L2 gait performing bilateral laminectomy complete facetectomy and foraminotomies at T12-L1 and L2 this allowed for decompression of the neural elements as well as removal of the tumor mass she is extending posteriorly on the left-hand side of L1. Once this was accomplished we did send this tumor mass as well for pathology. We then placed a temporary angela on the right-hand side spanning L1 as well as very unstable. We then performed transpedicular approach on the left-hand side to L1 for decompression of the neural elements as well as for removal of further tumor and biopsy. Once transpedicular approach was completed we performed partial corpectomy of L1 with a high-speed bur as well as pituitary rongeur. We removed the partial components of L1 and tumor from L1 in this approach. Once her satisfied with tumor removal in this area as well as decompression the area was augmented with cement under lateral fluoroscopic guidance. Cannula was placed into the vertebral body and cement was injected in this area is confirming good position on AP and lateral fluoroscopic imaging. We pressurize and compacted cement into this area ensure there was not epidural or placing any pressure. We then carefully meticulously dissected further out the nerve roots bilaterally at L1 removing tumor mass from them using Pelican 4 as well as sharp dissection. Ligamentous tissue was removed and the laminectomy was widened up to T11. This allowed for complete complete decompression of this area as well as remove for further tumor mass. Once this was completed we sized and selected rods for the area and bent them to shape. Left-hand angela was placed with set screws and reduced into position. Temporary angela was then removed from the right-hand side and final angela was selected bent and placed. All set screws were final tightened. We then selected cross-links and placed 3 cross links and these were final tightened. The wound was then copiously irrigated with 3 L of Ancef irrigation 3 L of gentamicin irrigation followed with 3 L of normal sterile saline. We then placed a mixture of MagnatOs and allograft in the posterior lateral gutters impacted into position. Surgicel was lightly placed over the dura. A deep drain was placed and sewn to position. 2 g of vancomycin prior placed deep within the wound. Final fluoroscopic images confirmed good placement of hardware as well as decompression and baptism of alignment. Then proceeded with layered closure first in the fascia with #1 PDS in a [id number] fashion. This is followed by deep subcu tissue closure with 0 Vicryl superficial subcu tissue closed with 2-0 Vicryl and skin closed with skin nicol. The wound edges approximated very well. The drain was sewn in place with PDS. Wound was then cleaned and dressed sterilely with operative foam dressing drain sponges and Tegaderm. The patient was transferred back to their hospital bed atraumatically. Drain continued to hold suction and were in good position. Patient was then awakened and extubated by the department of anesthesia having tolerated the procedure very well with no complications. They were transferred to the postoperative ca re unit in stable condition.
[2021-12-11] MEDS ORDERED: METOPROLOL TARTRATE 5 MG/5 ML VIAL IVP PRN (13:46)
--- NOTE | 2021-12-11 13:55 | P.PN ---
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 Patient states that she woke up in the morning and unable to move her legs. Patient also complaining of numbness. No bladder or bowel incontinence. No saddle anesthesia. Patient is having indwelling Kearns catheter. Patient was recently admitted to the hospital due to severe back pain due to metastatic lesions. Patient had MRI of the lumbar and thoracic spine was done recently. Radiation oncology has seen the patient and is scheduled for radiation on Friday morning. Patient had simulation done while in the hospital. X-ray of the lumbar spine showed no acute fracture. Multilevel disc disc degeneration. L1 vertebral body metastatic lesion not well appreciated. EKG showed sinus tachycardia Laboratory data showed WBC 16.6 hemoglobin 13.1 and platelets 7.8 Sodium 136 potassium 3.8 chloride 99 bicarb is 32 BUN 23 and creatinine 0.62 12/09/2021 Patient is still complaining of back pain and numbness and weakness in bilateral lower extremities. Afebrile. No complaints of chest pain or worsening shortness of breath. Patient is very anxious. No nausea vomiting or abdominal pain or diarrhea. Patient was seen by orthopedic surgery and is planning for [address] of the thoracic and lumbar spine showed large destructive lesion in the L1 vertebral body extending into the pedicles and face and joints and lamina r elated to metastatic disease. No change compared to recent exam. Bilateral hydronephrosis and demanding. Likely related to bladder obstruction. Dilated urinary bladder. Bladder extended up to L4 level. Kearns catheter will be inserted. Laboratory data showed WBC 16.7 hemoglobin 9.8 and platelets 326 Sodium 139 potassium 4.4 III bicarb is 24.7 BUN 18 and creatinine 0.6 and blood sugar 122. 12/11/21 patient seen and examined. Still having back pain. Denies any chest pain. Heart rate was elevated could be secondary to pain. Denies any nausea. Vital signs stable REVIEW OF SYSTEMS: CONSTITUTIONAL: No fever, no malaise HEENT: No recent visual problems or hearing problems. Denied any sore throat. CARDIOVASCULAR: No chest pain, orthopnea, PND, no palpitations, no syncope. PULMONARY: No shortness of breath, no cough, no hemoptysis. GASTROINTESTINAL: No diarrhea, no nausea, no vomiting, no abdominal pain. PHYSICAL EXAMINATION: GENERAL: The patient is alert and oriented x3, not in any acute distress. Well developed, well nourished. HEENT: Pupils are round and equally reacting to light. EOMI. No scleral icterus. No conjunctival pallor. Normocephalic, atraumatic. No pharyngeal erythema. No thyromegaly. CARDIOVASCULAR: S1 and S2 present. No murmurs, rubs, or gallops. PULMONARY: Chest is clear to auscultation, no wheezing or crackles. ABDOMEN: Soft, nontender, nondistended, normoactive bowel sounds. No palpable organomegaly. MUSCULOSKELETAL: No joint swelling or deformity. EXTREMITIES: No cyanosis, clubbing, or pedal edema. NEUROLOGICAL: Gross neurological examination did not reveal any focal deficits. SKIN: surgical incision seen in the back, no erythema, no drainage Assessment and plan s/p T9 through L1 decompression with stabilization T11 to L3 T9-T11 vertebral body lesions Metastatic lung carcinoma to spine L1 Lytic lesion new onset paraplegia with T11 sensory level and LE paralysis Constipation Urinary retention Severe back pain secondary to metastatic lesions Hydronephrosis with bladder outlet obstruction. Status post Kearns catheter placement. 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 Severe anxiety and depression bipolar disorder History of asthma Plan; Continue postop management per orthopedics Continue pain management Continue IV steroids Follow-up on oncology recommendations PT and OT evaluation DVT prophylaxis: SCDs Objective - Vital Signs Vital signs: Vital Signs Temp 98.1 F 12/11/21 12:00 Pulse 135 H 12/11/21 13:19 Resp 18 12/11/21 12:00 BP 105/62 12/11/21 12:00 Pulse Ox 99 12/11/21 12:00 FiO2 21 12/09/21 19:39 Intake & Output 12/10/21 12/11/21 12/11/21 18:59 06:59 18:59 Intake Total 2049 520 520 Output Total 2450 770 Balance 2049 -1929 -250 Intake: IV 2049 520 20 Invasive Line 2 10 10 Invasive Line 3 10 10 Oral 500 Output: Drainage 100 170 Lower 100 170 Urine 2000 600 Estimated Blood Loss 350 Other: Voiding Method Indwelling Catheter Indwelling Catheter - Labs CBC & Chem 7: 12/09/21 06:49 10/02/22 06:49
[2021-12-11] MEDS: MAGNESIUM HYDROXIDE 2,400 MG/10 ML CUP PO PRN (14:31)
[2021-12-11 16:09] LABS: Basophils # (A) 0.04 X 10*3/uL (0.00-0.10); Basophils % (A) 0.2 %; Eosinophils # (A) 0.01 X 10*3/uL (0.04-0.35); Eosinophils % (A) 0.1 %; HCT 31.6 % (37.2-46.3); Immature Grans, Automated 1.9 %; Lymphocytes # (A) 0.41 X 10*3/uL (0.90-5.00); Lymphocytes % (A) 2.3 %; MCH 31.9 pg (27.0-32.0); MCHC 31.6 g/dL (32.0-37.0); Mean Platelet Volume 11.1 fL (9.5-12.2); Monocytes # (A) 0.68 X 10*3/uL (0.20-1.00); Monocytes % (A) 3.8 %; NRBC Per 100 WBC 0 /100 WBCS (0.0-0.0); Neutrophils % (A) 91.7 %; Platelet Count 327 X 10*3/uL (140-440); RBC 3.13 X 10*6/uL (4.10-5.20); RDW 16.1 % (11.5-14.5); WBC 17.68 X 10*3/uL (4.50-10.00)
[2021-12-11 17:11] LABS: Glucose,Whole Blood 205 mg/dL (70-110)
[2021-12-11] MEDS ORDERED: DEXTROSE 50% SYRINGE 50 ML IVP PRN ×2 (17:22)
[2021-12-11] MEDS ORDERED: INSULIN ASPART (NovoLOG) 100 UNIT/ML VIAL SQ SCH (17:30)
[2021-12-11 17:36] LABS: African American GFR (CKD) 154.7 (60.0-200.0); Anion Gap 9.6 mmol/L (10.00-18.00); BUN/Creat Ratio 38.33 Ratio (12.00-20.00); Blood Urea Nitrogen 11.5 mg/dL (9.0-27.0); Carbon Dioxide 19.4 mmol/L (20.0-27.5); Non-African American GFR(CKD) 133.5 (60.0-200.0); Potassium 3.6 mmol/L (3.5-5.5)
[2021-12-11] MEDS: INSULIN ASPART (NovoLOG) 100 UNIT/ML VIAL SQ SCH ×2 (18:27→20:23)
--- NOTE | 2021-12-11 19:04 | P.PN ---
Subjective Progress Note Date: 12/11/21 Principal diagnosis: Spinal cord compression In f/u today pt has not regained any of her strength in her lower extremities nor her sensation of bladder. Pain is fairly well controlled. No fever, nausea or vomiting. Objective - Vital Signs Vital signs: Vital Signs Temp 98.1 F 12/11/21 12:00 Pulse 111 H 12/11/21 15:47 Resp 16 12/11/21 15:46 BP 115/85 12/11/21 15:47 Pulse Ox 94 L 12/11/21 15:47 FiO2 21 12/09/21 19:39 Intake & Output 12/10/21 12/11/21 12/11/21 18:59 06:59 18:59 Intake Total 2049 520 520 Output Total 2450 820 Balance 2049 -1929 Intake: IV 2049 520 20 Invasive Line 2 10 10 Invasive Line 3 10 10 Oral 500 Output: Drainage 100 220 Lower 100 220 Urine 2000 600 Estimated Blood Loss 350 Other: Voiding Method Indwelling Catheter Indwelling Catheter - Constitutional General appearance: Present: average body habitus, cooperative, no acute distress - EENT Eyes: Present: anicteric sclerae, EOMI, poor dentition ENT: Present: hearing grossly normal - Respiratory Respiratory: bilateral: diminished - Cardiovascular Rhythm: regular Heart sounds: normal: S1, S2 Abnormal Heart Sounds: Absent: systolic murmur, diastolic murmur, rub, S3 Gallop, S4 Gallop, click, other - Gastrointestinal General gastrointestinal: Present: decreased bowel sounds, soft - Integumentary Integumentary: Present: normal - Neurologic Neurologic Comment(s): Loss of tactile sensation in the lower extremities, into groin and lower abd Neurologic: Present: CNII-XII intact - Musculoskeletal Musculoskeletal Comment(s): BLE weakness - Psychiatric Psychiatric: Present: A&O x's 3, appropriate affect, intact judgment & insight - Labs CBC & Chem 7: 12/11/21 07:46 12/11/21 07:46 Labs: Abnormal Lab Results - Last 24 Hours (Table) 12/11/21 12/11/21 12/11/21 Range/Units 07:46 07:46 17:08 WBC 17.68 H (4.50-10.00) X 10*3/uL RBC 3.13 L (4.10-5.20) X 10*6/uL Hgb 10.0 L (12.0-15.0) g/dL Hct 31.6 L (37.2-46.3) % MCV 101.0 H (80.0-97.0) fL MCHC 31.6 L (32.0-37.0) g/dL RDW 16.1 H (11.5-14.5) % Immature Gran # 0.34 H (0.00-0.04) X 10*3/uL Neutrophils # 16.20 H (1.80-7.70) X 10*3/uL Lymphocytes # 0.41 L (0.90-5.00) X 10*3/uL Eosinophils # 0.01 L (0.04-0.35) X 10*3/uL Chloride 114 H (96-109) mmol/L Carbon Dioxide 19.4 L (20.0-27.5) mmol/L Anion Gap 9.60 L (10.00-18.00) mmol/L Creatinine 0.3 L (0.6-1.5) mg/dL BUN/Creatinine Ratio 38.33 H (12.00-20.00) Ratio POC Glucose (mg/dL) 205 H (70-110) mg/dL Calcium 6.4 L* (8.7-10.3) mg/dL - Imaging and Cardiology Spine CT reports reviewed Assessment and Plan (1) Spinal cord compression Current Visit: Yes Status: Acute Priority: High Code(s): G95.20 - UNSPECIFIED CORD COMPRESSION SNOMED Code(s): 71095585 (2) Intractable back pain Current Visit: Yes Status: Acute Priority: High Code(s): M54.9 - DORSALGIA, UNSPECIFIED SNOMED Code(s): 973860144 (3) Lung cancer metastatic to bone Current Visit: Yes Status: Acute Priority: High Code(s): C34.90 - MALIGNANT NEOPLASM OF UNSP PART OF UNSP BRONCHUS OR LUNG; C79.51 - SECONDARY MALIGNANT NEOPLASM OF BONE SNOMED Code(s): 430632975 Plan: Pt is s/p extensive spinal surgery. No sensation or function gained yet. She continues on steroids. Path pending. Pending response to surgical intervention. Hopeful that pt will be able to rehab Cont pain mgmt Cont bowel regimen and close monitoring of BM Pt did have her 1st cycle of libtayo. Attests:I have seen and examined pt, performed H&P, developed impression and plan of care. Discussed with dictator. Agree with documentation, dictated as a scribe.
[2021-12-11 20:06] LABS: Glucose,Whole Blood 125 mg/dL (70-110)
[2021-12-11] MEDS: traZODone HCL 100 MG TAB PO SCH (21:12)
[2021-12-11] MEDS ORDERED: bisacodyL 10 MG SUPP RECTAL PRN (22:01)
[2021-12-11] MEDS ORDERED: LACTULOSE 20 GM/30 ML CUP PO PRN (22:02)
[2021-12-12] MEDS: HYDROcodone/APAP 10-325MG 1 EACH TAB PO SCH ×6 (00:41→20:57)
[2021-12-12] MEDS: DEXAMETHASONE SOD PHOSPHATE 10 MG/ML 1 ML VIAL IVP SCH ×6 (00:42→20:54)
[2021-12-12] MEDS: HYDROmorphone 0.5 MG/0.5 ML SYRINGE IVP PRN ×4 (04:09→16:18)
[2021-12-12] MEDS: CALCIUM CARB-VIT D 500 MG-5 MCG TAB PO SCH ×2 (05:49→16:17)
[2021-12-12 06:09] LABS: Glucose,Whole Blood 187 mg/dL (70-110)
[2021-12-12] MEDS: INSULIN ASPART (NovoLOG) 100 UNIT/ML VIAL SQ SCH ×4 (06:21→20:56)
[2021-12-12] MEDS: ALBUTEROL NEBULIZED 2.5 MG/3 ML INHALATION PRN (08:11)
[2021-12-12] MEDS: lamoTRIgine 100 MG TAB PO SCH ×2 (08:35→20:57)
[2021-12-12] MEDS: polyethylene glycoL 3350 17 GM POWD.PACK PO SCH (08:35)
[2021-12-12] MEDS: ENOXAPARIN 40 MG/0.4 ML SYRINGE SQ SCH (08:35)
[2021-12-12] MEDS: LACTOBACILLUS ACIDOPH & BULGAR 1 EACH PACKET PO SCH (08:35)
[2021-12-12] MEDS: SENNOSIDES 8.6 MG TAB PO SCH (08:35)
[2021-12-12] MEDS: MULTIVITAMINS, THERA 1 EACH TAB PO SCH (08:36)
[2021-12-12] MEDS: DOCUSATE 100 MG CAP PO SCH ×2 (08:36→20:57)
[2021-12-12] MEDS: PARoxetine 20 MG TAB PO SCH (08:36)
[2021-12-12] MEDS: SODIUM CHLORIDE 0.9% 1,000 ML IV SCH (08:36)
[2021-12-12] MEDS: MAGNESIUM OXIDE 400 MG TAB PO SCH (08:36)
[2021-12-12] MEDS: PALIPERIDONE 6 MG TAB.ER.24 PO SCH (08:37)
[2021-12-12] MEDS: VARENICLINE 1 MG TAB PO SCH ×2 (09:54→20:58)
[2021-12-12] MEDS: LIDOCAINE 5% PATCH TOPICAL SCH (09:54)
[2021-12-12] MEDS: MORPHINE SULFATE ER 30 MG TABLET PO SCH ×3 (09:54→22:46)
[2021-12-12 10:10] LABS: Calcium 6.4 mg/dL (8.7-10.3)
[2021-12-12 10:38] LABS: Basophils % (A) 0 %; Eosinophils % (A) 0 %; HCT 29.7 % (34.0-46.0); Lymphocytes # (A) 0.5 k/uL (1.0-4.8); Lymphocytes % (A) 3 %; MCH 30.9 pg (25.0-35.0); MCHC 31.9 g/dL (31.0-37.0); Mean Platelet Volume 9.3; Monocytes # (A) 0.5 k/uL (0-1.0); Monocytes % (A) 3 %; Neutrophils % (A) 94 %; Platelet Count 310 k/uL (150-450); RBC 3.06 m/uL (3.80-5.40); RDW 15.1 % (11.5-15.5); WBC 18.1 k/uL (3.8-10.6)
[2021-12-12 10:39] LABS: HGB 9.5 gm/dL (11.4-16.0)
[2021-12-12 10:49] LABS: African American GFR (CKD) >90 (>60 ml/min/1.73 sqM); Anion Gap 9 mmol/L; Blood Urea Nitrogen 13 mg/dL (7-17); Calcium 6.7 mg/dL (8.4-10.2); Carbon Dioxide 21 mmol/L (22-30); Chloride 109 mmol/L (98-107); Glucose 132 mg/dL (74-99); Non-African American GFR(CKD) >90 (>60 ml/min/1.73 sqM); Potassium 3.7 mmol/L (3.5-5.1); Sodium 139 mmol/L (137-145)
[2021-12-12 11:36] LABS: Glucose,Whole Blood 192 mg/dL (70-110)
--- NOTE | 2021-12-12 13:06 | P.PN ---
Subjective Progress Note Date: 12/12/21 Principal diagnosis: Low back pain T9 through T11 vertebral body lesions L1 Lytic lesion Patient seen and examined at bedside. Patient is lying semi-recumbent in bed visiting with family. Patient reports pain is managed at this time, but continues to express pain with movement. Patient remains with sensation to the T11 level, just below the umbilicus. Pateint states she has worked with PT and felt she was able to balance herself better today, but denies feeling any sensation to buttock or BLE. Patient reports not having a BM in 13 days. Bowel regimen has been ordered. Prafo boots are present to BLE. Surgical dressing is CDI, hemovac present to the right of the incision intact and compressed. De Los Santos catheter remains patent. Patient denies fever/chills, shortness of breath, or chest pain. Objective - Vital Signs Vital signs: Vital Signs Temp 97.6 F 12/12/21 12:00 Pulse 109 H 12/12/21 12:00 Resp 18 12/12/21 12:00 BP 117/69 12/12/21 12:00 Pulse Ox 95 12/12/21 12:00 FiO2 21 12/09/21 19:39 Intake & Output 12/11/21 12/12/21 12/12/21 18:59 06:59 18:59 Intake Total 520 20 500 Output Total 820 1310 50 Balance -300 -1290 450 Intake: IV 20 20 Invasive Line 2 10 10 Invasive Line 3 10 10 Oral 500 500 Output: Drainage 220 110 50 Lower 220 110 50 Urine 600 1200 Other: Voiding Method Indwelling Catheter Indwelling Catheter Indwelling Catheter - Exam Physical Examination General: The patient is awake and alert, in no acute distress Skin: Skin is warm and dry with no obvious rashes or lesions. Hairy patches absent, no dorsal skin dimples, no cafe au lait spots. Surgical incision to thoracic and lumbar region, Hemovac to the right of the incision intact and patent. Eye: Pupils are equal, round and reactive to light, extra-ocular movements are intact; there is normal conjunctiva bilaterally. Neck: The neck is supple, there is no tenderness and ROM intact. Cardiovascular: There is a regular rate and rhythm. No murmur, rub or gallop is appreciated. Respiratory: Lungs are clear to auscultation, respirations are non-labored, breath sounds are equal. Gastrointestinal: Soft, non-distended, non-tender abdomen . Back: There is tenderness to palpation in the paralumbar, parathoracic region. There is no obvious deformity . Musculoskeletal: ROM limited secondary to pain and stiffness from surgical procedure. Shoulder abduction 5/5, elbow flexors 5/5, wrist dorsiflexors 5/5. finger abductor 5/5, toll repairer central office 5/5, hip flexor 0/5, knee flexor 0/5, ankle dorsiflexor 0/5, ankle plantarflexion 0/5 and extensor hallucis 0/5. Neurological: CN 2-12 intact. Patient is having light touch sensation to the level of T11,the umbilicus. She is unable to feel her buttock or bilateral lower extremities, unable to contract muscles. Movement and coordination equal and intact in upper extremities. Reflexes 2/4 in bilateral upper extremities. Negative Hoffmans, babinski, and clonus signs. Psychiatric: Cooperative, appropriate mood & affect, normal judgment. - Labs CBC & Chem 7: 12/12/21 08:16 12/12/21 08:16 Labs: Abnormal Lab Results - Last 24 Hours (Table) 12/11/21 12/11/21 12/11/21 Range/Units 07:46 07:46 17:08 WBC 17.68 H (4.50-10.00) X 10*3/uL RBC 3.13 L (4.10-5.20) X 10*6/uL Hgb 10.0 L (12.0-15.0) g/dL Hct 31.6 L (37.2-46.3) % MCV 101.0 H (80.0-97.0) fL MCHC 31.6 L (32.0-37.0) g/dL RDW 16.1 H (11.5-14.5) % Immature Gran # 0.34 H (0.00-0.04) X 10*3/uL Neutrophils # 16.20 H (1.80-7.70) X 10*3/uL Lymphocytes # 0.41 L (0.90-5.00) X 10*3/uL Eosinophils # 0.01 L (0.04-0.35) X 10*3/uL Chloride 114 H (96-109) mmol/L Carbon Dioxide 19.4 L (20.0-27.5) mmol/L Anion Gap 9.60 L (10.00-18.00) mmol/L Creatinine 0.3 L (0.6-1.5) mg/dL BUN/Creatinine Ratio 38.33 H (12.00-20.00) Ratio Glucose (74-99) mg/dL POC Glucose (mg/dL) 205 H (70-110) mg/dL Calcium 6.4 L* (8.7-10.3) mg/dL 12/11/21 12/12/21 12/12/21 Range/Units 20:05 06:07 08:16 WBC 18.1 H (4.50-10.00) X 10*3/uL RBC 3.06 L (4.10-5.20) X 10*6/uL Hgb 9.5 L D (12.0-15.0) g/dL Hct 29.7 L (37.2-46.3) % MCV (80.0-97.0) fL MCHC (32.0-37.0) g/dL RDW (11.5-14.5) % Immature Gran # (0.00-0.04) X 10*3/uL Neutrophils # 17.0 H (1.80-7.70) X 10*3/uL Lymphocytes # 0.5 L (0.90-5.00) X 10*3/uL Eosinophils # (0.04-0.35) X 10*3/uL Chloride (96-109) mmol/L Carbon Dioxide (20.0-27.5) mmol/L Anion Gap (10.00-18.00) mmol/L Creatinine (0.6-1.5) mg/dL BUN/Creatinine Ratio (12.00-20.00) Ratio Glucose (74-99) mg/dL POC Glucose (mg/dL) 125 H 187 H (70-110) mg/dL Calcium (8.7-10.3) mg/dL 12/12/21 12/12/21 Range/Units 08:16 11:35 WBC (4.50-10.00) X 10*3/uL RBC (4.10-5.20) X 10*6/uL Hgb (12.0-15.0) g/dL Hct (37.2-46.3) % MCV (80.0-97.0) fL MCHC (32.0-37.0) g/dL RDW (11.5-14.5) % Immature Gran # (0.00-0.04) X 10*3/uL Neutrophils # (1.80-7.70) X 10*3/uL Lymphocytes # (0.90-5.00) X 10*3/uL Eosinophils # (0.04-0.35) X 10*3/uL Chloride 109 H (96-109) mmol/L Carbon Dioxide 21 L (20.0-27.5) mmol/L Anion Gap (10.00-18.00) mmol/L Creatinine 0.38 L (0.6-1.5) mg/dL BUN/Creatinine Ratio (12.00-20.00) Ratio Glucose 132 H (74-99) mg/dL POC Glucose (mg/dL) 192 H (70-110) mg/dL Calcium 6.7 L (8.7-10.3) mg/dL Assessment and Plan Assessment: s/p Post-Op day 1 T9 through L1 decompression with stabilization T11 to L3 T9-T11 vertebral body lesions L1 Lytic lesion New onset BLE weakness Inability to ambulate Constipation Urinary retention Lower extremity numbness Plan: Plan: -Appreciate credit consultant and team management. -Activity: Ambulate QID, OOB all meals, up and about, limit lifting bending twisting to less than 5 lbs. Use madan lift when necessary. -Daily PT/OT, increase ambulation strength and balance. -Brace when up and about, not needed in bed or chair -Maintain PRAFO boots -Pain control: Adequate at this time -Meds: reviewed -GI ppx: senna, Miralax, enema -Maintain de los santos catheter -DVT PPX: Heparin -Hygiene: Maintain dressing clean and dry. Meticulous cleaning after BMs away from the incision site -Drains: Maintain for now. -Encourage IS 10x/hr -Dispo: Anticipate discharge home with homecare vs [facility] *I reviewed and discussed this case with my attending Dr. Hercules, whom has reviewed this chart and films and is in agreement with assessment and plan of care as outlined above. I have personally seen and examined the patient, performed the documentation and the assessment and plan as written. Number of minutes spent on the visit: 20m.
--- NOTE | 2021-12-12 13:36 | P.PN ---
Subjective Progress Note Date: 12/12/21 Patient is a 51-year-old female with a known history of metastatic lung cancer with mets to spine, asthma/COPD and current everyday smoker, anxiety/depression bipolar disorder and other medical problems presents to ER with complaints of bilateral lower extremity weakness. Patient states that she woke up in the morning and unable to move her legs. Patient also complaining of numbness. No bladder or bowel incontinence. No saddle anesthesia. Patient is having indwelling Kearns catheter. Patient was recently admitted to the hospital due to severe back pain due to metastatic lesions. Patient had MRI of the lumbar and thoracic spine was done recently. Radiation oncology has seen the patient and is scheduled for radiation on Friday morning. Patient had simulation done while in the hospital. X-ray of the lumbar spine showed no acute fracture. Multilevel disc disc degeneration. L1 vertebral body metastatic lesion not well appreciated. EKG showed sinus tachycardia Laboratory data showed WBC 16.6 hemoglobin 13.1 and platelets 7.8 Sodium 136 potassium 3.8 chloride 99 bicarb is 32 BUN 23 and creatinine 0.62 12/09/2021 Patient is still complaining of back pain and numbness and weakness in bilateral lower extremities. Afebrile. No complaints of chest pain or worsening shortness of breath. Patient is very anxious. No nausea vomiting or abdominal pain or diarrhea. Patient was seen by orthopedic surgery and is planning for [address] of the thoracic and lumbar spine showed large destructive lesion in the L1 vertebral body extending into the pedicles and face and joints and lamina r elated to metastatic disease. No change compared to recent exam. Bilateral hydronephrosis and demanding. Likely related to bladder obstruction. Dilated urinary bladder. Bladder extended up to L4 level. Kearns catheter will be inserted. Laboratory data showed WBC 16.7 hemoglobin 9.8 and platelets 326 Sodium 139 potassium 4.4 III bicarb is 24.7 BUN 18 and creatinine 0.6 and blood sugar 122. 12/11/21 patient seen and examined. Still having back pain. Denies any chest pain. Heart rate was elevated could be secondary to pain. Denies any nausea. Vital signs stable 12/12/21. Patient seen and examined. Patient was very tearful. Discussed with patient regarding her present condition, answered all questions. Patient has not had a bowel movement yet. Patient also has no sensations below her umbilicus area. Still has a drain in place REVIEW OF SYSTEMS: CONSTITUTIONAL: No fever, no malaise CARDIOVASCULAR: No chest pain, orthopnea, PND, no palpitations, no syncope. PULMONARY: No shortness of breath, no cough, no hemoptysis. GASTROINTESTINAL: No diarrhea, no nausea, no vomiting, no abdominal pain. Complaining of constipation PHYSICAL EXAMINATION: GENERAL: The patient is alert and oriented x3, not in any acute distress. Well developed, well nourished. HEENT: Pupils are round and equally reacting to light. EOMI. No scleral icterus. No conjunctival pallor. Normocephalic, atraumatic. No pharyngeal erythema. No thyromegaly. CARDIOVASCULAR: S1 and S2 present. No murmurs, rubs, or gallops. PULMONARY: Chest is clear to auscultation, no wheezing or crackles. ABDOMEN: Soft, nontender, nondistended, normoactive bowel sounds. No palpable organomegaly. MUSCULOSKELETAL: No joint swelling or deformity. EXTREMITIES: No cyanosis, clubbing, or pedal edema. NEUROLOGICAL: Patient has no movement HER legs, no sensations below T 11 area. Moving upper extremities SKIN: surgical incision seen in the back, no erythema,, drain in place Assessment and plan s/p T9 through L1 decompression with stabilization T11 to L3 T9-T11 vertebral body lesions Metastatic lung carcinoma to spine L1 Lytic lesion new onset paraplegia with T11 sensory level and LE paralysis Constipation Urinary retention Severe back pain secondary to metastatic lesions Hydronephrosis with bladder outlet obstruction. Status post Kearns catheter placement. 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 Severe anxiety and depression bipolar disorder History of asthma Plan; Continue postop management per orthopedics Continue pain management Continue IV steroids Continue bowel regimen X-rays abdomin ordered Follow-up on oncology recommendations PT and OT evaluation DVT prophylaxis: SCDs Objective - Vital Signs Vital signs: Vital Signs Temp 97.6 F 12/12/21 12:00 Pulse 109 H 12/12/21 12:00 Resp 18 12/12/21 12:00 BP 117/69 12/12/21 12:00 Pulse Ox 95 12/12/21 12:00 FiO2 21 12/09/21 19:39 Intake & Output 12/11/21 12/12/21 12/12/21 18:59 06:59 18:59 Intake Total 520 20 500 Output Total 820 1310 650 Balance -300 -1290 -150 Intake: IV 20 20 Invasive Line 2 10 10 Invasive Line 3 10 10 Oral 500 500 Output: Drainage 220 110 50 Lower 220 110 50 Urine 600 1200 600 Other: Voiding Method Indwelling Catheter Indwelling Catheter Indwelling Catheter - Labs CBC & Chem 7: 12/12/21 08:16 12/12/21 08:16 Labs: Abnormal Lab Results - Last 24 Hours (Table) 12/11/21 12/11/21 12/11/21 Range/Units 07:46 07:46 17:08 WBC 17.68 H (4.50-10.00) X 10*3/uL RBC 3.13 L (4.10-5.20) X 10*6/uL Hgb 10.0 L (12.0-15.0) g/dL Hct 31.6 L (37.2-46.3) % MCV 101.0 H (80.0-97.0) fL MCHC 31.6 L (32.0-37.0) g/dL RDW 16.1 H (11.5-14.5) % Immature Gran # 0.34 H (0.00-0.04) X 10*3/uL Neutrophils # 16.20 H (1.80-7.70) X 10*3/uL Lymphocytes # 0.41 L (0.90-5.00) X 10*3/uL Eosinophils # 0.01 L (0.04-0.35) X 10*3/uL Chloride 114 H (96-109) mmol/L Carbon Dioxide 19.4 L (20.0-27.5) mmol/L Anion Gap 9.60 L (10.00-18.00) mmol/L Creatinine 0.3 L (0.6-1.5) mg/dL BUN/Creatinine Ratio 38.33 H (12.00-20.00) Ratio Glucose (74-99) mg/dL POC Glucose (mg/dL) 205 H (70-110) mg/dL Calcium 6.4 L* (8.7-10.3) mg/dL 12/11/21 12/12/21 12/12/21 Range/Units 20:05 06:07 08:16 WBC 18.1 H (4.50-10.00) X 10*3/uL RBC 3.06 L (4.10-5.20) X 10*6/uL Hgb 9.5 L D (12.0-15.0) g/dL Hct 29.7 L (37.2-46.3) % MCV (80.0-97.0) fL MCHC (32.0-37.0) g/dL RDW (11.5-14.5) % Immature Gran # (0.00-0.04) X 10*3/uL Neutrophils # 17.0 H (1.80-7.70) X 10*3/uL Lymphocytes # 0.5 L (0.90-5.00) X 10*3/uL Eosinophils # (0.04-0.35) X 10*3/uL Chloride (96-109) mmol/L Carbon Dioxide (20.0-27.5) mmol/L Anion Gap (10.00-18.00) mmol/L Creatinine (0.6-1.5) mg/dL BUN/Creatinine Ratio (12.00-20.00) Ratio Glucose (74-99) mg/dL POC Glucose (mg/dL) 125 H 187 H (70-110) mg/dL Calcium (8.7-10.3) mg/dL 12/12/21 12/12/21 Range/Units 08:16 11:35 WBC (4.50-10.00) X 10*3/uL RBC (4.10-5.20) X 10*6/uL Hgb (12.0-15.0) g/dL Hct (37.2-46.3) % MCV (80.0-97.0) fL MCHC (32.0-37.0) g/dL RDW (11.5-14.5) % Immature Gran # (0.00-0.04) X 10*3/uL Neutrophils # (1.80-7.70) X 10*3/uL Lymphocytes # (0.90-5.00) X 10*3/uL Eosinophils # (0.04-0.35) X 10*3/uL Chloride 109 H (96-109) mmol/L Carbon Dioxide 21 L (20.0-27.5) mmol/L Anion Gap (10.00-18.00) mmol/L Creatinine 0.38 L (0.6-1.5) mg/dL BUN/Creatinine Ratio (12.00-20.00) Ratio Glucose 132 H (74-99) mg/dL POC Glucose (mg/dL) 192 H (70-110) mg/dL Calcium 6.7 L (8.7-10.3) mg/dL
--- NOTE | 2021-12-12 14:17 | XR ---
EXAMINATION TYPE: XR abdomen 1V DATE OF EXAM: 12/12/2021 10:51 AM INDICATION: Patient age:Female; 51 years old; Reason for study: constipation; COMPARISON: KUB 01/15/2014. TECHNIQUE: One radiographic view of the abdomen was obtained. FINDINGS: Persistent large stool burden throughout the colon measuring up to 5.0 cm. Post surgical ch anges to the spine with skin nicol noted. Spinal hardware appears intact. Vertebroplasty changes ar e also present. No definite evidence of bowel obstruction. IMPRESSION: Large stool burden throughout the colon correlate for ileus in setting of recent surgery.
[2021-12-12 16:12] LABS: Glucose,Whole Blood 270 mg/dL (70-110)
[2021-12-12 20:47] LABS: Glucose,Whole Blood 180 mg/dL (70-110)
[2021-12-12] MEDS: HYDROmorphone 1 MG/ML 1 ML SYRINGE IVP PRN (20:55)
[2021-12-12] MEDS: traZODone HCL 100 MG TAB PO SCH (20:57)
[2021-12-13] MEDS: HYDROcodone/APAP 10-325MG 1 EACH TAB PO SCH ×6 (00:06→20:07)
[2021-12-13] MEDS: DEXAMETHASONE SOD PHOSPHATE 10 MG/ML 1 ML VIAL IVP SCH ×6 (00:06→20:07)
[2021-12-13] MEDS: ONDANSETRON 4 MG/2 ML VIAL IVP PRN ×2 (04:12→20:15)
[2021-12-13] MEDS: HYDROmorphone 1 MG/ML 1 ML SYRINGE IVP PRN ×3 (05:37→21:08)
[2021-12-13] MEDS: SODIUM CHLORIDE 0.9% 1,000 ML IV SCH ×2 (05:38→07:58)
[2021-12-13 06:30] LABS: Glucose,Whole Blood 164 mg/dL (70-110)
[2021-12-13] MEDS: INSULIN ASPART (NovoLOG) 100 UNIT/ML VIAL SQ SCH ×4 (06:36→21:07)
[2021-12-13] MEDS: CALCIUM CARB-VIT D 500 MG-5 MCG TAB PO SCH ×2 (06:36→16:49)
[2021-12-13] MEDS: ENOXAPARIN 40 MG/0.4 ML SYRINGE SQ SCH (07:54)
[2021-12-13] MEDS: PARoxetine 20 MG TAB PO SCH (07:55)
[2021-12-13] MEDS: LACTOBACILLUS ACIDOPH & BULGAR 1 EACH PACKET PO SCH (07:55)
[2021-12-13] MEDS: MAGNESIUM OXIDE 400 MG TAB PO SCH (07:55)
[2021-12-13] MEDS: DOCUSATE 100 MG CAP PO SCH (07:55)
[2021-12-13] MEDS: lamoTRIgine 100 MG TAB PO SCH ×2 (07:55→20:08)
[2021-12-13] MEDS: polyethylene glycoL 3350 17 GM POWD.PACK PO SCH (07:55)
[2021-12-13] MEDS: SENNOSIDES 8.6 MG TAB PO SCH (07:55)
[2021-12-13] MEDS: MORPHINE SULFATE ER 30 MG TABLET PO SCH ×3 (07:56→20:07)
[2021-12-13] MEDS: LIDOCAINE 5% PATCH TOPICAL SCH (07:56)
[2021-12-13] MEDS: PALIPERIDONE 6 MG TAB.ER.24 PO SCH (07:57)
[2021-12-13] MEDS: VARENICLINE 1 MG TAB PO SCH ×2 (08:00→20:08)
[2021-12-13] MEDS: MULTIVITAMINS, THERA 1 EACH TAB PO SCH (08:01)
[2021-12-13 08:48] LABS: Basophils % (A) 0 %; Eosinophils % (A) 0 %; HGB 10.1 gm/dL (11.4-16.0); Lymphocytes # (A) 0.4 k/uL (1.0-4.8); Lymphocytes % (A) 2 %; MCH 30.8 pg (25.0-35.0); MCHC 31.6 g/dL (31.0-37.0); MCV 97.3 fL (80.0-100.0); Mean Platelet Volume 8.7; Monocytes # (A) 0.6 k/uL (0-1.0); Monocytes % (A) 3 %; Neutrophils # (A) 18.3 k/uL (1.3-7.7); Neutrophils % (A) 94 %; Platelet Count 323 k/uL (150-450); RBC 3.29 m/uL (3.80-5.40); RDW 15.1 % (11.5-15.5); WBC 19.5 k/uL (3.8-10.6)
[2021-12-13 08:58] LABS: ALT 28 U/L (4-34); AST 24 U/L (14-36); African American GFR (CKD) >90 (>60 ml/min/1.73 sqM); Albumin 2.6 g/dL (3.5-5.0); Alkaline Phosphatase 114 U/L (38-126); Anion Gap 6 mmol/L; Blood Urea Nitrogen 13 mg/dL (7-17); Calcium 7.6 mg/dL (8.4-10.2); Carbon Dioxide 26 mmol/L (22-30); Chloride 106 mmol/L (98-107); Glucose 137 mg/dL (74-99); Non-African American GFR(CKD) >90 (>60 ml/min/1.73 sqM); Potassium 4.2 mmol/L (3.5-5.1); Sodium 138 mmol/L (137-145); Total Bilirubin 0.3 mg/dL (0.2-1.3); Total Protein 4.6 g/dL (6.3-8.2)
--- NOTE | 2021-12-13 09:43 | XR ---
EXAMINATION TYPE: XR abdomen 2V DATE OF EXAM: 12/13/2021 COMPARISON: NONE HISTORY: Pain TECHNIQUE: One view abdominal series FINDINGS: The osseous structures are intact. The bowel gas pattern is nonspecific. Postsurgical change overlyi ng the lumbar vertebral column. Surgical nicol noted is extensive retained fecal debris throughout the colon. Surgical changes in the pelvis. Lung bases clear. Prominent bowel loop in the midabdomen w hich may be small bowel could be related to sentinel loop or localized ileus. A prominent gastric ang ble. IMPRESSION: 1. Correlate for severe constipation.
--- NOTE | 2021-12-13 10:55 | P.PN ---
Subjective Progress Note Date: 12/13/21 Principal diagnosis: status post T9-L3 decompression and fusion, tumor resection at L1 Patient was evaluated today for site, she is resting comfortably in her hospital bed. She notes no changes with regards to the sensation and motor function in the bilateral lower extremities. They have been working on the severe constipation, she did receive an enema yesterday. There's been no notable bowel movement at this time. She does note some discomfort in the back in her incisio n. The drain was noted to severely decrease in output. She denies any headaches, lightheadedness, chest pain or shortness of breath. Objective - Vital Signs Vital signs: Vital Signs Temp 98.0 F 12/13/21 07:50 Pulse 94 12/13/21 07:50 Resp 18 12/13/21 07:50 BP 151/84 12/13/21 07:50 Pulse Ox 91 L 12/13/21 07:50 FiO2 21 12/09/21 19:39 Intake & Output 12/12/21 12/13/21 12/13/21 18:59 06:59 18:59 Intake Total 618 Output Total 710 1610 Balance -92 -1610 Intake: Oral 618 Output: Drainage 110 10 Lower 110 10 Urine 600 1600 Other: Voiding Method Indwelling Catheter Indwelling Catheter Indwelling Catheter # Bowel Movements 1 - Exam Gen: AOx3, NAD VSS stable at this time Integument: Postop bandage and drain were removed today bedside. Barb are in good position and condition, no drainage was noted. No fluctuance was appreciated around the drain site or incision. New postoperative bandage was placed Palpation: She demonstrates mild tenderness with palpation to the paraspinal region of the thoracic/lumbar region ROM: Full range of motion in all major muscle groups of bilateral upper extremities Patient continues to demonstrate no motor function in the bilateral lower extremities Sensory Exam: Senory exam to light touch is intact C5-T1 Sensory exam remains intact at the T11 nerve distribution Motor: 55 strength appreciated in the bilateral upper extremities shoulder abduction, full shoulder elevation, elbow extension, elbow flexion, wrist extension, wrist flexion, film coater - Labs CBC & Chem 7: 12/13/21 07:45 12/13/21 07:45 Labs: Abnormal Lab Results - Last 24 Hours (Table) 12/12/21 12/12/21 12/12/21 Range/Units 11:35 16:07 20:43 WBC (3.8-10.6) k/uL RBC (3.80-5.40) m/uL Hgb (11.4-16.0) gm/dL Hct (34.0-46.0) % Neutrophils # (1.3-7.7) k/uL Lymphocytes # (1.0-4.8) k/uL Creatinine (0.52-1.04) mg/dL Glucose (74-99) mg/dL POC Glucose (mg/dL) 192 H 270 H 180 H (70-110) mg/dL Calcium (8.4-10.2) mg/dL Total Protein (6.3-8.2) g/dL Albumin (3.5-5.0) g/dL 12/13/21 12/13/21 12/13/21 Range/Units 06:28 07:45 07:45 WBC 19.5 H (3.8-10.6) k/uL RBC 3.29 L (3.80-5.40) m/uL Hgb 10.1 L (11.4-16.0) gm/dL Hct 32.0 L (34.0-46.0) % Neutrophils # 18.3 H (1.3-7.7) k/uL Lymphocytes # 0.4 L (1.0-4.8) k/uL Creatinine 0.39 L (0.52-1.04) mg/dL Glucose 137 H (74-99) mg/dL POC Glucose (mg/dL) 164 H (70-110) mg/dL Calcium 7.6 L (8.4-10.2) mg/dL Total Protein 4.6 L (6.3-8.2) g/dL Albumin 2.6 L (3.5-5.0) g/dL Assessment and Plan Assessment: Postoperative day #3 status post T9-L3 decompression with posterior lateral fusion, tumor resection at L1 Metastatic lung carcinoma Other medical comorbidities Plan: Pain control, continue use of current medical regimen DVT prophylaxis per primary medical service Wound care, dressings were changed today, drain was removed. Continue to utilize silver dressing, recommend changing every 3 days. Continue to adjust/role patient every 2-3 hours to take pressure off the incision PT/OT for upper extremity strengthening Continue with current medicines for bowel regimen Other medical specialty recommendations We will continue to follow patient during inpatient stay Time with Patient: Less than 30
[2021-12-13] MEDS: SENNOSIDES-DOCUSATE SODIUM 1 EACH TAB PO SCH ×2 (11:22→20:08)
[2021-12-13 11:25] LABS: Glucose,Whole Blood 163 mg/dL (70-110)
[2021-12-13] MEDS: HYDROmorphone 0.5 MG/0.5 ML SYRINGE IVP PRN (12:16)
[2021-12-13 13:01] VITALS: BMI 22.6
--- NOTE | 2021-12-13 13:16 | P.PN ---
Subjective Progress Note Date: 12/13/21 Patient is a 51-year-old female with a known history of metastatic lung cancer with mets to spine, asthma/COPD and current everyday smoker, anxiety/depression bipolar disorder and other medical problems presents to ER with complaints of bilateral lower extremity weakness. Patient states that she woke up in the morning and unable to move her legs. Patient also complaining of numbness. No bladder or bowel incontinence. No saddle anesthesia. Patient is having indwelling Kearns catheter. Patient was recently admitted to the hospital due to severe back pain due to metastatic lesions. Patient had MRI of the lumbar and thoracic spine was done recently. Radiation oncology has seen the patient and is scheduled for radiation on Friday morning. Patient had simulation done while in the hospital. X-ray of the lumbar spine showed no acute fracture. Multilevel disc disc degeneration. L1 vertebral body metastatic lesion not well appreciated. EKG showed sinus tachycardia Laboratory data showed WBC 16.6 hemoglobin 13.1 and platelets 7.8 Sodium 136 potassium 3.8 chloride 99 bicarb is 32 BUN 23 and creatinine 0.62 12/09/2021 Patient is still complaining of back pain and numbness and weakness in bilateral lower extremities. Afebrile. No complaints of chest pain or worsening shortness of breath. Patient is very anxious. No nausea vomiting or abdominal pain or diarrhea. Patient was seen by orthopedic surgery and is planning for [address] of the thoracic and lumbar spine showed large destructive lesion in the L1 vertebral body extending into the pedicles and face and joints and lamina r elated to metastatic disease. No change compared to recent exam. Bilateral hydronephrosis and demanding. Likely related to bladder obstruction. Dilated urinary bladder. Bladder extended up to L4 level. Kearns catheter will be inserted. Laboratory data showed WBC 16.7 hemoglobin 9.8 and platelets 326 Sodium 139 potassium 4.4 III bicarb is 24.7 BUN 18 and creatinine 0.6 and blood sugar 122. 12/11/21 patient seen and examined. Still having back pain. Denies any chest pain. Heart rate was elevated could be secondary to pain. Denies any nausea. Vital signs stable 12/12/21. Patient seen and examined. Patient was very tearful. Discussed with patient regarding her present condition, answered all questions. Patient has not had a bowel movement yet. Patient also has no sensations below her umbilicus area. Still has a drain in place 12/13/21. Patient seen and examined. Patient continues to have constipation. X-ray abdominal done yesterday showed significant stool burden and Ileus. Patient unable to tell us if she is passing gas. WBC this morning is 19.5. Patient is hemodynamically stable. REVIEW OF SYSTEMS: CONSTITUTIONAL: No fever, no malaise CARDIOVASCULAR: No chest pain, orthopnea, PND, no palpitations, no syncope. PULMONARY: No shortness of breath, no cough, no hemoptysis. GASTROINTESTINAL: No diarrhea, no nausea, no vomiting, no abdominal pain. Complaining of constipation PHYSICAL EXAMINATION: GENERAL: The patient is alert and oriented x3, not in any acute distress. Well developed, well nourished. HEENT: Pupils are round and equally reacting to light. EOMI. No scleral icterus. No conjunctival pallor. Normocephalic, atraumatic. No pharyngeal erythema. No thyromegaly. CARDIOVASCULAR: S1 and S2 present. No murmurs, rubs, or gallops. PULMONARY: Chest is clear to auscultation, no wheezing or crackles. ABDOMEN: Soft, nontender, nondistended, normoactive bowel sounds. No palpable organomegaly. MUSCULOSKELETAL: No joint swelling or deformity. EXTREMITIES: No cyanosis, clubbing, or pedal edema. NEUROLOGICAL: Patient has no movement HER legs, no sensations below T 11 area. Moving upper extremities SKIN: surgical incision seen in the back, no erythema,, drain in place Assessment and plan s/p T9 through L1 decompression with stabilization T11 to L3 T9-T11 vertebral body lesions Metastatic lung carcinoma to spine L1 Lytic lesion new onset paraplegia with T11 sensory level and LE paralysis Constipation ileus Urinary retention Severe back pain secondary to metastatic lesions Hydronephrosis with bladder outlet obstruction. Status post Kearns catheter placement. 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 Severe anxiety and depression bipolar disorder History of asthma Plan; Continue postop management per orthopedics Continue pain management Continue IV steroids Continue bowel regimen Start patient currently liquid diet Gen. surgery consulted for ileus Follow-up on oncology recommendations PT and OT evaluation DVT prophylaxis: SCDs Objective - Vital Signs Vital signs: Vital Signs Temp 98.2 F 12/13/21 11:55 Pulse 99 12/13/21 11:55 Resp 16 12/13/21 11:55 BP 139/73 12/13/21 11:55 Pulse Ox 91 L 12/13/21 11:55 FiO2 21 12/09/21 19:39 Intake & Output 12/12/21 12/13/21 12/13/21 18:59 06:59 18:59 Intake Total 618 Output Total 710 1610 Balance -92 -1610 Weight 54.431 kg Intake: Oral 618 Output: Drainage 110 10 Lower 110 10 Urine 600 1600 Other: Voiding Method Indwelling Catheter Indwelling Catheter Indwelling Catheter # Bowel Movements 1 - Labs CBC & Chem 7: 12/13/21 07:45 12/13/21 07:45 Labs: Abnormal Lab Results - Last 24 Hours (Table) 12/12/21 12/12/21 12/13/21 Range/Units 16:07 20:43 06:28 WBC (3.8-10.6) k/uL RBC (3.80-5.40) m/uL Hgb (11.4-16.0) gm/dL Hct (34.0-46.0) % Neutrophils # (1.3-7.7) k/uL Lymphocytes # (1.0-4.8) k/uL Creatinine (0.52-1.04) mg/dL Glucose (74-99) mg/dL POC Glucose (mg/dL) 270 H 180 H 164 H (70-110) mg/dL Calcium (8.4-10.2) mg/dL Total Protein (6.3-8.2) g/dL Albumin (3.5-5.0) g/dL 12/13/21 12/13/21 12/13/21 Range/Units 07:45 07:45 11:24 WBC 19.5 H (3.8-10.6) k/uL RBC 3.29 L (3.80-5.40) m/uL Hgb 10.1 L (11.4-16.0) gm/dL Hct 32.0 L (34.0-46.0) % Neutrophils # 18.3 H (1.3-7.7) k/uL Lymphocytes # 0.4 L (1.0-4.8) k/uL Creatinine 0.39 L (0.52-1.04) mg/dL Glucose 137 H (74-99) mg/dL POC Glucose (mg/dL) 163 H (70-110) mg/dL Calcium 7.6 L (8.4-10.2) mg/dL Total Protein 4.6 L (6.3-8.2) g/dL Albumin 2.6 L (3.5-5.0) g/dL
--- NOTE | 2021-12-13 13:30 | P.GSCN ---
History of Present Illness Consult date: 12/13/21 History of present illness: CHIEF COMPLAINT: Bilateral lower extremity weakness Reason for consult: Ileus HISTORY OF PRESENT ILLNESS: This is a 51-year-old female with a known history of metastatic lung cancer with metastases to the spine. She presents to the hospital with bilateral leg weakness and numbness. Patient was found to have lytic destructive lesion of L1 and T9 through 11 stenosis due to tumor mass with new onset of paraplegia. She was seen by spinal surgical service and underwent spinal surgery with tumor resection at L1. Patient has developed constipation and ileus. She has limited mobility and has required narcotics for pain control. Patient also has a known history of constipation and fecal impaction. Surgical service has been consulted for ileus. Patient had a very small bowel movement this morning and one very small stool with the medical molasses enema. Patient has had multiple laxatives including lactulose, MiraLAX and milk of magnesia as well as stool softeners. Patient denies any nausea or vomiting. She does complain of left sided abdominal pain. Patient denies any prior bowel obstruction. Denies any prior abdominal surgery. PAST MEDICAL HISTORY: See list. PAST SURGICAL HISTORY: See list. MEDICATIONS: See list. ALLERGIES: See list. SOCIAL HISTORY: No illicit drug use. REVIEW OF SYSTEMS: CONSTITUTIONAL: Denies fever or chills. HEENT: Denies blurred vision, vision changes, or eye pain. Denies hemoptysis CARDIOVASCULAR: Denies chest pain or pressure. RESPIRATORY: No shortness of breath. GASTROINTESTINAL: See HPI for pertinent findings HEMATOLOGIC: Denies bleeding disorders. GENITOURINARY: Denies any blood in urine or increased urinary frequency. SKIN: Denies pruitis. Denies rash. PHYSICAL EXAM: VITAL SIGNS: Reviewed GENERAL: Well-developed in no acute distress. ABDOMEN: Distended. Left-sided tenderness. Rectal: Exam completed. rectal tone intact during exam air was passed as well as small amount of liquidy stool. No palpable stool ball noted NEUROLOGIC: Alert and oriented. Cranial nerves II through XII grossly intact. LABORATORY DATA: WBC 19.5 Hgb 10.1 platelets 323 Sodium 13 potassium is 4.2 creatinine 0.3 IMAGING: Abdominal x-ray large stool burden throughout the colon correlate for ileus in the setting of recent surgery Abdominal x-ray for this morning correlate for severe constipation ASSESSMENT: 1. Postoperative ileus 2. Constipation 3. Status post spinal surgery 4. Metastatic lung cancer with metastatic disease to spine PLAN: -Further recommendations forthcoming per surgeon -Downgrade diet to clear liquids -Bottle of mag citrate ordered -Cannot start Reglan because it interacts with patient's psychiatric meds -Continue supportive care Thank you for this consultation [facility] note has been reviewed by physician. Signing provider agrees with the documented findings, assessment, and plan of care. I have personally seen and examined the patient, reviewed the DEVELOPMENT GEOLOGIST /PAs history, exam and MDM and agree with the assessment and plan as written. Based on total visit time, I have performed more than 50% of the visit. As above: Patient with history of chronic constipation. Prior to the patient's hospitalization she had not moved her bowels for a week or more. Patient is passing flatus. No fecal impaction on rectal exam. Abdominal x-rays show proximal constipation. Lactulose twice a day has been started. Will start soapsuds enemas this evening as well. We'll follow closely with you. Past Medical History Past Medical History: Asthma, Cancer, COPD Additional Past Medical History / Comment(s): Breast cancer, spinal cancer History of Any Multi-Drug Resistant Organisms: MRSA Year Discovered:: 2008 MDRO Source:: jaw, blood Past Surgical History: Tubal Ligation, Uterine Ablation Additional Past Surgical History / Comment(s): Bone marrow aspiration, skin graft at age 17 yrs to forehead Past Anesthesia/Blood Transfusion Reactions: No Reported Reaction Past Psychological History: Anxiety, Bipolar, Depression Additional Psychological History / Comment(s): Pt resides with her spouse. She is independent. Smoking Status: Current every day smoker Past Alcohol Use History: Occasional Additional Past Alcohol Use History / Comment(s): Pt started smoking in 1987 and is a 2 ppd smoker. 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 She has now been sober again for a year. Past Drug Use History: None Reported Additional Drug Use History / Comment(s): . - Past Family History Mother Family Medical History: Cancer Additional Family Medical History / Comment(s): Breast cancer Father Family Medical History: No Reported History Medications and Allergies Home Medications Medication Instructions Recorded Confirmed Type traZODone HCL [Desyrel] 150 mg PO HS 30 Days tab 10/31/20 12/08/21 Rx PARoxetine HCL [Paxil] 60 mg PO DAILY 04/21/21 12/08/21 History Paliperidone [Invega] 6 mg PO DAILY 04/21/21 12/08/21 History lamoTRIgine [LaMICtal] 100 mg PO BID 04/21/21 12/08/21 History Albuterol Nebulized [Ventolin 2.5 mg INHALATION RT-QID PRN 10/18/21 12/08/21 History Nebulized] Albuterol Sulfate [Ventolin HFA] 2 puff INHALATION RT-QID PRN 10/18/21 12/08/21 History Cider Vinegar [Apple Cider Vinegar] 300 mg PO DAILY 10/18/21 12/08/21 History L.acidoph,Paracasei, B.lactis 1 cap PO DAILY 10/18/21 12/08/21 History [Probiotic] Magnesium Oxide [Mag-Ox] 250 mg PO DAILY 10/18/21 12/08/21 History Multivitamins, Thera [Multivitamin 1 tab PO DAILY 10/18/21 12/08/21 History (formulary)] Acetaminophen Tab [Tylenol] 650 mg PO Q6H PRN 10/22/21 12/08/21 History HYDROcodone/APAP 10-325MG [[place] 1 tab PO Q4H PRN 11/26/21 12/08/21 History 10-325] Varenicline Tartrate 1 mg PO BID 11/26/21 12/08/21 History dexAMETHasone ORAL [Hexadrol] 4 mg PO BID #0 tab 11/28/21 12/08/21 Rx LORazepam [Ativan] 0.5 mg PO TID PRN 12/03/21 12/08/21 History cefUROXime axetiL [Ceftin] 500 mg PO DIRECTED 12/03/21 12/08/21 History Cyclobenzaprine HCl 7.5 mg PO BID PRN 12/08/21 12/08/21 History Morphine Sulfate [Morphine Sulfate 30 mg PO TID 12/08/21 12/08/21 History ER] Allergies Allergy/AdvReac Type Severity Reaction Status Date / Time codeine Allergy Itching Verified 12/10/21 16:19 Surgical - Exam Vital Signs Temp Pulse Resp BP Pulse Ox 98.1 F 104 H 18 130/85 91 L 12/08/21 09:31 12/08/21 09:31 10/01/22 09:31 12/08/21 09:31 12/08/21 09:31 Results - Labs 12/13/21 07:45 12/13/21 07:45 Abnormal Lab Results - Last 24 Hours (Table) 12/12/21 12/12/21 12/13/21 Range/Units 16:07 20:43 06:28 WBC (3.8-10.6) k/uL RBC (3.80-5.40) m/uL Hgb (11.4-16.0) gm/dL Hct (34.0-46.0) % Neutrophils # (1.3-7.7) k/uL Lymphocytes # (1.0-4.8) k/uL Creatinine (0.52-1.04) mg/dL Glucose (74-99) mg/dL POC Glucose (mg/dL) 270 H 180 H 164 H (70-110) mg/dL Calcium (8.4-10.2) mg/dL Total Protein (6.3-8.2) g/dL Albumin (3.5-5.0) g/dL 12/13/21 12/13/21 12/13/21 Range/Units 07:45 07:45 11:24 WBC 19.5 H (3.8-10.6) k/uL RBC 3.29 L (3.80-5.40) m/uL Hgb 10.1 L (11.4-16.0) gm/dL Hct 32.0 L (34.0-46.0) % Neutrophils # 18.3 H (1.3-7.7) k/uL Lymphocytes # 0.4 L (1.0-4.8) k/uL Creatinine 0.39 L (0.52-1.04) mg/dL Glucose 137 H (74-99) mg/dL POC Glucose (mg/dL) 163 H (70-110) mg/dL Calcium 7.6 L (8.4-10.2) mg/dL Total Protein 4.6 L (6.3-8.2) g/dL Albumin 2.6 L (3.5-5.0) g/dL Diabetes panel 12/13/21 Range/Units 07:45 Sodium 138 (137-145) mmol/L Potassium 4.2 (3.5-5.1) mmol/L Chloride 106 (98-107) mmol/L Carbon Dioxide 26 (22-30) mmol/L BUN 13 (7-17) mg/dL Creatinine 0.39 L (0.52-1.04) mg/dL Glucose 137 H (74-99) mg/dL Calcium 7.6 L (8.4-10.2) mg/dL AST 24 (14-36) U/L ALT 28 (4-34) U/L Alkaline Phosphatase 114 (38-126) U/L Total Protein 4.6 L (6.3-8.2) g/dL Albumin 2.6 L (3.5-5.0) g/dL Calcium panel 12/13/21 Range/Units 07:45 Calcium 7.6 L (8.4-10.2) mg/dL Albumin 2.6 L (3.5-5.0) g/dL Pituitary panel 12/13/21 Range/Units 07:45 Sodium 138 (137-145) mmol/L Potassium 4.2 (3.5-5.1) mmol/L Chloride 106 (98-107) mmol/L Carbon Dioxide 26 (22-30) mmol/L BUN 13 (7-17) mg/dL Creatinine 0.39 L (0.52-1.04) mg/dL Glucose 137 H (74-99) mg/dL Calcium 7.6 L (8.4-10.2) mg/dL Adrenal panel 12/13/21 Range/Units 07:45 Sodium 138 (137-145) mmol/L Potassium 4.2 (3.5-5.1) mmol/L Chloride 106 (98-107) mmol/L Carbon Dioxide 26 (22-30) mmol/L BUN 13 (7-17) mg/dL Creatinine 0.39 L (0.52-1.04) mg/dL Glucose 137 H (74-99) mg/dL Calcium 7.6 L (8.4-10.2) mg/dL Total Bilirubin 0.3 (0.2-1.3) mg/dL AST 24 (14-36) U/L ALT 28 (4-34) U/L Alkaline Phosphatase 114 (38-126) U/L Total Protein 4.6 L (6.3-8.2) g/dL Albumin 2.6 L (3.5-5.0) g/dL
[2021-12-13] MEDS ORDERED: MAGNESIUM CITRATE 296 ML BOTTLE PO ONE (13:34)
[2021-12-13 16:15] LABS: Glucose,Whole Blood 152 mg/dL (70-110)
--- NOTE | 2021-12-13 18:17 | P.PN ---
Subjective Progress Note Date: 12/13/21 Principal diagnosis: Spinal cord compression In f/u today pt has not regained any of her strength or sensation in her lower extremities, Kearns catheters inserted. She has received multiple medications to promote a bowel movement. Her abdomen is bloated and uncomfortable at this time. She is reporting that the pain in her back is tolerable. No fever, nausea or vomiting. Objective - Vital Signs Vital signs: Vital Signs Temp 98.1 F 12/13/21 15:05 Pulse 79 12/13/21 15:05 Resp 18 12/13/21 15:05 BP 159/84 12/13/21 15:05 Pulse Ox 92 L 12/13/21 15:05 FiO2 21 12/09/21 19:39 Intake & Output 12/12/21 12/13/21 12/13/21 18:59 06:59 18:59 Intake Total 618 Output Total 710 1610 900 Balance -92 -1610 -900 Weight 54.431 kg Intake: Oral 618 Output: Drainage 110 10 Lower 110 10 Urine 600 1600 900 Other: Voiding Method Indwelling Catheter Indwelling Catheter Indwelling Catheter # Bowel Movements 1 - Constitutional General appearance: Present: average body habitus, mild distress - EENT Eyes: Present: anicteric sclerae, EOMI ENT: Present: hearing grossly normal - Respiratory Respiratory: bilateral: CTA - Cardiovascular Rhythm: regular Heart sounds: normal: S1, S2 Abnormal Heart Sounds: Absent: systolic murmur, diastolic murmur, rub, S3 Gallop, S4 Gallop, click, other - Peripheral edema leg Peripheral Edema: bilateral: Trace - Gastrointestinal General gastrointestinal: Present: decreased bowel sounds, distended, soft, tenderness (generalized, mild) - Integumentary Integumentary: Present: normal - Neurologic Neurologic Comment(s): patient unable to move lower extremities, she has no tactile sensation in the lower extremities, incontinent of stool and urine - Musculoskeletal Musculoskeletal: Present: generalized weakness - Psychiatric Psychiatric Comment(s): tearful Psychiatric: Present: A&O x's 3, intact judgment & insight - Labs CBC & Chem 7: 12/13/21 07:45 12/13/21 07:45 Labs: Abnormal Lab Results - Last 24 Hours (Table) 12/12/21 12/13/21 12/13/21 Range/Units 20:43 06:28 07:45 WBC 19.5 H (3.8-10.6) k/uL RBC 3.29 L (3.80-5.40) m/uL Hgb 10.1 L (11.4-16.0) gm/dL Hct 32.0 L (34.0-46.0) % Neutrophils # 18.3 H (1.3-7.7) k/uL Lymphocytes # 0.4 L (1.0-4.8) k/uL Creatinine (0.52-1.04) mg/dL Glucose (74-99) mg/dL POC Glucose (mg/dL) 180 H 164 H (70-110) mg/dL Calcium (8.4-10.2) mg/dL Total Protein (6.3-8.2) g/dL Albumin (3.5-5.0) g/dL 12/13/21 12/13/21 12/13/21 Range/Units 07:45 11:24 16:13 WBC (3.8-10.6) k/uL RBC (3.80-5.40) m/uL Hgb (11.4-16.0) gm/dL Hct (34.0-46.0) % Neutrophils # (1.3-7.7) k/uL Lymphocytes # (1.0-4.8) k/uL Creatinine 0.39 L (0.52-1.04) mg/dL Glucose 137 H (74-99) mg/dL POC Glucose (mg/dL) 163 H 152 H (70-110) mg/dL Calcium 7.6 L (8.4-10.2) mg/dL Total Protein 4.6 L (6.3-8.2) g/dL Albumin 2.6 L (3.5-5.0) g/dL - Imaging and Cardiology Abdominal x-ray: report reviewed Assessment and Plan (1) Spinal cord compression Current Visit: Yes Status: Acute Priority: High Code(s): G95.20 - UNSPECIFIED CORD COMPRESSION SNOMED Code(s): 70152605 (2) Intractable back pain Current Visit: Yes Status: Acute Priority: High Code(s): M54.9 - DORSALGIA, UNSPECIFIED SNOMED Code(s): 809198250 (3) Lung cancer metastatic to bone Current Visit: Yes Status: Acute Priority: High Code(s): C34.90 - MALIGNANT NEOPLASM OF UNSP PART OF UNSP BRONCHUS OR LUNG; C79.51 - SECONDARY MALIGNANT NEOPLASM OF BONE SNOMED Code(s): 054832018 Plan: Pt is s/p extensive spinal surgery. No sensation or function gained yet. She continues on steroids. path results reported after patient seen. Insistent with poorly differentiated pulmonary adenocarcinoma. I spoke with the patient today, she would like us to meet tomorrow with her significant other. She thinks that she wants to just be kept comfortable but, is afraid to talk about it. We will sit with her tomorrow along with her significant other and have a tough conversation. We will also contact Palliative care. Cont pain mgmt,adjustments made to minimize the number of medications being given to the patient Patient's bowel regimen has been aggressive, abdominal x-ray did show a heavy stool burden. Encouraged ongoing use of medications for prevention of narcotic- induced constipation, cont aggressive regimen-even after BM, to ensure pt cont to have soft, easily passable bowel movement every 1-3 days. Pt did have her 1st cycle of libtayo.
[2021-12-13] MEDS: LACTULOSE 20 GM/30 ML CUP PO SCH (20:07)
[2021-12-13] MEDS: traZODone HCL 100 MG TAB PO SCH (20:08)
[2021-12-13 20:27] LABS: Glucose,Whole Blood 132 mg/dL (70-110)
[2021-12-14] MEDS: DEXAMETHASONE SOD PHOSPHATE 10 MG/ML 1 ML VIAL IVP SCH ×6 (00:02→20:55)
[2021-12-14] MEDS: HYDROmorphone 1 MG/ML 1 ML SYRINGE IVP PRN ×2 (00:02→13:39)
[2021-12-14] MEDS: HYDROcodone/APAP 10-325MG 1 EACH TAB PO SCH ×6 (01:09→20:54)
[2021-12-14] MEDS: SODIUM CHLORIDE 0.9% 1,000 ML IV SCH ×2 (04:34→09:09)
[2021-12-14] MEDS: INSULIN ASPART (NovoLOG) 100 UNIT/ML VIAL SQ SCH ×4 (06:31→20:56)
[2021-12-14 06:32] LABS: Glucose,Whole Blood 167 mg/dL (70-110)
[2021-12-14] MEDS: CALCIUM CARB-VIT D 500 MG-5 MCG TAB PO SCH ×2 (06:32→17:36)
[2021-12-14 08:51] LABS: Basophils % (A) 0 %; Eosinophils % (A) 0 %; HCT 32.5 % (34.0-46.0); HGB 10.3 gm/dL (11.4-16.0); Hypochromasia Slight; Lymphocytes # (A) 0.5 k/uL (1.0-4.8); Lymphocytes % (A) 3 %; MCH 30.9 pg (25.0-35.0); MCHC 31.7 g/dL (31.0-37.0); MCV 97.6 fL (80.0-100.0); Mean Platelet Volume 8.8; Monocytes # (A) 0.7 k/uL (0-1.0); Monocytes % (A) 3 %; Neutrophils # (A) 19.4 k/uL (1.3-7.7); Neutrophils % (A) 93 %; Platelet Count 329 k/uL (150-450); RBC 3.33 m/uL (3.80-5.40); RDW 14.7 % (11.5-15.5); WBC 20.7 k/uL (3.8-10.6)
[2021-12-14] MEDS: MULTIVITAMINS, THERA 1 EACH TAB PO SCH (09:06)
[2021-12-14] MEDS: VARENICLINE 1 MG TAB PO SCH (09:06)
[2021-12-14] MEDS: lamoTRIgine 100 MG TAB PO SCH ×2 (09:06→20:54)
[2021-12-14] MEDS: PARoxetine 20 MG TAB PO SCH (09:07)
[2021-12-14] MEDS: PALIPERIDONE 6 MG TAB.ER.24 PO SCH (09:07)
[2021-12-14] MEDS: MAGNESIUM OXIDE 400 MG TAB PO SCH (09:07)
[2021-12-14] MEDS: LIDOCAINE 5% PATCH TOPICAL SCH (09:07)
[2021-12-14] MEDS: LACTOBACILLUS ACIDOPH & BULGAR 1 EACH PACKET PO SCH (09:08)
[2021-12-14] MEDS: ENOXAPARIN 40 MG/0.4 ML SYRINGE SQ SCH (09:08)
[2021-12-14] MEDS: SENNOSIDES-DOCUSATE SODIUM 1 EACH TAB PO SCH ×2 (09:08→20:55)
[2021-12-14 09:41] LABS: ALT 34 U/L (4-34); AST 25 U/L (14-36); African American GFR (CKD) >90 (>60 ml/min/1.73 sqM); Albumin 2.6 g/dL (3.5-5.0); Alkaline Phosphatase 121 U/L (38-126); Anion Gap 7 mmol/L; Blood Urea Nitrogen 15 mg/dL (7-17); Calcium 8.6 mg/dL (8.4-10.2); Carbon Dioxide 26 mmol/L (22-30); Chloride 102 mmol/L (98-107); Glucose 110 mg/dL (74-99); Non-African American GFR(CKD) >90 (>60 ml/min/1.73 sqM); Potassium 4.4 mmol/L (3.5-5.1); Sodium 135 mmol/L (137-145); Total Bilirubin 0.3 mg/dL (0.2-1.3); Total Protein 4.7 g/dL (6.3-8.2)
[2021-12-14] MEDS: LACTULOSE 20 GM/30 ML CUP PO SCH ×2 (10:29→20:56)
[2021-12-14] MEDS: ALBUTEROL NEBULIZED 2.5 MG/3 ML INHALATION PRN (10:32)
[2021-12-14] MEDS ORDERED: PEG 3350 (236 GM/BTL) + LYTES 4,000 ML BOTTLE PO ONE (10:53)
[2021-12-14] MEDS: MORPHINE SULFATE ER 30 MG TABLET PO SCH ×3 (11:05→22:04)
[2021-12-14] MEDS: bisacodyL 10 MG SUPP RECTAL SCH (11:11)
[2021-12-14] MEDS: polyethylene glycoL 3350 17 GM POWD.PACK PO SCH ×2 (11:11→20:56)
--- NOTE | 2021-12-14 11:44 | P.PN ---
Subjective Progress Note Date: 12/14/21 Principal diagnosis: 1. 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 L1 lytic destructive lesion with stenosis and impending instability 3. T9-11 stenosis due to tumor mass 4. new onset paraplegia with T11 sensory level and LE paralysis 5. s/p Multiple fall from standing 6. Complex medical patient Patient seen at bedside this morning lying semirecumbent position with SCDs and velazquez boots on catheter/Kearns in place. Abdomen appears to be distended at this time. Patient says she is still having back pain at this time. Patient feels that the medication has been helping with the back pain. Patient says she is not having any sensation in lower extremities. Patient says she has been unable to have a bowel movement and is concerned because she is very bloated at this time. General surgery was counseled yesterday and is seen patient is recommending liquid diet at this time. Patient denies chest pain, fever, shortness of breath, nausea, vomiting, change in vision. Objective - Vital Signs Vital signs: Vital Signs Temp 98.2 F 12/14/21 08:00 Pulse 81 12/14/21 08:00 Resp 16 12/14/21 08:00 BP 132/84 12/14/21 08:00 Pulse Ox 96 12/14/21 08:00 FiO2 21 12/09/21 19:39 Intake & Output 12/13/21 12/14/21 12/14/21 18:59 06:59 18:59 Intake Total 485 Output Total 900 1100 Balance -900 -615 Weight 54.431 kg Intake: Oral 485 Output: Urine 900 1100 Other: Voiding Method Indwelling Catheter Indwelling Catheter # Bowel Movements 1 - Exam Incision is clean, dry, intact at this time. [place] are well in place. Dressing was changed yesterday. An drain was pulled yesterday. Patient does have sensation from T11 and superior. Patient does not have sensation inferior to T11. Patient does have some mild tenderness to palpation on the incision on the spine. Nontender to palpation throughout rest of exam. Patient has full range of motion bilateral upper extremities on exam. Patient does not have any range of motion in bilateral lower extremities. 5/5 in bilateral upper extremities on motor exam. No motor function in bilateral lower extremities. Radial pulse intact, 2+. Cap refill under 3 seconds in digits of upper extremities. Negative Homans bilaterally. Negative Eleni bilaterally. - Labs CBC & Chem 7: 12/14/21 07:37 12/14/21 07:37 Labs: Abnormal Lab Results - Last 24 Hours (Table) 12/13/21 12/13/21 12/13/21 Range/Units 11:24 16:13 20:25 WBC (3.8-10.6) k/uL RBC (3.80-5.40) m/uL Hgb (11.4-16.0) gm/dL Hct (34.0-46.0) % Neutrophils # (1.3-7.7) k/uL Lymphocytes # (1.0-4.8) k/uL POC Glucose (mg/dL) 163 H 152 H 132 H (70-110) mg/dL 12/14/21 12/14/21 Range/Units 06:28 07:37 WBC 20.7 H (3.8-10.6) k/uL RBC 3.33 L (3.80-5.40) m/uL Hgb 10.3 L (11.4-16.0) gm/dL Hct 32.5 L (34.0-46.0) % Neutrophils # 19.4 H (1.3-7.7) k/uL Lymphocytes # 0.5 L (1.0-4.8) k/uL POC Glucose (mg/dL) 167 H (70-110) mg/dL Assessment and Plan Assessment: 1. 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 L1 lytic destructive lesion with stenosis and impending instability 3. T9-11 stenosis due to tumor mass 4. new onset paraplegia with T11 sensory level and LE paralysis 5. s/p Multiple fall from standing 6. Complex medical patient - Postop day #4 status post T9-L3 stabilization and fusion; biopsy/excision of intradural spinal neoplasm; extradural thoracic T9, T10, T11; 5/excision of intraspinal neoplasm; extradural lumbar L1 Plan: 1. 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 Patient seen at bedside this morning. Patient still has no sensation in bilateral lower extremities. General surgery has seen patient and is following now. We do recommend patient to be rolled every couple hours in bed. Continue aggressive bowel regimen. Diet per general surgery. Sp ine incision appears clean dry and intact at this time. Continue with the use of velazquez boots/SCDs. Patient's legs should be raised and knees flexed/extended for PT. We will continue to follow patient during stay 2. Appreciate medical, gen surg management 3. Pain management - [place]; flexeril; morphine 4. DVT ppx - Lovenox; continue use velazquez boots and SCDs 5. GI ppx - milk of magnesia; lactulose; senna; Dulcolax 6. PT/OT - use madan lift. Patient's legs should be raised and knees flexed/extended for PT 7. Encourage incentive spirometer use. 8. discharge planning - home with home health vs [facility] Time with Patient: Less than 30
[2021-12-14 12:12] LABS: Glucose,Whole Blood 145 mg/dL (70-110)
--- NOTE | 2021-12-14 12:48 | P.PN ---
Subjective Progress Note Date: 12/14/21 CHIEF COMPLAINT: Bilateral lower extremity weakness HISTORY OF PRESENT ILLNESS: Surgical service is following regards to patient's constipation and ileus. Patient did receive lactulose and subset enemas with only very small results. Patient's abdomen does remains distended but softer than yesterday. She denies any nausea or vomiting. Patient has very limited mobility. Afebrile. WBC is 20.7 hemoglobin 10.3 329 09/07/1933 potassium is 4.4 creatinine 0.42 PHYSICAL EXAM: VITAL SIGNS: Reviewed. GENERAL: Well-developed in no acute distress. HEENT: No sclera icterus. Extraocular movements grossly intact. Moist buccal mucosa. Head is atraumatic, normocephalic. ABDOMEN: Soft. Nondistended. Nontender. NEUROLOGIC: Alert and oriented. Cranial nerves II through XII grossly intact. ASSESSMENT: 1. Postoperative ileus 2. Constipation 3. Status post spinal surgery 4. Metastatic lung cancer with metastatic disease to spine PLAN: -Milk of molasses enema and 1 L of GoLYTELY ordered for patient's constipation -Continue clear liquid diet -Encourage increase activity as much as possible -Continue supportive care Physician Learning Specialist note has been reviewed by physician. Signing provider agrees with the documented findings, assessment, and plan of care. I have personally seen and examined the patient, reviewed the PICTURE FRAMER /PAs history, exam and MDM and agree with the assessment and plan as written. Based on total visit time, I have performed more than 50% of the visit. As above: Patient has had flatus. Mild abdominal discomfort. No nausea or vomiting. Tolerating clear liquids. Enemas yesterday did not produce any significant volume of stool. Patient will begin GoLYTELY today. Patient's white blood cell count remains elevated however on steroids. Abdominal examination revealed mild distention and mild diffuse tenderness without peritoneal signs. Objective - Vital Signs Vital signs: Vital Signs Temp 98.7 F 12/14/21 11:41 Pulse 111 H 12/14/21 11:41 Resp 19 12/14/21 11:41 BP 101/62 12/14/21 11:41 Pulse Ox 80 L 12/14/21 11:41 FiO2 21 12/09/21 19:39 Intake & Output 12/13/21 12/14/21 12/14/21 18:59 06:59 18:59 Intake Total 485 240 Output Total 900 1100 Balance -900 -949 240 Weight 54.431 kg Intake: Oral 485 240 Output: Urine 900 1100 Other: Voiding Method Indwelling Catheter Indwelling Catheter # Bowel Movements 1 - Labs CBC & Chem 7: 12/14/21 07:37 12/14/21 07:37 Labs: Abnormal Lab Results - Last 24 Hours (Table) 12/13/21 12/13/21 12/14/21 Range/Units 16:13 20:25 06:28 WBC (3.8-10.6) k/uL RBC (3.80-5.40) m/uL Hgb (11.4-16.0) gm/dL Hct (34.0-46.0) % Neutrophils # (1.3-7.7) k/uL Lymphocytes # (1.0-4.8) k/uL Sodium (137-145) mmol/L Creatinine (0.52-1.04) mg/dL Glucose (74-99) mg/dL POC Glucose (mg/dL) 152 H 132 H 167 H (70-110) mg/dL Total Protein (6.3-8.2) g/dL Albumin (3.5-5.0) g/dL 12/14/21 12/14/21 12/14/21 Range/Units 07:37 07:37 12:04 WBC 20.7 H (3.8-10.6) k/uL RBC 3.33 L (3.80-5.40) m/uL Hgb 10.3 L (11.4-16.0) gm/dL Hct 32.5 L (34.0-46.0) % Neutrophils # 19.4 H (1.3-7.7) k/uL Lymphocytes # 0.5 L (1.0-4.8) k/uL Sodium 135 L (137-145) mmol/L Creatinine 0.42 L (0.52-1.04) mg/dL Glucose 110 H (74-99) mg/dL POC Glucose (mg/dL) 145 H (70-110) mg/dL Total Protein 4.7 L (6.3-8.2) g/dL Albumin 2.6 L (3.5-5.0) g/dL
--- NOTE | 2021-12-14 13:17 | P.PN ---
Subjective Progress Note Date: 12/14/21 Patient is a 51-year-old female with a known history of metastatic lung cancer with mets to spine, asthma/COPD and current everyday smoker, anxiety/depression bipolar disorder and other medical problems presents to ER with complaints of bilateral lower extremity weakness. Patient states that she woke up in the morning and unable to move her legs. Patient also complaining of numbness. No bladder or bowel incontinence. No saddle anesthesia. Patient is having indwelling Kearns catheter. Patient was recently admitted to the hospital due to severe back pain due to metastatic lesions. Patient had MRI of the lumbar and thoracic spine was done recently. Radiation oncology has seen the patient and is scheduled for radiation on Friday morning. Patient had simulation done while in the hospital. X-ray of the lumbar spine showed no acute fracture. Multilevel disc disc degeneration. L1 vertebral body metastatic lesion not well appreciated. EKG showed sinus tachycardia Laboratory data showed WBC 16.6 hemoglobin 13.1 and platelets 7.8 Sodium 136 potassium 3.8 chloride 99 bicarb is 32 BUN 23 and creatinine 0.62 12/09/2021 Patient is still complaining of back pain and numbness and weakness in bilateral lower extremities. Afebrile. No complaints of chest pain or worsening shortness of breath. Patient is very anxious. No nausea vomiting or abdominal pain or diarrhea. Patient was seen by orthopedic surgery and is planning for [address] of the thoracic and lumbar spine showed large destructive lesion in the L1 vertebral body extending into the pedicles and face and joints and lamina r elated to metastatic disease. No change compared to recent exam. Bilateral hydronephrosis and demanding. Likely related to bladder obstruction. Dilated urinary bladder. Bladder extended up to L4 level. Kearns catheter will be inserted. Laboratory data showed WBC 16.7 hemoglobin 9.8 and platelets 326 Sodium 139 potassium 4.4 III bicarb is 24.7 BUN 18 and creatinine 0.6 and blood sugar 122. 12/11/21 patient seen and examined. Still having back pain. Denies any chest pain. Heart rate was elevated could be secondary to pain. Denies any nausea. Vital signs stable 12/12/21. Patient seen and examined. Patient was very tearful. Discussed with patient regarding her present condition, answered all questions. Patient has not had a bowel movement yet. Patient also has no sensations below her umbilicus area. Still has a drain in place 12/13/21. Patient seen and examined. Patient continues to have constipation. X-ray abdominal done yesterday showed significant stool burden and Ileus. Patient unable to tell us if she is passing gas. WBC this morning is 19.5. Patient is hemodynamically stable. 12/14/21. Patient seen and examined. Still hasn't had a bowel movement yet. Currently on clear liquid diet. Denies any abdominal pain. Unable to tell if she is passing gas. Back pain under control with pain medications. REVIEW OF SYSTEMS: CONSTITUTIONAL: No fever, no malaise CARDIOVASCULAR: No chest pain, orthopnea, PND, no palpitations, no syncope. PULMONARY: No shortness of breath, no cough, no hemoptysis. GASTROINTESTINAL: No diarrhea, no nausea, no vomiting, no abdominal pain. Complaining of constipation PHYSICAL EXAMINATION: GENERAL: The patient is alert and oriented x3, not in any acute distress. Well developed, well nourished. HEENT: Pupils are round and equally reacting to light. EOMI. No scleral icterus. No conjunctival pallor. Normocephalic, atraumatic. No pharyngeal erythema. No thyromegaly. CARDIOVASCULAR: S1 and S2 present. No murmurs, rubs, or gallops. PULMONARY: Chest is clear to auscultation, no wheezing or crackles. ABDOMEN: Soft, nontender, nondistended, normoactive bowel sounds. No palpable organomegaly. MUSCULOSKELETAL: No joint swelling or deformity. EXTREMITIES: No cyanosis, clubbing, or pedal edema. NEUROLOGICAL: Patient has no movement HER legs, no sensations below T 11 area. 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 Status post Kearns catheter placement. 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 Severe anxiety and depression bipolar disorder History of asthma Plan; Continue postop management per orthopedics Continue pain management Continue IV steroids Continue bowel regimen Continue clear liquid diet Gen. surgery following the patient, recommended Milk of molasses enema and 1 L of GoLYTELY ordered for patient's constipation Follow-up on oncology recommendations PT and OT evaluation DVT prophylaxis: SCDs Objective - Vital Signs Vital signs: Vital Signs Temp 98.7 F 12/14/21 11:41 Pulse 111 H 12/14/21 11:41 Resp 19 12/14/21 11:41 BP 101/62 12/14/21 11:41 Pulse Ox 80 L 12/14/21 11:41 FiO2 21 12/09/21 19:39 Intake & Output 12/13/21 12/14/21 12/14/21 18:59 06:59 18:59 Intake Total 485 240 Output Total 900 1100 750 Balance -900 -615 -510 Weight 54.431 kg Intake: Oral 485 240 Output: Urine 900 1100 750 Other: Voiding Method Indwelling Catheter Indwelling Catheter # Bowel Movements 1 - Labs CBC & Chem 7: 12/14/21 07:37 12/14/21 07:37 Labs: Abnormal Lab Results - Last 24 Hours (Table) 12/13/21 12/13/21 12/14/21 Range/Units 16:13 20:25 06:28 WBC (3.8-10.6) k/uL RBC (3.80-5.40) m/uL Hgb (11.4-16.0) gm/dL Hct (34.0-46.0) % Neutrophils # (1.3-7.7) k/uL Lymphocytes # (1.0-4.8) k/uL Sodium (137-145) mmol/L Creatinine (0.52-1.04) mg/dL Glucose (74-99) mg/dL POC Glucose (mg/dL) 152 H 132 H 167 H (70-110) mg/dL Total Protein (6.3-8.2) g/dL Albumin (3.5-5.0) g/dL 12/14/21 12/14/21 12/14/21 Range/Units 07:37 07:37 12:04 WBC 20.7 H (3.8-10.6) k/uL RBC 3.33 L (3.80-5.40) m/uL Hgb 10.3 L (11.4-16.0) gm/dL Hct 32.5 L (34.0-46.0) % Neutrophils # 19.4 H (1.3-7.7) k/uL Lymphocytes # 0.5 L (1.0-4.8) k/uL Sodium 135 L (137-145) mmol/L Creatinine 0.42 L (0.52-1.04) mg/dL Glucose 110 H (74-99) mg/dL POC Glucose (mg/dL) 145 H (70-110) mg/dL Total Protein 4.7 L (6.3-8.2) g/dL Albumin 2.6 L (3.5-5.0) g/dL
--- NOTE | 2021-12-14 13:43 | P.PN ---
Subjective Progress Note Date: 12/14/21 Principal diagnosis: Spinal cord compression In f/u today pt has not regained any of her strength or sensation in her lower extremities, she has Kearns catheter, she has not yet had a BM. Abd is distended, she wants to eat but it hurts her belly. No fever, nausea or vomiting. Objective - Vital Signs Vital signs: Vital Signs Temp 98.7 F 12/14/21 11:41 Pulse 111 H 12/14/21 11:41 Resp 19 12/14/21 11:41 BP 101/62 12/14/21 11:41 Pulse Ox 80 L 12/14/21 11:41 FiO2 21 12/09/21 19:39 Intake & Output 12/13/21 12/14/21 12/14/21 18:59 06:59 18:59 Intake Total 485 240 Output Total 900 1100 750 Balance -900 -615 -510 Weight 54.431 kg Intake: Oral 485 240 Output: Urine 900 1100 750 Other: Voiding Method Indwelling Catheter Indwelling Catheter # Bowel Movements 1 - Constitutional General appearance: Present: average body habitus, cooperative, mild distress - EENT Eyes: Present: anicteric sclerae, EOMI ENT: Present: hearing grossly normal - Respiratory Details: resp even and unlabored at rest - Gastrointestinal General gastrointestinal: Present: distended, soft - Neurologic Neurologic Comment(s): no motor strength in the BLE, pt reports maybe feeling a vibration when the skin is touched - Psychiatric Psychiatric: Present: A&O x's 3, appropriate affect, intact judgment & insight - Labs CBC & Chem 7: 12/14/21 07:37 12/14/21 07:37 Labs: Abnormal Lab Results - Last 24 Hours (Table) 12/13/21 12/13/21 12/14/21 Range/Units 16:13 20:25 06:28 WBC (3.8-10.6) k/uL RBC (3.80-5.40) m/uL Hgb (11.4-16.0) gm/dL Hct (34.0-46.0) % Neutrophils # (1.3-7.7) k/uL Lymphocytes # (1.0-4.8) k/uL Sodium (137-145) mmol/L Creatinine (0.52-1.04) mg/dL Glucose (74-99) mg/dL POC Glucose (mg/dL) 152 H 132 H 167 H (70-110) mg/dL Total Protein (6.3-8.2) g/dL Albumin (3.5-5.0) g/dL 12/14/21 12/14/21 12/14/21 Range/Units 07:37 07:37 12:04 WBC 20.7 H (3.8-10.6) k/uL RBC 3.33 L (3.80-5.40) m/uL Hgb 10.3 L (11.4-16.0) gm/dL Hct 32.5 L (34.0-46.0) % Neutrophils # 19.4 H (1.3-7.7) k/uL Lymphocytes # 0.5 L (1.0-4.8) k/uL Sodium 135 L (137-145) mmol/L Creatinine 0.42 L (0.52-1.04) mg/dL Glucose 110 H (74-99) mg/dL POC Glucose (mg/dL) 145 H (70-110) mg/dL Total Protein 4.7 L (6.3-8.2) g/dL Albumin 2.6 L (3.5-5.0) g/dL Assessment and Plan (1) Spinal cord compression Current Visit: Yes Status: Acute Priority: High Code(s): G95.20 - UNSPECIFIED CORD COMPRESSION SNOMED Code(s): 34753018 (2) Intractable back pain Current Visit: Yes Status: Acute Priority: High Code(s): M54.9 - DORSALGIA, UNSPECIFIED SNOMED Code(s): 778048129 (3) Lung cancer metastatic to bone Current Visit: Yes Status: Acute Priority: High Code(s): C34.90 - MALIGNANT NEOPLASM OF UNSP PART OF UNSP BRONCHUS OR LUNG; C79.51 - SECONDARY MALIGNANT NEOPLASM OF BONE SNOMED Code(s): 266118723 Plan: Pt is s/p extensive spinal surgery. No sensation or function gained yet. Cont on steroids. Cont pain mgmt Patient's bowel regimen adjusted, goltely ordered by Surgery. Encouraged pt to take all the scheduled meds for prevention of narcotic-induced constipation, cont aggressive regimen-even after BM, to ensure pt cont to have soft, easily passable bowel movement every 1-3 days. She verbalized understanding Pt did have her 1st cycle of libtayo. She is not due for 3 weeks to have another treatment. Post op radiation not planned at this time. All cancer tr [id number] be held until pt is discharged from rehab. 45min spent with pt and SO. After discussing pt wishes - she really wants to be at home- the plan comes down to this: rehab to see how much function pt can get back. Participation of her SO in rehab so he can see if he would be able to manage her care at home by himself. If she is able to return home, would need support such as home care. We did talk about further cancer treatment and hospice. If pt is able to go home and depending on how pt is feeling and doing, further cancer treatment can be discussed. Also, if pt chooses that she wants only to be kept comfortable then hospice is certainly not unreasonable. All questions were answered to the best of my ability. Discussed case with [employer] and Nursing Time with Patient: Greater than 30 (45min, counseling and coordinating care)
[2021-12-14 16:21] LABS: Glucose,Whole Blood 144 mg/dL (70-110)
--- NOTE | 2021-12-14 16:36 | CDI ---
Documentation Clarification Form Date: 12/14/2021 03:43:11 PM From: Nupur Alexander RN, CCDS Admit Date: 12/08/2021 11:15:00 AM Patient Name: Lara Ayala Visit Number: [id number] Discharge Date: ATTENTION: The Clinical Documentation Specialists (CDI) and [facility] Coding Staff appreciate your assistance in clarifying documentation. Please respond to the clarification below the line at the bottom and electronically sign. The CDI & [facility] Coding staff will review the response and follow-up if needed. Please note: Queries are made part of the Legal Health Record. If you have any questions, please contact the author of this message via ITS. Dr. Иван Hercules Postoperative ileus is documented in the surgical-consult on 12/13/2021 and patient had T9-L3 stabilization and fusion; biopsy/excision of intradural spinal neoplasm; extradural thoracic T9, T10, T11 excision of intraspinal neoplasm; extradural lumbar L1. Additional clarification is requested regarding the relationship, if any, that exists between the diagnosis and the procedure. 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 New onset paraplegia with T11 sensory level and LE paralysis Post-Operative Diagnosis: Same Procedure performed: T9-L3 stabilization and fusion; biopsy/excision of intradural spinal neoplasm; extradural thoracic T9, T10, T11 excision of intraspinal neoplasm; extradural lumbar L1. History/Risk Factors: Metastatic lung cancer with mets to spine, asthma, COPD, current smoker Clinical Indicators: 51-year-old female present with bilateral lower extremity weakness, unable to move her legs. X-ray of lumbar spine L1 vertebral body metastatic lesion. She reports no BM for 13 days. She has limited mobility and has required narcotics for pain control. Patient also has a known history of constipation and fecal impaction. 12/12 Abdominal XR: Large stool burden through the colon correlate for ileus in setting of recent surgery. 12/13 Abdominal XR: Correlate for severe constipation Treatment Lactulose 30 PO BID, Dulcolax suppositories, Mag-OX 400 MG PO Daily 12/09-12/14 .9NS IV @ 55 MLS/HR What relationship, if any, exists between the diagnosis of Postoperative ileus and the procedure? [ ] Postoperative ileus is a complication of surgical procedure [ ] Postoperative ileus is an expected outcome of the surgical procedure [ ] Postoperative ileus is related to patients co-morbid condition(s) of [insert) & not a complication of the procedure [ ] Other please specify ____ [ ] Unable to determine (Template Last Revised: May 2020) Postoperative ileus is related to patients co-morbid condition(s) of metestatic Lung CA with severe cord compression & not a complication of the procedure MTDD
[2021-12-14 20:04] LABS: Glucose,Whole Blood 138 mg/dL (70-110)
[2021-12-14] MEDS: traZODone HCL 100 MG TAB PO SCH (20:55)
[2021-12-15] MEDS: HYDROcodone/APAP 10-325MG 1 EACH TAB PO SCH ×6 (00:59→21:21)
[2021-12-15] MEDS: VARENICLINE 1 MG TAB PO SCH ×2 (00:59→09:20)
[2021-12-15] MEDS: DEXAMETHASONE SOD PHOSPHATE 10 MG/ML 1 ML VIAL IVP SCH ×6 (01:00→21:23)
[2021-12-15] MEDS: SODIUM CHLORIDE 0.9% 1,000 ML IV SCH ×2 (04:33→17:04)
[2021-12-15 05:48] LABS: Glucose,Whole Blood 156 mg/dL (70-110)
[2021-12-15] MEDS: CALCIUM CARB-VIT D 500 MG-5 MCG TAB PO SCH ×2 (07:00→17:13)
[2021-12-15] MEDS: INSULIN ASPART (NovoLOG) 100 UNIT/ML VIAL SQ SCH ×4 (07:00→21:25)
[2021-12-15 08:28] LABS: HCT 33.4 % (34.0-46.0); HGB 10.9 gm/dL (11.4-16.0); MCH 31.3 pg (25.0-35.0); MCHC 32.5 g/dL (31.0-37.0); MCV 96.3 fL (80.0-100.0); Mean Platelet Volume 7.9; Platelet Count 341 k/uL (150-450); RBC 3.47 m/uL (3.80-5.40); RDW 15.2 % (11.5-15.5); WBC 22.2 k/uL (3.8-10.6)
[2021-12-15 08:46] LABS: ALT 32 U/L (4-34); AST 22 U/L (14-36); African American GFR (CKD) >90 (>60 ml/min/1.73 sqM); Albumin 2.7 g/dL (3.5-5.0); Alkaline Phosphatase 130 U/L (38-126); Anion Gap 5 mmol/L; Blood Urea Nitrogen 17 mg/dL (7-17); Calcium 8.3 mg/dL (8.4-10.2); Carbon Dioxide 35 mmol/L (22-30); Chloride 98 mmol/L (98-107); Glucose 135 mg/dL (74-99); Non-African American GFR(CKD) >90 (>60 ml/min/1.73 sqM); Potassium 4.2 mmol/L (3.5-5.1); Sodium 138 mmol/L (137-145); Total Bilirubin 0.4 mg/dL (0.2-1.3); Total Protein 4.7 g/dL (6.3-8.2)
[2021-12-15] MEDS: bisacodyL 10 MG SUPP RECTAL SCH (09:16)
[2021-12-15] MEDS: LACTOBACILLUS ACIDOPH & BULGAR 1 EACH PACKET PO SCH (09:17)
[2021-12-15] MEDS: LACTULOSE 20 GM/30 ML CUP PO SCH ×2 (09:17→21:25)
[2021-12-15] MEDS: PALIPERIDONE 6 MG TAB.ER.24 PO SCH (09:18)
[2021-12-15] MEDS: LIDOCAINE 5% PATCH TOPICAL SCH (09:18)
[2021-12-15] MEDS: ENOXAPARIN 40 MG/0.4 ML SYRINGE SQ SCH (09:19)
[2021-12-15] MEDS: MAGNESIUM OXIDE 400 MG TAB PO SCH (09:19)
[2021-12-15] MEDS: PARoxetine 20 MG TAB PO SCH (09:19)
[2021-12-15] MEDS: MULTIVITAMINS, THERA 1 EACH TAB PO SCH (09:19)
[2021-12-15] MEDS: lamoTRIgine 100 MG TAB PO SCH ×2 (09:19→21:25)
--- NOTE | 2021-12-15 10:28 | P.PN ---
Progress Note - Text Progress Note Date: 12/15/21 Patient's resting comfortably in her bed. She is requesting more to E. She's had several bowel movements this morning. On exam vital signs are stable. Abdomen soft. Resolving ileus. Patient will have her diet advanced to regular diet.
--- NOTE | 2021-12-15 11:17 | P.PN ---
Subjective Progress Note Date: 12/15/21 Principal diagnosis: 1. 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 L1 lytic destructive lesion with stenosis and impending instability 3. T9-11 stenosis due to tumor mass 4. new onset paraplegia with T11 sensory level and LE paralysis 5. s/p Multiple fall from standing 6. Complex medical patient Patient seen at bedside this morning lying semirecumbent position with SCDs and velazquez boots on catheter/Kearns in place. Abdomen appears to be less distended vs yesterday. Patient says she was able to have bowel movement yesterday. Patient says she is still having back pain at this time. Patient feels that the medication has been helping with the back pain. Patient says she is not having any sensation in lower extremities. General surgery is following patient daily. Patient denies chest pain, fever, shortness of breath, nausea, vomiting, change in vision. Objective - Vital Signs Vital signs: Vital Signs Temp 98.0 F 12/15/21 05:00 Pulse 91 12/15/21 05:00 Resp 15 12/15/21 05:00 BP 121/76 12/15/21 05:00 Pulse Ox 96 12/15/21 05:00 FiO2 21 12/09/21 19:39 Intake & Output 12/14/21 12/15/21 12/15/21 18:59 06:59 18:59 Intake Total 480 Output Total 750 1075 Balance -270 -1075 Intake: Oral 480 Output: Urine 750 1075 Uretheral (Kearns) 300 Other: Voiding Method Indwelling Catheter Indwelling Catheter - Exam Incision is clean, dry, intact at this time. Hope Hull are well in place. Plan for dressing change later today. Patient does have sensation from T12 and superior. Patient does not have sensation inferior to T12. Patient does have some mild tenderness to palpation on the incision on the spine. Nontender to palpation throughout rest of exam. Patient has full range of motion bilateral upper extremities on exam. Patient does not have any range of motion in bilateral lower extremities. 5/5 in bilateral upper extremities on motor exam. No motor function in bilateral lower extremities. Radial pulse intact, 2+. Cap refill under 3 seconds in digits of upper extremities. Negative Homans bilaterally. Negative Eleni bilaterally. - Labs CBC & Chem 7: 12/15/21 07:46 10/08/22 07:46 Labs: Abnormal Lab Results - Last 24 Hours (Table) 12/14/21 12/14/21 12/14/21 Range/Units 12:04 16:19 20:02 WBC (3.8-10.6) k/uL RBC (3.80-5.40) m/uL Hgb (11.4-16.0) gm/dL Hct (34.0-46.0) % Carbon Dioxide (22-30) mmol/L Creatinine (0.52-1.04) mg/dL Glucose (74-99) mg/dL POC Glucose (mg/dL) 145 H 144 H 138 H (70-110) mg/dL Calcium (8.4-10.2) mg/dL Alkaline Phosphatase (38-126) U/L Total Protein (6.3-8.2) g/dL Albumin (3.5-5.0) g/dL 12/15/21 12/15/21 12/15/21 Range/Units 05:47 07:46 07:46 WBC 22.2 H (3.8-10.6) k/uL RBC 3.47 L (3.80-5.40) m/uL Hgb 10.9 L (11.4-16.0) gm/dL Hct 33.4 L (34.0-46.0) % Carbon Dioxide 35 H (22-30) mmol/L Creatinine 0.51 L (0.52-1.04) mg/dL Glucose 135 H (74-99) mg/dL POC Glucose (mg/dL) 156 H (70-110) mg/dL Calcium 8.3 L (8.4-10.2) mg/dL Alkaline Phosphatase 130 H (38-126) U/L Total Protein 4.7 L (6.3-8.2) g/dL Albumin 2.7 L (3.5-5.0) g/dL Assessment and Plan Assessment: 1. 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 L1 lytic destructive lesion with stenosis and impending instability 3. T9-11 stenosis due to tumor mass 4. new onset paraplegia with T11 sensory level and LE paralysis 5. s/p Multiple fall from standing 6. Complex medical patient - Postop day #5 status post T9-L3 stabilization and fusion; biopsy/excision of intradural spinal neoplasm; extradural thoracic T9, T10, T11; 5/excision of intraspinal neoplasm; extradural lumbar L1 Plan: 1. 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 Patient seen at bedside this morning. Patient still has no sensation in bilateral lower extremities. General surgery has seen patient and is following now. We do recommend patient to be rolled every couple hours in bed. Continue aggressive bowel regimen. Diet per general surgery. Spine incision appears clean dry and intact at this time. Continue with the use of velazquez boots/SCDs. Patient's legs should be raised and knees flexed/extended for PT. We will continue to follow patient during sta. Patient stable from orthopedic standpoint for discharge to rehab. 2. Appreciate medical, gen surg management 3. Pain management - Dumont; flexeril; morphine 4. DVT ppx - Lovenox; continue use velazquez boots and SCDs 5. GI ppx - milk of magnesia; lactulose; senna; Dulcolax 6. PT/OT - use madan lift. Patient's legs should be raised and knees flexed/extended for PT 7. Encourage incentive spirometer use. 8. discharge planning - discharge to [facility] Time with Patient: Less than 30
[2021-12-15 11:42] LABS: Glucose,Whole Blood 145 mg/dL (70-110)
--- NOTE | 2021-12-15 11:55 | P.PN ---
Subjective Patient is a 51-year-old female with a known history of metastatic lung cancer with mets to spine, asthma/COPD and current everyday smoker, anxiety/depression bipolar disorder and other medical problems presents to ER with complaints of bilateral lower extremity weakness. Patient states that she woke up in the morning and unable to move her legs. Patient also complaining of numbness. No bladder or bowel incontinence. No saddle anesthesia. Patient is having indwelling Kerans catheter. Patient was recently admitted to the hospital due to severe back pain due to metastatic lesions. Patient had MRI of the lumbar and thoracic spine was done recently. Radiation oncology has seen the patient and is scheduled for radiation on Friday morning. Patient had simulation done while in the hospital. X-ray of the lumbar spine showed no acute fracture. Multilevel disc disc degeneration. L1 vertebral body metastatic lesion not well appreciated. EKG showed sinus tachycardia Laboratory data showed WBC 16.6 hemoglobin 13.1 and platelets 7.8 Sodium 136 potassium 3.8 chloride 99 bicarb is 32 BUN 23 and creatinine 0.62 12/09/2021 Patient is still complaining of back pain and numbness and weakness in bilateral lower extremities. Afebrile. No complaints of chest pain or worsening shortness of breath. Patient is very anxious. No nausea vomiting or abdominal pain or diarrhea. Patient was seen by orthopedic surgery and is planning for [address] of the thoracic and lumbar spine showed large destructive lesion in the L1 vertebral body extending into the pedicles and face and joints and lamina related to metastatic disease. No change compared to recent exam. Bilateral hydronephrosis and demanding. Likely related to bladder obstruction. Dilated urinary bladder. Bladder extended up to L4 level. Kearns catheter will be inserted. Laboratory data showed WBC 16.7 hemoglobin 9.8 and platelets 326 Sodium 139 potassium 4.4 III bicarb is 24.7 BUN 18 and creatinine 0.6 and blood sugar 122. 12/11/21 patient seen and examined. Still having back pain. Denies any chest pain. Heart rate was elevated could be secondary to pain. Denies any nausea. Vital signs stable 12/12/21. Patient seen and examined. Patient was very tearful. Discussed with patient regarding her present condition, answered all questions. Patient has not had a bowel movement yet. Patient also has no sensations below her umbilicus area. Still has a drain in place 12/13/21. Patient seen and examined. Patient continues to have constipation. X-ray abdominal done yesterday showed significant stool burden and Ileus. Patient unable to tell us if she is passing gas. WBC this morning is 19.5. Patient is hemodynamically stable. 12/14/21. Patient seen and examined. Still hasn't had a bowel movement yet. Currently on clear liquid diet. Denies any abdominal pain. Unable to tell if she is passing gas. Back pain under control with pain medications. Resume care of the patient today 12/15/2021 This is a pleasant 51 years old female with the septic lung cancer to the spine presents with signs symptoms of cord compression secondary to extension, status post spinal tumor excision and to T9-L3 stabilization by orthopedic team. Patient still have no sensation or movement in her both lower extremities since surgery. Orthopedic team on the c ase and her pain is controlled and she was cleared for discharge to rehab by orthopedic team today. She remains on IV Decadron 6 mg every 6 hours. Also she's been followed closely by surgery team for ileus. She is on liquid diet and she has several bowel movements today. Her diet will be advanced. Patient is agreeable to go to rehab when I ask her today. On admission her chest x-ray showed atelectasis and the recommended follow-up, repeat chest x-ray tomorrow Objective - Vital Signs Vital signs: Vital Signs Temp 98.0 F 12/15/21 05:00 Pulse 91 12/15/21 05:00 Resp 15 12/15/21 05:00 BP 121/76 12/15/21 05:00 Pulse Ox 96 12/15/21 05:00 FiO2 21 12/09/21 19:39 Intake & Output 12/14/21 12/15/21 12/15/21 18:59 06:59 18:59 Intake Total 480 Output Total 750 1075 Balance -270 -1075 Intake: Oral 480 Output: Urine 750 1075 Uretheral (Kearns) 300 Other: Voiding Method Indwelling Catheter Indwelling Catheter - Exam GENERAL: The patient is alert and oriented x3, not in any acute distress. Well developed, well nourished. HEENT: Pupils are round and equally reacting to light. EOMI. No scleral icterus. No conjunctival pallor. Normocephalic, atraumatic. No pharyngeal erythema. No thyromegaly. CARDIOVASCULAR: S1 and S2 present. No murmurs, rubs, or gallops. PULMONARY: Chest is clear to auscultation, no wheezing or crackles. ABDOMEN: Soft, nontender, nondistended, normoactive bowel sounds. No palpable organomegaly. MUSCULOSKELETAL: No joint swelling or deformity. EXTREMITIES: No cyanosis, clubbing, or pedal edema. -NEUROLOGICAL: Sebastian nerves are grossly intact. Patient has severe paraplegia (she cannot move her lower extremities) and sensory loss of both lower extremities. SKIN: No rashes. no petechiae. - Labs CBC & Chem 7: 12/15/21 07:46 12/15/21 07:46 Labs: Abnormal Lab Results - Last 24 Hours (Table) 12/14/21 12/14/21 12/14/21 Range/Units 12:04 16:19 20:02 WBC (3.8-10.6) k/uL RBC (3.80-5.40) m/uL Hgb (11.4-16.0) gm/dL Hct (34.0-46.0) % Carbon Dioxide (22-30) mmol/L Creatinine (0.52-1.04) mg/dL Glucose (74-99) mg/dL POC Glucose (mg/dL) 145 H 144 H 138 H (70-110) mg/dL Calcium (8.4-10.2) mg/dL Alkaline Phosphatase (38-126) U/L Total Protein (6.3-8.2) g/dL Albumin (3.5-5.0) g/dL 12/15/21 12/15/21 12/15/21 Range/Units 05:47 07:46 07:46 WBC 22.2 H (3.8-10.6) k/uL RBC 3.47 L (3.80-5.40) m/uL Hgb 10.9 L (11.4-16.0) gm/dL Hct 33.4 L (34.0-46.0) % Carbon Dioxide 35 H (22-30) mmol/L Creatinine 0.51 L (0.52-1.04) mg/dL Glucose 135 H (74-99) mg/dL POC Glucose (mg/dL) 156 H (70-110) mg/dL Calcium 8.3 L (8.4-10.2) mg/dL Alkaline Phosphatase 130 H (38-126) U/L Total Protein 4.7 L (6.3-8.2) g/dL Albumin 2.7 L (3.5-5.0) g/dL 12/15/21 Range/Units 11:37 WBC (3.8-10.6) k/uL RBC (3.80-5.40) m/uL Hgb (11.4-16.0) gm/dL Hct (34.0-46.0) % Carbon Dioxide (22-30) mmol/L Creatinine (0.52-1.04) mg/dL Glucose (74-99) mg/dL POC Glucose (mg/dL) 145 H (70-110) mg/dL Calcium (8.4-10.2) mg/dL Alkaline Phosphatase (38-126) U/L Total Protein (6.3-8.2) g/dL Albumin (3.5-5.0) g/dL Assessment and Plan Assessment: Spinal cord compression secondary to metastatic lung cancer status post tumor excision and stabilization of T9-L3 vertebrae. 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 Status post Kearns catheter placement. 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 anxiety and depression bipolar disorder, no connective tissue History of asthma Plan: This is a pleasant 51 years old with metastatic lung cancer to the spine status post surgical excision Continue with pain medication Continue with steroids Orthopedic team to the patient for discharge Diet as tolerated, surgery team on the case Follow-up with hematology/oncology team as an outpatient Labs and medication were reviewed.. Continue same treatment. Continue with symptomatic treatment. Resume home medication. Monitor lytes and vitals. DVT and GI prophylaxis. Further recommendations as per clinical course of the patient DVT prophylaxis: Subcutaneous heparin GI Prophylaxis: Ppi PT/OT: Subacute rehab Prognosis is guarded
[2021-12-15] MEDS: polyethylene glycoL 3350 17 GM POWD.PACK PO SCH ×2 (12:02→21:22)
[2021-12-15] MEDS: SENNOSIDES-DOCUSATE SODIUM 1 EACH TAB PO SCH ×2 (12:02→21:21)
[2021-12-15] MEDS: MORPHINE SULFATE ER 30 MG TABLET PO SCH ×3 (12:10→21:27)
[2021-12-15] MEDS: HYDROmorphone 1 MG/ML 1 ML SYRINGE IVP PRN ×2 (13:25→22:36)
[2021-12-15 16:44] LABS: Glucose,Whole Blood 181 mg/dL (70-110)
[2021-12-15 20:12] LABS: Glucose,Whole Blood 205 mg/dL (70-110)
[2021-12-15] MEDS: traZODone HCL 100 MG TAB PO SCH (21:22)
[2021-12-16] MEDS: DEXAMETHASONE SOD PHOSPHATE 10 MG/ML 1 ML VIAL IVP SCH ×3 (00:33→08:22)
[2021-12-16] MEDS: HYDROcodone/APAP 10-325MG 1 EACH TAB PO SCH ×6 (00:34→21:04)
[2021-12-16] MEDS: VARENICLINE 1 MG TAB PO SCH ×3 (00:34→21:11)
[2021-12-16] MEDS: SODIUM CHLORIDE 0.9% 1,000 ML IV SCH ×3 (04:52→23:50)
[2021-12-16 06:34] LABS: Glucose,Whole Blood 163 mg/dL (70-110)
[2021-12-16] MEDS: INSULIN ASPART (NovoLOG) 100 UNIT/ML VIAL SQ SCH ×4 (07:08→21:02)
[2021-12-16] MEDS: CALCIUM CARB-VIT D 500 MG-5 MCG TAB PO SCH ×2 (07:08→17:52)
[2021-12-16] MEDS: HYDROmorphone 1 MG/ML 1 ML SYRINGE IVP PRN ×2 (07:10→23:31)
[2021-12-16] MEDS: LACTULOSE 20 GM/30 ML CUP PO SCH ×2 (08:22→21:05)
[2021-12-16] MEDS: SENNOSIDES-DOCUSATE SODIUM 1 EACH TAB PO SCH ×2 (08:22→21:04)
[2021-12-16] MEDS: MULTIVITAMINS, THERA 1 EACH TAB PO SCH (08:22)
[2021-12-16] MEDS: ENOXAPARIN 40 MG/0.4 ML SYRINGE SQ SCH (08:22)
[2021-12-16] MEDS: lamoTRIgine 100 MG TAB PO SCH ×2 (08:23→21:03)
[2021-12-16] MEDS: PALIPERIDONE 6 MG TAB.ER.24 PO SCH (08:23)
[2021-12-16] MEDS: LACTOBACILLUS ACIDOPH & BULGAR 1 EACH PACKET PO SCH (08:23)
[2021-12-16] MEDS: MAGNESIUM OXIDE 400 MG TAB PO SCH (08:23)
[2021-12-16] MEDS: PARoxetine 20 MG TAB PO SCH (08:24)
[2021-12-16] MEDS: MORPHINE SULFATE ER 30 MG TABLET PO SCH ×3 (08:24→23:26)
[2021-12-16] MEDS: polyethylene glycoL 3350 17 GM POWD.PACK PO SCH ×2 (08:24→21:03)
[2021-12-16] MEDS: LIDOCAINE 5% PATCH TOPICAL SCH (08:25)
[2021-12-16] MEDS: bisacodyL 10 MG SUPP RECTAL SCH (08:33)
--- NOTE | 2021-12-16 08:49 | P.PN ---
Subjective Progress Note Date: 12/16/21 Principal diagnosis: 1. 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 L1 lytic destructive lesion with stenosis and impending instability 3. T9-11 stenosis due to tumor mass 4. new onset paraplegia with T11 sensory level and LE paralysis 5. s/p Multiple fall from standing 6. Complex medical patient Patient seen at bedside this morning lying semirecumbent position with SCDs and velazquez boots on catheter/Kearns in place. Abdomen appears to be less distended today. Patient says she was able to have bowel movement a couple days ago. Patient says she is still having back pain at this time. Patient feels that the medication has been helping with the back pain. Patient says she is not having any sensation in lower extremities. General surgery is following patient daily. Patient denies chest pain, fever, shortness of breath, nausea, vomiting, change in vision. Objective - Vital Signs Vital signs: Vital Signs Temp 97.7 F 12/16/21 08:00 Pulse 105 H 12/16/21 08:00 Resp 18 12/16/21 08:00 BP 140/80 12/16/21 08:00 Pulse Ox 94 L 12/16/21 08:00 FiO2 21 12/09/21 19:39 Intake & Output 12/15/21 12/16/21 12/16/21 18:59 06:59 18:59 Output Total 900 3500 Balance -900 -3500 Output: Urine 900 3500 Uretheral (Kearns) 900 3100 Other: Voiding Method Indwelling Catheter Indwelling Catheter - Exam Incision is clean, dry, intact at this time. Barb are well in place. Dressing changed yesterday. Patient does have sensation from T12 and superior. Patient does not have sensation inferior to T12. Patient does have some mild tenderness to palpation on the incision on the spine. Nontender to palpation throughout rest of exam. Patient has full range of motion bilateral upper extremities on exam. Patient does not have any range of motion in bilateral lower extremities. 5/5 in bilateral upper extremities on motor exam. No motor function in bilateral lower extremities. Radial pulse intact, 2+. Cap refill under 3 seconds in digits of upper extremities. Negative Homans bilaterally. Negative Eleni bilaterally. - Labs CBC & Chem 7: 12/15/21 07:46 12/15/21 07:46 Labs: Abnormal Lab Results - Last 24 Hours (Table) 12/15/21 12/15/21 12/15/21 Range/Units 07:46 11:37 16:43 Carbon Dioxide 35 H (22-30) mmol/L Creatinine 0.51 L (0.52-1.04) mg/dL Glucose 135 H (74-99) mg/dL POC Glucose (mg/dL) 145 H 181 H (70-110) mg/dL Calcium 8.3 L (8.4-10.2) mg/dL Alkaline Phosphatase 130 H (38-126) U/L Total Protein 4.7 L (6.3-8.2) g/dL Albumin 2.7 L (3.5-5.0) g/dL 12/15/21 12/16/21 Range/Units 20:10 06:33 Carbon Dioxide (22-30) mmol/L Creatinine (0.52-1.04) mg/dL Glucose (74-99) mg/dL POC Glucose (mg/dL) 205 H 163 H (70-110) mg/dL Calcium (8.4-10.2) mg/dL Alkaline Phosphatase (38-126) U/L Total Protein (6.3-8.2) g/dL Albumin (3.5-5.0) g/dL Assessment and Plan Assessment: 1. 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 L1 lytic destructive lesion with stenosis and impending instability 3. T9-11 stenosis due to tumor mass 4. new onset paraplegia with T11 sensory level and LE paralysis 5. s/p Multiple fall from standing 6. Complex medical patient - Postop day #6 status post T9-L3 stabilization and fusion; biopsy/excision of intradural spinal neoplasm; extradural thoracic T9, T10, T11; 5/excision of intraspinal neoplasm; extradural lumbar L1 Plan: 1. 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 Patient seen at bedside this morning. Patient still has no sensation in bilateral lower extremities. General surgery has seen patient and is following now. We do recommend patient to be rolled every couple hours in bed. Continue aggressive bowel regimen. Diet per general surgery. Spine incision appears clean dry and intact at this time. Continue with the use of velazquez boots/SCDs. Patient's legs should be raised and knees flexed/extended for PT. We will continue to follow patient during sta. Patient stable from orthopedic standpoint for discharge to rehab. 2. Appreciate medical, gen surg management 3. Pain management - Dameron; flexeril; morphine 4. DVT ppx - Lovenox; continue use velazquez boots and SCDs 5. GI ppx - milk of magnesia; lactulose; senna; Dulcolax 6. PT/OT - use madan lift. Patient's legs should be raised and knees flexed/extended for PT 7. Encourage incentive spirometer use. 8. discharge planning - discharge to [facility] Time with Patient: Less than 30
--- NOTE | 2021-12-16 08:56 | XR ---
EXAMINATION TYPE: XR chest 1V portable DATE OF EXAM: 12/16/2021 COMPARISON: 12/03/2021 and 12/08/2021. HISTORY: Hypoxia TECHNIQUE: Single frontal view of the chest is obtained. FINDINGS: As noted on multiple prior studies the right hilum is prominent suggestive of hilar mass or adenopath y. There is interval development of an infiltrate in the right lung base medially. The left lung is clear. There is no pleural effusion or pneumothorax. Heart size normal vasculature is not congested. There are postsurgical changes in the thoracolumbar spine consistent with stabilization device otherw ise the osseous structures are intact. IMPRESSION: 1. Persistent right hilar mass consistent with neoplasm or adenopathy. This is been no prior studies and is stable. 2. Interval development of right lower lobe infiltrate/opacity suspicious for pneumonia which could b e postobstructive pneumonia secondary to the mass.
--- NOTE | 2021-12-16 10:36 | P.PN ---
Subjective Patient is a 51-year-old female with a known history of metastatic lung cancer with mets to spine, asthma/COPD and current everyday smoker, anxiety/depression bipolar disorder and other medical problems presents to ER with complaints of bilateral lower extremity weakness. Patient states that she woke up in the morning and unable to move her legs. Patient also complaining of numbness. No bladder or bowel incontinence. No saddle anesthesia. Patient is having indwelling Kearns catheter. Patient was recently admitted to the hospital due to severe back pain due to metastatic lesions. Patient had MRI of the lumbar and thoracic spine was done recently. Radiation oncology has seen the patient and is scheduled for radiation on Friday morning. Patient had simulation done while in the hospital. X-ray of the lumbar spine showed no acute fracture. Multilevel disc disc degeneration. L1 vertebral body metastatic lesion not well appreciated. EKG showed sinus tachycardia Laboratory data showed WBC 16.6 hemoglobin 13.1 and platelets 7.8 Sodium 136 potassium 3.8 chloride 99 bicarb is 32 BUN 23 and creatinine 0.62 12/09/2021 Patient is still complaining of back pain and numbness and weakness in bilateral lower extremities. Afebrile. No complaints of chest pain or worsening shortness of breath. Patient is very anxious. No nausea vomiting or abdominal pain or diarrhea. Patient was seen by orthopedic surgery and is planning for [address] of the thoracic and lumbar spine showed large destructive lesion in the L1 vertebral body extending into the pedicles and face and joints and lamina related to metastatic disease. No change compared to recent exam. Bilateral hydronephrosis and demanding. Likely related to bladder obstruction. Dilated urinary bladder. Bladder extended up to L4 level. Kearns catheter will be inserted. Laboratory data showed WBC 16.7 hemoglobin 9.8 and platelets 326 Sodium 139 potassium 4.4 III bicarb is 24.7 BUN 18 and creatinine 0.6 and blood sugar 122. 12/11/21 patient seen and examined. Still having back pain. Denies any chest pain. Heart rate was elevated could be secondary to pain. Denies any nausea. Vital signs stable 12/12/21. Patient seen and examined. Patient was very tearful. Discussed with patient regarding her present condition, answered all questions. Patient has not had a bowel movement yet. Patient also has no sensations below her umbilicus area. Still has a drain in place 12/13/21. Patient seen and examined. Patient continues to have constipation. X-ray abdominal done yesterday showed significant stool burden and Ileus. Patient unable to tell us if she is passing gas. WBC this morning is 19.5. Patient is hemodynamically stable. 12/14/21. Patient seen and examined. Still hasn't had a bowel movement yet. Currently on clear liquid diet. Denies any abdominal pain. Unable to tell if she is passing gas. Back pain under control with pain medications. Resume care of the patient today 12/15/2021 This is a pleasant 51 years old female with the septic lung cancer to the spine presents with signs symptoms of cord compression secondary to extension, status post spinal tumor excision and to T9-L3 stabilization by orthopedic team. Patient still have no sensation or movement in her both lower extremities since surgery. Orthopedic team on the c ase and her pain is controlled and she was cleared for discharge to rehab by orthopedic team today. She remains on IV Decadron 6 mg every 6 hours. Also she's been followed closely by surgery team for ileus. She is on liquid diet and she has several bowel movements today. Her diet will be advanced. Patient is agreeable to go to rehab when I ask her today. On admission her chest x-ray showed atelectasis and the recommended follow-up, repeat chest x-ray tomorrow 12/16/2021 Patient is awake and alert, generally lethargic. She is gradually getting more hypoxic over several days 3-4 L/m via nasal cannula, today her oxygen requirement went up to 5 L/m Chest x-ray done today showing evidence of right lung mass versus lymphadenopathy consistent with her history of metastatic right lung cancer however there is evidence of postobstructive pneumonia We will start patient on Zosyn with close monitoring. Continue with breathing treatment and incentive spirometry. Also her back pain that looks controlled. She has persistent paraplegia and loss of sensation in the lower extremities since admission and after the surgery however orthopedic team. The patient for discharge to rehab. Discussed with staff to touch base with orthopedic team about her steroid management, currently she remains on Decadron 6 mg IV every 4 hours there was concern about hematuria last night, Kearns catheter was placed, this morning patient has no urinary symptoms, no suprapubic tenderness and the Kearns catheter is draining clear urine. Other than that no new complaint and she is hemodynamically stable. She has evidence of leukocytosis and mild anemia. WBC is 22,000 yesterday. Glucose controlled Objective - Vital Signs Vital signs: Vital Signs Temp 97.7 F 12/16/21 08:00 Pulse 105 H 12/16/21 08:00 Resp 18 12/16/21 08:00 BP 140/80 12/16/21 08:00 Pulse Ox 94 L 12/16/21 08:00 FiO2 21 12/09/21 19:39 Intake & Output 12/15/21 12/16/21 12/16/21 18:59 06:59 18:59 Output Total 900 3500 Balance -900 -3500 Output: Urine 900 3500 Uretheral (Kearns) 900 3100 Other: Voiding Method Indwelling Catheter Indwelling Catheter - Exam GENERAL: The patient is alert and oriented x3, not in any acute distress. Well developed, well nourished. HEENT: Pupils are round and equally reacting to light. EOMI. No scleral icterus. No conjunctival pallor. Normocephalic, atraumatic. No pharyngeal erythema. No thyromegaly. CARDIOVASCULAR: S1 and S2 present. No murmurs, rubs, or gallops. PULMONARY: Chest is clear to auscultation, no wheezing or crackles. ABDOMEN: Soft, nontender, nondistended, normoactive bowel sounds. No palpable organomegaly. MUSCULOSKELETAL: No joint swelling or deformity. EXTREMITIES: No cyanosis, clubbing, or pedal edema. -NEUROLOGICAL: Sebastian nerves are grossly intact. Patient has severe paraplegia (she cannot move her lower extremities) and sensory loss of both lower extremities. SKIN: No rashes. no petechiae. - Labs CBC & Chem 7: 12/15/21 07:46 12/15/21 07:46 Labs: Abnormal Lab Results - Last 24 Hours (Table) 12/15/21 12/15/21 12/15/21 Range/Units 11:37 16:43 20:10 POC Glucose (mg/dL) 145 H 181 H 205 H (70-110) mg/dL 12/16/21 Range/Units 06:33 POC Glucose (mg/dL) 163 H (70-110) mg/dL Assessment and Plan Assessment: Right lower lobe postobstructive hospital-acquired pneumonia Spinal cord compression secondary to metastatic lung cancer status post tumor excision and stabilization of T9-L3 vertebrae. 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 Status post Kearns catheter placement. 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 anxiety and depression bipolar disorder, no connective tissue History of asthma Plan: This is a pleasant 51 years old with metastatic lung cancer to the spine status post surgical excision Start Zosyn Continue with Kearns catheter Continue with pain medication Continue with steroids, follow-up with orthopedic team about the planned with sterile treatment Orthopedic team to the patient for discharge Diet as tolerated, surgery team on the case Follow-up with hematology/oncology team as an outpatient Labs and medication were reviewed.. Continue same treatment. Continue with symptomatic treatment. Resume home medication. Monitor lytes and vitals. DVT and GI prophylaxis. Further recommendations as per clinical course of the patient DVT prophylaxis: Subcutaneous heparin GI Prophylaxis: Ppi PT/OT: Subacute rehab Prognosis is guarded
[2021-12-16 11:41] LABS: Glucose,Whole Blood 195 mg/dL (70-110)
--- NOTE | 2021-12-16 12:38 | P.PN ---
Progress Note - Text Progress Note Date: 12/16/21 Patient some complaints of nausea and abdominal distention. She is currently on clear liquids. On exam vital signs appear stable. Abdomen soft and distended. The patient patient will decrease her intake if her nausea persists.
[2021-12-16] MEDS: HYDROmorphone 0.5 MG/0.5 ML SYRINGE IVP PRN (13:17)
[2021-12-16] MEDS: DEXAMETHASONE SOD PHOSPHATE 4 MG/ML 1 ML VIAL IVP SCH ×4 (13:17→23:31)
[2021-12-16] MEDS: PIPERACILLIN-TAZOBACTAM 3.375 GM in SODIUM CHLORIDE 0.9% 100 ML IVPB SCH ×3 (13:18→23:32)
[2021-12-16 16:45] LABS: Glucose,Whole Blood 170 mg/dL (70-110)
[2021-12-16 19:27] LABS: Glucose,Whole Blood 176 mg/dL (70-110)
[2021-12-16] MEDS: traZODone HCL 100 MG TAB PO SCH (21:03)
--- NOTE | 2021-12-16 22:39 | P.PN ---
Subjective Progress Note Date: 12/10/21 Patient is a 51-year-old female with a known history of metastatic lung cancer with mets to spine, asthma/COPD and current everyday smoker, anxiety/depression bipolar disorder and other medical problems presents to ER with complaints of bilateral lower extremity weakness. Patient states that she woke up in the morning and unable to move her legs. Patient also complaining of numbness. No bladder or bowel incontinence. No saddle anesthesia. Patient is having indwelling Kearns catheter. Patient was recently admitted to the hospital due to severe back pain due to metastatic lesions. Patient had MRI of the lumbar and thoracic spine was done recently. Radiation oncology has seen the patient and is scheduled for radiation on Friday morning. Patient had simulation done while in the hospital. X-ray of the lumbar spine showed no acute fracture. Multilevel disc disc degeneration. L1 vertebral body metastatic lesion not well appreciated. EKG showed sinus tachycardia Laboratory data showed WBC 16.6 hemoglobin 13.1 and platelets 7.8 Sodium 136 potassium 3.8 chloride 99 bicarb is 32 BUN 23 and creatinine 0.62 12/09/2021 Patient is still complaining of back pain and numbness and weakness in bilateral lower extremities. Afebrile. No complaints of chest pain or worsening shortness of breath. Patient is very anxious. No nausea vomiting or abdominal pain or diarrhea. Patient was seen by orthopedic surgery and is planning for [address] of the thoracic and lumbar spine showed large destructive lesion in the L1 vertebral body extending into the pedicles and face and joints and lamina r elated to metastatic disease. No change compared to recent exam. Bilateral hydronephrosis and demanding. Likely related to bladder obstruction. Dilated urinary bladder. Bladder extended up to L4 level. Kearns catheter will be inserted. Laboratory data showed WBC 16.7 hemoglobin 9.8 and platelets 326 Sodium 139 potassium 4.4 III bicarb is 24.7 BUN 18 and creatinine 0.6 and blood sugar 122. 12/10/2021 Patient is currently lying in the bed. Awake alert but very anxious. Back pain is better while he was able to lay in the bed today. Still having bilateral lower extremity weakness and loss of sensation/numbness. No bladder or bowel incontinence. Patient was seen by orthopedic surgery. CT of the lumbar spine was done showed no acute new changes and compression fracture present. Orthopedic surgery is planning for surgical decompression today. Laboratory data reviewed. Current on pain management. Current medications reviewed. Objective - Vital Signs Vital signs: Vital Signs Temp 97.3 F L 12/10/21 05:00 Pulse 93 12/10/21 05:00 Resp 16 12/10/21 05:00 BP 137/91 12/10/21 05:00 Pulse Ox 91 L 12/10/21 07:22 FiO2 21 12/09/21 19:39 Intake & Output 12/09/21 12/10/21 12/10/21 18:59 06:59 18:59 Intake Total 950 1260 Output Total 2400 1425 Balance -1450 -165 Intake: Intake, IV Titration 950 900 Amount Dexamethasone Sod Phos ( 50 Mdv) 50 mg In Dextrose 5% in Water 50 ml @ 100 mls /hr IVPB ONCE ONE Rx#: [id number] Sodium Chloride 0.9% 1, 900 900 000 ml @ 75 mls/hr IV . [id number] [facility] Rx#:[id number] Oral 360 Output: Urine 2400 1425 Uretheral (Kearns) 2400 Other: Voiding Method External Catheter Indwelling Catheter - Exam PHYSICAL EXAMINATION: Patient is lying in the bed comfortably, no acute distress, awake alert and oriented but very anxious... HEENT: Normocephalic. Neck is supple. Pupils reactive. Nostrils clear. Oral cavity is moist. Neck reveals no JVD, carotid bruits, or thyromegaly. CHEST EXAMINATION: Trachea is central. Symmetrical expansion. Bibasilar diminished sounds. No wheezing. Coarse breath sounds.. CARDIAC: Normal S1, S2 with no gallops. No murmurs ABDOMEN: Soft. Lower abdominal tenderness. Bowel sounds normal. No organomegaly. No abdominal bruits. Extremities: reveal no edema. No clubbing or cyanosis Neurologically awake, alert, oriented x3 . Patient does have bilateral lower extremity weakness and decreased sensation. Skin: No rash or skin lesions. Psychiatric: Coperative. Nonsuicidal, the anxious. Musculoskeletal: No joint swelling or deformity.. - Labs CBC & Chem 7: 12/15/21 07:46 12/15/21 07:46 Labs: Abnormal Lab Results - Last 24 Hours (Table) 12/09/21 12/09/21 12/09/21 Range/Units 06:49 06:49 06:49 WBC 16.75 H (4.50-10.00) X 10*3/uL RBC 3.78 L (4.10-5.20) X 10*6/uL Hgb 11.8 L (12.0-15.0) g/dL Hct 36.9 L (37.2-46.3) % MCV 97.6 H (80.0-97.0) fL RDW 16.2 H (11.5-14.5) % Immature Gran # 0.14 H (0.00-0.04) X 10*3/uL Neutrophils # 15.36 H (1.80-7.70) X 10*3/uL Lymphocytes # 0.43 L (0.90-5.00) X 10*3/uL Eosinophils # 0 L (0.04-0.35) X 10*3/uL BUN/Creatinine Ratio 32.55 H (12.00-20.00) Ratio Glucose 122 H (70-110) mg/dL Procalcitonin 0.19 H (0.02-0.09) ng/mL Assessment and Plan Assessment: Bilateral lower extremity weakness likely due to metastatic L1 lesion. Rule out cord compression. Severe back pain secondary to metastatic lesions Hydronephrosis with bladder outlet obstruction. Status post Kearns catheter placement. 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 Severe anxiety and depression bipolar disorder History of asthma Currently everyday smoker Marijuana use DVT prophylaxis with Lovenox subcu Plan: Patient will be continued on pain management. Kearns catheter placement. Continue with long-acting morphine and gentle IV hydration. Patient was given a dose of dexamethasone 10 mg IV x1 and continue with 4 mg every [address] of the lumbar spine and thoracic spine was done showed large L1 metastatic lesion. Orthopedic surgery is planning for OR today. . Continue pain management. Follow-up closely. Discussed with patient and her at bedside in detail. Time with Patient: Greater than 30
[2021-12-17] MEDS: HYDROcodone/APAP 10-325MG 1 EACH TAB PO SCH ×6 (03:22→19:59)
[2021-12-17] MEDS: DEXAMETHASONE SOD PHOSPHATE 4 MG/ML 1 ML VIAL IVP SCH ×6 (04:27→23:42)
[2021-12-17 05:39] LABS: Glucose,Whole Blood 167 mg/dL (70-110)
[2021-12-17] MEDS: CALCIUM CARB-VIT D 500 MG-5 MCG TAB PO SCH ×2 (05:54→17:15)
[2021-12-17] MEDS: INSULIN ASPART (NovoLOG) 100 UNIT/ML VIAL SQ SCH ×4 (05:54→20:01)
[2021-12-17] MEDS: LACTULOSE 20 GM/30 ML CUP PO SCH (07:52)
[2021-12-17] MEDS: bisacodyL 10 MG SUPP RECTAL SCH (07:52)
[2021-12-17] MEDS: MORPHINE SULFATE ER 30 MG TABLET PO SCH ×3 (08:23→23:52)
[2021-12-17] MEDS: PIPERACILLIN-TAZOBACTAM 3.375 GM in SODIUM CHLORIDE 0.9% 100 ML IVPB SCH ×3 (08:23→23:43)
[2021-12-17] MEDS: LACTOBACILLUS ACIDOPH & BULGAR 1 EACH PACKET PO SCH (08:24)
[2021-12-17] MEDS: ENOXAPARIN 40 MG/0.4 ML SYRINGE SQ SCH (08:24)
[2021-12-17] MEDS: SENNOSIDES-DOCUSATE SODIUM 1 EACH TAB PO SCH ×2 (08:24→20:00)
[2021-12-17] MEDS: MULTIVITAMINS, THERA 1 EACH TAB PO SCH (08:25)
[2021-12-17] MEDS: MAGNESIUM OXIDE 400 MG TAB PO SCH (08:25)
[2021-12-17] MEDS: PARoxetine 20 MG TAB PO SCH (08:25)
[2021-12-17] MEDS: lamoTRIgine 100 MG TAB PO SCH ×2 (08:26→20:00)
[2021-12-17] MEDS: PALIPERIDONE 6 MG TAB.ER.24 PO SCH (08:26)
[2021-12-17] MEDS: VARENICLINE 1 MG TAB PO SCH ×2 (08:26→20:01)
[2021-12-17 08:30] LABS: Basophils # (A) 0.1 k/uL (0-0.2); Basophils % (A) 0 %; Eosinophils % (A) 0 %; HCT 35.1 % (34.0-46.0); HGB 11.4 gm/dL (11.4-16.0); Lymphocytes # (A) 0.4 k/uL (1.0-4.8); Lymphocytes % (A) 2 %; MCH 31.3 pg (25.0-35.0); MCHC 32.3 g/dL (31.0-37.0); Mean Platelet Volume 8.4; Monocytes # (A) 0.6 k/uL (0-1.0); Monocytes % (A) 2 %; Neutrophils # (A) 23.2 k/uL (1.3-7.7); Neutrophils % (A) 95 %; Platelet Count 251 k/uL (150-450); RBC 3.62 m/uL (3.80-5.40); RDW 15.2 % (11.5-15.5); WBC 24.3 k/uL (3.8-10.6)
[2021-12-17 08:55] LABS: African American GFR (CKD) >90 (>60 ml/min/1.73 sqM); Anion Gap 4 mmol/L; Blood Urea Nitrogen 16 mg/dL (7-17); Calcium 8.5 mg/dL (8.4-10.2); Carbon Dioxide 35 mmol/L (22-30); Chloride 98 mmol/L (98-107); Glucose 137 mg/dL (74-99); Non-African American GFR(CKD) >90 (>60 ml/min/1.73 sqM); Potassium 4.4 mmol/L (3.5-5.1); Sodium 137 mmol/L (137-145)
[2021-12-17] MEDS: polyethylene glycoL 3350 17 GM POWD.PACK PO SCH ×3 (09:07→20:01)
[2021-12-17 11:34] LABS: Glucose,Whole Blood 187 mg/dL (70-110)
[2021-12-17] MEDS: LIDOCAINE 5% PATCH TOPICAL SCH (11:42)
--- NOTE | 2021-12-17 12:12 | P.PN ---
Subjective Progress Note Date: 12/17/21 CHIEF COMPLAINT: Bilateral lower extremity weakness HISTORY OF PRESENT ILLNESS: Surgical service is following regards to patient's constipation and ileus. patient reports having bowel movements. She is i ncontinent of stool. Per nursing staff patient is having multiple stools that are loose with some bulkiness. Her buttocks is becoming excoriated from the stools. Patient denies any nausea or vomiting. She reports improvement in her abdominal pain. Still has some residual discomfort on the left side. Currently getting only eating a small amount of the low fiber diet. Afebrile. WBC 24.3 Hgb 11.4 platelet 251 since 137 potassium 4.4 creatinine 0.42 PHYSICAL EXAM: VITAL SIGNS: Reviewed. GENERAL: Well-developed in no acute distress. HEENT: No sclera icterus. Extraocular movements grossly intact. Moist buccal mucosa. Head is atraumatic, normocephalic. ABDOMEN: Soft. Mildly distended. Mild tenderness to palpation left-sided abdomen NEUROLOGIC: Alert and oriented. Cranial nerves II through XII grossly intact. ASSESSMENT: 1. Postoperative ileus 2. Constipation 3. Status post spinal surgery 4. Metastatic lung cancer with metastatic disease to spine PLAN: -Patient is having multiple bowel movements. Discontinue the lactulose. -Continue low fiber diet -Apply zinc oxide to buttocks area to protect skin -Continue MiraLAX and stool softener for now Physician Pneumatic Jacketer note has been reviewed by physician. Signing provider agrees with the documented findings, assessment, and plan of care. I have personally seen and examined the patient, reviewed the LAW PROFESSOR /PAs history, exam and MDM and agree with the assessment and plan as written. Based on total visit time, I have performed more than 50% of the visit. As above: Patient is doing better. Having more bowel function. Still with mild abdominal discomfort at times. Tolerating solid foods. Continue stool softeners. Objective - Vital Signs Vital signs: Vital Signs Temp 97.9 F 12/17/21 11:47 Pulse 100 12/17/21 11:47 Resp 17 12/17/21 11:47 BP 114/66 12/17/21 11:47 Pulse Ox 92 L 12/17/21 11:47 FiO2 21 12/09/21 19:39 Intake & Output 12/16/21 12/17/21 12/17/21 18:59 06:59 18:59 Output Total 2400 1300 Balance -2400 -1300 Output: Urine 2400 1300 Uretheral (Kearns) 2400 Other: Voiding Method Indwelling Catheter Indwelling Catheter Indwelling Catheter - Labs CBC & Chem 7: 12/17/21 07:55 12/17/21 07:55 Labs: Abnormal Lab Results - Last 24 Hours (Table) 12/16/21 12/16/21 12/17/21 Range/Units 16:41 19:25 05:38 WBC (3.8-10.6) k/uL RBC (3.80-5.40) m/uL Neutrophils # (1.3-7.7) k/uL Lymphocytes # (1.0-4.8) k/uL Carbon Dioxide (22-30) mmol/L Creatinine (0.52-1.04) mg/dL Glucose (74-99) mg/dL POC Glucose (mg/dL) 170 H 176 H 167 H (70-110) mg/dL 12/17/21 12/17/21 12/17/21 Range/Units 07:55 07:55 11:33 WBC 24.3 H (3.8-10.6) k/uL RBC 3.62 L (3.80-5.40) m/uL Neutrophils # 23.2 H (1.3-7.7) k/uL Lymphocytes # 0.4 L (1.0-4.8) k/uL Carbon Dioxide 35 H (22-30) mmol/L Creatinine 0.42 L (0.52-1.04) mg/dL Glucose 137 H (74-99) mg/dL POC Glucose (mg/dL) 187 H (70-110) mg/dL
[2021-12-17] MEDS: HYDROmorphone 0.5 MG/0.5 ML SYRINGE IVP PRN (12:50)
[2021-12-17] MEDS: ZINC OXIDE 20% OINT 28.4 GM TUBE TOPICAL SCH ×2 (12:52→19:56)
--- NOTE | 2021-12-17 14:39 | P.PN ---
Subjective Progress Note Date: 12/17/21 Principal diagnosis: Status post T9-L3 decompression and fusion, tumor resection at L1 Patient was evaluated today for site, she is resting comfortably in her hospital bed. She notes no changes with regards to the sensation and motor function in the bilateral lower extremities. She does note some discomfort in the back in her incision. She denies any headaches, lightheadedness, chest pain or shortness of breath. Objective - Vital Signs Vital signs: Vital Signs Temp 97.9 F 12/17/21 11:47 Pulse 100 12/17/21 11:47 Resp 17 12/17/21 11:47 BP 114/66 12/17/21 11:47 Pulse Ox 92 L 12/17/21 12:10 FiO2 21 12/09/21 19:39 Intake & Output 12/16/21 12/17/21 12/17/21 18:59 06:59 18:59 Intake Total 240 Output Total 2400 1300 Balance -2400 -1300 240 Intake: Oral 240 Output: Urine 2400 1300 Uretheral (Kearns) 2400 Other: Voiding Method Indwelling Catheter Indwelling Catheter Indwelling Catheter - Exam Gen: AOx3, NAD VSS stable at this time Integument: Postop dressing remained stable at this time Palpation: She demonstrates mild tenderness with palpation to the paraspinal region of the thoracic/lumbar region ROM: Full range of motion in all major muscle groups of bilateral upper extremities Patient continues to demonstrate no motor function in the bilateral lower extremities Sensory Exam: Senory exam to light touch is intact C5-T1 Sensory exam remains intact at the T11 nerve distribution Motor: 55 strength appreciated in the bilateral upper extremities shoulder abduction, full shoulder elevation, elbow extension, elbow flexion, wrist extension, wrist flexion, 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 - Labs CBC & Chem 7: 12/17/21 07:55 12/17/21 07:55 Labs: Abnormal Lab Results - Last 24 Hours (Table) 12/16/21 12/16/21 12/17/21 Range/Units 16:41 19:25 05:38 WBC (3.8-10.6) k/uL RBC (3.80-5.40) m/uL Neutrophils # (1.3-7.7) k/uL Lymphocytes # (1.0-4.8) k/uL Carbon Dioxide (22-30) mmol/L Creatinine (0.52-1.04) mg/dL Glucose (74-99) mg/dL POC Glucose (mg/dL) 170 H 176 H 167 H (70-110) mg/dL 12/17/21 12/17/21 12/17/21 Range/Units 07:55 07:55 11:33 WBC 24.3 H (3.8-10.6) k/uL RBC 3.62 L (3.80-5.40) m/uL Neutrophils # 23.2 H (1.3-7.7) k/uL Lymphocytes # 0.4 L (1.0-4.8) k/uL Carbon Dioxide 35 H (22-30) mmol/L Creatinine 0.42 L (0.52-1.04) mg/dL Glucose 137 H (74-99) mg/dL POC Glucose (mg/dL) 187 H (70-110) mg/dL Assessment and Plan Assessment: Status post T9-L3 decompression with posterior lateral fusion, tumor resection at L1 Metastatic lung carcinoma Other medical comorbidities Plan: Pain control, continue use of current medical regimen DVT prophylaxis per primary medical service Continued continue to monitor surgical dressing, recommend changing every 1-2 days with Optefoam. PT/OT for upper extremity strengthening Continue with current medicines for bowel regimen Other medical specialty recommendations We will continue to follow patient during inpatient stay Time with Patient: Less than 30
[2021-12-17] MEDS: ALBUTEROL NEBULIZED 2.5 MG/3 ML INHALATION PRN ×2 (15:07→21:51)
[2021-12-17 16:38] LABS: Glucose,Whole Blood 574 mg/dL (70-110)
[2021-12-17 16:40] LABS: Glucose,Whole Blood 220 mg/dL (70-110)
[2021-12-17] MEDS: LORazepam 0.5 MG TAB PO SCH ×2 (17:42→23:41)
--- NOTE | 2021-12-17 17:47 | P.PN ---
Subjective Progress Note Date: 12/17/21 Principal diagnosis: Spinal cord compression In f/u today, no changes from last week. No strength in lower extremities, she states she has some tingling sensations in her lower extremities once in a while, she had an episode of hematuria, did have a BM after taking golytely. A bd is still distended, she has some soft foods available to her. Back pain persists. No fever, nausea or vomiting. Her WBC cont to trend upward Objective - Vital Signs Vital signs: Vital Signs Temp 97.9 F 12/17/21 11:47 Pulse 108 H 12/17/21 15:18 Resp 17 12/17/21 11:47 BP 114/66 12/17/21 11:47 Pulse Ox 92 L 12/17/21 12:10 FiO2 21 12/09/21 19:39 Intake & Output 12/16/21 12/17/21 12/17/21 18:59 06:59 18:59 Intake Total 240 Output Total 2400 1300 650 Balance -2400 -1300 -410 Intake: Oral 240 Output: Urine 2400 1300 650 Uretheral ([place]) 2400 Other: Voiding Method Indwelling Catheter Indwelling Catheter Indwelling Catheter - Constitutional General appearance: Present: average body habitus, cooperative, mild distress - EENT Eyes: Present: anicteric sclerae, EOMI ENT: Present: hearing grossly normal - Respiratory Respiratory: bilateral: diminished - Cardiovascular Rhythm: regular Heart sounds: normal: S1, S2 - Peripheral edema leg Peripheral Edema: bilateral: Trace - Gastrointestinal General gastrointestinal: Present: decreased bowel sounds, distended, soft - Neurologic Neurologic Comment(s): BLE unable to move extremities - Psychiatric Psychiatric: Present: A&O x's 3 - Labs CBC & Chem 7: 12/17/21 07:55 12/17/21 07:55 Labs: Abnormal Lab Results - Last 24 Hours (Table) 12/16/21 12/17/21 12/17/21 Range/Units 19:25 05:38 07:55 WBC 24.3 H (3.8-10.6) k/uL RBC 3.62 L (3.80-5.40) m/uL Neutrophils # 23.2 H (1.3-7.7) k/uL Lymphocytes # 0.4 L (1.0-4.8) k/uL Carbon Dioxide (22-30) mmol/L Creatinine (0.52-1.04) mg/dL Glucose (74-99) mg/dL POC Glucose (mg/dL) 176 H 167 H (70-110) mg/dL 12/17/21 12/17/21 12/17/21 Range/Units 07:55 11:33 16:36 WBC (3.8-10.6) k/uL RBC (3.80-5.40) m/uL Neutrophils # (1.3-7.7) k/uL Lymphocytes # (1.0-4.8) k/uL Carbon Dioxide 35 H (22-30) mmol/L Creatinine 0.42 L (0.52-1.04) mg/dL Glucose 137 H (74-99) mg/dL POC Glucose (mg/dL) 187 H 574 H (70-110) mg/dL 12/17/21 Range/Units 16:38 WBC (3.8-10.6) k/uL RBC (3.80-5.40) m/uL Neutrophils # (1.3-7.7) k/uL Lymphocytes # (1.0-4.8) k/uL Carbon Dioxide (22-30) mmol/L Creatinine (0.52-1.04) mg/dL Glucose (74-99) mg/dL POC Glucose (mg/dL) 220 H (70-110) mg/dL Assessment and Plan (1) Spinal cord compression Current Visit: Yes Status: Acute Priority: High Code(s): G95.20 - UNSPECIFIED CORD COMPRESSION SNOMED Code(s): 21958183 (2) Intractable back pain Current Visit: Yes Status: Acute Priority: High Code(s): M54.9 - DORSALGIA, UNSPECIFIED SNOMED Code(s): 141386417 (3) Lung cancer metastatic to bone Current Visit: Yes Status: Acute Priority: High Code(s): C34.90 - MALIGNANT NEOPLASM OF UNSP PART OF UNSP BRONCHUS OR LUNG; C79.51 - SECONDARY MALIGNANT NEOPLASM OF BONE SNOMED Code(s): 001074703 Plan: Pt is s/p extensive spinal surgery for cord compression from malignant tumor. She has not had significant improvement in Motor or neurological sensation of the lower extremities. She is currently on steroids. Cont pain mgmt. I do believe that sometimes anxiety gets the best of her. Did change her PRN Ativan to scheduled. Patient states she finally had a large bowel movement after receiving the GoLYTELY ordered by Surgery. Encouraged pt to take all the scheduled meds for prevention of narcotic-induced constipation, cont aggressive regimen-even after BM, to ensure pt cont to have soft, easily passable bowel movement every 1-3 days. This was reinforced again today. Patient is currently on senna/Colace 2 tablets, twice a day and MiraLAX twice a day. She has milk of magnesia ordered as needed. Would recommend a dose if the patient has not had a bowel movement in 48 hours. I explained to patient how critical it is that she continue this regimen. She verbalized understanding. Her WBC cont to trend upward, she has had no changes in steroids. No fevers. ID following. Pt did have her 1st cycle of libtayo. Patient would be due for cycle 2 in 2 weeks. Patient is now postop. She will not be able to have any treatment for at least 4 weeks. Patient will not have treatment if she is in rehabilitation. I spent greater than 35 minutes with pt and SO. Significant mother has multiple concerns about the patient being discharged to rehabilitation, he also states no one has seen or spoken to him or pt in several days. As our previous discussion the plan was to see how the patient does in rehabilitation, also to see how much he is able to do for the patient. If the patient and her significant other can manage at home then patient can return to home with services such as home care/palliative care. If patient wants, she can continue treatment for cancer, IF she is able to be discharged safely from rehabilitation and go home. If pt does not wish to pursue additional cancer treatment then highly recommend transition to hospice care, when appropriate.
[2021-12-17] MEDS ORDERED: MAGNESIUM CITRATE 296 ML BOTTLE PO PRN (17:48)
[2021-12-17 19:34] LABS: Glucose,Whole Blood 194 mg/dL (70-110)
[2021-12-17] MEDS: traZODone HCL 100 MG TAB PO SCH (20:00)
[2021-12-17] MEDS: HYDROmorphone 1 MG/ML 1 ML SYRINGE IVP PRN (22:19)
[2021-12-17] MEDS: SODIUM CHLORIDE 0.9% 1,000 ML IV SCH (23:43)
[2021-12-18] MEDS: HYDROcodone/APAP 10-325MG 1 EACH TAB PO SCH ×3 (03:42→10:25)
[2021-12-18] MEDS: DEXAMETHASONE SOD PHOSPHATE 4 MG/ML 1 ML VIAL IVP SCH ×2 (04:12→08:55)
[2021-12-18 05:03] VITALS: RESP 18
[2021-12-18 05:54] LABS: Glucose,Whole Blood 231 mg/dL (70-110)
[2021-12-18] MEDS: INSULIN ASPART (NovoLOG) 100 UNIT/ML VIAL SQ SCH (06:10)
[2021-12-18] MEDS: CALCIUM CARB-VIT D 500 MG-5 MCG TAB PO SCH (06:10)
--- NOTE | 2021-12-18 07:19 | P.CONS ---
History of Present Illness - Reason for Consult Consult date: 12/17/21 - History of Present Illness Patient is a 51-year-old female with a past medical history significant for metastatic lung cancer with mets to the spine history of COPD current everyday smoker anxiety depression presenting to the ER for evaluation of bilateral lower extremity weakness patient did have evidence of spinal cord compression secondary to extension of her tumor patient is status post T9-L3 stabilization by orthopedic team, patient was noticed to having increasing shortness of breath over the last 2 to 3 days and getting more hypoxic requiring supplemental oxygen patient also complaining of cough she is mild to moderate intensity with occasional sputum production patient did have a chest x-ray obt ained on 12/16/2021 persistent right hilar mass consistent with neoplasm adenopathy interval development of right lower lobe infiltrate suspicious for pneumonia which could be postobstructive patient was started on Zosyn infectious disease was consulted for further management of antibiotic therapy patient remains to be afebrile during this hospital stay however the patient noticed to have a gradually worsening of her white count she has been in the range of 16,000 since admission however is up to 24.3 as of this morning however the patient is also on Decadron 4 mg IV push every 4 hours Past Medical History Past Medical History: Asthma, Cancer, COPD Additional Past Medical History / Comment(s): Breast cancer, spinal cancer History of Any Multi-Drug Resistant Organisms: MRSA Year Discovered:: 2008 MDRO Source:: jaw, blood Past Surgical History: Tubal Ligation, Uterine Ablation Additional Past Surgical History / Comment(s): Bone marrow aspiration, skin graft at age 17 yrs to forehead Past Anesthesia/Blood Transfusion Reactions: No Reported Reaction Past Psychological History: Anxiety, Bipolar, Depression Additional Psychological History / Comment(s): Pt resides with her spouse. She is independent. Smoking Status: Current every day smoker Past Alcohol Use History: Occasional Additional Past Alcohol Use History / Comment(s): Pt started smoking in 1987 and is a 2 ppd smoker. 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 She has now been sober again for a year. Past Drug Use History: None Reported Additional Drug Use History / Comment(s): . - Past Family History Mother Family Medical History: Cancer Additional Family Medical History / Comment(s): Breast cancer Father Family Medical History: No Reported History Medications and Allergies Home Medications Medication Instructions Recorded Confirmed Type traZODone HCL [Desyrel] 150 mg PO HS 30 Days tab 10/31/20 12/08/21 Rx PARoxetine HCL [Paxil] 60 mg PO DAILY 04/21/21 12/08/21 History Paliperidone [Invega] 6 mg PO DAILY 04/21/21 12/08/21 History lamoTRIgine [LaMICtal] 100 mg PO BID 04/21/21 12/08/21 History Albuterol Nebulized [Ventolin 2.5 mg INHALATION RT-QID PRN 10/18/21 12/08/21 History Nebulized] Albuterol Sulfate [Ventolin HFA] 2 puff INHALATION RT-QID PRN 10/18/21 12/08/21 History Cider Vinegar [Apple Cider Vinegar] 300 mg PO DAILY 10/18/21 12/08/21 History L.acidoph,Paracasei, B.lactis 1 cap PO DAILY 10/18/21 12/08/21 History [Probiotic] Magnesium Oxide [Mag-Ox] 250 mg PO DAILY 10/18/21 12/08/21 History Multivitamins, Thera [Multivitamin 1 tab PO DAILY 10/18/21 12/08/21 History (formulary)] Acetaminophen Tab [Tylenol] 650 mg PO Q6H PRN 10/22/21 12/08/21 History HYDROcodone/APAP 10-325MG [Freeland 1 tab PO Q4H PRN 11/26/21 12/08/21 History 10-325] Varenicline Tartrate 1 mg PO BID 11/26/21 12/08/21 History dexAMETHasone ORAL [Hexadrol] 4 mg PO BID #0 tab 11/28/21 12/08/21 Rx LORazepam [Ativan] 0.5 mg PO TID PRN 12/03/21 12/08/21 History cefUROXime axetiL [Ceftin] 500 mg PO DIRECTED 12/03/21 12/08/21 History Cyclobenzaprine HCl 7.5 mg PO BID PRN 12/08/21 12/08/21 History Morphine Sulfate [Morphine Sulfate 30 mg PO TID 12/08/21 12/08/21 History ER] Allergies Allergy/AdvReac Type Severity Reaction Status Date / Time codeine Allergy Itching Verified 12/10/21 16:19 Physical Exam Vitals: Vital Signs Temp Pulse Pulse Resp BP BP Pulse Ox 12/17/21 08:00 97.9 F 100 17 129/86 95 12/17/21 04:00 111 H 18 109/78 96 12/16/21 23:35 100 18 133/85 94 L 12/16/21 21:00 98 F 80 17 132/83 94 L 12/16/21 16:00 105 H 18 159/79 97 12/16/21 13:40 18 12/16/21 12:00 100 18 116/72 96 Intake and Output 12/16/21 12/17/21 12/17/21 22:59 06:59 14:59 Output Total 800 1300 Balance -800 -1300 Output: Urine 800 1300 Uretheral ([place]) 800 Other: Voiding Method Indwelling Catheter Indwelling Catheter Indwelling Catheter Results CBC & Chem 7: 12/17/21 07:55 12/17/21 07:55 Labs: Abnormal Lab Results - Last 24 Hours (Table) 12/16/21 12/16/21 12/16/21 Range/Units 11:38 16:41 19:25 WBC (3.8-10.6) k/uL RBC (3.80-5.40) m/uL Neutrophils # (1.3-7.7) k/uL Lymphocytes # (1.0-4.8) k/uL Carbon Dioxide (22-30) mmol/L Creatinine (0.52-1.04) mg/dL Glucose (74-99) mg/dL POC Glucose (mg/dL) 195 H 170 H 176 H (70-110) mg/dL 12/17/21 12/17/21 12/17/21 Range/Units 05:38 07:55 07:55 WBC 24.3 H (3.8-10.6) k/uL RBC 3.62 L (3.80-5.40) m/uL Neutrophils # 23.2 H (1.3-7.7) k/uL Lymphocytes # 0.4 L (1.0-4.8) k/uL Carbon Dioxide 35 H (22-30) mmol/L Creatinine 0.42 L (0.52-1.04) mg/dL Glucose 137 H (74-99) mg/dL POC Glucose (mg/dL) 167 H (70-110) mg/dL 12/17/21 Range/Units 11:33 WBC (3.8-10.6) k/uL RBC (3.80-5.40) m/uL Neutrophils # (1.3-7.7) k/uL Lymphocytes # (1.0-4.8) k/uL Carbon Dioxide (22-30) mmol/L Creatinine (0.52-1.04) mg/dL Glucose (74-99) mg/dL POC Glucose (mg/dL) 187 H (70-110) mg/dL Assessment and Plan Plan: 1patient is a 51-year-old female past medical history taken for metastatic lung cancer in this patient with mets to the spine presented to [facility] with weakness lower extremity has been diagnosed with a spinal cord compression s/p stabilization of the spine by orthopedics now developing increasing shortness of breath and hypoxemia with evidence of postobstructive pneumonia on the recent chest x-ray. 2elevated white count which is likely multifactorial more likely steroid related plus minus a component of postobstructive pneumonia. 3we will obtain a sputum for gram stain and culture check a CRP and a procalcitonin level. 4continue the patient on Zosyn 3.375 g every 8 hours. We will follow on clinical condition and cultures to further adjust medication if needed Thank you for this consultation will follow this patient along with you Time with Patient: Greater than 30
[2021-12-18] MEDS: VARENICLINE 1 MG TAB PO SCH (07:30)
[2021-12-18] MEDS: ALBUTEROL NEBULIZED 2.5 MG/3 ML INHALATION PRN (07:36)
[2021-12-18] MEDS: MORPHINE SULFATE ER 30 MG TABLET PO SCH (07:52)
[2021-12-18] MEDS: LORazepam 0.5 MG TAB PO SCH (08:30)
[2021-12-18] MEDS: PIPERACILLIN-TAZOBACTAM 3.375 GM in SODIUM CHLORIDE 0.9% 100 ML IVPB SCH (08:52)
[2021-12-18] MEDS: ENOXAPARIN 40 MG/0.4 ML SYRINGE SQ SCH (08:52)
[2021-12-18] MEDS: polyethylene glycoL 3350 17 GM POWD.PACK PO SCH (08:53)
[2021-12-18] MEDS: LACTOBACILLUS ACIDOPH & BULGAR 1 EACH PACKET PO SCH (08:53)
[2021-12-18] MEDS: SENNOSIDES-DOCUSATE SODIUM 1 EACH TAB PO SCH (08:54)
[2021-12-18] MEDS: lamoTRIgine 100 MG TAB PO SCH (08:55)
[2021-12-18] MEDS: PARoxetine 20 MG TAB PO SCH (08:55)
[2021-12-18] MEDS: MULTIVITAMINS, THERA 1 EACH TAB PO SCH (08:55)
[2021-12-18] MEDS: MAGNESIUM OXIDE 400 MG TAB PO SCH (08:55)
[2021-12-18] MEDS: LIDOCAINE 5% PATCH TOPICAL SCH (08:56)
[2021-12-18] MEDS: PALIPERIDONE 6 MG TAB.ER.24 PO SCH (08:57)
[2021-12-18] MEDS: ZINC OXIDE 20% OINT 28.4 GM TUBE TOPICAL SCH (08:58)
[2021-12-18] MEDS ORDERED: LORazepam 1 MG/0.5 ML VIAL IV PRN (10:18)
[2021-12-18 10:26] VITALS: BP 153/75; PULSE 105; TEMP 98
--- NOTE | 2021-12-18 10:39 | P.PN ---
Subjective Progress Note Date: 12/17/21 Patient is a 51-year-old female with a known history of metastatic lung cancer with mets to spine, asthma/COPD and current everyday smoker, anxiety/depression bipolar disorder and other medical problems presents to ER with complaints of bilateral lower extremity weakness. Patient states that she woke up in the morning and unable to move her legs. Patient also complaining of numbness. No bladder or bowel incontinence. No saddle anesthesia. Patient is having indwelling Kearns catheter. Patient was recently admitted to the hospital due to severe back pain due to metastatic lesions. Patient had MRI of the lumbar and thoracic spine was done recently. Radiation oncology has seen the patient and is scheduled for radiation on Friday morning. Patient had simulation done while in the hospital. X-ray of the lumbar spine showed no acute fracture. Multilevel disc disc degeneration. L1 vertebral body metastatic lesion not well appreciated. EKG showed sinus tachycardia Laboratory data showed WBC 16.6 hemoglobin 13.1 and platelets 7.8 Sodium 136 potassium 3.8 chloride 99 bicarb is 32 BUN 23 and creatinine 0.62 12/09/2021 Patient is still complaining of back pain and numbness and weakness in bilateral lower extremities. Afebrile. No complaints of chest pain or worsening shortness of breath. Patient is very anxious. No nausea vomiting or abdominal pain or diarrhea. Patient was seen by orthopedic surgery and is planning for [address] of the thoracic and lumbar spine showed large destructive lesion in the L1 vertebral body extending into the pedicles and face and joints and lamina related to metastatic disease. No change compared to recent exam. Bilateral hydronephrosis and demanding. Likely related to bladder obstruction. Dilated urinary bladder. Bladder extended up to L4 level. Kearns catheter will be inserted. Laboratory data showed WBC 16.7 hemoglobin 9.8 and platelets 326 Sodium 139 potassium 4.4 III bicarb is 24.7 BUN 18 and creatinine 0.6 and blood sugar 122. 12/11/21 patient seen and examined. Still having back pain. Denies any chest pain. Heart rate was elevated could be secondary to pain. Denies any nausea. Vital signs stable 12/12/21. Patient seen and examined. Patient was very tearful. Discussed with patient regarding her present condition, answered all questions. Patient has not had a bowel movement yet. Patient also has no sensations below her umbilicus area. Still has a drain in place 12/13/21. Patient seen and examined. Patient continues to have constipation. X-ray abdominal done yesterday showed significant stool burden and Ileus. Patient unable to tell us if she is passing gas. WBC this morning is 19.5. Patient is hemodynamically stable. 12/14/21. Patient seen and examined. Still hasn't had a bowel movement yet. Currently on clear liquid diet. Denies any abdominal pain. Unable to tell if she is passing gas. Back pain under control with pain medications. Resume care of the patient today 12/15/2021 This is a pleasant 51 years old female with the septic lung cancer to the spine presents with signs symptoms of cord compression secondary to extension, status post spinal tumor excision and to T9-L3 stabilization by orthopedic team. Patient still have no sensation or movement in her both lower extremities since surgery. Orthopedic team on the case and her pain is controlled and she was cleared for discharge to rehab by orthopedic team today. She remains on IV Decadron 6 mg every 6 hours. Also she's been followed closely by surgery team for ileus. She is on liquid diet and she has several bowel movements today. Her diet will be advanced. Patient is agreeable to go to rehab when I ask her today. On admission her chest x-ray showed atelectasis and the recommended follow-up, repeat chest x-ray tomorrow 12/16/2021 Patient is awake and alert, generally lethargic. She is gradually getting more hypoxic over several days 3-4 L/m via nasal cannula, today her oxygen requirement went up to 5 L/m Chest x-ray done today showing evidence of right lung mass versus lymphadenopathy consistent with her history of metastatic right lung cancer however there is evidence of postobstructive pneumonia We will start patient on Zosyn with close monitoring. Continue with breathing treatment and incentive spirometry. Also her back pain that looks controlled. She has persistent paraplegia and loss of sensation in the lower extremities since admission and after the surgery however orthopedic team. The patient for discharge to rehab. Discussed with staff to touch base with orthopedic team about her steroid management, currently she remains on Decadron 6 mg IV every 4 hours there was concern about hematuria last night, Kearns catheter was placed, this morning patient has no urinary symptoms, no suprapubic tenderness and the Kearns catheter is draining clear urine. Other than that no new complaint and she is hemodynamically stable. She has evidence of leukocytosis and mild anemia. WBC is 22,000 yesterday. Glucose controlled/ 12/17/2021 Patient is currently regular. Seems to be short of breath and in mild distress and anxious. Requiring high flow oxygen. Ileus and constipation has resolved and patient is having multiple bowel movements. Denies any nausea or vomiting. Patient is complaining of soreness at the buttocks and excoriation of the skin was noted. Patient is still having back pain and generalized pain. Due to metastatic cancer and multiple complications, discussed CODE STATUS with the patient and her . Laboratory data showed WBC 24.3. Due to worsening leukocytosis ID was consulted and patient is being current on antibiotics in the form of Zosyn. Hemoglobin level 0.4 and platelets 251 Sodium 137 potassium 4.4 chloride 98 bicarb is 35 BUN 16 and creatinine 0.412 blood sugar 137 calcium 8.5. Current medications reviewed. Objective - Vital Signs Vital signs: Vital Signs Temp 97.9 F 12/17/21 08:00 Pulse 100 12/17/21 08:00 Resp 17 12/17/21 08:00 BP 129/86 12/17/21 08:00 Pulse Ox 95 12/17/21 08:00 FiO2 21 12/09/21 19:39 Intake & Output 12/16/21 12/17/21 12/17/21 18:59 06:59 18:59 Output Total 2400 1300 Balance -2400 -1300 Output: Urine 2400 1300 Uretheral ([facility]) 2400 Other: Voiding Method Indwelling Catheter Indwelling Catheter Indwelling Catheter - Exam - Exam GENERAL: The patient is alert and oriented x3, not in any acute distress. Well developed, well nourished. HEENT: Pupils are round and equally reacting to light. EOMI. No scleral icterus. No conjunctival pallor. Normocephalic, atraumatic. No pharyngeal erythema. No thyromegaly. CARDIOVASCULAR: S1 and S2 present. No murmurs, rubs, or gallops. PULMONARY: Patient does have bilateral coarse breath sounds and scattered crackles. Diminished basilar breath sounds.. ABDOMEN: Soft, nontender, nondistended, normoactive bowel sounds. No palpable organomegaly. MUSCULOSKELETAL: No joint swelling or deformity. EXTREMITIES: No cyanosis, clubbing, or pedal edema. -NEUROLOGICAL: Sebastian nerves are grossly intact. Patient has severe paraplegia (she cannot move her lower extremities) and sensory loss of both lower extremities. SKIN: No rashes. no petechiae. - Labs - Labs CBC & Chem 7: 12/17/21 07:55 12/17/21 07:55 Labs: Abnormal Lab Results - Last 24 Hours (Table) 12/16/21 12/16/21 12/16/21 Range/Units 11:38 16:41 19:25 WBC (3.8-10.6) k/uL RBC (3.80-5.40) m/uL Neutrophils # (1.3-7.7) k/uL Lymphocytes # (1.0-4.8) k/uL Carbon Dioxide (22-30) mmol/L Creatinine (0.52-1.04) mg/dL Glucose (74-99) mg/dL POC Glucose (mg/dL) 195 H 170 H 176 H (70-110) mg/dL 12/17/21 12/17/21 12/17/21 Range/Units 05:38 07:55 07:55 WBC 24.3 H (3.8-10.6) k/uL RBC 3.62 L (3.80-5.40) m/uL Neutrophils # 23.2 H (1.3-7.7) k/uL Lymphocytes # 0.4 L (1.0-4.8) k/uL Carbon Dioxide 35 H (22-30) mmol/L Creatinine 0.42 L (0.52-1.04) mg/dL Glucose 137 H (74-99) mg/dL POC Glucose (mg/dL) 167 H (70-110) mg/dL Assessment and Plan Assessment: Right lower lobe postobstructive hospital-acquired pneumonia Acute hypoxic respiratory failure Spinal cord compression secondary to metastatic lung cancer status post tumor excision and stabilization of T9-L3 vertebrae. 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 Status post Kearns catheter placement. 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 anxiety and depression bipolar disorder, no connective tissue History of asthma Plan: This is a pleasant 51 years old with metastatic lung cancer to the spine status post surgical excision Started on Zosyn Continue with Kearns catheter Continue with pain medication Continue with steroids, follow-up with orthopedic team about the planned with sterile treatment Orthopedic team to the patient for discharge Diet as tolerated, surgery team on the case Follow-up with hematology/oncology team as an outpatient Labs and medication were reviewed.. Continue with symptomatic treatment. DVT prophylaxis: Subcutaneous heparin GI Prophylaxis: Ppi PT/OT: Subacute rehab Prognosis is guarded Time with Patient: Greater than 30
[2021-12-18 11:34] LABS: Glucose,Whole Blood 148 mg/dL (70-110)
[2021-12-18] MEDS ORDERED: BENZONATATE 100 MG CAP PO PRN (11:50)
--- NOTE | 2021-12-18 12:35 | P.PN ---
Subjective Progress Note Date: 12/18/21 CHIEF COMPLAINT: Bilateral lower extremity weakness HISTORY OF PRESENT ILLNESS: Surgical service is following regards to patient's constipation and ileus. Patient has been having bowel movements. She denies any nausea vomiting. She is eating a small amount of the low fiber diet. She does continue to have some left sided abdominal pain. Afebrile. Mild tachycardia. She's on 5 L high flow oxygen satting 84% PHYSICAL EXAM: VITAL SIGNS: Reviewed. GENERAL: Well-developed in no acute distress. HEENT: No sclera icterus. Extraocular movements grossly intact. Moist buccal mucosa. Head is atraumatic, normocephalic. ABDOMEN: Soft. Mildly distended. Mild tenderness to palpation left-sided abdo men NEUROLOGIC: Alert and oriented. Cranial nerves II through XII grossly intact. ASSESSMENT: 1. Postoperative ileus 2. Constipation 3. Status post spinal surgery 4. Metastatic lung cancer with metastatic disease to spine PLAN: -Continue low fiber diet -Apply zinc oxide to buttocks area to protect skin -Continue MiraLAX and stool softener for now -Continue milk of mag PRN Physician Last Model Maker note has been reviewed by physician. Signing provider agrees with the documented findings, assessment, and plan of care. I have personally seen and examined the patient, reviewed the [employer] E[employer]IPMENT SALESPERSON /PAs history, exam and MDM and agree with the assessment and plan as written. Based on total visit time, I have performed more than 50% of the visit. As above: Patient has had some decline from a pulmonary status. Patient and family now are apparently leaning towards hospice measures. Continue stool so fteners for now. Will follow. Objective - Vital Signs Vital signs: Vital Signs Temp 98.0 F 12/18/21 08:00 Pulse 105 H 12/18/21 08:00 Resp 18 12/18/21 08:00 BP 153/75 12/18/21 08:00 Pulse Ox 93 L 12/18/21 11:30 FiO2 21 12/09/21 19:39 Intake & Output 12/17/21 12/18/21 12/18/21 18:59 06:59 18:59 Intake Total 240 240 Output Total 650 1175 Balance -410 -1175 240 Intake: Oral 240 240 Output: Urine 650 1175 Other: Voiding Method Indwelling Catheter Indwelling Catheter Indwelling Catheter - Labs CBC & Chem 7: 12/17/21 07:55 12/17/21 07:55 Labs: Abnormal Lab Results - Last 24 Hours (Table) 12/17/21 12/17/21 12/17/21 Range/Units 16:36 16:38 19:31 POC Glucose (mg/dL) 574 H 220 H 194 H (70-110) mg/dL 12/18/21 12/18/21 Range/Units 05:49 11:33 POC Glucose (mg/dL) 231 H 148 H (70-110) mg/dL Microbiology - Last 24 Hours (Table) 12/17/21 15:11 Gram Stain - Preliminary Sputum Sputum Culture - Preliminary
[2021-12-18] MEDS: HYDROmorphone 1 MG/ML 1 ML SYRINGE IVP PRN (12:38)
--- NOTE | 2021-12-18 16:45 | P.PN ---
Subjective Progress Note Date: 12/18/21 Principal diagnosis: Spinal cord compression In f/u today, Patient continues to struggle with her diagnosis. Secondary to her frontal head injury she does have difficulty with short-term memory, and her ability to manage pain and anxiety. Her is at the bedside today. They requested yesterday another family meeting Objective - Vital Signs Vital signs: Vital Signs Temp 98.0 F 12/18/21 08:00 Pulse 105 H 12/18/21 08:00 Resp 18 12/18/21 08:00 BP 153/75 12/18/21 08:00 Pulse Ox 91 L 12/18/21 08:00 FiO2 21 12/09/21 19:39 Intake & Output 12/17/21 12/18/21 12/18/21 18:59 06:59 18:59 Intake Total 240 240 Output Total 650 1175 Balance -410 -1175 240 Intake: Oral 240 240 Output: Urine 650 1175 Other: Voiding Method Indwelling Catheter Indwelling Catheter Indwelling Catheter - Constitutional General appearance: Present: average body habitus, cooperative, disheveled, mild distress - EENT Eyes: Present: anicteric sclerae ENT: Present: hearing grossly normal - Respiratory Details: resp shallow, mildly labored at rest - Peripheral edema leg Peripheral Edema: bilateral: Trace - Gastrointestinal General gastrointestinal: Present: distended - Neurologic Neurologic: Present: focal deficits - Psychiatric Psychiatric Comment(s): Tearful, confused at times, Cannot remember recent conversations Psychiatric: Present: A&O x's 3. Absent: appropriate affect, intact judgment & insight - Labs CBC & Chem 7: 12/17/21 07:55 12/17/21 07:55 Labs: Abnormal Lab Results - Last 24 Hours (Table) 12/17/21 12/17/21 12/17/21 Range/Units 11:33 16:36 16:38 POC Glucose (mg/dL) 187 H 574 H 220 H (70-110) mg/dL 12/17/21 12/18/21 Range/Units 19:31 05:49 POC Glucose (mg/dL) 194 H 231 H (70-110) mg/dL Microbiology - Last 24 Hours (Table) 12/17/21 15:11 Gram Stain - Preliminary Sputum Sputum Culture - Preliminary Assessment and Plan (1) Spinal cord compression Status: Acute Priority: High Code(s): G95.20 - UNSPECIFIED CORD COMPRESSION SNOMED Code(s): 22726448 (2) Intractable back pain Status: Acute Priority: High Code(s): M54.9 - DORSALGIA, UNSPECIFIED SNOMED Code(s): 046837440 (3) Lung cancer metastatic to bone Status: Acute Priority: High Code(s): C34.90 - MALIGNANT NEOPLASM OF UNSP PART OF UNSP BRONCHUS OR LUNG; C79.51 - SECONDARY MALIGNANT NEOPLASM OF BONE SNOMED Code(s): 450969157 Plan: I spent greater than 35 minutes with pt and SO again today. Patient and her significant other were presented with the options for treatment as have been previously described, Including the option of hospice care. Significant other does state today that he recognizes that he is not going to be able to care for patient at home. Patient stated feeling hopeless. It was reinforced that opting to be kept comfortable is something to be hopeful for. Choosing hospice is a very reasonable option considering her condition. Patient has struggled since diagnosis. Patient states that he wants to talk to her and clarify with going on before making any decisions. Patient and her 's questions were answered to their satisfaction. Case was discussed with Nursing and National Business Director. Anxiety and pain medications adjusted with the intent of comfort in mind. Transition to hospice based on patient and her 's discussion, they will communicate with nursing. attests: I have seen and examined patient, performed H&P, developed impression and plan of care. Discussed with dictator. Agree with documentation, dictated as a scribe Time with Patient: Greater than 30
--- NOTE | 2021-12-26 00:13 | P.DS ---
Providers Date of admission: 12/08/21 11:15 Expected date of discharge: 12/18/21 Attending physician: Gayle Shrestha Consults: 12/08/21 11:11 Consult Physician Routine Consulting Provider: Gilberto Coleman Consult Reason/Comments: Stage IV metastatic cancer Do you want consulting provider notified?: Yes Consult Physician Urgent Consulting Provider: Иван Hercules Consult Reason/Comments: Metastatic cancer, back pain, bilateral lower extremity weakness Do you want consulting provider notified?: Already Contacted 12/12/21 18:07 Consult Physician Routine Consulting Provider: Michael Fung Consult Reason/Comments: ileus Do you want consulting provider notified?: Yes 12/17/21 10:50 Consult Physician Routine Consulting Provider: Roberta Lowe Consult Reason/Comments: post obstructive Pneumonia Do you want consulting provider notified?: Yes 12/18/21 10:18 Consult to Palliative Care Urgent Consulting Provider: Kenia Cleveland Consult Reason/Comments: discussing hospice with family,. cancer, family unable to decide Do you want consulting provider notified?: Yes Primary care physician: Stated None Hospital Course: Discharge diagnosis Right lower lobe postobstructive hospital-acquired pneumonia Acute hypoxic respiratory failure Spinal cord compression secondary to metastatic lung cancer status post tumor excision and stabilization of T9-L3 vertebrae. 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 Status post Kearns catheter placement. 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 anxiety and depression bipolar disorder, no connective tissue History of asthma Hospital course Patient is a 51-year-old female with a known history of metastatic lung cancer with mets to spine, asthma/COPD and current everyday smoker, anxiety/depression bipolar disorder and other medical problems presents to ER with complaints of bilateral lower extremity weakness. Patient states that she woke up in the morning and unable to move her legs. Patient also complaining of numbness. No bladder or bowel incontinence. No saddle anesthesia. Patient is having indwelling Kearns catheter. Patient was recently admitted to the hospital due to severe back pain due to metastatic lesions. Patient had MRI of the lumbar and thoracic spine was done recently. Radiation oncology has seen the patient and is scheduled for radiation on Friday morning. Patient had simulation done while in the hospital. X-ray of the lumbar spine showed no acute fracture. Multilevel disc disc degeneration. L1 vertebral body metastatic lesion not well appreciated. EKG showed sinus tachycardia Laboratory data showed WBC 16.6 hemoglobin 13.1 and platelets 7.8 Sodium 136 potassium 3.8 chloride 99 bicarb is 32 BUN 23 and creatinine 0.62 12/09/2021 Patient is still complaining of back pain and numbness and weakness in bilateral lower extremities. Afebrile. No complaints of chest pain or worsening shortness of breath. Patient is very anxious. No nausea vomiting or abdominal pain or diarrhea. Patient was seen by orthopedic surgery and is planning for [address] of the thoracic and lumbar spine showed large destructive lesion in the L1 vertebral body extending into the pedicles and face and joints and lamina related to metastatic disease. No change compared to recent exam. Bilateral hydronephrosis and demanding. Likely related to bladder obstruction. Dilated urinary bladder. Bladder extended up to L4 level. Kearns catheter will be inserted. Laboratory data showed WBC 16.7 hemoglobin 9.8 and platelets 326 Sodium 139 potassium 4.4 III bicarb is 24.7 BUN 18 and creatinine 0.6 and blood sugar 122. 12/11/21 patient seen and examined. Still having back pain. Denies any chest pain. Heart rate was elevated could be secondary to pain. Denies any nausea. Vital signs stable 12/12/21. Patient seen and examined. Patient was very tearful. Discussed with patient regarding her present condition, answered all questions. Patient has not had a bowel movement yet. Patient also has no sensations below her umbilicus area. Still has a drain in place 12/13/21. Patient seen and examined. Patient continues to have constipation. X-ray abdominal done yesterday showed significant stool burden and Ileus. Patient unable to tell us if she is passing gas. WBC this morning is 19.5. Patient is hemodynamically stable. 12/14/21. Patient seen and examined. Still hasn't had a bowel movement yet. Currently on clear liquid diet. Denies any abdominal pain. Unable to tell if she is passing gas. Back pain under control with pain medications. Resume care of the patient today 12/15/2021 This is a pleasant 51 years old female with the septic lung cancer to the spine presents with signs symptoms of cord compression secondary to extension, status post spinal tumor excision and to T9-L3 stabilization by orthopedic team. Patient still have no sensation or movement in her both lower extremities since surgery. Orthopedic team on the case and her pain is controlled and she was cleared for discharge to rehab by orthopedic team today. She remains on IV Decadron 6 mg every 6 hours. Also she's been followed closely by surgery team for ileus. She is on liquid diet and she has several bowel movements today. Her diet will be advanced. Patient is agreeable to go to rehab when I ask her today. On admission her chest x-ray showed atelectasis and the recommended follow-up, repeat chest x-ray tomorrow 12/16/2021 Patient is awake and alert, generally lethargic. She is gradually getting more hypoxic over several days 3-4 L/m via nasal cannula, today her oxygen requirement went up to 5 L/m Chest x-ray done today showing evidence of right lung mass versus lymphadenopathy consistent with her history of metastatic right lung cancer however there is evidence of postobstructive pneumonia We will start patient on Zosyn with close monitoring. Continue with breathing treatment and incentive spirometry. Also her back pain that looks controlled. She has persistent paraplegia and loss of sensation in the lower extremities since admission and after the surgery however orthopedic team. The patient for discharge to rehab. Discussed with staff to touch base with orthopedic team about her steroid management, currently she remains on Decadron 6 mg IV every 4 hours there was concern about hematuria last night, Kearns catheter was placed, this morning p atient has no urinary symptoms, no suprapubic tenderness and the Kearns catheter is draining clear urine. Other than that no new complaint and she is hemodynamically stable. She has evidence of leukocytosis and mild anemia. WBC is 22,000 yesterday. Glucose controlled/ 12/17/2021 Patient is currently regular. Seems to be short of breath and in mild distress and anxious. Requiring high flow oxygen. Ileus and constipation has resolved and patient is having multiple bowel movements. Denies any nausea or vomiting. Patient is complaining of soreness at the buttocks and excoriation of the skin was noted. Patient is still having back pain and generalized pain. Due to metastatic cancer and multiple complications, discussed CODE STATUS with the patient and her . Laboratory data showed WBC 24.3. Due to worsening leukocytosis ID was consulted and patient is being current on antibiotics in the form of Zosyn. Hemoglobin level 0.4 and platelets 251 Sodium 137 potassium 4.4 chloride 98 bicarb is 35 BUN 16 and creatinine 0.412 blood sugar 137 calcium 8.5. 12/18/2021 patient is currently lying in bed. Awake alert but seems to be distressed due to shortness of breath. Complains of pain and also requiring high flow oxygen at 6 to 10 L via nasal cannula. Patient is being followed antibiotics and pain management. Followed by oncology, general surgery 8 ID at this time. No complaints of chest pain. No nausea or vomiting. Not able to eat oral diet and loss of appetite. Continues to have left-sided abdominal pain. Also complains of back pain. Due to worsening clinical status and underlying metastatic lung cancer patient and her decided to go with comfort care/hospice care and hospice care was consulted./ - Exam GENERAL: The patient is alert and oriented x3, acute distress due to CHELSY. Well developed, well nourished. HEENT: Pupils are round and equally reacting to light. EOMI. No scleral icterus. No conjunctival pallor. Normocephalic, atraumatic. No pharyngeal erythema. No thyromegaly. CARDIOVASCULAR: S1 and S2 present. No murmurs, rubs, or gallops. PULMONARY: Patient does have bilateral coarse breath sounds and scattered crackles. Diminished basilar breath sounds.. ABDOMEN: Soft, nontender, nondistended, normoactive bowel sounds. No palpable organomegaly. MUSCULOSKELETAL: No joint swelling or deformity. EXTREMITIES: No cyanosis, clubbing, or pedal edema. -NEUROLOGICAL: Sebastian nerves are grossly intact. Patient has severe paraplegia (she cannot move her lower extremities) and sensory loss of both lower extremities. SKIN: No rashes. no petechiae. Vital signs: Vital Signs Temp 98.0 F 12/18/21 08:00 Pulse 105 H 12/18/21 08:00 Resp 18 12/18/21 08:00 BP 153/75 12/18/21 08:00 Pulse Ox 93 L 12/18/21 11:30 FiO2 21 12/09/21 19:39 Intake & Output 12/17/21 12/18/21 12/18/21 18:59 06:59 18:59 Intake Total 240 240 Output Total 650 1175 Balance -410 -1175 240 Intake: Oral 240 240 Output: Urine 650 1175 Other: Voiding Method Indwelling Catheter Indwelling Catheter Indwelling Catheter Time taking greater than 35 minutes in patient care out of which more than 50% was spent counseling and coordination of care. Patient Condition at Discharge: Serious Plan - Discharge Summary New Discharge Prescriptions: No Action traZODone HCL [Desyrel] 150 mg PO HS 30 Days tab Magnesium Oxide [Mag-Ox] 250 mg PO DAILY Cider Vinegar [Apple Cider Vinegar] 300 mg PO DAILY Albuterol Sulfate [Ventolin HFA] 2 puff INHALATION RT-QID PRN PRN Reason: Shortness Of Breath Albuterol Nebulized [Ventolin Nebulized] 2.5 mg INHALATION RT-QID PRN PRN Reason: Shortness Of Breath Acetaminophen Tab [Tylenol] 650 mg PO Q6H PRN PRN Reason: Mild Pain Or Fever > 100.5 HYDROcodone/APAP 10-325MG [[place] 10-325] 1 tab PO Q4H PRN PRN Reason: Pain dexAMETHasone ORAL [Hexadrol] 4 mg PO BID #0 tab LORazepam [Ativan] 0.5 mg PO TID PRN PRN Reason: Anxiety Cyclobenzaprine HCl 7.5 mg PO BID PRN PRN Reason: Muscle Pain lamoTRIgine [LaMICtal] 100 mg PO BID Paliperidone [Invega] 6 mg PO DAILY PARoxetine HCL [Paxil] 60 mg PO DAILY Multivitamins, Thera [Multivitamin (formulary)] 1 tab PO DAILY L.acidoph,Paracasei, B.lactis [Probiotic] 1 cap PO DAILY Varenicline Tartrate 1 mg PO BID cefUROXime axetiL [Ceftin] 500 mg PO DIRECTED Morphine Sulfate [Morphine Sulfate ER] 30 mg PO TID Discharge Medication List traZODone HCL [Desyrel] 150 mg PO HS 30 Days tab 10/31/20 [Rx] PARoxetine HCL [Paxil] 60 mg PO DAILY 04/21/21 [History] Paliperidone [Invega] 6 mg PO DAILY 04/21/21 [History] lamoTRIgine [LaMICtal] 100 mg PO BID 04/21/21 [History] Albuterol Nebulized [Ventolin Nebulized] 2.5 mg INHALATION RT-QID PRN 10/18/21 [History] Albuterol Sulfate [Ventolin HFA] 2 puff INHALATION RT-QID PRN 10/18/21 [History] Cider Vinegar [Apple Cider Vinegar] 300 mg PO DAILY 10/18/21 [History] L.acidoph,Paracasei, B.lactis [Probiotic] 1 cap PO DAILY 10/18/21 [History] Magnesium Oxide [Mag-Ox] 250 mg PO DAILY 10/18/21 [History] Multivitamins, Thera [Multivitamin (formulary)] 1 tab PO DAILY 10/18/21 [History] Acetaminophen Tab [Tylenol] 650 mg PO Q6H PRN 10/22/21 [History] HYDROcodone/APAP 10-325MG [[place] 10-325] 1 tab PO Q4H PRN 11/26/21 [History] Varenicline Tartrate 1 mg PO BID 11/26/21 [History] dexAMETHasone ORAL [Hexadrol] 4 mg PO BID #0 tab 11/28/21 [Rx] LORazepam [Ativan] 0.5 mg PO TID PRN 12/03/21 [History] cefUROXime axetiL [Ceftin] 500 mg PO DIRECTED 12/03/21 [History] Cyclobenzaprine HCl 7.5 mg PO BID PRN 12/08/21 [History] Morphine Sulfate [Morphine Sulfate ER] 30 mg PO TID 12/08/21 [History] Follow up Appointment(s)/Referral(s): None,Stated [Primary Care Provider] - 1-2 days Иван Hercules DO [Doctor of Osteopathic Medicine] - 1 Week Patient Instructions/Handouts: Bladder Management Program After Spinal Cord Injury (ED), Bladder Management Program After Spinal Cord Injury (DC), Bladder Management Program After Spinal Cord Injury (GEN), Neurogenic Bowel After Spinal Cord Injury (DC), Neurogenic Bowel After Spinal Cord Injury (GEN), Depression A fter Spinal Cord Injury (GEN), Sexual Function in Women After Spinal Cord Injury (DC), Sexual Function in Women After Spinal Cord Injury (GEN), Skin Care After Spinal Cord Injury (ED), Skin Care After Spinal Cord Injury (DC), Skin Care After Spinal Cord Injury (GEN), Bowel Management Program After Spinal Cord Injury (DC), Bowel Management Program After Spinal Cord Injury (GEN), Contracture Prevention After Spinal Cord Injury (DC), Contracture Prevention After Spinal Cord Injury (GEN) Discharge Disposition: DISCH TO [facility]
== END 2021-12-18 12:42 | disposition hospice, inpatient (51) | DRG 456 ==
LOC: EC 09:30 → 5NMEDONC 11:15 → 3SCARD 12-10 22:13
PROVIDERS: ADMIT Internal Medicine; ATTEND Internal Medicine
PROC: 4A1004G Monitoring of Central Nervous Electrical Activity, Intraoperative, Open Approach (ICD-10-PCS; principal; 2021-12-11)
PROC: 0RG70K1 Fusion of 2 to 7 Thoracic Vertebral Joints with Nonautologous Tissue Substitute, Posterior Approach, Posterior Column, Open Approach (ICD-10-PCS; principal; 2021-12-11)
PROC: 0SG10K1 Fusion of 2 or more Lumbar Vertebral Joints with Nonautologous Tissue Substitute, Posterior Approach, Posterior Column, Open Approach (ICD-10-PCS; principal; 2021-12-11)
PROC: 0QB00ZZ Excision of Lumbar Vertebra, Open Approach (ICD-10-PCS; principal; 2021-12-11)
PROC: 8E0WXBF Computer Assisted Procedure of Trunk Region, With Fluoroscopy (ICD-10-PCS; principal; 2021-12-11)
PROC: 00BY0ZZ Excision of Lumbar Spinal Cord, Open Approach (ICD-10-PCS; principal; 2021-12-11)
PROC: 0QU00JZ Supplement Lumbar Vertebra with Synthetic Substitute, Open Approach (ICD-10-PCS; principal; 2021-12-11)
PROC: 0RGA0K1 Fusion of Thoracolumbar Vertebral Joint with Nonautologous Tissue Substitute, Posterior Approach, Posterior Column, Open Approach (ICD-10-PCS; principal; 2021-12-11)
PROC: 00BX0ZZ Excision of Thoracic Spinal Cord, Open Approach (ICD-10-PCS; principal; 2021-12-11)
DX: C79.51 Secondary malignant neoplasm of bone (principal); J18.8 Other pneumonia, unspecified organism; G95.29 Other cord compression; C34.90 Malignant neoplasm of unspecified part of unspecified bronchus or lung; J44.0 Chronic obstructive pulmonary disease with (acute) lower respiratory infection; K56.7 Ileus, unspecified; K59.2 Neurogenic bowel, not elsewhere classified; N13.30 Unspecified hydronephrosis; G82.20 Paraplegia, unspecified; Z51.5 Encounter for palliative care; M48.04 Spinal stenosis, thoracic region; G89.3 Neoplasm related pain (acute) (chronic); G90.4 Autonomic dysreflexia; F31.9 Bipolar disorder, unspecified; Z66 Do not resuscitate; F41.9 Anxiety disorder, unspecified; I10 Essential (primary) hypertension; F17.210 Nicotine dependence, cigarettes, uncomplicated; E86.0 Dehydration; D64.9 Anemia, unspecified; F10.11 Alcohol abuse, in remission; K76.9 Liver disease, unspecified; R29.6 Repeated falls; R59.9 Enlarged lymph nodes, unspecified; R15.9 Full incontinence of feces; R31.9 Hematuria, unspecified; N31.9 Neuromuscular dysfunction of bladder, unspecified; R33.9 Retention of urine, unspecified; N32.0 Bladder-neck obstruction; R09.02 Hypoxemia; S09.90XS Unspecified injury of head, sequela; R41.3 Other amnesia; Z91.81 History of falling; W17.89XD Other fall from one level to another, subsequent encounter; Y95 Nosocomial condition; Z79.899 Other long term (current) drug therapy; Z80.3 Family history of malignant neoplasm of breast; Z85.3 Personal history of malignant neoplasm of breast; Z28.311 Partially vaccinated for COVID-19; Z88.5 Allergy status to narcotic agent; Z92.3 Personal history of irradiation; Z86.14 Personal history of Methicillin resistant Staphylococcus aureus infection
CPT/HCPCS: 36415; 71045; 71046; 72070; 72110; 72128; 72131; 74018; 74019; 80048; 80053; 81025; 83605; 83735; 84145; 85025; 85027; 86850; 86900; 86901; 87070; 87205; 88307; 88311; 88341; 88342; 93005; 94640; 94760; 96361; 96374; 96375; 99285